=== PATIENT | female | born 1955 | race Caucasian/White ===

== ENCOUNTER 2019-05-29 13:44 | Inpatient (IN) | payer MEDICARE, SELFPAY ==
[2019-05-29] VITALS (17 sets, daily range): BP systolic 94–151; BP diastolic 59–99; PULSE 75–101; RESP 14–28; TEMP 36.9; O2SAT 87–97; BMI 37.2
--- NOTE | 2019-05-29 14:44 | ED_ITS ---
Entered by Yaneli Haas, acting as scribe for Tiffanie Duncan MD, [facility] May 29, 2019 13:44 HPI - SOB/Dyspnea General: Chief Complaint: Shortness of Breath/Dyspnea Stated Complaint: Hypoxia, SOB Time Seen by Provider: 05/29/19 14:44 Source: patient Mode of arrival: EMS Limitations: no limitations History of Present Illness: HPI Narrative: 63 yo f came to the er by ems for shortness of breath. Onset was today. Pt states that her o2 dropped down a lot and her lip started to turn blue. Pt states that she has been coughing and having a tight feeling in her chest. Pts family states that she has vascular dementia. She has a history of COPD on home oxygen at 3 L per MD elicited complaint: shortness of breath and cough Pertinent past history: COPD Timing: constant Severity: moderate Exacerbating factors: nothing Relieving factors: oxygen Known history of: COPD Associated symptoms: Deny abdominal pain, chest pain, fever(s) or polyuria Related Data: Home oxygen amount: 3 liters Review of Systems General: Reports: 10 or more systems reviewed and unremarkable except in HPI and below Const: Denies: fever Eyes: Denies: change in vision ENMT: Denies: throat pain Card: Denies: chest pain Resp: Reports: shortness of breath, productive cough and wheezing GI: Denies: abdominal pain : Denies: flank pain Musc: Denies: neck pain Skin/Breast: Denies: rash Neuro: Denies: headache Psych: Denies: anxiety Endo: Denies: excessive urination Car/Lymph: Denies: easy bruising All/Imm: Denies: hives PFSH ED PFSH: Statuses (acute, chronic, etc) shown below reflect problem list status as previously entered and may not be historically accurate Medical History (Updated 05/30/19 @ 00:43 by Tiffanie Duncan MD, [facility] [place]) Chronic anemia (Acute) Chronic diastolic CHF (congestive heart failure) (Acute) CKD (chronic kidney disease), stage II (Acute) COPD (chronic obstructive pulmonary disease) (Acute) Hypertension (Acute) Morbid obesity (Acute) Pulmonary embolism (Acute) Vascular dementia (Acute) Surgical History (Updated 05/29/19 @ 21:03 by Idania Crow MD) H/O section (Acute) X2 H/O colectomy (Acute) Secondary to severe colitis H/O: hysterectomy (Acute) History of salpingo-oophorectomy (Acute) S/P IVC filter (Acute) Secondary to PE, DVT Family History (Updated 05/29/19 @ 21:02 by Idania Crow MD) Father Lung disease Social History (Updated 05/29/19 @ 23:58 by Idania Crow MD) Smoking and tobacco status: current every day smoker cigarettes Packs smoked per day: 1 Alcohol intake: never Substance/Drug Use: never Household members: family Physical Exam Narrative: EXAM NARRATIVE: On oxygen via nasal cannula. Const: COMMON NORMALS: no apparent distress, average body habitus, oriented x3, no limitations, healthy appearing, alert and well nourished HENMT: COMMON NORMALS: normocephalic, head/scalp atraumatic, hearing grossly normal bilaterally, external ears normal, EAC's normal, TM's normal bilaterally, external nose normal, nasal mucous membranes and turbinates normal, moist oral mucous membranes, oropharynx normal, dentition normal and gingiva normal HEAD & SCALP: normocephalic and atraumatic NOSE: external nose normal and nasal mucous membranes and turbinates normal EXTERNAL EAR: Yes external ears normal EXTERNAL AUDITORY CANAL: EAC's normal TYMPANIC MEMBRANE: TM's normal bilaterally Eye: COMMON NORMALS: PERRL, EOMs intact bilaterally, conjunctivae normal, no scleral icterus and no papilledema CONJUNCTIVA: Yes conjunctivae normal PUPIL: Yes PERRL DIRECT OPHTHALMOSCOPY: Yes no papilledema Neck/C-Spine: COMMON NORMALS: full ROM, supple, no meningeal signs, no JVD and no carotid bruits Chest: COMMONS NORMALS: inspection of chest normal and palpation of chest normal Resp: COMMON NORMALS: normal respiratory effort, no retractions, no use of accessory muscles and percussion normal AUSCULTATION: wheezes throughout and diminished lung sounds PERCUSSION: percussion normal Cardio: COMMON NORMALS: no JVD, regular rhythm, S1 normal heart sound, S2 normal heart sound, no gallops, no clicks, no murmurs, no rub and peripheral pulses 2+ throughout RATE: tachycardic RHYTHM: regular rhythm HEART SOUNDS: S1 normal and S2 normal PERIPHERAL PULSES: pulses 2+ throughout GI: COMMON NORMALS: normal to inspection, nondistended, normoactive bowel sounds, soft to palpation, non-tender, no hepatosplenomegaly, no masses and no bruits PALPATION: Yes soft and Yes no hepatosplenomegaly : COMMON NORMALS: Yes no CVA tenderness BLADDER/KIDNEY EXAM: Yes no CVA tenderness Back/Pelvis: COMMON NORMALS: no CVA tenderness Extremity: COMMON NORMALS: normal to inspection, full ROM, normal capillary refill, no joint enlargement, no clubbing, cyanosis or edema, no calf tenderness and no pedal edema Neuro: COMMON NORMALS: oriented x3 SENSORIUM/ORIENTATION: Yes alert MENINGEAL SIGNS: Yes no meningeal signs Skin: COMMON NORMALS: no rashes or lesions noted, no wounds, skin turgor normal, no jaundice, no petechiae and no mottling GENERAL SKIN EXAM: no rashes or lesions noted and turgor normal Procedures Intubation Time out performed: Yes (2109) sedative: Etomidate Mg Given: 30 paralytic: Succinylcholine Mg Given: 200 Intubation Complications: none Course Consultations: Consultation #1: Dr. Crow, hospitalist. She kindly accepted the patient to her service. Vital Signs: Vital signs: Vital Signs Temperature 98.4 F 05/29/19 13:45 Pulse Rate 79 05/30/19 00:00 Respiratory Rate 16 05/30/19 00:00 Blood Pressure 165/70 05/30/19 00:00 Pulse Oximetry 97 05/30/19 00:00 MDM - SOB/Dyspnea MDM Narrative: Medical decision making narrative: 63-year-old female patient with a history of COPD who came into the emergency department with COPD exacerbation. She was in hypercapnic respiratory failure that failed to respond to BiPAP. She was eventually intubated and mechanically ventilated. She was subsequently admitted to the ICU for further management. Lab Data: Labs: Lab Results 05/29/19 05/29/19 05/29/19 Range/Units 13:28 13:28 13:38 WBC 7.3 (4.0-10.0) 10^3/ uL RBC 4.31 (4.1-5.3) 10^6/u L Hgb 11.3 L (11.5-15.3) g/dL Hct 39.3 (37.0-47.0) % MCV 91.2 (81-99) fL MCH 26.2 L (28.0-34.0) pg MCHC 28.8 L (30.0-36.0) g/dL RDW 13.3 (12.1-15.1) % Plt Count 310 (130-400) 10^3/c mm MPV 10.5 H (7.4-10.4) fL Neut % (Auto) 71.4 % Lymph % (Auto) 14.9 % [place] % (Auto) 7.3 % Eos % (Auto) 5.8 % Baso % (Auto) 0.3 % Neut # (Auto) 5.2 (1.8-7.7) 10^3/u L Lymph # (Auto) 1.1 (0.8-4.8) 10^3/u L [place] # (Auto) 0.5 (0.2-0.9) 10^3/u L Eos # (Auto) 0.4 (0.0-0.8) 10^3/u L Baso # (Auto) 0.0 (0.0-0.1) 10^3/u L Nucleated RBC % (a uto) 0 % Nucleated RBCs # 0.0 /100WBC D-Dimer 0.36 (0-0.59) ug/mIFE U Specimen Type Sample Site ABG pH (7.35-7.45) ABG pCO2 (35-45) mmHg ABG pO2 (80.0-100.0) mmH g ABG HCO3 (22-26) mmol/L ABG O2 Saturation ABG Base Excess (-2.0-2.0) mmol/ L Santiago Test A-a O2 Gradient (5-10) mmHg Hematocrit (37-47) % Hgb O2 Saturation (95-100) % Carboxyhemoglobin (0.4-20.1) %THgb Methemoglobin (0.4-1.5) % Total Hemoglobin (12-16) g/dL Ionized Calcium (1.1-1.4) mmol/L O2 Liters/Min % FiO2 % Freelance [address] Stenographer ID Sodium 133 L (136-145) mmol/L Potassium 4.6 (3.5-5.1) mmol/L Chloride 89 L (98-107) mmol/L Carbon Dioxide 37 H (22-29) mmol/L Anion Gap 11.6 (5-19) BUN 9 (8-23) mg/dL Creatinine 0.5 (0.5-0.9) mg/dL GFR Calculation 123.8 (90-130) mL/min Glucose 115 H (74-106) mg/dL Calcium 9.8 (8.8-10.2) mg/Dl Total Bilirubin 0.2 (0.15-1.2) mg/dL AST 17 (0-32) U/L ALT 9 (0-33) U/L Alkaline Phosphata se 104 (35-105) IU/L NT-Pro-B Natriuret Pep 96 (0-125) pg/mL Total Protein 7.0 (6.6-8.7) g/dL Albumin 3.7 (3.5-5.2) g/dL Globulin 3.3 (1.3-4.6) g/dL Influenza Type A A g (Negative) POC Influenza B Ag (Negative) 05/29/19 05/29/19 05/29/19 Range/Units 15:15 15:21 17:44 WBC (4.0-10.0) 10^3/ uL RBC (4.1-5.3) 10^6/u L Hgb (11.5-15.3) g/dL Hct (37.0-47.0) % MCV (81-99) fL MCH (28.0-34.0) pg MCHC (30.0-36.0) g/dL RDW (12.1-15.1) % Plt Count (130-400) 10^3/c mm MPV (7.4-10.4) fL Neut % (Auto) % Lymph % (Auto) % [place] % (Auto) % Eos % (Auto) % Baso % (Auto) % Neut # (Auto) (1.8-7.7) 10^3/u L Lymph # (Auto) (0.8-4.8) 10^3/u L Yolo # (Auto) (0.2-0.9) 10^3/u L Eos # (Auto) (0.0-0.8) 10^3/u L Baso # (Auto) (0.0-0.1) 10^3/u L Nucleated RBC % (a uto) % Nucleated RBCs # /100WBC D-Dimer (0-0.59) ug/mIFE U Specimen Type Arterial Arterial Sample Site Radial, left Radial, left ABG pH 7.35 7.24 L (7.35-7.45) ABG pCO2 74.5 H* 97.9 H* (35-45) mmHg ABG pO2 43.2 L 69.6 L (80.0-100.0) mmH g ABG HCO3 41.1 H 41.4 H (22-26) mmol/L ABG O2 Saturation 92.5 ABG Base Excess 12.7 H 10.4 H (-2.0-2.0) mmol/ L Santiago Test Pos Pos A-a O2 Gradient 98.9 H (5-10) mmHg Hematocrit 34.5 L 36.3 L (37-47) % Hgb O2 Saturation 78.1 L 90.2 L (95-100) % Carboxyhemoglobin 2.8 2.3 (0.4-20.1) %THgb Methemoglobin 0.3 L 0.2 L (0.4-1.5) % Total Hemoglobin 11.2 L 11.9 L (12-16) g/dL Ionized Calcium 1.3 (1.1-1.4) mmol/L O2 Liters/Min 3.0 % FiO2 32.0 40.0 % [address] Stenographer ID ed ed Sodium 135.0 (136-145) mmol/L Potassium 4.8 (3.5-5.1) mmol/L Chloride (98-107) mmol/L Carbon Dioxide (22-29) mmol/L Anion Gap (5-19) BUN (8-23) mg/dL Creatinine (0.5-0.9) mg/dL GFR Calculation (90-130) mL/min Glucose 145.0 H (74-106) mg/dL Calcium (8.8-10.2) mg/Dl Total Bilirubin (0.15-1.2) mg/dL AST (0-32) U/L ALT (0-33) U/L Alkaline Phosphata se (35-105) IU/L NT-Pro-B Natriuret Pep (0-125) pg/mL Total Protein (6.6-8.7) g/dL Albumin (3.5-5.2) g/dL Globulin (1.3-4.6) g/dL Influenza Type A A g Negative (Negative) POC Influenza B Ag Negative (Negative) 05/29/19 05/29/19 05/29/19 Range/Units 19:16 19:47 20:36 WBC (4.0-10.0) 10^3/ uL RBC (4.1-5.3) 10^6/u L Hgb (11.5-15.3) g/dL Hct (37.0-47.0) % MCV (81-99) fL MCH (28.0-34.0) pg MCHC (30.0-36.0) g/dL RDW (12.1-15.1) % Plt Count (130-400) 10^3/c mm MPV (7.4-10.4) fL Neut % (Auto) % Lymph % (Auto) % [place] % (Auto) % Eos % (Auto) % Baso % (Auto) % Neut # (Auto) (1.8-7.7) 10^3/u L Lymph # (Auto) (0.8-4.8) 10^3/u L [place] # (Auto) (0.2-0.9) 10^3/u L Eos # (Auto) (0.0-0.8) 10^3/u L Baso # (Auto) (0.0-0.1) 10^3/u L Nucleated RBC % (a uto) % Nucleated RBCs # /100WBC D-Dimer (0-0.59) ug/mIFE U Specimen Type Arterial Arterial Arterial Sample Site Radial, right Radial, right Radial, right ABG pH 7.25 L 7.31 L 7.27 L (7.35-7.45) ABG pCO2 93.7 H* 77.9 H* (35-45) mmHg ABG pO2 68.5 L 119.0 H 84.1 (80.0-100.0) mmH g ABG HCO3 41.1 H 39.0 H 41.2 H (22-26) mmol/L ABG O2 Saturation 92.1 96.0 ABG Base Excess 10.7 H 10.1 H 11.0 H (-2.0-2.0) mmol/ L Santiago Test Pos Pos Pos A-a O2 Gradient 104.8 H 162.8 H (5-10) mmHg Hematocrit 34.8 L 34.9 L 35.4 L (37-47) % Hgb O2 Saturation 89.7 L 94.0 L (95-100) % Carboxyhemoglobin 2.1 1.9 (0.4-20.1) %THgb Methemoglobin 0.5 0.2 L (0.4-1.5) % Total Hemoglobin 11.4 L 11.6 L (12-16) g/dL Ionized Calcium 1.2 1.2 (1.1-1.4) mmol/L O2 Liters/Min % FiO2 40.0 50.0 50.0 % [address] Stenographer ID dollynroshan albertoashtyn dollyjuan luisroshan Sodium 136.0 134.0 (136-145) mmol/L Potassium 5.0 5.7 H (3.5-5.1) mmol/L Chloride (98-107) mmol/L Carbon Dioxide (22-29) mmol/L Anion Gap (5-19) BUN (8-23) mg/dL Creatinine (0.5-0.9) mg/dL GFR Calculation (90-130) mL/min Glucose 139.0 H 145.0 H (74-106) mg/dL Calcium (8.8-10.2) mg/Dl Total Bilirubin (0.15-1.2) mg/dL AST (0-32) U/L ALT (0-33) U/L Alkaline Phosphata se (35-105) IU/L NT-Pro-B Natriuret Pep (0-125) pg/mL Total Protein (6.6-8.7) g/dL Albumin (3.5-5.2) g/dL Globulin (1.3-4.6) g/dL Influenza Type A A g (Negative) POC Influenza B Ag (Negative) Imaging Data^: CXR: Radiologist's impression: [address] [address] XRay Report Signed Patient: Roseann Durham #: [id number] : 4Acct#:[id number] Age/Sex: 63 / FADM Date: 05/29/19 Loc: ERRoom/Bed: Attending Dr: Ordering Provider/Ordering MD: Tiffanie Duncan MD, [facility] Date of Service: 05/29/19 Procedure(s): XR chest 1V portable [id number] Accession Number(s): [id number] Report Number: [id number] WS: [id number] Portable AP upright chest, 05/29/2019 Clinical Data: sob Comparison: Portable chest, 03/13/2019. Findings: No nodules, masses or effusions are seen. The heart is slightly enlarged. There is a hiatal hernia behind the heart. The aortic arch and descending aorta show tortuosity. No pneumonia or pneumothorax is present. XR/XR chest 1V portable [id number] Impression: Cardiomegaly and atherosclerosis. Dictated By:Trista Jiang MD Signed By:Trista Jiang MDSigned Date/Time:05/29/191522 DD/ 21 Discharge Plan Discharge Patient Disposition: Admitted As Inpatient Admit Provider: Idania Crow Clinical Impression: Acute on chronic respiratory failure with hypercapnia, Acute exacerbation of chronic obstructive airways disease Condition: Stable Interventions: ED Discharge Assessment Last Done: 05/29/19 22:17 Discharge Date/Time: 05/29/19 22:44 Coding Level of Care Code ED Ironing Machine Operator for Chg Fwd Exam Problem Focused The documentation recorded by the [employer] Stephanie Lyn, accurately reflects the service I personally performed and the decisions made by Dakota alfonso Adegoke I, MD, [facility] May 29, 2019 13:44
--- NOTE | 2019-05-29 14:59 | XR_ITS ---
WS: [id number] Portable AP upright chest, 05/29/2019 Clinical Data: sob Comparison: Portable chest, 03/13/2019. Findings: No nodules, masses or effusions are seen. The heart is slightly enlarged. There is a hiatal hernia behind the heart. The aortic arch and descending aorta show tortuosity. No pneumonia or pneum othorax is present. XR/XR chest 1V portable [id number] Impression: Cardiomegaly and atherosclerosis.
[2019-05-29 15:11] LABS: Basophils % 0.3 %; Eosinophils # 0.4 10^3/uL (0.0-0.8); Eosinophils % 5.8 %; Hematocrit 39.3 % (37.0-47.0); Hemoglobin 11.3 g/dL (11.5-15.3); Lymphocytes # 1.1 10^3/uL (0.8-4.8); Lymphocytes % 14.9 %; Mean Corpuscular HGB Conc 28.8 g/dL (30.0-36.0); Mean Corpuscular Hemoglobin 26.2 pg (28.0-34.0); Mean Corpuscular Volume 91.2 fL (81-99); Mean Platelet Volume 10.5 fL (7.4-10.4); Monocytes # 0.5 10^3/uL (0.2-0.9); Monocytes % 7.3 %; Neutrophils # 5.2 10^3/uL (1.8-7.7); Neutrophils % 71.4 %; Nucleated Red Blood Cells % 0 %; Platelet Count 310 10^3/cmm (130-400); Red Blood Count 4.31 10^6/uL (4.1-5.3); Red Cell Distribution Width 13.3 % (12.1-15.1); White Blood Count 7.3 10^3/uL (4.0-10.0)
[2019-05-29] MEDS: ipratropium-albuterol 3 mL Neb INHALATION (15:19)
[2019-05-29 15:31] LABS: ABG PH Result 7.35 (7.35-7.45); Arterial Blood Gas Hematocrit 34.5 % (37-47); Base Excess ABG 12.7 mmol/L (-2.0-2.0); Blood Gas Allen Test Pos; Blood Gas Sample Site Radial, left; Blood Gas Sample Type Arterial; Carboxyhemoglobin 2.8 %THgb (0.4-20.1); HCO3 ABG 41.1 mmol/L (22-26); HGB O2 Sat 78.1 % (95-100); Methemoglobin 0.3 % (0.4-1.5); PO2 ABG 43.2 mmHg (80.0-100.0); Total Hemoglobin 11.2 g/dL (12-16)
[2019-05-29 15:32] LABS: ABG PCO2 74.5 mmHg (35-45)
[2019-05-29 15:39] LABS: Alanine Aminotransferase 9 U/L (0-33); Albumin Level 3.7 g/dL (3.5-5.2); Alkaline Phosphatase 104 IU/L (35-105); Anion Gap 11.6 (5-19); Aspartate Amino Transferase 17 U/L (0-32); Blood Urea Nitrogen 9 mg/dL (8-23); Calcium 9.8 mg/Dl (8.8-10.2); Carbon Dioxide 37 mmol/L (22-29); Chloride 89 mmol/L (98-107); Globulin 3.3 g/dL (1.3-4.6); Glomerular Filtration Rate 123.8 mL/min (90-130); Glucose 115 mg/dL (74-106); NT Pro B Type Natriuretic Pept 96 pg/mL (0-125); Potassium 4.6 mmol/L (3.5-5.1); Sodium 133 mmol/L (136-145); Total Bilirubin 0.2 mg/dL (0.15-1.2)
[2019-05-29 15:57] LABS: Influenza A by IFA Negative (Negative); Influenza B by IFA Negative (Negative)
[2019-05-29] MEDS: ondansetron 2 mg/ML SDV 2 mL 4 MG IVP (16:07)
[2019-05-29] MEDS: cefTRIAXone 2,000 MG in sodium chloride 0.9% (plus) 50 ML 100 MG IV (16:43)
[2019-05-29 17:56] LABS: ABG PCO2 97.9 mmHg (35-45); ABG PH Result 7.24 (7.35-7.45); Alveolar-Arterial Oxygen Gradi 98.9 mmHg (5-10); Arterial Blood Gas Hematocrit 36.3 % (37-47); Base Excess ABG 10.4 mmol/L (-2.0-2.0); Blood Gas Allen Test Pos; Blood Gas Sample Site Radial, left; Blood Gas Sample Type Arterial; Carboxyhemoglobin 2.3 %THgb (0.4-20.1); HCO3 ABG 41.4 mmol/L (22-26); HGB O2 Sat 90.2 % (95-100); Ionized Calcium Level - ABG 1.3 mmol/L (1.1-1.4); Methemoglobin 0.2 % (0.4-1.5); Oxygen Saturation ABG 92.5; PO2 ABG 69.6 mmHg (80.0-100.0); Potassium Level - ABG 4.8 mmol/L (3.5-5.0); Total Hemoglobin 11.9 g/dL (12-16)
[2019-05-29 18:05] LABS: D Dimer 0.36 ug/mIFEU (0-0.59)
--- NOTE | 2019-05-29 19:06 | PC.NURSE ---
report received from AKHIL Elena and care transferred to AKHIL Starkey
[2019-05-29 19:17] LABS: ABG PCO2 93.7 mmHg (35-45); ABG PH Result 7.25 (7.35-7.45); Alveolar-Arterial Oxygen Gradi 104.8 mmHg (5-10); Arterial Blood Gas Hematocrit 34.8 % (37-47); Base Excess ABG 10.7 mmol/L (-2.0-2.0); Blood Gas Allen Test Pos; Blood Gas Sample Site Radial, right; Blood Gas Sample Type Arterial; Carboxyhemoglobin 2.1 %THgb (0.4-20.1); HCO3 ABG 41.1 mmol/L (22-26); HGB O2 Sat 89.7 % (95-100); Ionized Calcium Level - ABG 1.2 mmol/L (1.1-1.4); Methemoglobin 0.5 % (0.4-1.5); Oxygen Saturation ABG 92.1; PO2 ABG 68.5 mmHg (80.0-100.0); Total Hemoglobin 11.4 g/dL (12-16)
--- NOTE | 2019-05-29 19:26 | ECG_ITS ---
Measurements Intervals [place] Rate: 86 P: 71 IL: 145 QRS: 103 QRSD: 130 T: 51 QT: 360 QTc: 433 SINUS RHYTHM RIGHT AXIS DEVIATION [QRS AXIS > 100] RIGHT BUNDLE BRANCH BLOCK ST ELEVATION, CONSIDER ANTERIOR INJURY ST ELEVATION, CONSIDER INFERIOR INJURY Compared to ECG 03/13/2019 17:07:53 Right-axis deviation now present ST (T wave) deviation now present Myocardial infarct finding now present Indeterminate axis no longer present Electronically Signed On 05-30-2019 17:50:17 SENIOR FINANCIAL REPORTING ANALYST by Coral Winslow M.D. [email or web address]
[2019-05-29 19:48] LABS: ABG PH Result 7.31 (7.35-7.45); Arterial Blood Gas Hematocrit 34.9 % (37-47); Base Excess ABG 10.1 mmol/L (-2.0-2.0); Blood Gas Allen Test Pos; Blood Gas Sample Site Radial, right; Blood Gas Sample Type Arterial
[2019-05-29 19:49] LABS: ABG PCO2 77.9 mmHg (35-45)
--- NOTE | 2019-05-29 20:54 | P.HP_ITS ---
Providers/Chief Complaint Admitting Physician: Idania Crow MD Chief Complaint: Hypoxia, SOB History of Present Illness Roseann Durham is a 63 year old female with PMHx of Chronic diastolic CHF, HTN, hx of DVT/PE s/p IVC filter, Chronic smoker, COPD, s/p colectomy presents from home via EMS with c/o worsening SOB, productive cough, and was found to be in some respiratory distress necessitating placement of BiPAP on her arrival. Patient received a dose of IV steroids en route to the hospital. She is known to me from previous admission and has a history of chronic hypercapnia, baseline PCO2 appears to be in the 80s. She is quite somnolent during my assessment in the ER, currently on continuous BiPAP set on AVAPS. Initial ABG shows PCO2 of 93.7, PO2 of 68. Second ABG shows some improvement in PCO2, currently in the 70s. Patient is still quite somnolent and her volumes seem to decrease when she falls asleep. I am unable to obtain a good history from her due to her lethargy so additional information obtained from review of medical record. She will likely require ICU admission but for now will remain in the ER pending the third ABG to determine if need for intubation. Labs indicate a normal white count at 7.3, mild anemia with a hemoglobin of 11.3, mild hyponatremia with a sodium of 133, normal renal function, chest x-ray is unremarkable for infection, vital signs are stable. On follow up assessment in ED, patient has been intubated, with propofol used for sedation, IVF bolus running. Vital signs stable. at bedside, updated him accordingly. This is the second time patient has required mechanical ventilation due to acute COPD exacerbation, she continues to smoke, 1 PPD despite his efforts to discourage her to do this. Already working on process to get her moved to ICU. Will request OGT placement for med administration. Ortega catheter is already in place, minimal output so far. Review of Systems General: Reports: other (Very limited ROS due to patient's respiratory symptoms) Const: Reports: fatigue and malaise; Denies: fever or chills ENMT: Reports: dry mouth Resp: Reports: shortness of breath, productive cough and chest congestion Skin/Breast: Reports: rash Neuro: Reports: other (Lethargy) Medications/Allergies Home Medications Medication Instructions Recorded Confirmed Last Taken Type albuterol sulfate 2.5 mg INHALATION Q4H PRN 05/29/19 05/29/19 05/29/19 History albuterol sulfate [Ventolin HFA] 1 puff INHALATION DAILY PRN 05/29/19 05/29/19 Unknown History alprazolam 1 mg PO TID PRN 05/29/19 05/29/19 Unknown History apixaban [Eliquis] 5 mg PO BID 05/29/19 05/29/19 05/28/19 History aspirin 81 mg PO DAILY 05/29/19 05/29/19 05/28/19 History furosemide 20 mg PO DAILY 05/29/19 05/29/19 05/28/19 History Allergies Allergy/AdvReac Type Severity Reaction Status Date / Time No Known Allergies Allergy Verified 05/29/19 13:57 PFSH Acute PFSH: Statuses (acute, chronic, etc) shown below reflect problem list status as previously entered and may not be historically accurate Medical History (Updated 05/29/19 @ 21:16 by Idania Crow MD) Chronic anemia (Acute) Chronic diastolic CHF (congestive heart failure) (Acute) CKD (chronic kidney disease), stage II (Acute) COPD (chronic obstructive pulmonary disease) (Acute) Hypertension (Acute) Morbid obesity (Acute) Pulmonary embolism (Acute) Vascular dementia (Acute) Surgical History (Updated 05/29/19 @ 21:03 by Idania Crow MD) H/O section (Acute) X2 H/O colectomy (Acute) Secondary to severe colitis H/O: hysterectomy (Acute) History of salpingo-oophorectomy (Acute) S/P IVC filter (Acute) Secondary to PE, DVT Family History (Updated 05/29/19 @ 21:02 by Idania Crow MD) Father Lung disease Social History (Updated 05/29/19 @ 23:58 by Idania Crow MD) Smoking and tobacco status: current every day smoker cigarettes Packs smoked per day: 1 Alcohol intake: never Substance/Drug Use: never Household members: family Vitals/I&O/Wt Last Vital Signs Temp 98.4 F 05/29/19 13:45 Pulse 97 05/29/19 19:24 Resp 16 05/29/19 19:18 BP 124/82 05/29/19 19:18 Pulse Ox 96 05/29/19 19:24 Weight last 48 hrs Weight 95.254 kg Physical Exam Const: EXAM LIMITATIONS: altered mental status (Somnolent) GENERAL APPEARANCE: lethargic NUTRITIONAL APPEARANCE: obese morbidly obese ORIENTATION/CONSCIOUSNESS: Yes awake and Yes lethargic HENMT: COMMON NORMALS: normocephalic, head/scalp atraumatic and hearing grossly normal bilaterally HEAD & SCALP: normocephalic and atraumatic MOUTH: moist mucous membranes abnormal Details: parched Eye: COMMON NORMALS: PERRL, EOMs intact bilaterally and conjunctivae normal CONJUNCTIVA: Yes conjunctivae normal PUPIL: Yes PERRL Neck/C-Spine: COMMON NORMALS: full ROM GENERAL: Yes normal visual inspection and Yes trachea midline Resp: EFFORT & INSPECTION: Yes symmetric chest movement and No tachypneic AUSCULTATION: clear to auscultation bilaterally, rhonchi throughout and diminished lung sounds bilateral OTHER: Currently on BiPAP, AVAPs (VT-500/FiO2-50%); low lung volumes whenever she falls asleep Cardio: COMMON NORMALS: regular rate, regular rhythm, S1 normal heart sound, S2 normal heart sound and no murmurs RATE: regular rate RHYTHM: regular rhythm HEART SOUNDS: S1 normal and S2 normal GI: COMMON NORMALS: normal to inspection, nondistended, normoactive bowel sounds, soft to palpation and non-tender PALPATION: Yes soft OTHER: Ileostomy on the right; minimal amount of solid stool Extremity: COMMON NORMALS: normal to inspection, full ROM and no clubbing, cyanosis or edema; negative for no pedal edema Neuro: COMMON NORMALS: moves all extremities, no focal motor deficits and no sensory deficits noted SENSORIUM/ORIENTATION: Yes somnolent Skin: COMMON NORMALS: no rashes or lesions noted, no jaundice, no petechiae and no mottling GENERAL SKIN EXAM: no rashes or lesions noted Data : 05/29/19 13:28 05/29/19 13:28 A&P Assessment and plan (1) Acute on chronic respiratory failure with hypercapnia: -Presented in significant respiratory distress, noted significant hypercapnia and hypoxia on initial ABG, placed on BiPAP, currently set on AVAPS -Repeat ABG shows some improvement in hypercapnia though still significant PCO2, Paxil has resolved -Review of medical record shows that she is chronically hypercapnic with PCO2 in the 80s at baseline -Very low threshold for intubation given clinical presentation, continued somnolence -Will require ICU admission for close monitoring -chest x-ray unremarkable -No leukocytosis -Received IV steroids en route to the hospital; continue this -Empiric antibiotics with Levaquin -Neb treatments -Keep n.p.o. for now Status: Acute Code(s): J96.22 - Acute and chronic respiratory failure with hypercapnia (2) COPD (chronic obstructive pulmonary disease): -Has history of oxygen dependent COPD previous baseline oxygen was about 3 to 4 L -Management of this as noted above Status: Acute Qualifiers: COPD type: COPD with acute exacerbation Qualified Code(s): J44.1 - Chronic obstructive pulmonary disease with (acute) exacerbation Code(s): J44.9 - Chronic obstructive pulmonary disease, unspecified Additional A&P Information -Chronic diastolic CHF; no acute exacerbation -HTN -hx of PE, DVT s/p IVC filter, on AC with Eliquis -Chronic smoker -hx of severe colitis s/p colectomy and ileostomy. indicated that livan nt is interested in finding out about reversal of ileostomy. Advised him that patient will have to follow up with surgeon at [facility] who performed the initial surgery -Morbid obesity: BMI-37 kg/m2 -Vascular dementia, hx of CVA, TIA -Chronic microcytic anemia; baseline Hg is 8-11; current H/H stable -CKD stage 2; baseline Cr wnl -keep NPO for now due to respiratory symptoms and low threshold for decompensation -fall precautions, bedrest for now -place Ortega catheter for accurate Is & Os given respiratory illness -GI ppx with PPI -DVT ppx not needed as on Eliquis -Dispo: home -Code status: FULL code -admit to ICU due to vent support Attestations Medical Necessity Statement*: Roseann Durham's hospital stay will require greater than 2 midnights for management of acute on chronic hypercapnic and hypoxic respiratory failure, acute COPD exacerbation, currently on vent support, ICU admission. Time Spent in Patient Care: Greater than 35 minutes (>than 50% of time spent in counselling and/or direct pt care on unit) . Critical Care Time: The high probability of a clinically significant, sudden or life threatening deterioration of the patient's [respiratory] system(s) required my full and direct attention, intervention and personal management. The critical care time is as shown. This time is in addition to time spent performing any reported procedures but includes the following: [x] Data and vital sign review and interpretation [x] Patient assessment, examination and intervention [x] Documentation [x] Medication orders and management Critical care time: less than 30 mins Coding Level of Care Code Acute Business Control Manager for [facility] Fwd Diagnoses Acute on chronic respiratory failure with hypercapnia J96.22 COPD (chronic obstructive pulmonary disease) J44.1 COPD type: COPD with acute exacerbation
[2019-05-29] MEDS: succinylcholine 20 mg/mL SDV 10mL 200 MG IVP (21:20)
[2019-05-29] MEDS: propofol 1,000 MG/100 ML INJ 5.7 MG IV (21:21)
[2019-05-29] MEDS: vecuronium 10 mg SDV IVP (21:37)
--- NOTE | 2019-05-29 21:41 | XR_ITS ---
WS: [id number] CHEST XRAY TECHNIQUE: Portable chest. CLINICAL INFORMATION: post intubation COMPARISON: FINDINGS: Endotracheal tube with tip above the cristina. Enteric tube with tip below the diaphragm. Heart: Cardiomegaly. Lungs: Chronic emphysematous changes with interstitial thickening due to edema or pneumonitis. No foc al pneumonia. Bones: Normal visualized bony structures. XR/XR chest 1V portable [id number] IMPRESSION: 1. Endotracheal tube with tip above the cristina measuring approximately 4 cm. 2. Enteric tube with tip below the diaphragm. 3. Chronic emphysematous changes with interstitial thickening is unchanged.
[2019-05-29] MEDS: sodium chloride 0.9% 1,000 ML 999 ML IV (21:44)
--- NOTE | 2019-05-29 21:45 | PC.NURSE ---
Patient intubated by Dr. Duncan with 8.0 ET tube at approx 23 cm at lip
[2019-05-29] MEDS: levofloxacin-dextrose 5 % 750 MG/150 ML PREMIX 150 MG IV (23:30)
[2019-05-30] VITALS (27 sets, daily range): BP systolic 93–165; BP diastolic 58–88; PULSE 73–101; RESP 15–23; TEMP 36.7–37.3; O2SAT 90–98
[2019-05-30 00:38] LABS: ABG PH Result 7.27 (7.35-7.45); Alveolar-Arterial Oxygen Gradi 162.8 mmHg (5-10); Arterial Blood Gas Hematocrit 35.4 % (37-47); Blood Gas Allen Test Pos; Blood Gas Sample Site Radial, right; Blood Gas Sample Type Arterial; Carboxyhemoglobin 1.9 %THgb (0.4-20.1); HCO3 ABG 41.2 mmol/L (22-26); Ionized Calcium Level - ABG 1.2 mmol/L (1.1-1.4); Methemoglobin 0.2 % (0.4-1.5); PO2 ABG 84.1 mmHg (80.0-100.0); Potassium Level - ABG 5.7 mmol/L (3.5-5.0); Total Hemoglobin 11.6 g/dL (12-16)
[2019-05-30 00:55] LABS: ABG PCO2 90.6 mmHg (35-45)
[2019-05-30] MEDS: propofol 1,000 MG/100 ML INJ 28.6 MG IV ×3 (01:14→21:02)
[2019-05-30] MEDS: ipratropium-albuterol 3 mL Neb INHALATION ×4 (02:53→19:56)
[2019-05-30 04:22] LABS: Basophils % 0.2 %; Eosinophils % 0.1 %; Hematocrit 33.7 % (37.0-47.0); Hemoglobin 10.2 g/dL (11.5-15.3); Lymphocytes # 0.4 10^3/uL (0.8-4.8); Mean Corpuscular HGB Conc 30.3 g/dL (30.0-36.0); Mean Corpuscular Hemoglobin 26.5 pg (28.0-34.0); Mean Corpuscular Volume 87.5 fL (81-99); Monocytes # 0.4 10^3/uL (0.2-0.9); Monocytes % 5.2 %; Neutrophils # 7.3 10^3/uL (1.8-7.7); Nucleated Red Blood Cells % 0 %; Platelet Count 289 10^3/cmm (130-400); Red Blood Count 3.85 10^6/uL (4.1-5.3); Red Cell Distribution Width 13.2 % (12.1-15.1); White Blood Count 8.2 10^3/uL (4.0-10.0)
[2019-05-30 04:41] LABS: Anion Gap 11.4 (5-19); Blood Urea Nitrogen 17 mg/dL (8-23); Calcium 9.5 mg/Dl (8.8-10.2); Carbon Dioxide 36 mmol/L (22-29); Chloride 87 mmol/L (98-107); Glomerular Filtration Rate 100.3 mL/min (90-130); Glucose 106 mg/dL (74-106); Potassium 5.4 mmol/L (3.5-5.1); Sodium 129 mmol/L (136-145)
[2019-05-30 04:56] LABS: ABG PH Result 7.38 (7.35-7.45); Arterial Blood Gas Hematocrit 31.9 % (37-47); Base Excess ABG 12.7 mmol/L (-2.0-2.0); Blood Gas Allen Test Pos; Blood Gas Sample Site Radial, right; Blood Gas Sample Type Arterial; Blood Gas Tidal Volume 0.4; HCO3 ABG 40.2 mmol/L (22-26); PO2 ABG 60.8 mmHg (80.0-100.0)
[2019-05-30] MEDS: propofol 1,000 MG/100 ML INJ 17.1 MG IV (08:32)
[2019-05-30] MEDS: FUROsemide 20 mg Tablet OG-TUBE (08:33)
[2019-05-30] MEDS: apixaban 5 mg Tablet OG-TUBE ×2 (08:33→18:50)
[2019-05-30] MEDS: aspirin 81 mg Chew Tablet OG-TUBE (08:33)
[2019-05-30] MEDS: pantoprazole DR 40 mg Tablet OG-TUBE (08:33)
--- NOTE | 2019-05-30 09:05 | ECG_ITS ---
Measurements Intervals [place] Rate: 93 P: 71 [place]: 145 QRS: 70 QRSD: 129 T: 36 QT: 345 QTc: 430 SINUS RHYTHM RIGHT BUNDLE BRANCH BLOCK ST ELEVATION, CONSIDER ANTERIOR INJURY ST ELEVATION, CONSIDER INFERIOR INJURY Compared to ECG 03/13/2019 17:07:53 ST (T wave) deviation now present Myocardial infarct finding now present Indeterminate axis no longer present Electronically Signed On 05-30-2019 17:50:06 EXPRESSIVE THERAPIST by Coral Winslow M.D. [id number]
[2019-05-30 10:54] LABS: Troponin(5th) Baseline 18 ng/mL (0-10)
[2019-05-30 13:21] LABS: Troponin 5 2HR 19.55 ng/mL (0-10); Troponin 5 2HR Delta 1.55 ABS# (0-10)
[2019-05-30] MEDS: propofol 1,000 MG/100 ML INJ 22.9 MG IV (13:27)
--- NOTE | 2019-05-30 14:48 | PM.PN ---
Subjective Subjective: Interval history: She wakes up easily. Complains of pain in her throat. No pain elsewhere. Vitals/I&O/Wt Last Vital Signs Temp 99.2 F 05/30/19 08:00 Pulse 101 H 05/30/19 14:00 Resp 15 05/30/19 14:00 BP 124/74 05/30/19 14:00 Pulse Ox 93 05/30/19 14:00 05/29/19 05/30/19 05/30/19 22:59 06:59 14:59 Intake Total 1057.885 / 1057.885 342.115 / 1400.000 184.075 / 184.075 Output Total 700 / 700 Balance 1057.885 / 1057.885 342.115 / 1400.000 -515.925 / -515.925 Weight last 48 hrs Weight 95.311 kg Weight 95.254 kg Physical Exam Const: COMMON NORMALS: no apparent distress HENMT: COMMON NORMALS: oropharynx normal Neck/C-Spine: COMMON NORMALS: no JVD Resp: COMMON NORMALS: normal respiratory effort AUSCULTATION: wheezes and diminished lung sounds Cardio: COMMON NORMALS: no JVD, regular rhythm, S1 normal heart sound, S2 normal heart sound and no murmurs RHYTHM: regular rhythm HEART SOUNDS: S1 normal and S2 normal GI: COMMON NORMALS: normal to inspection, nondistended, normoactive bowel sounds, soft to palpation and non-tender PALPATION: Yes soft Extremity: COMMON NORMALS: no joint enlargement and no pedal edema Neuro: COMMON NORMALS: moves all extremities Skin: COMMON NORMALS: no rashes or lesions noted GENERAL SKIN EXAM: no rashes or lesions noted Urinary Catheter Management^: Ortega: Cath Placed During This Visit: no Data Micro: Micro: Microbiology 05/29/19 21:20 Gram Stain - Final Sputum - Endotrac heal Tube Aspirate Sputum Culture - P reliminary A&P Assessment and plan (1) Acute on chronic respiratory failure with hypercapnia: Continue ventilatoy support. 60% FiO2 this morning. Plentiful secretions. Continue IV steroid, antibiotic, breathing treatments. Pulmonary toilet. Sputum culture. Assess troponin and EKG series. STEMI reported on EKG appears to be secondary to early repolarization, with similar findings on prior EKGs. She has no chest pain. Troponin is minimally elevated. Start low rate tube feeds w water flushes. Status: Acute Code(s): J96.22 - Acute and chronic respiratory failure with hypercapnia (2) COPD (chronic obstructive pulmonary disease): Baseline oxygen was about 3 to 4 L as noted above Status: Acute Qualifiers: COPD type: COPD with acute exacerbation Qualified Code(s): J44.1 - Chronic obstructive pulmonary disease with (acute) exacerbation Code(s): J44.9 - Chronic obstructive pulmonary disease, unspecified Additional A&P Information Laryngeal pain: chloraseptic spray, morphine as needed. Monitor cuff inflation pressure. Chronic diastolic CHF; no acute exacerbation HTN hx of PE, DVT s/p IVC filter, on AC with Eliquis Chronic smoker Hx of severe colitis s/p colectomy and ileostomy. indicated that patient is interested in finding out about reversal of ileostomy. Advised him that patient will have to follow up with surgeon at [facility] who performed the initial surgery Morbid obesity: BMI-37 kg/m2 Vascular dementia, hx of CVA, TIA Chronic microcytic anemia; baseline Hg is 8-11; current H/H stable CKD stage 2; baseline Cr wnl Attestations Medical Necessity Statement*: Continue admission assessment and management of acute respiratory failure with hypoxia and hypercapnia. Critical Care Time: Assessment of respiratory status, mechanical ventilation, readiness for extubation. Critical care time: less than 30 mins Coding Level of Care Code Acute Master [employer] for [employer] Lozoya Diagnoses Acute on chronic respiratory failure with hypercapnia J96.22 COPD (chronic obstructive pulmonary disease) J44.1 COPD type: COPD with acute exacerbation
--- NOTE | 2019-05-30 15:05 | ECG_ITS ---
Measurements Intervals [place] Rate: 91 P: 69 [place]: 146 QRS: 81 QRSD: 131 T: 40 QT: 352 QTc: 433 SINUS RHYTHM RIGHT BUNDLE BRANCH BLOCK ST ELEVATION, CONSIDER ANTERIOR INJURY MARKED ST ELEVATION, CONSIDER INFERIOR INJURY Compared to ECG 03/13/2019 17:07:53 ST (T wave) deviation now present Myocardial infarct finding now present Indeterminate axis no longer present Electronically Signed On 05-30-2019 17:52:53 AGRONOMY LOCATION MANAGER by Coral Winslow M.D. [id number]
[2019-05-30] MEDS: propofol 1,000 MG/100 ML INJ 25.7 MG IV (17:27)
[2019-05-30 18:00] LABS: Troponin 5 6HR 19.84 ng/L (0-10); Troponin 5 6HR Delta 1.84 ng/L (0-12)
[2019-05-30] MEDS: levofloxacin-dextrose 5 % 750 MG/150 ML PREMIX 150 MG IV (23:00)
[2019-05-31] VITALS (48 sets, daily range): BP systolic 105–151; BP diastolic 65–110; PULSE 87–113; RESP 16–44; TEMP 36.9–37.6; O2SAT 89–98
[2019-05-31] MEDS: ipratropium-albuterol 3 mL Neb INHALATION ×5 (03:00→23:52)
[2019-05-31] MEDS: propofol 1,000 MG/100 ML INJ 28.6 MG IV ×3 (04:27→11:34)
[2019-05-31 04:30] LABS: ABG PCO2 52.3 mmHg (35-45); ABG PH Result 7.47 (7.35-7.45); Arterial Blood Gas Hematocrit 33.8 % (37-47); Base Excess ABG 12.7 mmol/L (-2.0-2.0); Blood Gas Allen Test Pos; Blood Gas Sample Site Radial, right; Blood Gas Sample Type Arterial; Blood Gas Tidal Volume 0.4; HCO3 ABG 38.1 mmol/L (22-26); PO2 ABG 61.8 mmHg (80.0-100.0)
[2019-05-31 04:50] LABS: Basophils % 0.1 %; Hematocrit 33.7 % (37.0-47.0); Hemoglobin 10.4 g/dL (11.5-15.3); Lymphocytes # 0.5 10^3/uL (0.8-4.8); Lymphocytes % 4.3 %; Mean Corpuscular HGB Conc 30.9 g/dL (30.0-36.0); Mean Corpuscular Hemoglobin 26.1 pg (28.0-34.0); Mean Corpuscular Volume 84.7 fL (81-99); Mean Platelet Volume 10.6 fL (7.4-10.4); Monocytes # 0.1 10^3/uL (0.2-0.9); Monocytes % 0.8 %; Neutrophils # 11.2 10^3/uL (1.8-7.7); Neutrophils % 94.5 %; Nucleated Red Blood Cells % 0 %; Platelet Count 324 10^3/cmm (130-400); Red Blood Count 3.98 10^6/uL (4.1-5.3); Red Cell Distribution Width 13.1 % (12.1-15.1); White Blood Count 11.8 10^3/uL (4.0-10.0)
[2019-05-31 05:11] LABS: Alanine Aminotransferase 11 U/L (0-33); Albumin Level 3.7 g/dL (3.5-5.2); Alkaline Phosphatase 108 IU/L (35-105); Anion Gap 12.8 (5-19); Aspartate Amino Transferase 19 U/L (0-32); Blood Urea Nitrogen 27 mg/dL (8-23); Calcium 9.6 mg/Dl (8.8-10.2); Carbon Dioxide 35 mmol/L (22-29); Chloride 84 mmol/L (98-107); Globulin 3.6 g/dL (1.3-4.6); Glomerular Filtration Rate 62.8 mL/min (90-130); Glucose 135 mg/dL (74-106); Potassium 4.8 mmol/L (3.5-5.1); Sodium 127 mmol/L (136-145); Total Bilirubin 0.2 mg/dL (0.15-1.2); Total Protein 7.3 g/dL (6.6-8.7)
--- NOTE | 2019-05-31 06:00 | XR_ITS ---
WS: [id number] CHEST XRAY TECHNIQUE: Portable chest. CLINICAL INFORMATION: on vent support COMPARISON: FINDINGS: Endotracheal tube with tip 3.9 cm above the cristina. Enteric tube with tip below the diaphragm. Heart: Normal cardiac silhouette. Lungs: Chronic emphysematous changes. Mild pulmonary vascular congestion with interstitial thickening improved since . Trace pleural fluid. No focal pneumonia. Bones: Normal visualized bony structures. XR/XR chest 1V portable [id number] IMPRESSION: 1. Endotracheal tube with tip 3.9 cm above the cristina. Enteric tube with tip b elow the diaphragm. 2. Mild interstitial edema improved since . Trace pleural fluid. 3. No focal pneumonia.
[2019-05-31] MEDS: apixaban 5 mg Tablet OG-TUBE (08:09)
[2019-05-31] MEDS: aspirin 81 mg Chew Tablet OG-TUBE (08:09)
[2019-05-31] MEDS: FUROsemide 20 mg Tablet OG-TUBE (08:09)
[2019-05-31] MEDS: pantoprazole DR 40 mg Tablet OG-TUBE (08:09)
--- NOTE | 2019-05-31 12:51 | USCV_ITS ---
Roseann Durham Age: 63 Gender: F : 1955 Exam Date: 05/31/2019 15:08 Ordering Phys: Isma Londono MD Technologist: Napoleon Vick [place] [facility] [place]: HYPOXIAM, PUL HTN BP: 147 / 85 HR: 111 Rhythm: Sinus Technical Quality: Technically difficult study MEASUREMENTS (Male / Female) Normal Values 2D ECHO LV Diastolic Diameter PLAX 3.5 cm 4.2 - 5.9 / 3.9 - 5.3 cm LV Systolic Diameter PLAX 2.9 cm IVS Diastolic Thickness 1.2 cm 0.6 - 1.0 / 0.6 - 0.9 cm IVS Systolic Thickness 1.1 cm LVPW Diastolic Thickness 1.4 cm 0.6 - 1.0 / 0.6 - 0.9 cm LVPW Systolic Thickness 1.5 cm LVOT Diameter 2.0 cm LV Ejection Fraction 2D Teich 40.9 % LV Ejection Fraction MOD 2C 62.7 % LV Ejection Fraction 2C AL 62.1 % LA Diameter 4.2 cm LA Width 3.5 cm LA Height 5.0 cm RA Width 3.7 cm RA Height 4.8 cm M-MODE LV Diastolic Diameter MM 5.3 cm 4.2 - 5.9 / 3.9 - 5.3 cm LV Systolic Diameter MM 2.9 cm LV Ejection Fraction MM Teich 76.0 % IVS Diastolic Thickness MM 0.9 cm 0.6 - 1.0 / 0.6 - 0.9 cm IVS Systolic Thickness MM 1.6 cm LVPW Diastolic Thickness MM 1.1 cm 0.6 - 1.0 / 0.6 - 0.9 cm LVPW Systolic Thickness MM 2.1 cm RV Diastolic Diameter MM 1.2 cm Aortic Annulus Diameter 3.0 cm LA Ao Ratio MM 1.4 MV E Point Septal Separation 0.6 cm DOPPLER AV Peak Velocity 202.0 cm/s LVOT Peak Velocity 136.0 cm/s AV Area Cont Eq vti 2.4 cm squared AV Area Cont Eq pk 2.2 cm squared MV Area PHT 5.0 cm squared Mitral E to A Ratio 0.7 MV E' Velocity 11.0 cm/s Mitral E to MV E' Ratio 10.3 Mitral E to LV E' Lateral Ratio 8.8 Mitral E to LV E' Septal Ratio 12.6 TR Peak Velocity 395.0 cm/s TR Peak Gradient 62.5 mmHg Right Atrial Pressure 7.0 mmHg Pulmonary Artery Systolic Pressu 69.4 mmHg FINDINGS Left Ventricle Technically difficult study because of the poor ultrasonic window. Normal left ventricular size and systolic function, EF 66 %. No gross wall motion normalities noted. Some features of grade 1 left ventricular diastolic dysfunction Right Ventricle Right ventricle appears to be dilated with a normal ejection fraction. Right Atrium Possibly of normal size. Could not be visualized well. Left Atrium Appears to be of normal size. Mitral Valve Mild mitral annular calcification was noted. No gross leaflet abnormalities visualized Aortic Valve Thickened aortic valve. Tricuspid Valve Moderate tricuspid valve regurgitation. Pulmonary hypertension with an estimated pulmonary artery peak systolic pressure of 70 mmHg Pulmonic Valve Pulmonic valve not well visualized. Pericardium No pericardial effusion. Aorta Normal aortic annulus size. CONCLUSIONS Normal left ventricular size and systolic function, EF 66 %. No gross wall motion normalities noted. Some features of grade 1 left ventricular diastolic dysfunction. Right ventricle appears to be dilated with a normal ejection fraction. Moderate tricuspid valve regurgitation. Pulmonary hypertension with an estimated pulmonary artery peak systolic pressure of 70 mmHg. Thickened aortic and mitral valves Technically difficult study because of the poor ultrasonic window. Comparison with the previous study is difficult because of the difference in the technical quality. Dr Alan Elena MD FACC (Electronically Signed) Final Date: 31 May 2019 20:38 S
--- NOTE | 2019-05-31 13:06 | PC.CHAP ---
Pastoral Care Encounter/Spiritual Assessment Type of Contact [] Declined chief embalmer visit [] Patient/Family/Request visit [] Outpatient visit [] Follow-up visit [] Physician referral [] Code/Alert [x] Routine visit [] Staff referral [] Actively dying x] Patient sleeping [] Family support [] [] Out of room [] Palliative care [] [] Receiving care in room [] Pre-surgical visit [] Trauma [] Long length of stay [] ICU visit [x] Other:life support Relational/Emotional Strength [] Patient feels connected with others/family/visitors/staff [] Distress [] Loneliness/isolation [] Abandonment Spirituality of Patient [] Person of Laura [] Attends Congregation of their Laura [] Believes in Prayer [] Reads Bible or Protestant materials [] There are Spiritual issues to be addressed Scrubbing Machine Operator Interventions [x] Prayer [] Active listening [] Non-anxious presence [] Spiritual/emotional support [] Crisis/trauma care [] Spiritual counseling [] Bereavement support [] Provided bereavement packet [] Provided Bible/devotional materials [] Provided toy/stuffed animal, coloring book to patient or family member [] Completed spiritual assessment [] Provided Communion [] Anointing/[place] [] Salvation [] Other: Impact on Illness or Injury [] Angry [] Fearful [] Anxious [] Often cries [] Exhaustion [] Unable to work [] Unable to attend zoroastrianism [] Unable to walk/stand [] Unable to read [] Unable to drive [] Unable to eat/drink [] Unable to sleep [] Unable to be with family [] Other: Summary The patient was on life support and was asleep. Time spent with patient 7 min.
[2019-05-31] MEDS: propofol 1,000 MG/100 ML INJ 17.2 MG IV (16:22)
--- NOTE | 2019-05-31 17:17 | P.CONIM_ITS ---
Providers/Reason For Consult Consulting Physican/Specialty*: Pulmonary and critical care Reason for Consult*: Respiratory failure requiring mechanical ventilation Attending Physician: Isma Londono History of Present Illness History of Present Illness Roseann Durham is a 63 year old female who has a very complicated past medical history. I performed a thorough review of her past medical record. It appears that the patient has a diagnosis of COPD, chronic hypercapnic and hypoxic respiratory failure requiring 3 L of oxygen for many many years. Interestingly, review of the patient's CT scan reveals a very minimal emphysema involving bilateral upper lobes. The earliest documentation I can find is from 2006. The patient at that time on a blood gas had a PCO2 of 51. I wonder whether the patient had obesity hypoventilation syndrome all along and was mistakenly given a diagnosis of COPD because of the CO2 retention. The patient does have a history of smoking however and unable to quantify the amount. I did not find any pulmonary function test. However I did find a pulmonary function test result that said mixed obstructive and restrictive defect which was severe in nature. The patient has the earliest documentation of a PE and being on anticoagulation since 2009. From my review of chart, the patient is most likely on anticoagulation since 2009. She used to be on Coumadin and is currently on apixaban. The patient have had multiple hospital admissions and was intubated several times for her acute on chronic respiratory failure. The patient had a CT scan of her chest in January 2019 that showed significant enlargement of pulmonary artery. There was again minimal emphysema in bilateral upper lobes. I could not find any V/Q scans that has ever been performed on the patient. Interestingly, the recent CT scans also showed interlobular septal thickening with centrilobular nodule especially in the upper lobes. This time the patient presented to the hospital with similar presentation with acute on chronic hypercapnic respiratory failure. She was initially tried with BiPAP however subsequently she required intubation. I was asked to evaluate the patient today. The patient is intubated and sedated however she is able to follow commands and answer simple questions by nodding her head. I have performed a bedside ultrasound which showed significantly dilated right ventricle with septal displacement towards the left ventricle. There was thickening of the right ventricular muscle including the moderator band. The tricuspid regurgitation velocity was 3.8 m/s. I have reviewed the patient's previous echocardiograms as well. The last echocardiogram was performed in 2018. In comparison to echocardiograms performed before there has been progression of the tricuspid regurgitation velocity. The patient is currently intubated and being ventilated with a controlled mode mechanical ventilation. Interestingly, the expiratory flow loop did not show any scooping. However the patient does have significant obesity and restrictive lung disease secondary to that which could be misleading. On the chart, the patient has a diagnosis of heart failure with preserved ejection fraction however I could not find any echocardiogram where there was any significant diastolic dysfunction or evidence of high filling pressures. None of the CAT scans show any evidence of pleural effusion. Review of Systems Narrative: Unable to obtain because of the clinical status. Meds/Allergies Home Medications and Allergies Home Medications Medication Instructions Recorded Confirmed Type albuterol sulfate 2.5 mg INHALATION Q4H PRN 05/29/19 05/29/19 History albuterol sulfate [Ventolin HFA] 1 puff INHALATION DAILY PRN 05/29/19 05/29/19 History alprazolam 1 mg PO TID PRN 05/29/19 05/29/19 History apixaban [Eliquis] 5 mg PO BID 05/29/19 05/29/19 History aspirin 81 mg PO DAILY 05/29/19 05/29/19 History furosemide 20 mg PO DAILY 05/29/19 05/29/19 History Allergies Allergy/AdvReac Type Severity Reaction Status Date / Time No Known Allergies Allergy Verified 05/29/19 13:57 Current Medications Current Medications Generic Name Dose Route Start Last Admin Trade Name Freq PRN Reason Stop Dose Admin Albuterol/Ipratropium 3 ml 05/29/19 22:57 05/31/19 14:16 Duoneb INHALATION 3 ml Q6H.RESPIRATORY PRN Administration SHORTNESS OF BREATH Apixaban 5 mg 05/30/19 09:00 05/31/19 08:09 Eliquis OG-TUBE 5 mg BID EB Administration Aspirin 81 mg 05/30/19 09:00 05/31/19 08:09 Aspirin Chewable OG-TUBE 81 mg DAILY EB Administration Furosemide 20 mg 05/30/19 09:00 05/31/19 08:09 Lasix OG-TUBE 20 mg DAILY EB Administration Levofloxacin/Dextrose 750 mg in 150 mls @ 150 mls/hr 05/29/19 23:00 05/31/19 00:00 Levaquin-D5w IV Infused Q24H EB Infusion Protocol Fentanyl 1,000 mcg/ Sodium 100 mls @ 0 mls/hr 05/31/19 12:45 05/31/19 15:16 Chloride IV 50 mcg/hr .Q0M EB 5 mls/hr Titration Protocol Per Protocol Propofol 1,000 mg in 100 mls @ 0 mls/hr 05/31/19 16:00 05/31/19 16:22 Diprivan IV 30 mcg/kg/min .Q0M EB 17.2 mls/hr Administration Protocol Per Protocol Pantoprazole Sodium 40 mg 05/30/19 09:00 05/31/19 08:09 Protonix OG-TUBE 40 mg DAILY EB Administration PFSH Acute PFSH: Statuses (acute, chronic, etc) shown below reflect problem list status as previously entered and may not be historically accurate Medical History Chronic anemia (Acute) Chronic diastolic CHF (congestive heart failure) (Acute) CKD (chronic kidney disease), stage II (Acute) COPD (chronic obstructive pulmonary disease) (Acute) Hypertension (Acute) Morbid obesity (Acute) Pulmonary embolism (Acute) Vascular dementia (Acute) Surgical History H/O section (Acute) X2 H/O colectomy (Acute) Secondary to severe colitis H/O: hysterectomy (Acute) History of salpingo-oophorectomy (Acute) S/P IVC filter (Acute) Secondary to PE, DVT Family History Father Lung disease Social History Smoking and tobacco status: current every day smoker cigarettes Packs smoked per day: 1 Alcohol intake: never Substance/Drug Use: never Household members: family Vitals/I&O/Wt Last Vital Signs Temp 99.6 F 05/31/19 14:00 Pulse 109 H 05/31/19 16:00 Resp 25 H 05/31/19 16:21 BP 130/110 05/31/19 16:00 Pulse Ox 90 05/31/19 16:00 05/31/19 05/31/19 05/31/19 06:59 14:59 22:59 Intake Total 250 / 1009.422 197.717 / 197.717 100.917 / 298.634 Balance 250 / -590.578 197.717 / 197.717 100.917 / 298.634 Weight last 48 hrs Weight 210 lb 2 oz Physical Exam Narrative: EXAM NARRATIVE: General: Patient is intubated and sedated, easily arousable and follows commands HEENT: Pupil bilateral symmetric, light reflex present, extraocular muscle movement intact Neck: Elevated JVP, no cervical or supraclavicular lymphadenopathy. Respiratory: Auscultation: Bilateral vesicular breath sound, occasional rhonchi, no crackles or wheezing Cardiovascular: Regular rate and rhythm, S1-S2 present, no murmur, no peripheral edema. Abdomen: Soft, distended from obesity, positive bowel sound Musculoskeletal: No obvious joint deformity Skin: No rash Neuro: The patient is able to follow commands and move her extremities. Urinary Catheter Management^: Ortega: Cath Placed During This Visit: no Data Micro: Micro: Microbiology 05/29/19 21:20 Gram Stain - Final Sputum - Endotrac heal Tube Aspirate Sputum Culture - P reliminary Other Data: Other data: I have reviewed the laboratory and microbiology data. The chest x-ray obtained today does not reveal any evidence of hyperinflation. There is hilar fullness which is consistent with pulmonary artery enlargement. Arterial blood gas is consistent with respiratory alkalosis at this point. The patient lives with a PCO2 in the high 60s to 70s. A&P Assessment and plan (1) Acute on chronic respiratory failure with hypercapnia: The patient's acute on chronic respiratory failure is possibly secondary to decompensated right heart failure. The patient most likely has obesity hypoventilation syndrome however there is no way to be certain in the absence of a complete pulmonary function test. The expiratory flow time loop on the ventilator is not consistent with severe airway obstruction. There are multiple reasons why this patient can have pulmonary hypertension. Obesity hypoventilation syndrome can cause pulmonary hypertension. COPD and significant emphysema or bronchitis can also cause pulmonary hypertension. 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 The patient also has evidence of moderate mitral regurgitation so there could be a component from the cardiac e tiology as well. However on the previous echocardiogram there had never been any evidence of elevated left-sided filling pressure. The patient also has interlobular septal thickening with centrilobular nodule on the CT scan which can be seen in the case of pulmonary venoocclusive disease as well as pulmonary capillary hemangiomatosis. The patient is currently on anticoagulation with Eliquis. I will perform a right heart catheterization tomorrow to differentiate between the pre-and post capillary pulmonary arterial hypertension. Patient with WHO group 3 pulmonary hypertension usually has a mean pulmonary arterial pressure around 35. I am going to cut down the steroid dose that the patient is receiving for a diagnosis of COPD exacerbation. I am not certain how much this is contributing to her respiratory failure. Status: Acute Code(s): J96.22 - Acute and chronic respiratory failure with hypercapnia (2) Hyponatremia: The patient most likely has hypervolemic hyponatremia. She would need diuresis. I am going to perform diuresis once I have the right heart catheter in place tomorrow. Status: Acute Code(s): E87.1 - Hypo-osmolality and hyponatremia Coding Level of Care Code Acute Senior Operations Manager for [facility] Fwd Diagnoses Acute on chronic respiratory failure with hypercapnia J96.22 Hyponatremia E87.1 Time Spent (min) 73
--- NOTE | 2019-05-31 19:44 | NUR.SHIFT ---
received report patient was moved from room [address] Lipscomb here will place lei lala in patient tomorrow am.for wedge pressures. patient is currently on vent support and is still requiring high o2.tube feeding infusing at 30ml hr and water flush 100 q 4 hour. pang intact dark straw color urine and output is poor. very cloudy. on q 2 hour turn schedule to prevent skin breakdown. 18 guage iv infusing fentanyl anad propofol for sedation and pain. patient resp are even and non labored on vent at this time. bs are positive all four quads abdomen is obese soft and non tender.
--- NOTE | 2019-05-31 20:01 | P.PN_ITS ---
Subjective Subjective: Interval history: She denies any pain today. Breathing is comfortable with ventilatory support. Vitals/I&O/Wt Last Vital Signs Temp 98.9 F 05/31/19 18:00 Pulse 98 05/31/19 18:00 Resp 18 05/31/19 18:05 BP 126/76 05/31/19 18:00 Pulse Ox 92 05/31/19 18:00 05/31/19 05/31/19 05/31/19 06:59 14:59 22:59 Intake Total 250 / 1009.422 197.717 / 197.717 760.917 / 958.634 Output Total 400 / 400 Balance 250 / -590.578 197.717 / 197.717 360.917 / 558.634 Weight last 48 hrs Weight 95.311 kg Physical Exam Const: COMMON NORMALS: no apparent distress HENMT: COMMON NORMALS: oropharynx normal Neck/C-Spine: COMMON NORMALS: no JVD Resp: COMMON NORMALS: normal respiratory effort AUSCULTATION: wheezes and d iminished lung sounds Cardio: COMMON NORMALS: no JVD, regular rhythm, S1 normal heart sound, S2 normal heart sound and no murmurs RHYTHM: regular rhythm HEART SOUNDS: S1 normal and S2 normal GI: COMMON NORMALS: normal to inspection, nondistended, normoactive bowel sounds, soft to palpation and non-tender PALPATION: Yes soft Extremity: COMMON NORMALS: no joint enlargement and no pedal edema Neuro: COMMON NORMALS: moves all extremities Skin: COMMON NORMALS: no rashes or lesions noted GENERAL SKIN EXAM: no rashes or lesions noted Urinary Catheter Management^: Ortega: Cath Placed During This Visit: no Data Micro: Micro: Microbiology 05/29/19 21:20 Gram Stain - Final Sputum - Endotrac heal Tube Aspirate Sputum Culture - P reliminary A&P Assessment and plan (1) Acute on chronic respiratory failure with hypercapnia: Persistent hypoxia. Continues to require significant FiO2. This morning he did take 60%. PEEP had to be increased yesterday to 10. Continue IV steroid, dose to be reduced per pulmonology recommendations, ant ibiotic, breathing treatments. Pulmonary toilet. Follow sputum culture. Discussed with pulmonology. Appreciate recommendations. Additional investigations planned with right heart catheterization for additional assessment of pulmonary hypertension, in the setting of mitral regurgitation. Eliquis is held. Low rate tube feeds w water flushes as tolerating. Status: Acute Code(s): J96.22 - Acute and chronic respiratory failure with hypercapnia (2) COPD (chronic obstructive pulmonary disease): Baseline oxygen was about 3 to 4 L as noted above Status: Acute Qualifiers: COPD type: COPD with acute exacerbation Qualified Code(s): J44.1 - Chronic obstructive pulmonary disease with (acute) exacerbation Code(s): J44.9 - Chronic obstructive pulmonary disease, unspecified Additional A&P Information Laryngeal pain: Resolved. Chloraseptic spray, morphine as needed. Monitor cuff inflation pressure. Hyponatremia: Concern for possible hypervolemic hyponatremia. Limit IV fluids. Reassessment for diuresis after right heart catheterization. Chronic diastolic CHF; no acute exacerbation HTN hx of PE, DVT s/p IVC filter, on AC with Eliquis Chronic smoker Hx of severe colitis s/p colectomy and ileostomy. indicated that patient is interested in finding out about reversal of ileostomy. Advised him that patient will have to follow up with surgeon at [facility] who performed the initial surgery Morbid obesity: BMI-37 kg/m2 Vascular dementia, hx of CVA, TIA Chronic microcytic anemia; baseline Hg is 8-11; current H/H stable CKD stage 2; baseline Cr wnl Attestations Medical Necessity Statement*: Continue admission for assessment management of acute on chronic respiratory failure. Coding Level of Care Code Acute Supervisor Order Takers for Denis Fwd Diagnoses Acute on chronic respiratory failure with hypercapnia J96.22 COPD (chronic obstructive pulmonary disease) J44.1 COPD type: COPD with acute exacerbation
[2019-05-31] MEDS: levofloxacin-dextrose 5 % 750 MG/150 ML PREMIX 150 MG IV (23:30)
[2019-06-01] VITALS (71 sets, daily range): BP systolic 91–138; BP diastolic 58–81; PULSE 90–108; RESP 14–28; TEMP 36.4–38.5; O2SAT 87–97
[2019-06-01] MEDS: propofol 1,000 MG/100 ML INJ 17.2 MG IV ×2 (01:33→18:06)
[2019-06-01] MEDS: ipratropium-albuterol 3 mL Neb INHALATION ×6 (03:58→23:34)
[2019-06-01 04:59] LABS: Basophils % 0.1 %; Hematocrit 31.8 % (37.0-47.0); Hemoglobin 9.9 g/dL (11.5-15.3); Lymphocytes # 0.8 10^3/uL (0.8-4.8); Lymphocytes % 5.2 %; Mean Corpuscular HGB Conc 31.1 g/dL (30.0-36.0); Mean Corpuscular Hemoglobin 25.3 pg (28.0-34.0); Mean Corpuscular Volume 81.1 fL (81-99); Mean Platelet Volume 10.2 fL (7.4-10.4); Monocytes # 1.3 10^3/uL (0.2-0.9); Monocytes % 8.4 %; Neutrophils # 13.1 10^3/uL (1.8-7.7); Neutrophils % 85.8 %; Nucleated Red Blood Cells % 0 %; Platelet Count 352 10^3/cmm (130-400); Red Blood Count 3.92 10^6/uL (4.1-5.3); Red Cell Distribution Width 13.2 % (12.1-15.1); White Blood Count 15.3 10^3/uL (4.0-10.0)
[2019-06-01 05:07] LABS: ABG PCO2 66.4 mmHg (35-45); Blood Gas Allen Test POS; HCO3 ABG 41.2 mmol/L (22-26); Oxygen Device VENT; PO2 ABG 86.1 mmHg (80.0-100.0)
[2019-06-01 05:08] LABS: Blood Gas Sample Type ARTERIAL
[2019-06-01 05:20] LABS: Alanine Aminotransferase 21 U/L (0-33); Albumin Level 3.6 g/dL (3.5-5.2); Alkaline Phosphatase 87 IU/L (35-105); Anion Gap 12.4 (5-19); Aspartate Amino Transferase 26 U/L (0-32); Blood Urea Nitrogen 33 mg/dL (8-23); Calcium 9.2 mg/Dl (8.8-10.2); Carbon Dioxide 35 mmol/L (22-29); Chloride 85 mmol/L (98-107); Globulin 3.2 g/dL (1.3-4.6); Glucose 103 mg/dL (74-106); Potassium 4.4 mmol/L (3.5-5.1); Sodium 128 mmol/L (136-145); Total Bilirubin 0.3 mg/dL (0.15-1.2); Total Protein 6.8 g/dL (6.6-8.7)
--- NOTE | 2019-06-01 09:23 | P.PN_ITS ---
Subjective Subjective: Interval history: She denies any pain. Currently breathing is okay, earlier was feeling somewhat short of breath. Vitals/I&O/Wt Last Vital Signs Temp 98.6 F 06/01/19 07:16 Pulse 100 06/01/19 08:02 Resp 19 H 06/01/19 09:12 BP 124/79 06/01/19 07:16 Pulse Ox 92 06/01/19 07:20 05/31/19 06/01/19 06/01/19 22:59 06:59 14:59 Intake Total 1020.917 / 1218.634 340 / 1558.634 84.25 / 84.25 Output Total 400 / 400 Balance 620.917 / 818.634 340 / 1158.634 84.25 / 84.25 Physical Exam Const: COMMON NORMALS: no apparent distress HENMT: COMMON NORMALS: oropharynx normal Neck/C-Spine: COMMON NORMALS: no JVD Resp: COMMON NORMALS: normal respiratory effort AUSCULTATION: wheezes and diminished lung sounds Cardio: COMMON NORMALS: no JVD, regular rhythm, S1 normal heart sound, S2 normal heart sound and no murmurs RHYTHM: regular rhythm HEART SOUNDS: S1 normal and S2 normal GI: COMMON NORMALS: normal to inspection, nondistended, normoactive bowel sounds, soft to palpation and non-tender PALPATION: Yes soft Extremity: COMMON NORMALS: no joint enlargement and no pedal edema Neuro: COMMON NORMALS: moves all extremities Skin: COMMON NORMALS: no rashes or lesions noted GENERAL SKIN EXAM: no rashes or lesions noted Urinary Catheter Management^: Ortega: Cath Placed During This Visit: no Data Micro: Micro: Microbiology 05/29/19 21:20 Gram Stain - Final Sputum - Endotrac heal Tube Aspirate Sputum Culture - F inal A&P Assessment and plan (1) Acute on chronic respiratory failure with hypercapnia: Still requiring 65% FiO2. Plan is for right heart catheterization today. Continue IV steroid, reduced per pulmonology to 30 mg daily, antibiotic, breathing treatments. Pulmonary toilet. Sputum culture with mixed aristeo. Additional investigations planned by pulmonology with right heart catheterization for additional assessment of pulmonary hypertension, in the setting of mitral regurgitation. Eliquis is held. Ordered SCDs. Tube feeds held. Status: Acute Code(s): J96.22 - Acute and chronic respiratory failure with hypercapnia (2) COPD (chronic obstructive pulmonary disease): Baseline oxygen was about 3 to 4 L as noted above Status: Acute Qualifiers: COPD type: COPD with acute exacerbation Qualified Code(s): J44.1 - Chronic obstructive pulmonary disease with (acute) exacerbation Code(s): J44.9 - Chronic obstructive pulmonary disease, unspecified Additional A&P Information Laryngeal pain: Resolved. Chloraseptic spray, morphine as needed. Monitor cuff inflation pressure. Hyponatremia: Concern for possible hypervolemic hyponatremia. Limit IV fluids. Reassessment for diuresis after right heart catheterization. Chronic diastolic CHF; no acute exacerbation HTN hx of PE, DVT s/p IVC filter, on AC with Eliquis Chronic smoker Hx of severe colitis s/p colectomy and ileostomy. indicated that patient is interested in finding out about reversal of ileostomy. Advised him that pat ient will have to follow up with surgeon at [facility] who performed the initial surgery Morbid obesity: BMI-37 kg/m2 Vascular dementia, hx of CVA, TIA Chronic microcytic anemia; baseline Hg is 8-11; current H/H stable CKD stage 2; baseline Cr wnl Attestations Medical Necessity Statement*: Continue admission for assessment of of acute on chronic respiratory failure with hypoxia and hypercapnia. Critical Care Time: In addition to noncritical issues 8 minutes critical care time spent on assessment of respiratory status, oxygenation, ventilatory support, review of therapy, antibiotic. Arrangements for right heart catheterization. Plan discussed with patient who is in agreement. Critical Care Time (min): 8 Coding Level of Care Code Acute Child Protective Services Social Worker for Denis Lozoya Diagnoses Acute on chronic respiratory failure with hypercapnia J96.22 COPD (chronic obstructive pulmonary disease) J44.1 COPD type: COPD with acute exacerbation
[2019-06-01] MEDS: pantoprazole DR 40 mg Tablet OG-TUBE (09:34)
[2019-06-01] MEDS: aspirin 81 mg Chew Tablet OG-TUBE (09:34)
[2019-06-01] MEDS: FUROsemide 20 mg Tablet OG-TUBE (09:35)
--- NOTE | 2019-06-01 09:43 | PC.SOCIAL ---
Pg 2 of IMM was explained to and signed by patient's daughter, patient was sleeping. Copy was provided and form placed in chart. She verbalized understanding and had no questions.
--- NOTE | 2019-06-01 12:02 | PC.NURSE ---
swan spike catheter insertion in progress
[2019-06-01 13:32] LABS: ABG PH Result 7.39 (7.35-7.45); Arterial Blood Gas Hematocrit 36.2 % (37-47); Base Excess ABG 10.6 mmol/L (-2.0-2.0); Carboxyhemoglobin 0.9 %THgb (0.4-20.1); HCO3 ABG 37.8 mmol/L (22-26); HGB O2 Sat 79.6 % (95-100); Ionized Calcium Level - ABG 1.1 mmol/L (1.1-1.4); Methemoglobin 0.8 % (0.4-1.5); PO2 ABG 47.5 mmHg (80.0-100.0); Potassium Level - ABG 3.4 mmol/L (3.5-5.0); Total Hemoglobin 11.8 g/dL (12-16)
[2019-06-01 13:33] LABS: ABG PH Result 7.37 (7.35-7.45); Arterial Blood Gas Hematocrit 47.8 % (37-47); Blood Gas Sample Type Not specified; Carboxyhemoglobin 0.7 %THgb (0.4-20.1); HCO3 ABG 38.6 mmol/L (22-26); Ionized Calcium Level - ABG 1.1 mmol/L (1.1-1.4); Methemoglobin 0.6 % (0.4-1.5); PO2 ABG 40.5 mmHg (80.0-100.0); Potassium Level - ABG 3.4 mmol/L (3.5-5.0); Total Hemoglobin 15.6 g/dL (12-16)
[2019-06-01] MEDS: midazolam 1 mg/mL INJ 2 mL 2 MG (13:57)
--- NOTE | 2019-06-01 14:01 | PC.NURSE ---
VENKATESHANZ Insertion by Dr Lipscomb, assisted by AKHIL Cherry. Received only 2mg Versed IV during procedure.
--- NOTE | 2019-06-01 16:14 | XR_ITS ---
WS: [id number] Portable AP upright chest, 06/01/2019 Clinical Data: post PAC placement Comparison: Portable chest, 05/31/2019 Findings: A pulmonary artery catheter has been inserted via a right internal jugular entry. The tip o f the right pulmonary catheter ends in the right pulmonary artery. The endotracheal tube and nasogast nicole tube remain the same. The pulmonary vascularity is not increased. No pneumonia or pneumothorax is seen. The heart size is nonremarkable. There is minimal left basilar atelectasis. There is metal art ifact overlying the upper chest which may represent a dressing. Monitor leads on the chest wall. XR/XR chest 1V portable [id number] Impression: 1. Insertion of pulmonary artery catheter. 2. No change from prior chest x-ray
--- NOTE | 2019-06-01 16:18 | PM.ACPR ---
Procedure/Consent Time out: Time Out Performed: Yes Consent: Consent for Procedure: Consent obtained from patient Procedure Narrative: Name of the procedure: Right internal jugular vein Cordis insertion under ultrasound guidance Indication: Access for right heart catheterization Anesthesia: The patient was sedated with fentanyl and propofol. Additional 1% lidocaine 10 mL was used locally. Description of the procedure: The right internal jugular vein was identified under ultrasound guidance from collapsibility and lack of pulsatility. The site was prepared using sterile technique. The skin and subcutaneous tissue was anesthetized with 1% lidocaine under ultrasound guidance. The introducer needle was advanced until flashback was noted under ultrasound guidance. Dark nonpulsatile blood was noted. Using Seldinger technique the Cordis was inserted. Blood return was noted from the side-port. The Cordis was sutured in place. Complication: None. Acute Procedures Epistaxis Control: Time out performed: Yes
--- NOTE | 2019-06-01 16:22 | PM.ACPR ---
Procedure/Consent Time out: Time Out Performed: Yes Consent: Consent for Procedure: Consent obtained from patient Procedure Narrative: Name of the procedure: Right heart catheterization Indication: Severe elevation of right ventricular systolic pressure on echocardiogram Anesthesia: The patient was sedated with propofol and fentanyl. Description of the procedure: The pulmonary catheter was prepared by checking the integrity of the balloon at the catheter tip. The RV and RA ports were flushed and capped. The catheter was inserted through the Cordis and advanced 15 cm. The balloon was then inflated and locked. The catheter was then inserted through the RA RV and was then advanced to diastolic stepup was noted. The position of the catheter was confirmed by the pressure waveforms. The catheter was advanced to pulmonary capillary wedge pressure was obtained. The following hemodynamic parameters were obtained: Pulmonary artery systolic pressure 40 mmHg Pulmonary artery diastolic pressure 27 mmHg Mean pulmonary artery pressure 31 mmHg Pulmonary capillary wedge pressure 12 CVP 9 mmHg Mean arterial pressure 84 mmHg Cardiac output by thermodilution 7.5 L/min Cardiac index 3.9 L/m? Pulmonary vascular resistance 2.53 Cohen unit Systemic vascular resistance 10 Cohen unit The catheter was secured and left in place at 55 cm. Acute Procedures Epistaxis Control: Time out performed: Yes
[2019-06-01] MEDS: FUROsemide 10 mg/mL SDV 4mL 40 MG IVP (16:24)
--- NOTE | 2019-06-01 16:38 | P.PN_ITS ---
Subjective Subjective: Interval history: The patient was seen and examined today. She continues to be intubated however she is easily arousable and follows Commands and tries to answer questions. The patient underwent right heart catheterization today which was consistent with moderate pulmonary hypertension consistent with WHO group 3 pulmonary hypertension. The patient however easily desaturates with reduction of FiO2 fraction on the ventilator. Medications: Reviewed: Yes Vitals/I&O/Wt Last Vital Signs Temp 98.6 F 06/01/19 07:16 Pulse 92 06/01/19 15:35 Resp 16 06/01/19 15:33 BP 103/63 06/01/19 14:30 Pulse Ox 92 06/01/19 15:35 06/01/19 06/01/19 06/01/19 06:59 14:59 22:59 Intake Total 340 / 1558.634 174.25 / 174.25 Balance 340 / 1158.634 174.25 / 174.25 Physical Exam Narrative: EXAM NARRATIVE: General: Patient is intubated and sedated, easily arousable and follows commands HEENT: Pupil bilateral symmetric, light reflex present, extraocular muscle movement intact Neck: Elevated JVP, no cervical or supraclavicular lymphadenopathy. Respiratory: Auscultation: Bilateral vesicular breath sound, occasional rhonchi, no crackles or wheezing Cardiovascular: Regular rate and rhythm, S1-S2 present, no murmur, no peripheral edema. Abdomen: Soft, distended from obesity, positive bowel sound Musculoskeletal: No obvious joint deformity Skin: No rash Neuro: The patient is able to follow commands and move her extremities. Urinary Catheter Management^: Ortega: Cath Placed During This Visit: no Data Micro: Micro: Microbiology 05/29/19 21:20 Gram Stain - Final Sputum - Endotrac heal Tube Aspirate Sputum Culture - F inal Other Data: Other data: I have reviewed the patient's laboratory data. A&P Assessment and plan (1) Acute on chronic respiratory failure with hypercapnia: The patient continues to be ventilator dependent and is requiring high FiO2. The patient is currently getting treated for an acute exacerbation of COPD. She underwent right heart catheterization today which revealed moderate pulmonary hypertension without any RV failure. There was no evidence of elevated left heart filling pressures. I am going to diurese the patient and see if that helps with titration of the FiO2 down. She has been treated with antibiotic and steroid and bronchodilator for the COPD exacerbation. I will attempt to extubate her tomorrow. Currently she is not ready. Status: Acute Code(s): J96.22 - Acute and chronic respiratory failure with hypercapnia (2) Acute exacerbation of chronic obstructive airways disease: Unfortunately, I do not have any previous pulmonary function test that shows me the objective data regarding her pulmonary function. We will continue the current therapy and reevaluate her tomorrow for possible extubation attempt. I have resumed the Eliquis. Status: Acute Code(s): J44.1 - Chronic obstructive pulmonary disease with (acute) exacerbation Attestations Medical Necessity Statement*: Will defer to the primary team Critical Care Time: Critical Care Time (min): 39 Coding Level of Care Code Acute Soap Chipper for Denis Lozoya Diagnoses Acute on chronic respiratory failure with hypercapnia J96.22 Acute exacerbation of chronic obstructive airways disease J44.1
[2019-06-01 18:32] LABS: Oxygen Device NC
[2019-06-01 18:56] LABS: ABG PCO2 62.6 mmHg (35-45); ABG PCO2 67.6 mmHg (35-45)
[2019-06-02] VITALS (117 sets, daily range): BP systolic 91–130; BP diastolic 61–84; PULSE 81–117; RESP 16–24; TEMP 37.3; O2SAT 81–95
[2019-06-02] MEDS: levofloxacin-dextrose 5 % 750 MG/150 ML PREMIX 150 MG IV (00:15)
[2019-06-02] MEDS: propofol 1,000 MG/100 ML INJ 28.6 MG IV (01:04)
[2019-06-02] MEDS: ipratropium-albuterol 3 mL Neb INHALATION ×5 (03:00→20:44)
[2019-06-02] MEDS: propofol 1,000 MG/100 ML INJ 14.4 MG IV ×4 (03:36→22:22)
[2019-06-02 05:38] LABS: ABG PH Result 7.45 (7.35-7.45); Arterial Blood Gas Hematocrit 31.8 % (37-47); Base Excess ABG 15.5 mmol/L (-2.0-2.0); Blood Gas Allen Test Pos; Blood Gas Sample Site Radial, right; Blood Gas Sample Type Arterial; Blood Gas Tidal Volume 0.45; HCO3 ABG 41.8 mmol/L (22-26)
--- NOTE | 2019-06-02 06:00 | XR_ITS ---
WS: [id number] CHEST XRAY TECHNIQUE: Portable chest. CLINICAL INFORMATION: Hypoxia COMPARISON: 06 01,020 FINDINGS: Endotracheal tube with tip above the cristina measuring 3.7 cm. Enteric tube with tip below the diaphra gm. Right IJ sheath.[place] catheter. Heart: Normal cardiac silhouette. Lungs: Chronic emphysematous changes. Small left pleural effusion. Stable mild pulmonary vascular con gestion. Bones: Normal visualized bony structures. XR/XR chest 1V portable [id number] IMPRESSION: 1. Stable small left pleural effusion. Mild pulmonary vascular congestion. 2. Endotracheal tube with tip above the cristina. Enteric tube with tip below th e diaphragm. 3. Right IJ sheath and [place] catheter. 4. No new infiltrates.
[2019-06-02 06:25] LABS: Basophils % 0.1 %; Eosinophils # 0.2 10^3/uL (0.0-0.8); Eosinophils % 1.7 %; Hematocrit 33.3 % (37.0-47.0); Hemoglobin 10.1 g/dL (11.5-15.3); Lymphocytes # 1.1 10^3/uL (0.8-4.8); Lymphocytes % 9.9 %; Mean Corpuscular HGB Conc 30.3 g/dL (30.0-36.0); Mean Corpuscular Hemoglobin 26.2 pg (28.0-34.0); Mean Corpuscular Volume 86.3 fL (81-99); Mean Platelet Volume 10.1 fL (7.4-10.4); Monocytes % 8.9 %; Neutrophils # 8.7 10^3/uL (1.8-7.7); Neutrophils % 79.1 %; Nucleated Red Blood Cells % 0 %; Platelet Count 311 10^3/cmm (130-400); Red Blood Count 3.86 10^6/uL (4.1-5.3); Red Cell Distribution Width 13.5 % (12.1-15.1)
[2019-06-02 06:42] LABS: Alanine Aminotransferase 55 U/L (0-33); Albumin Level 3.5 g/dL (3.5-5.2); Alkaline Phosphatase 88 IU/L (35-105); Anion Gap 15.5 (5-19); Aspartate Amino Transferase 62 U/L (0-32); Blood Urea Nitrogen 29 mg/dL (8-23); Carbon Dioxide 36 mmol/L (22-29); Chloride 87 mmol/L (98-107); Globulin 3.4 g/dL (1.3-4.6); Glucose 93 mg/dL (74-106); Potassium 3.5 mmol/L (3.5-5.1); Sodium 135 mmol/L (136-145); Total Bilirubin 0.3 mg/dL (0.15-1.2); Total Protein 6.9 g/dL (6.6-8.7)
[2019-06-02] MEDS: pantoprazole DR 40 mg Tablet OG-TUBE (08:26)
[2019-06-02] MEDS: aspirin 81 mg Chew Tablet OG-TUBE (08:26)
[2019-06-02] MEDS: apixaban 5 mg Tablet OG-TUBE ×2 (08:26→17:22)
[2019-06-02] MEDS: potassium chloride oral liq 20 mEq/15 mL UDC OG-TUBE (08:26)
--- NOTE | 2019-06-02 09:42 | PM.PN ---
Subjective Subjective: Interval history: Wakes up easily. She denies any pain. Reports that breathing is currently comfortable. Vitals/I&O/Wt Last Vital Signs Temp 98.6 F 06/01/19 19:00 Pulse 111 H 06/02/19 09:30 Resp 19 H 06/02/19 09:17 BP 121/64 06/02/19 09:30 Pulse Ox 92 06/02/19 09:30 06/01/19 06/02/19 06/02/19 22:59 06:59 14:59 Intake Total 259.917 / 534.250 582.453 / 1116.703 87.36 / 87.36 Output Total 2800 / 2800 400 / 3200 Balance -2540.083 / -2265.750 182.453 / -2083.297 87.36 / 87.36 Physical Exam Const: COMMON NORMALS: no apparent distress HENMT: COMMON NORMALS: oropharynx normal Neck/C-Spine: COMMON NORMALS: no JVD Resp: COMMON NORMALS: normal respiratory effort AUSCULTATION: no wheezes and diminished lung sounds Cardio: COMMON NORMALS: no JVD, regular rhythm, S1 normal heart sound, S2 normal heart sound and no murmurs RHYTHM: regular rhythm HEART SOUNDS: S1 normal and S2 normal GI: COMMON NORMALS: normal to inspection, nondistended, normoactive bowel sounds, soft to palpation and non-tender PALPATION: Yes soft Extremity: COMMON NORMALS: no joint enlargement and no pedal edema Neuro: COMMON NORMALS: moves all extremities Skin: COMMON NORMALS: no rashes or lesions noted GENERAL SKIN EXAM: no rashes or lesions noted Urinary Catheter Management^: Ortega: Cath Placed During This Visit: no Data : 06/02/19 05:00 06/02/19 05:00 Micro: Microbiology 05/29/19 21:20 Gram Stain - Final Sputum - Endotracheal Tube Aspirate Sputum Culture - Final A&P Assessment and plan (1) Acute on chronic respiratory failure with hypercapnia: Persistent hypoxia, requiring 75% FiO2, PEEP 12 Moderate pulmonary hypertension on right heart cath. Consistent with group 3. In addition to COPD exacerbation. Wedge pressure was 11 yesterday. Today 17. Continue Lasix. Continue IV 30 mg Solu-Medrol, antibiotic, breathing treatments. Pulmonary toilet. Sputum culture with mixed aristeo. Eliquis resumed. Status: Acute Code(s): J96.22 - Acute and chronic respiratory failure with hypercapnia (2) COPD (chronic obstructive pulmonary disease): Baseline oxygen was about 3 to 4 L as noted above Status: Acute Qualifiers: COPD type: COPD with acute exacerbation Qualified Code(s): J44.1 - Chronic obstructive pulmonary disease with (acute) exacerbation Code(s): J44.9 - Chronic obstructive pulmonary disease, unspecified Additional A&P Information Laryngeal pain: Resolved. Chloraseptic spray, morphine as needed. Monitor cuff inflation pressure. Hyponatremia: Concern for possible hypervolemic hyponatremia. Limit IV fluids. Lasix. Chronic diastolic CHF; no acute exacerbation HTN hx of PE, DVT s/p IVC filter, on AC with Eliquis Chronic smoker Hx of severe colitis s/p colectomy and ileostomy. indicated that patient is interested in finding out about reversal of ileostomy. Advised him that patient will have to follow up with surgeon at [facility] who performed the initial surgery Morbid obesity: BMI-37 kg/m2 Vascular dementia, hx of CVA, TIA Chronic microcytic anemia; baseline Hg is 8-11; current H/H stable CKD stage 2; baseline Cr wnl Attestations Medical Necessity Statement*: Continue admission for assessment of respiratory failure with hypoxia. Coding Level of Care Code Acute Director Of Nurses Registry for Denis Lozoya Diagnoses Acute on chronic respiratory failure with hypercapnia J96.22 COPD (chronic obstructive pulmonary disease) J44.1 COPD type: COPD with acute exacerbation
[2019-06-02 10:26] LABS: Oxygen Device VENT
--- NOTE | 2019-06-02 11:47 | PC.NURSE ---
repositioned and oral care done at this time fentynl gtt infused at this time rate was increased prior and bag infused
--- NOTE | 2019-06-02 14:33 | P.PN_ITS ---
Subjective Subjective: Interval history: The patient was seen and examined. She continues to be intubated and require high amount of oxygen. Overnight her oxygen requirement went up to 85%. After diuresis were able to bring down the FiO2 to 70%. On chest x-ray today the patient does not have any significant evidence of a consolidative process. The patient is easily arousable and follows commands. Medications: Reviewed: Yes Vitals/I&O/Wt Last Vital Signs Temp 98.6 F 06/01/19 19:00 Pulse 99 06/02/19 13:30 Resp 17 06/02/19 13:51 BP 126/73 06/02/19 13:30 Pulse Ox 91 06/02/19 13:30 06/01/19 06/02/19 06/02/19 22:59 06:59 14:59 Intake Total 259.917 / 534.250 582.453 / 1116.703 187.36 / 187.36 Output Total 2800 / 2800 400 / 3200 Balance -2540.083 / -2265.750 182.453 / -2083.297 187.36 / 187.36 Physical Exam Narrative: EXAM NARRATIVE: General: Patient is intubated and sedated, easily arousable and follows commands HEENT: Pupil bilateral symmetric Neck: No JVD, no cervical or supraclavicular lymphadenopathy. Respiratory: Auscultation: Bilateral diffuse wheezing and rhonchi, no crackles Cardiovascular: Regular rate and rhythm, S1-S2 present, no murmur, no periphe ral edema. Abdomen: Soft, distended from obesity, positive bowel sound Musculoskeletal: No obvious joint deformity Skin: No rash Neuro: The patient is able to follow commands and move her extremities. Urinary Catheter Management^: Ortega: Cath Placed During This Visit: no Data : 06/02/19 05:00 06/02/19 05:00 Micro: Microbiology 05/29/19 21:20 Gram Stain - Final Sputum - Endotracheal Tube Aspirate Sputum Culture - Final Other Xray: My impression: The chest x-ray today did not reveal any infiltrate. Other data: The right heart catheter revealed a wedge pressure of 17 this morning and the patient was diuresed with Lasix. The mean pulmonary artery pres sure was 37 with a cardiac index of 3.1/m? A&P Assessment and plan (1) Acute on chronic respiratory failure with hypercapnia: The patient still has significant FiO2 requirement to maintain adequate saturation. The patient has done well with diuresis and we were able to come down on the FiO2. We will continue to treat her with Levaquin. I have increased the dose of Solu- Medrol to 40 mg twice a day. We will continue with DuoNeb and Pulmicort nebulization. Titrate the FiO2 down slowly. The plan is to continue the diuresis and take the pulmonary artery catheter out on Wednesday. We will continue with the anticoagulation with Eliquis. As described in my previous note, the elevation of the mean pulmonary arterial pressure is secondary to her end-stage lung disease. I have discussed the care plan with the family and I will follow her next week. Status: Acute Code(s): J96.22 - Acute and chronic respiratory failure with hypercapnia (2) Acute exacerbation of chronic obstructive airways disease: Continue with the supportive therapy as stated before.. Status: Acute Code(s): J44.1 - Chronic obstructive pulmonary disease with (acute) exacerbation Attestations Medical Necessity Statement*: Will defer to the primary team Coding Level of Care Code Acute Physical Instructor for [facility] Fwd Diagnoses Acute on chronic respiratory failure with hypercapnia J96.22 Acute exacerbation of chronic obstructive airways disease J44.1 Time Spent (min) 39
[2019-06-02] MEDS: FUROsemide 10 mg/mL SDV 4mL 40 MG IVP (16:42)
[2019-06-02] MEDS: budesonide 0.5 mg/2 mL Neb INHALATION (20:43)
--- NOTE | 2019-06-02 20:46 | PC.NURSE ---
patient currently on vent support woth swan spike cath in place for acurate pa pressures. diuresing well clear yellow urine, edema is much improved from yesterday patient is waking up and writing notes . alert and oriented and can follow commands grand daughter is at bedside with patient. pang is draining clear yellow urine > 100 hr. . fio2 has been tapered down to 60 at this time. proofol and fentanyl infusing without difficulty.
[2019-06-02] MEDS: levofloxacin-dextrose 5 % 750 MG/150 ML PREMIX 100 MG IV (23:55)
[2019-06-03] VITALS (67 sets, daily range): BP systolic 100–131; BP diastolic 63–93; PULSE 71–108; RESP 15–22; TEMP 36.8–37.4; O2SAT 85–97
[2019-06-03] MEDS: ipratropium-albuterol 3 mL Neb INHALATION ×6 (00:08→20:01)
[2019-06-03] MEDS: FUROsemide 10 mg/mL SDV 4mL 40 MG IVP ×3 (00:47→20:03)
[2019-06-03] MEDS: propofol 1,000 MG/100 ML INJ 14.4 MG IV ×4 (03:17→22:37)
[2019-06-03 05:14] LABS: Basophils % 0.1 %; Eosinophils % 0.2 %; Hematocrit 32.7 % (37.0-47.0); Hemoglobin 9.9 g/dL (11.5-15.3); Lymphocytes # 0.7 10^3/uL (0.8-4.8); Lymphocytes % 5.2 %; Mean Corpuscular HGB Conc 30.3 g/dL (30.0-36.0); Mean Corpuscular Hemoglobin 26.2 pg (28.0-34.0); Mean Corpuscular Volume 86.5 fL (81-99); Mean Platelet Volume 9.7 fL (7.4-10.4); Monocytes # 0.8 10^3/uL (0.2-0.9); Monocytes % 6.2 %; Neutrophils # 11.8 10^3/uL (1.8-7.7); Neutrophils % 87.9 %; Nucleated Red Blood Cells % 0 %; Platelet Count 280 10^3/cmm (130-400); Red Blood Count 3.78 10^6/uL (4.1-5.3); Red Cell Distribution Width 13.7 % (12.1-15.1); White Blood Count 13.4 10^3/uL (4.0-10.0)
[2019-06-03 05:43] LABS: Alanine Aminotransferase 52 U/L (0-33); Albumin Level 3.5 g/dL (3.5-5.2); Alkaline Phosphatase 86 IU/L (35-105); Anion Gap 13.2 (5-19); Aspartate Amino Transferase 34 U/L (0-32); Blood Urea Nitrogen 32 mg/dL (8-23); Calcium 9.4 mg/Dl (8.8-10.2); Carbon Dioxide 38 mmol/L (22-29); Chloride 88 mmol/L (98-107); Globulin 3.4 g/dL (1.3-4.6); Glucose 116 mg/dL (74-106); Potassium 4.2 mmol/L (3.5-5.1); Sodium 135 mmol/L (136-145); Total Bilirubin 0.3 mg/dL (0.15-1.2); Total Protein 6.9 g/dL (6.6-8.7)
[2019-06-03] MEDS: budesonide 0.5 mg/2 mL Neb INHALATION ×2 (07:55→20:01)
[2019-06-03] MEDS: aspirin 81 mg Chew Tablet OG-TUBE (08:18)
[2019-06-03] MEDS: pantoprazole DR 40 mg Tablet OG-TUBE (08:18)
[2019-06-03] MEDS: apixaban 5 mg Tablet OG-TUBE ×2 (08:18→17:16)
--- NOTE | 2019-06-03 09:15 | PC.SOCIAL ---
IMM Updated Page 2 of IMM updated and placed in patient's room. Initialed, dated, and timed and placed back in chart.
--- NOTE | 2019-06-03 14:28 | PM.PN ---
Subjective Subjective: Interval history: The patient was seen and examined. She continues to be intubated and require high amount of oxygen. Overnight her oxygen requirement went up to 85%. After diuresis were able to bring down the FiO2 to 70%. On chest x-ray today the patient does not have any significant evidence of a consolidative process. The patient is easily arousable and follows commands. Medications: Reviewed: Yes Vitals/I&O/Wt Last Vital Signs Temp 98.6 F 06/01/19 19:00 Pulse 82 06/03/19 14:00 Resp 22 H 06/03/19 13:54 BP 111/72 06/03/19 14:00 Pulse Ox 97 06/03/19 13:00 06/02/19 06/03/19 06/03/19 22:59 06:59 14:59 Intake Total 439.92 / 627.28 370.8 / 998.08 157.18 / 157.18 Output Total 4100 / 4100 1500 / 5600 800 / 800 Balance -3660.08 / -3472.72 -1129.2 / -4601.92 -642.82 / -642.82 Physical Exam Const: COMMON NORMALS: no apparent distress HENMT: COMMON NORMALS: oropharynx normal Neck/C-Spine: COMMON NORMALS: no JVD Resp: COMMON NORMALS: normal respiratory effort AUSCULTATION: wheezes (Mild) and diminished lung sounds Cardio: COMMON NORMALS: no JVD, regular rhythm, S1 normal heart sound, S2 normal heart sound and no murmurs RHYTHM: regular rhythm HEART SOUNDS: S1 normal and S2 normal GI: COMMON NORMALS: normal to inspection, nondistended, normoactive bowel sounds, soft to palpation and non-tender PALPATION: Yes soft Extremity: COMMON NORMALS: no joint enlargement and no pedal edema Neuro: COMMON NORMALS: moves all extremities Skin: COMMON NORMALS: no rashes or lesions noted GENERAL SKIN EXAM: no rashes or lesions noted Urinary Catheter Management^: Ortega: Cath Placed During This Visit: no Data : 06/03/19 05:01 06/03/19 05:01 A&P Assessment and plan (1) Acute on chronic respiratory failure with hypercapnia: She has been diuresing well. IV steroid dose was increased due to wheezing. Has been able to wean down on FiO2 down to 60%. Continue diuresis at this time. Continue attempts to wean off mechanical ventilation. Discussed with her as she is awake and alert, nodding in confirmation. Moderate pulmonary hypertension on right heart cath. Consistent with group 3. In addition to COPD exacerbation. Status: Acute Code(s): J96.22 - Acute and chronic respiratory failure with hypercapnia (2) COPD (chronic obstructive pulmonary disease): Baseline oxygen was about 3 to 4 L as noted above Status: Acute Qualifiers: COPD type: COPD with acute exacerbation Qualified Code(s): J44.1 - Chronic obstructive pulmonary disease with (acute) exacerbation Code(s): J44.9 - Chronic obstructive pulmonary disease, unspecified Additional A&P Information Laryngeal pain: Resolved. Chloraseptic spray, morphine as needed. Monitor cuff inflation pressure. Hyponatremia: Concern for possible hypervolemic hyponatremia. Limit IV fluids. Lasix. Chronic diastolic CHF; no acute exacerbation HTN hx of PE, DVT s/p IVC filter, on AC with Eliquis Chronic smoker Hx of severe colitis s/p colectomy and ileostomy. indicated that patient is interested in finding out about reversal of ileostomy. Advised him that patient will have to follow up with surgeon at [facility] who performed the initial surgery Morbid obesity: BMI-37 kg/m2 Vascular dementia, hx of CVA, TIA Chronic microcytic anemia; baseline Hg is 8-11; current H/H stable CKD stage 2; baseline Cr wnl Attestations Medical Necessity Statement*: Continue admission for weaning off mechanical ventilatory support due to acute on chronic respiratory failure with hypoxia. Coding Level of Care Code Acute Bioinformatician for Denis Lozoya Diagnoses Acute on chronic respiratory failure with hypercapnia J96.22 COPD (chronic obstructive pulmonary disease) J44.1 COPD type: COPD with acute exacerbation
[2019-06-03] MEDS: levofloxacin-dextrose 5 % 750 MG/150 ML PREMIX 100 MG IV (22:37)
[2019-06-04] VITALS (62 sets, daily range): BP systolic 96–132; BP diastolic 64–83; PULSE 67–95; RESP 15–22; TEMP 36.9–37.7; O2SAT 85–98
[2019-06-04] MEDS: ipratropium-albuterol 3 mL Neb INHALATION ×7 (03:38→23:54)
[2019-06-04] MEDS: propofol 1,000 MG/100 ML INJ 14.4 MG IV ×3 (04:20→23:42)
[2019-06-04 05:05] LABS: Basophils % 0.1 %; Eosinophils % 0.1 %; Hematocrit 32.5 % (37.0-47.0); Hemoglobin 9.9 g/dL (11.5-15.3); Lymphocytes # 0.6 10^3/uL (0.8-4.8); Lymphocytes % 4.3 %; Mean Corpuscular HGB Conc 30.5 g/dL (30.0-36.0); Mean Corpuscular Hemoglobin 25.2 pg (28.0-34.0); Mean Corpuscular Volume 82.7 fL (81-99); Mean Platelet Volume 9.7 fL (7.4-10.4); Monocytes # 0.8 10^3/uL (0.2-0.9); Monocytes % 5.4 %; Neutrophils # 12.5 10^3/uL (1.8-7.7); Neutrophils % 89.7 %; Nucleated Red Blood Cells % 0 %; Platelet Count 307 10^3/cmm (130-400); Red Blood Count 3.93 10^6/uL (4.1-5.3); Red Cell Distribution Width 13.4 % (12.1-15.1); White Blood Count 13.9 10^3/uL (4.0-10.0)
[2019-06-04 05:27] LABS: Alanine Aminotransferase 39 U/L (0-33); Albumin Level 3.7 g/dL (3.5-5.2); Alkaline Phosphatase 85 IU/L (35-105); Anion Gap 13.9 (5-19); Aspartate Amino Transferase 21 U/L (0-32); Blood Urea Nitrogen 37 mg/dL (8-23); Calcium 9.5 mg/Dl (8.8-10.2); Carbon Dioxide 39 mmol/L (22-29); Chloride 86 mmol/L (98-107); Globulin 3.6 g/dL (1.3-4.6); Glucose 106 mg/dL (74-106); Potassium 3.9 mmol/L (3.5-5.1); Sodium 135 mmol/L (136-145); Total Bilirubin 0.3 mg/dL (0.15-1.2); Total Protein 7.3 g/dL (6.6-8.7)
--- NOTE | 2019-06-04 06:00 | XRR_ITS ---
PROCEDURE INFORMATION: Exam: XR Chest, 1 View Exam date and time: 06/04/2019 5:17 AM Age: 63 years old Clinical indication: Shortness of breath and other: Hypoxia; Patient HX: Short of breath TECHNIQUE: Imaging protocol: XR of the chest Views: 1 view. COMPARISON: CR XR chest 1V portable [id number] 06/02/2019 4:52 AM FINDINGS: Tip of NG tube now projects over mid esophagus, should be repositioned. Tip of right IJ Mcdaniels-Carmen catheter projects over right ventricular outflow tract, mildly more proximal when compared to prior study. Similar position of ET tube. Moderate ill-defined opacification at left lung base is most compatible with atelectasis/infiltrate with adjacent pleural effusion, again demonstrated. No focal right pulmonary consolidation is demonstrated on this single frontal image. No significant obscuration of right lateral costophrenic angle is demonstrated. Vascular congestion is again demonstrated. There is scattered pulmonary scarring bilaterally. Visualized cardiac silhouette size again appears moderately enlarged. Pericardial effusion not excluded. XR/XR chest 1V portable [id number] IMPRESSION: Tip of NG tube now projects over mid esophagus, should be repositioned. Moderate ill-defined opacification at left lung base is most compatible with atelectasis/infiltrate with adjacent pleural effusion, again demonstrated. Visualized cardiac silhouette size again appears moderately enlarged. Pericardial effusion not excluded.
--- NOTE | 2019-06-04 06:16 | PC.NURSE ---
patient has had uneventful night. patient is awake and following commands. PA pressures have receded to normal limits at this time. vs are wnl and sats have been enl. patient has been watching tv and denies any pain at this time. propofol and fentanyl are infusing . oral care done and wiped down with bath clothes.cariac index and output have been within normal range andlthough patient has had low grade temp.
[2019-06-04] MEDS: budesonide 0.5 mg/2 mL Neb INHALATION ×2 (07:50→19:38)
[2019-06-04] MEDS: pantoprazole DR 40 mg Tablet OG-TUBE (08:43)
[2019-06-04] MEDS: FUROsemide 10 mg/mL SDV 2mL 20 MG IVP ×2 (08:43→20:52)
[2019-06-04] MEDS: aspirin 81 mg Chew Tablet OG-TUBE (08:43)
[2019-06-04] MEDS: apixaban 5 mg Tablet OG-TUBE ×2 (08:43→20:44)
--- NOTE | 2019-06-04 17:13 | P.PN_ITS ---
Subjective Subjective: Interval history: She denies any pain, breathing is comfortable on the ventilator. Denies any discomfort other than wondering when she may be able to be extubated. Vitals/I&O/Wt Last Vital Signs Temp 98.6 F 06/01/19 19:00 Pulse 80 06/04/19 16:00 Resp 19 H 06/04/19 15:41 BP 128/76 06/04/19 16:00 Pulse Ox 91 06/04/19 15:41 06/04/19 06/04/19 06/04/19 06:59 14:59 22:59 Intake Total 312.32 / 1849.50 201.04 / 201.04 Output Total 400 / 4100 500 / 500 Balance -87.68 / -2250.50 -298.96 / -298.96 Physical Exam Const: COMMON NORMALS: no apparent distress HENMT: COMMON NORMALS: oropharynx normal Neck/C-Spine: COMMON NORMALS: no JVD Resp: COMMON NORMALS: normal respiratory effort AUSCULTATION: no wheezes and diminished lung sounds Cardio: COMMON NORMALS: no JVD, regular rhythm, S1 normal heart sound, S2 normal heart sound and no murmurs RHYTHM: regular rhythm HEART SOUNDS: S1 normal and S2 normal GI: COMMON NORMALS: normal to inspection, nondistended, normoactive bowel sounds, soft to palpation and non-tender PALPATION: Yes soft Extremity: COMMON NORMALS: no joint enlargement and no pedal edema Neuro: COMMON NORMALS: moves all extremities Skin: COMMON NORMALS: no rashes or lesions noted GENERAL SKIN EXAM: no rashes or lesions noted Urinary Catheter Management^: Ortega: Cath Placed During This Visit: no Data : 06/04/19 04:45 06/04/19 04:45 A&P Assessment and plan (1) Acute on chronic respiratory failure with hypercapnia: This morning she is awake, alert, not in any pain or discomfort. Respiration is comfortable on the ventilator. She has been diuresing, and negative balance, CVP is 5, PWP is 8. Blood pressure is soft, so we will cut back on her diuretics. It appears she has reached a optimal point in terms of her cardiac hemodynamics. Discussed with pulmonology, Cecil-Carmen may be removed. Even despite this, still she is requiring PEEP of 12, FiO2 of 60%. Her pul monary hypertension is secondary to lung disease per pulmonology and only effective treatment would be directed against this. It appears we may have reached the point where what could be optimized has been. Per discussion with pulmonology we may offer patient and family other than ongoing intubation possibility of tracheostomy, although she would still require ventilatory support, versus possible extubation, although with associated risk, with likely need for BiPAP or high flow cannula support afterward. Discussed with nursing staff. We will attempt to set up a family meeting. Moderate pulmonary hypertension on right heart cath. Consistent with group 3. In addition to COPD exacerbation. Status: Acute Code(s): J96.22 - Acute and chronic respiratory failure with hypercapnia (2) COPD (chronic obstructive pulmonary disease): Baseline oxygen was about 3 to 4 L as noted above Status: Acute Qualifiers: COPD type: COPD with acute exacerbation Qualified Code(s): J44.1 - Chronic obstructive pulmonary disease with (acute) exacerbation Code(s): J44.9 - Chronic obstructive pulmonary disease, unspecified Additional A&P Information Laryngeal pain: Resolved. Chloraseptic spray, morphine as needed. Monitor cuff inflation pressure. Hyponatremia: Concern for possible hypervolemic hyponatremia. Limit IV fluids. Lasix. Chronic diastolic CHF; no acute exacerbation HTN hx of PE, DVT s/p IVC filter, on AC with Eliquis Chronic smoker Hx of severe colitis s/p colectomy and ileostomy. indicated that patient is interested in finding out about reversal of ileostomy. Advised him that patient will have to follow up with surgeon at [facility] who performed the initial surgery Morbid obesity: BMI-37 kg/m2 Vascular dementia, hx of CVA, TIA Chronic microcytic anemia; baseline Hg is 8-11; current H/H stable CKD stage 2; baseline Cr wnl Attestations Medical Necessity Statement*: Continue admission for assessment management of acute on chronic respiratory failure requiring mechanical ventilatory support. Coding Level of Care Code Acute Product Managent Intern for Denis Lozoya Diagnoses Acute on chronic respiratory failure with hypercapnia J96.22 COPD (chronic obstructive pulmonary disease) J44.1 COPD type: COPD with acute exacerbation
[2019-06-05] VITALS (69 sets, daily range): BP systolic 97–168; BP diastolic 66–101; PULSE 68–98; RESP 16–21; TEMP 36.8–37.2; O2SAT 82–100
[2019-06-05] MEDS: levofloxacin-dextrose 5 % 750 MG/150 ML PREMIX 100 MG IV ×2 (02:56→23:54)
[2019-06-05] MEDS: ipratropium-albuterol 3 mL Neb INHALATION ×6 (03:08→23:56)
[2019-06-05] MEDS: propofol 1,000 MG/100 ML INJ 14.4 MG IV (04:18)
[2019-06-05 04:19] LABS: Basophils % 0.1 %; Eosinophils # 0.3 10^3/uL (0.0-0.8); Hematocrit 32.9 % (37.0-47.0); Hemoglobin 10.1 g/dL (11.5-15.3); Lymphocytes # 1.7 10^3/uL (0.8-4.8); Mean Corpuscular HGB Conc 30.7 g/dL (30.0-36.0); Mean Corpuscular Hemoglobin 25.4 pg (28.0-34.0); Mean Corpuscular Volume 82.9 fL (81-99); Mean Platelet Volume 9.8 fL (7.4-10.4); Monocytes # 1.1 10^3/uL (0.2-0.9); Monocytes % 7.6 %; Neutrophils # 11.8 10^3/uL (1.8-7.7); Neutrophils % 78.8 %; Nucleated Red Blood Cells % 0 %; Platelet Count 341 10^3/cmm (130-400); Red Blood Count 3.97 10^6/uL (4.1-5.3); Red Cell Distribution Width 13.4 % (12.1-15.1)
[2019-06-05 04:44] LABS: Alanine Aminotransferase 26 U/L (0-33); Albumin Level 3.1 g/dL (3.5-5.2); Alkaline Phosphatase 73 IU/L (35-105); Anion Gap 15.2 (5-19); Aspartate Amino Transferase 14 U/L (0-32); Blood Urea Nitrogen 36 mg/dL (8-23); Calcium 9.5 mg/Dl (8.8-10.2); Carbon Dioxide 37 mmol/L (22-29); Chloride 88 mmol/L (98-107); Globulin 3.9 g/dL (1.3-4.6); Glucose 93 mg/dL (74-106); Potassium 3.2 mmol/L (3.5-5.1); Sodium 137 mmol/L (136-145); Total Bilirubin 0.3 mg/dL (0.15-1.2)
--- NOTE | 2019-06-05 06:00 | XR_ITS ---
WS: [id number] CHEST XRAY TECHNIQUE: Portable chest. CLINICAL INFORMATION: Hypoxia COMPARISON: 06 04,020 FINDINGS: Endotracheal tube with tip above the cristina. Heart: Normal cardiac silhouette. Lungs: Chronic emphysematous changes. Small left pleural effusion with left basilar infiltrate/atelec tasis unchanged. Bones: Normal visualized bony structures. XR/XR chest 1V portable [id number] IMPRESSION: Small left pleural effusion with left basilar infiltrate/atelectasis unchanged.
[2019-06-05] MEDS: FUROsemide 10 mg/mL SDV 2mL 20 MG IVP ×2 (07:23→19:19)
[2019-06-05] MEDS: budesonide 0.5 mg/2 mL Neb INHALATION ×2 (07:52→20:19)
--- NOTE | 2019-06-05 09:23 | PC.NURSE ---
OG tube Nurse instructed patient on need to insert a new OG tube to administer medications at this time, d/t waiting on decision to extubate or not. Patient refuses at this time stating she wants to wait until she talks to her family.
[2019-06-05] MEDS: pantoprazole 40 mg SDV IVP (10:28)
--- NOTE | 2019-06-05 16:18 | PC.RESP ---
pt extubated to 12 lm high flow nasal cannula without incident bipap on standby
--- NOTE | 2019-06-05 16:30 | PM.PN ---
Subjective Subjective: Interval history: She denies any pain, breathing is comfortable on the ventilator. Denies any discomfort other than wondering when she may be able to be extubated. Medications: Reviewed: Yes Vitals/I&O/Wt Last Vital Signs Temp 98.3 F 06/05/19 09:20 Pulse 84 06/05/19 15:11 Resp 16 06/05/19 15:11 BP 110/68 06/05/19 14:00 Pulse Ox 87 L 06/05/19 15:11 06/05/19 06/05/19 06/05/19 06:59 14:59 22:59 Intake Total 367.615 / 1518.655 49 / 49 Output Total 300 / 2050 1600 / 1600 Balance 67.615 / -531.345 -1551 / -1551 Physical Exam Const: COMMON NORMALS: no apparent distress HENMT: COMMON NORMALS: oropharynx normal Neck/C-Spine: COMMON NORMALS: no JVD Resp: COMMON NORMALS: normal respiratory effort AUSCULTATION: no wheezes and diminished lung sounds Cardio: COMMON NORMALS: no JVD, regular rhythm, S1 normal heart sound, S2 normal heart sound and no murmurs RHYTHM: regular rhythm HEART SOUNDS: S1 normal and S2 normal GI: COMMON NORMALS: normal to inspection, nondistended, normoactive bowel sounds, soft to palpation and non-tender PALPATION: Yes soft Extremity: COMMON NORMALS: no joint enlargement and no pedal edema Neuro: COMMON NORMALS: moves all extremities Skin: COMMON NORMALS: no rashes or lesions noted GENERAL SKIN EXAM: no rashes or lesions noted Urinary Catheter Management^: Ortega: Cath Placed During This Visit: no Data : 06/05/19 04:00 06/05/19 04:00 A&P Assessment and plan (1) Acute on chronic respiratory failure with hypercapnia: She remains in negative balance, with improvement in blood pressure with reduction in Lasix dose to 20 mg. Today she is comfortable on the ventilator, without dyspnea, without any pain. We have met with her and the family (including granddaughter, medical power of staff attorney, as well as her , and sisters), and despite brief discussion the morning with her regarding possible options were to proceed from here, despite being alert and awake, having no trouble with nonverbal communication, or writing, did not remember options we discussed, which appears to be baseline for her according to family due to her chronic dementia. She is adamant that she would not want to go to a facility even temporarily in case a tracheostomy was done at this time, or for additional weaning trial, and subsequent tracheostomy. We have discussed this option as compared to either continuation of intubation, versus extubation trial to BiPAP or possibly high flow cannula which may be risky given she is still requiring 60% FiO2, PEEP of 12, and may require continuous use of BiPAP, possibly with shorter life expectancy compared to placement of tracheostomy, although this may be difficult to determine at this time. Family verbalized understanding. We have been over the options several times, although she still defers to the family regarding decisions for further goals of care, with the caveat that either way she wants to be liberated from the ventilator. Family understand that in case of decline after extubation in spite of BiPAP support may require reintubation, as well as stat this route overall has a high risk of mortality, and would like to proceed with this option to give her a chance to be able to extubate to BiPAP with consideration of quality of life according to her wishes versus quantity. After discussion they also prefer to change CODE STATUS to no chest compressions. Status: Acute Code(s): J96.22 - Acute and chronic respiratory failure with hypercapnia (2) COPD (chronic obstructive pulmonary disease): Baseline oxygen was about 3 to 4 L as noted above Status: Acute Qualifiers: COPD type: COPD with acute exacerbation Qualified Code(s): J44.1 - Chronic obstructive pulmonary disease with (acute) exacerbation Code(s): J44.9 - Chronic obstructive pulmonary disease, unspecified Additional A&P Information Laryngeal pain: Resolved. Chloraseptic spray, morphine as needed. Monitor cuff inflation pressure. Hyponatremia: Concern for possible hypervolemic hyponatremia. Limit IV fluids. Lasix. Chronic diastolic CHF; no acute exacerbation HTN hx of PE, DVT s/p IVC filter, on AC with Eliquis Chronic smoker Hx of severe colitis s/p colectomy and ileostomy. indicated that patient is interested in finding out about reversal of ileostomy. Advised him that patient will have to follow up with surgeon at [facility] who performed the initial surgery Morbid obesity: BMI-37 kg/m2 Vascular dementia, hx of CVA, TIA Chronic microcytic anemia; baseline Hg is 8-11; current H/H stable CKD stage 2; baseline Cr wnl Attestations Medical Necessity Statement*: Continue admission for an of acute on chronic respiratory failure with hypoxia superimposed on chronic underlying lung disease. Coding Level of Care Code Acute Rehabilitation Worker for Chg Fwd Diagnoses Acute on chronic respiratory failure with hypercapnia J96.22 COPD (chronic obstructive pulmonary disease) J44.1 COPD type: COPD with acute exacerbation
[2019-06-05] MEDS: apixaban 5 mg Tablet OG-TUBE (16:37)
[2019-06-05] MEDS: aspirin 81 mg Chew Tablet OG-TUBE (16:37)
--- NOTE | 2019-06-05 18:27 | PC.CHAP ---
Pastoral Care Encounter/Spiritual Assessment Type of Contact [x] Declined earth science faculty member visit [] Patient/Family/Request visit [] Outpatient visit [] Follow-up visit [] Physician referral [] Code/Alert [] Routine visit [] Staff referral [] Actively dying [] Patient sleeping [] Family support [] [] Out of room [] Palliative care [] [] Receiving care in room [] Pre-surgical visit [] Trauma [x] Long length of stay [x] ICU visit [] Other: Relational/Emotional Strength [] Patient feels connected with others/family/visitors/staff [] Distress [] Loneliness/isolation [] Abandonment Spirituality of Patient [] Person of Laura [] Attends Scientology of their Laura [] Believes in Prayer [] Reads Bible or Shinto materials [] There are Spiritual issues to be addressed Alligator Shear Operator Interventions [] Prayer [] Active listening [] Non-anxious presence [] Spiritual/emotional support [] Crisis/trauma care [] Spiritual counseling [] Bereavement support [] Provided bereavement packet [] Provided Bible/devotional materials [] Provided toy/stuffed animal, coloring book to patient or family member [] Completed spiritual assessment [] Provided Communion [] Anointing/[place] [] Salvation [] Other: Impact on Illness or Injury [] Angry [] Fearful [] Anxious [] Often cries [] Exhaustion [] Unable to work [] Unable to attend moravian [] Unable to walk/stand [] Unable to read [] Unable to drive [] Unable to eat/drink [] Unable to sleep [] Unable to be with family [] Other: Summary Patient expressed that she did not want a earth science faculty member visit. Visit was attempted by Alligator Shear Operator Yahir Grace Time spent with patient 3 minutes
[2019-06-05] MEDS: morphine 4 mg/mL SDV 1 mL 2 MG IVP ×2 (19:18→23:54)
[2019-06-05] MEDS: LORazepam 2 mg/mL INJ 1 mL 1 MG IVP ×2 (20:22→23:54)
--- NOTE | 2019-06-05 21:18 | PC.NURSE ---
Patient educated 5 times since 190 that she is on a clear liquid diet due to high risk of reintubation. Patient extremely verbally upset. Your just lying because you dont like me . Each time patient does not recall being told about her diet order.
[2019-06-06] VITALS (22 sets, daily range): BP systolic 93–134; BP diastolic 62–86; PULSE 62–88; RESP 10–24; TEMP 36.5–36.9; O2SAT 90–98
[2019-06-06] MEDS: ipratropium-albuterol 3 mL Neb INHALATION ×2 (04:04→07:24)
[2019-06-06 04:23] LABS: Basophils % 0.1 %; Eosinophils % 0.3 %; Hematocrit 33.3 % (37.0-47.0); Hemoglobin 10.4 g/dL (11.5-15.3); Lymphocytes # 0.6 10^3/uL (0.8-4.8); Lymphocytes % 4.2 %; Mean Corpuscular HGB Conc 31.2 g/dL (30.0-36.0); Mean Corpuscular Hemoglobin 25.4 pg (28.0-34.0); Mean Corpuscular Volume 81.2 fL (81-99); Mean Platelet Volume 9.2 fL (7.4-10.4); Monocytes # 0.8 10^3/uL (0.2-0.9); Monocytes % 5.1 %; Neutrophils % 89.4 %; Nucleated Red Blood Cells % 0 %; Platelet Count 372 10^3/cmm (130-400); Red Cell Distribution Width 13.3 % (12.1-15.1); White Blood Count 14.6 10^3/uL (4.0-10.0)
[2019-06-06 04:45] LABS: Alanine Aminotransferase 27 U/L (0-33); Albumin Level 3.5 g/dL (3.5-5.2); Alkaline Phosphatase 80 IU/L (35-105); Anion Gap 15.9 (5-19); Aspartate Amino Transferase 19 U/L (0-32); Blood Urea Nitrogen 34 mg/dL (8-23); Calcium 9.6 mg/Dl (8.8-10.2); Carbon Dioxide 34 mmol/L (22-29); Chloride 86 mmol/L (98-107); Globulin 3.8 g/dL (1.3-4.6); Glucose 139 mg/dL (74-106); Potassium 3.9 mmol/L (3.5-5.1); Sodium 132 mmol/L (136-145); Total Bilirubin 0.4 mg/dL (0.15-1.2); Total Protein 7.3 g/dL (6.6-8.7)
--- NOTE | 2019-06-06 06:00 | XR_ITS ---
WS: [id number] CHEST XRAY TECHNIQUE: Portable chest. CLINICAL INFORMATION: Hypoxia COMPARISON: FINDINGS: Heart: Normal cardiac silhouette. Lungs: Chronic emphysematous changes. Subsegmental atelectasis left lung base. No focal consolidation . Bones: Chronic left rib fractures with callus formation. XR/XR chest 1V portable [id number] IMPRESSION: 1. Chronic emphysematous changes. 2. Subsegmental atelectasis left lung base. Improved left pleural effusion. 3. No focal consolidation.
[2019-06-06] MEDS: budesonide 0.5 mg/2 mL Neb INHALATION (07:24)
[2019-06-06] MEDS: FUROsemide 10 mg/mL SDV 2mL 20 MG IVP ×2 (07:49→20:46)
[2019-06-06] MEDS: pantoprazole 40 mg SDV IVP (07:49)
[2019-06-06] MEDS: aspirin 81 mg Chew Tablet OG-TUBE (07:50)
[2019-06-06] MEDS: apixaban 5 mg Tablet OG-TUBE ×2 (07:50→18:24)
--- NOTE | 2019-06-06 08:58 | DCPLANNER ---
Late note, Pg 2 of IM updated and reviewed with pt. No questions, copy provided.
[2019-06-06] MEDS: LORazepam 2 mg/mL INJ 1 mL 1 MG IVP (09:31)
--- NOTE | 2019-06-06 12:21 | PM.PN ---
Subjective Subjective: Interval history: She is doing well. Tolerated breakfast. Was on BiPAP overnight, currently feeling comfortable on nasal cannula oxygen. Sitting up in chair. Watching TV. Vitals/I&O/Wt Last Vital Signs Temp 97.7 F 06/06/19 09:11 Pulse 79 06/06/19 08:00 Resp 12 06/06/19 08:00 BP 134/86 06/06/19 08:00 Pulse Ox 92 06/06/19 08:00 06/05/19 06/06/19 06/06/19 22:59 06:59 14:59 Intake Total 1450 / 1537.88 93.333 / 1631.213 Output Total 1200 / 2800 250 / 250 Balance 1450 / -62.12 -1106.667 / -1168.787 -250 / -250 Physical Exam Const: COMMON NORMALS: no apparent distress HENMT: COMMON NORMALS: oropharynx normal Neck/C-Spine: COMMON NORMALS: no JVD Resp: COMMON NORMALS: normal respiratory effort AUSCULTATION: no wheezes and diminished lung sounds Cardio: COMMON NORMALS: no JVD, regular rhythm, S1 normal heart sound, S2 normal heart sound and no murmurs RHYTHM: regular rhythm HEART SOUNDS: S1 normal and S2 normal GI: COMMON NORMALS: normal to inspection, nondistended, normoactive bowel sounds, soft to palpation and non-tender PALPATION: Yes soft Extremity: COMMON NORMALS: no joint enlargement and no pedal edema Neuro: COMMON NORMALS: moves all extremities Skin: COMMON NORMALS: no rashes or lesions noted GENERAL SKIN EXAM: no rashes or lesions noted Data : 06/06/19 04:12 06/06/19 04:12 A&P Assessment and plan (1) Acute on chronic respiratory failure with hypercapnia: Extubated last night. On BiPAP overnight. Today on 6 L oxygen by nasal cannula. So far she is doing well. Discussed briefly with pulmonology. We may taper down her steroids. Can discontinue antibiotics. She is transferred out of ICU. Continue to monitor on medical floor. Continue BiPAP support as needed. Nightly. If continues to do well, may be able to discharge within the next couple of days. Consideration may be given to trilogy device for home use. Status: Acute Code(s): J96.22 - Acute and chronic respiratory failure with hypercapnia (2) COPD (chronic obstructive pulmonary disease): Baseline oxygen was about 3 to 4 L as noted above Status: Acute Qualifiers: COPD type: COPD with acute exacerbation Qualified Code(s): J44.1 - Chronic obstructive pulmonary disease with (acute) exacerbation Code(s): J44.9 - Chronic obstructive pulmonary disease, unspecified Additional A&P Information Laryngeal pain: Resolved. Hyponatremia: Concern for possible hypervolemic hyponatremia. Limit IV fluids. Lasix. Chronic diastolic CHF; no acute exacerbation HTN hx of PE, DVT s/p IVC filter, on AC with Eliquis Chronic smoker Hx of severe colitis s/p colectomy and ileostomy. indicated that patient is interested in finding out about reversal of ileostomy. Was advised that patient will have to follow up with surgeon at [facility] who performed the initial surgery Morbid obesity: BMI-37 kg/m2 Vascular dementia, hx of CVA, TIA Chronic microcytic anemia; baseline Hg is 8-11; current H/H stable CKD stage 2; baseline Cr wnl Attestations Medical Necessity Statement*: Continue admission for assessment and management of respiratory failure with hypoxia, with pulmonary hypertension, COPD, chronic diastolic CHF. Coding Level of Care Code Acute Diesel Service Journeyman for Chg Fwd Exam Problem Focused Diagnoses Acute on chronic respiratory failure with hypercapnia J96.22 COPD (chronic obstructive pulmonary disease) J44.1 COPD type: COPD with acute exacerbation
--- NOTE | 2019-06-06 15:11 | PC.NURSE ---
transfer report called to [facility] Bust[facility]. Patient taken to room 272 via wheelchair. patient tolerated well.
--- NOTE | 2019-06-06 18:42 | PM.PN ---
Subjective Subjective: Interval history: The patient was seen and examined. She is doing remarkably well. Currently she is only on 5 L nasal cannula having dinner. The patient denies any resting shortness of breath or wheezing. The patient was transferred out of ICU yesterday. Medications: Reviewed: Yes Vitals/I&O/Wt Last Vital Signs Temp 98.0 F 06/06/19 15:41 Pulse 88 06/06/19 15:41 Resp 12 06/06/19 08:00 BP 104/66 06/06/19 15:41 Pulse Ox 92 06/06/19 15:41 06/06/19 06/06/19 06/06/19 06:59 14:59 22:59 Intake Total 93.333 / 1631.213 200 / 200 Output Total 1200 / 2800 250 / 250 Balance -1106.667 / -1168.787 -50 / -50 Physical Exam Narrative: EXAM NARRATIVE: General: Patient is awake alert and oriented, in no distress. Neck: No JVD, no cervical or supraclavicular lymphadenopathy. Respiratory: Auscultation: Reduced breath sound bilaterally, prolonged expiration, no crackles wheezing or rhonchi Cardiovascular: Regular rate and rhythm, S1-S2 present, no murmur, no right ventricular heave, no peripheral edema. Abdomen: Soft, nontender, distended from obesity, positive bowel sound. No palpable organomegaly. Musculoskeletal: No obvious joint deformity Skin: No rash, no evidence of erythema nodosum or multiforme. Neuro: Mental status is normal, no gross cranial nerve deficit, normal motor and coordination. Urinary Catheter Management^: Ortega: Cath Placed During This Visit: no Data : 06/06/19 04:12 06/06/19 04:12 CXR: My impression: The chest x-ray obtained this morning did not reveal any pulmonary infiltrate. A&P Assessment and plan (1) Acute on chronic respiratory failure with hypercapnia: The patient is doing remarkably well. She is currently back to baseline. Titrate the FiO2 down to maintain an oxygen saturation between 88 and 92%. I am going to discontinue the Levaquin. The patient has completed 7 days therapy. We will decrease the steroid dose to 40 mg of prednisone daily. I will titrate down the prednisone slowly till the patient comes back and sees me in the office next week. Although the patient has an elevated white count there is no indication of an infection. I believe this is secondary to the steroid therapy. Continue with DuoNeb and Pulmicort nebulization. The patient will benefit from trilogy given her chronic hypercapnic respiratory failure. This might help with recurrent admission. I am going to obtain a pulmonary function test tomorrow. Status: Acute Code(s): J96.22 - Acute and chronic respiratory failure with hypercapnia (2) Acute exacerbation of chronic obstructive airways disease: Continue the supportive therapy for the time being. I will see her as outpatient and possibly start long-term antibiotic therapy to prevent exacerbation of the COPD. Status: Acute Code(s): J44.1 - Chronic obstructive pulmonary disease with (acute) exacerbation Attestations Medical Necessity Statement*: Will defer to the primary team Coding Level of Care Code Acute [facility] Center Technician for Denis Lozoya Diagnoses Acute on chronic respiratory failure with hypercapnia J96.22 Acute exacerbation of chronic obstructive airways disease J44.1
[2019-06-06] MEDS: lanolin oint 7 gm 1 APPLIC TOPICAL (20:45)
[2019-06-06] MEDS: morphine 4 mg/mL SDV 1 mL 2 MG IVP (20:46)
[2019-06-06] MEDS: phenol oral Spray 177 mL 3 SPRAY MUCOUS MEM (23:33)
[2019-06-07] VITALS (12 sets, daily range): BP systolic 94–111; BP diastolic 65–75; PULSE 65–85; RESP 14–24; TEMP 36.6–37.1; O2SAT 88–95
[2019-06-07] MEDS: morphine 4 mg/mL SDV 1 mL 2 MG IVP ×2 (00:10→09:25)
[2019-06-07] MEDS: ondansetron 2 mg/ML SDV 2 mL 4 MG IVP (01:46)
[2019-06-07 06:36] LABS: Basophils % 0.2 %; Eosinophils # 0.4 10^3/uL (0.0-0.8); Eosinophils % 2.8 %; Hematocrit 38.4 % (37.0-47.0); Hemoglobin 11.7 g/dL (11.5-15.3); Mean Corpuscular HGB Conc 30.5 g/dL (30.0-36.0); Mean Corpuscular Volume 85.3 fL (81-99); Mean Platelet Volume 9.6 fL (7.4-10.4); Monocytes % 7.3 %; Neutrophils # 9.7 10^3/uL (1.8-7.7); Neutrophils % 73.2 %; Nucleated Red Blood Cells % 0 %; Platelet Count 387 10^3/cmm (130-400); Red Cell Distribution Width 13.4 % (12.1-15.1); White Blood Count 13.2 10^3/uL (4.0-10.0)
[2019-06-07 06:55] LABS: Anion Gap 13.3 (5-19); Blood Urea Nitrogen 31 mg/dL (8-23); Calcium 9.4 mg/Dl (8.8-10.2); Carbon Dioxide 34 mmol/L (22-29); Chloride 87 mmol/L (98-107); Glomerular Filtration Rate 100.3 mL/min (90-130); Glucose 95 mg/dL (74-106); Potassium 3.3 mmol/L (3.5-5.1); Sodium 131 mmol/L (136-145)
[2019-06-07] MEDS: pantoprazole 40 mg SDV IVP (09:15)
[2019-06-07] MEDS: apixaban 5 mg Tablet OG-TUBE ×2 (09:16→17:29)
[2019-06-07] MEDS: predniSONE 20 mg Tablet 40 MG PO (09:16)
[2019-06-07] MEDS: FUROsemide 10 mg/mL SDV 2mL 20 MG IVP ×2 (09:16→21:08)
[2019-06-07] MEDS: aspirin 81 mg Chew Tablet OG-TUBE (09:16)
--- NOTE | 2019-06-07 11:50 | PC.RESP ---
pt refusing breathing treatments
[2019-06-07] MEDS: ipratropium-albuterol 3 mL Neb INHALATION ×2 (15:11→20:54)
[2019-06-07] MEDS: acetaminophen 325 mg Tablet 650 MG PO (20:17)
[2019-06-07] MEDS: budesonide 0.5 mg/2 mL Neb INHALATION (20:54)
--- NOTE | 2019-06-07 22:00 | P.PN_ITS ---
Subjective Subjective: Interval history: no new complaints. Doing well overall. 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 So far she is doing well. Likley discharge tomorrow c/o sore throat likely related to recent intubation Status: Acute Code(s): J96.22 - Acute and chronic respiratory failure with hypercapnia (2) COPD (chronic obstructive pulmonary disease): Baseline oxygen was about 3 to 4 L as noted above Status: Acute Qualifiers: COPD type: COPD with acute exacerbation Qualified Code(s): J44.1 - Chronic obstructive pulmonary disease with (acute) exacerbation Code(s): J44.9 - Chronic obstructive pulmonary disease, unspecified Additional A&P Information Laryngeal pain: Resolved. Hyponatremia: Concern for possible hypervolemic hyponatremia. Limit IV fluids. Lasix. Chronic diastolic CHF; no acute exacerbation HTN hx of PE, DVT s/p IVC filter, on AC with Eliquis Chronic smoker Hx of severe colitis s/p colectomy and ileostomy. indicated that patient is interested in finding out about reversal of ileostomy. Was advised that patient will have to follow up with surgeon at [facility] who performed the initial surgery Morbid obesity: BMI-37 kg/m2 Vascular dementia, hx of CVA, TIA Chronic microcytic anemia; baseline Hg is 8-11; current H/H stable CKD stage 2; baseline Cr wnl Attestations Medical Necessity Statement*: improving respiratory status, likely discharge tomorrow Coding Level of Care Code Acute [employer] Mold for Chg Fwd Diagnoses Acute on chronic respiratory failure with hypercapnia J96.22 COPD (chronic obstructive pulmonary disease) J44.1 COPD type: COPD with acute exacerbation
[2019-06-07] MEDS: TRAMadol 50 mg Tablet 25 MG PO (22:30)
[2019-06-07] MEDS: LORazepam 0.5 mg Tablet PO (23:12)
--- NOTE | 2019-06-07 23:45 | PC.NURSE ---
Catheter discontinued. Patient tolerated well. 9mls taken out of balloon. 1000ml in pang bag. will monitor output
[2019-06-08] MEDS: ipratropium-albuterol 3 mL Neb INHALATION ×2 (00:43→04:42)
[2019-06-08 00:45] VITALS: PULSE 86; RESP 16; O2SAT 95
[2019-06-08] MEDS: acetaminophen 325 mg Tablet 650 MG PO (04:08)
[2019-06-08 04:43] VITALS: PULSE 87; RESP 16; O2SAT 95
[2019-06-08 05:58] VITALS: BP 98/56; PULSE 76; RESP 18; TEMP 36.6; O2SAT 96
[2019-06-08 07:07] VITALS: BP 101/73; PULSE 80; RESP 18; TEMP 36.7; O2SAT 91
[2019-06-08] MEDS: apixaban 5 mg Tablet OG-TUBE (08:22)
[2019-06-08] MEDS: FUROsemide 10 mg/mL SDV 2mL 20 MG IVP (08:22)
[2019-06-08] MEDS: predniSONE 20 mg Tablet 40 MG PO (08:22)
[2019-06-08] MEDS: aspirin 81 mg Chew Tablet OG-TUBE (08:22)
[2019-06-08] MEDS: pantoprazole DR 40 mg Tablet PO (08:22)
[2019-06-08 09:44] VITALS: BP 101/73; PULSE 80; RESP 18; TEMP 36.7; O2SAT 91
--- NOTE | 2019-06-17 00:07 | P.DS_ITS ---
Discharge Providers Date of Admission: 05/29/19 21:49 Date of Discharge: Date of Discharge: 06/08/2019 Attending Provider at Admission: Idania Crow MD Attending Provider at Discharge: Zofia Watson MD Diagnoses at Discharge Discharge Diagnosis (1) Acute on chronic respiratory failure with hypercapnia: Status: Acute (2) COPD (chronic obstructive pulmonary disease): Status: Acute Qualifiers: COPD type: COPD with acute exacerbation Qualified Code(s): J44.1 - Chronic obstructive pulmonary disease with (acute) exacerbation Reason for Visit Reason for Visit: Reason For Visit: Hypoxia, SOB Hospital Course Discharge Summary: Roseann Durham is a 63 year old female with PMHx of Chronic diastolic CHF, HTN, hx of DVT/PE s/p IVC filter, Chronic smoker, COPD, s/p colectomy presents from home via EMS with c/o worsening SOB, productive cough, and was found to be in some respiratory distress necessitating placement of BiPAP on her arrival. Initial ABG shows PCO2 of 93.7, PO2 of 68. She eventually required intubation and mechanical ventilation for respiratory support. She was seen by supervisor chlorine liquefaction Dr. Lipscomb and underwent RHC which was consistent with moderate pulmonary hypertension consistent with WHO group 3 pulmonary hypertension. She has been treated with antibiotic and steroid and bronchodilator for the COPD exacerbation. She additionally received Lasix for pulmonary HTN. Eventually extubated to Bipap on 06/05 and did well post extubation, remaining on Bipap and nasal canula. She was eventually discharged in stable condition on 06/08/19 Physical Exam Narrative: EXAM NARRATIVE: GEN: Awake, alert and oriented, no acute distress CVS: S1S2 N RS: CTA B/L except crackles over RUL Abd: Soft, nt/nd , bs+ [employer]: no focal neuro deficits Urinary Catheter Management^: Ortega: Cath Placed During This Visit: no Discharge Data Data Completed and Pending: Completed Studies During Hospitalization Category Date Time Status XR chest 1V mukesh ble [id number] Routine Exams 05/31/19 06:00 Completed XR chest 1V mukesh ble [id number] Routine Exams 06/02/19 06:00 Completed XR chest 1V mukesh ble [id number] Routine Exams 06/04/19 06:00 Completed XR chest 1V mukesh ble [id number] Routine Exams 06/05/19 06:00 Completed XR chest 1V mukesh ble [id number] Routine Exams 06/06/19 06:00 Completed XR chest 1V mukesh ble 75190 Stat Exams 05/29/19 21:41 Completed XR chest 1V mukesh ble [id number] Urgent Exams 05/29/19 14:59 Completed XR chest 1V mukesh ble [id number] Urgent Exams 06/01/19 16:14 Completed CV echo complete* [id number] Routine Ultrasound 05/31/19 12:51 Completed Vitals: Last Vital Signs Temp 98.0 F 06/08/19 09:44 Pulse 80 06/08/19 09:44 Resp 18 06/08/19 09:44 BP 101/73 06/08/19 09:44 Pulse Ox 91 06/08/19 09:44 Discharge Plan Discharge Patient Disposition: Home, Self-Care Condition: Stable Prescriptions: New acetaminophen 325 mg Tablet 650 mg PO Q6H PRN (Reason: Mild Pain) Qty: 0 RF: 0 prednisone 20 mg Tablet 40 mg PO DAILY 15 Days Qty: 15 RF: 0 pantoprazole 40 mg Tablet,Delayed Release (Dr/Ec) 40 mg PO DAILY 30 Days Qty: 30 RF: 0 budesonide 0.5 mg/2 mL Suspension For Nebulization 0.5 mg inhalation BID.RESPIRATORY Qty: 30 RF: 0 Spiriva Respimat 2.5 mcg/actuation mist 2 inh INHALATION DAILY Qty: 4 RF: 0 Continued albuterol sulfate 2.5 mg /3 mL (0.083 %) Solution For Nebulization 2.5 mg INHALATION Q4H PRN (Reason: Shortness Of Breath) RF: 0 alprazolam 1 mg Tablet 1 mg PO TID PRN (Reason: Anxiety) RF: 0 aspirin 81 mg Tablet,Chewable 81 mg PO DAILY RF: 0 furosemide 20 mg Tablet 20 mg PO DAILY RF: 0 Ventolin HFA 90 mcg/actuation Hfa Aerosol Inhaler 1 puff INHALATION DAILY PRN (Reason: Shortness Of Breath) RF: 0 Eliquis 5 mg Tablet 5 mg PO BID RF: 0 Discharge Orders: Discharge Order (Routine); Ordered 06/08/19 Ordered By: Zofia Watson Referrals: Moses Lipscomb MD [Physician] - 06/15/19 11:30 am Discharge Diet: Usual diet Discharge Activity: Resume usual activity Patient Instructions: COPD, Prednisone (By mouth), Pantoprazole (By mouth), COPD Stoplight Discharge Date/Time: 06/08/19 10:28 Discharge Attestations Time Spent in Discharge Care*: less than 30 min Quality Metrics Clinical Quality Measures During this hospital stay, did patient experience: None Coding Level of Care Code Acute [employer] Machine Feeder for Aníbalg Fwd Diagnoses Acute on chronic respiratory failure with hypercapnia J96.22 COPD (chronic obstructive pulmonary disease) J44.1 COPD type: COPD with acute exacerbation
== END 2019-06-08 10:28 | disposition home or self-care (01) | DRG 207 ==
LOC: ER 14:44 → ICU 22:10 → MEDSURG 06-06 15:10
PROVIDERS: Internal Medicine; Internal Medicine Critical Care Medicine; Admitting Provider Family Medicine; Emergency Provider Family Medicine; Family Provider Internal Medicine; Visit Provider Student in an Organized Health Care Education/Training Program
DX: J96.22 Acute and chronic respiratory failure with hypercapnia (principal); J44.1 Chronic obstructive pulmonary disease with (acute) exacerbation; J44.0 Chronic obstructive pulmonary disease with (acute) lower respiratory infection; I13.0 Hypertensive heart and chronic kidney disease with heart failure and stage 1 through stage 4 chronic kidney disease, or unspecified chronic kidney disease; E87.1 Hypo-osmolality and hyponatremia; I50.32 Chronic diastolic (congestive) heart failure; F01.50 Vascular dementia, unspecified severity, without behavioral disturbance, psychotic disturbance, mood disturbance, and anxiety; Z86.711 Personal history of pulmonary embolism; D64.9 Anemia, unspecified; N18.2 Chronic kidney disease, stage 2 (mild); E66.01 Morbid (severe) obesity due to excess calories; Z68.35 Body mass index [BMI] 35.0-35.9, adult; F17.210 Nicotine dependence, cigarettes, uncomplicated; Z95.828 Presence of other vascular implants and grafts; Z79.82 Long term (current) use of aspirin; Z79.01 Long term (current) use of anticoagulants
CPT/HCPCS: 12345; 31500; 36415; 36600; 51702; 71045; 80048; 80051; 80053; 82803; 82805; 82810; 83880; 83986; 84484; 85025; 85378; 87070; 87205; 87804; 93005; 93306; 93503; 94002; 94003; 94640; 94660; 94799; 96374; 96375; 99283; A4570; C9113; J0330; J0696; J1940; J1956; J2060; J2250; J2270; J2405; J2704; J2920; J2930; J3010; J3490; J7030; J7512; J7626

== ENCOUNTER 2019-07-21 16:03 | Inpatient (IN) | payer MEDICARE, SELFPAY ==
[2019-07-21] VITALS (56 sets, daily range): BP systolic 84–159; BP diastolic 51–95; PULSE 72–92; RESP 11–26; TEMP 36.7; O2SAT 84–100; BMI 32.9
--- NOTE | 2019-07-21 16:15 | XR_ITS ---
WS: [id number] XR chest 1V portable [id number] REASON FOR EXAM: cough FINDINGS: Chronic interstitial reticular nodular patterns are seen in both lung raygoza. The chest is rotated slightly the hilum is prominent on the right this is normal variant. There is no definite pneumonia, pleural effusion, pulmonary edema, or pleural effusion. The josh lungs are poorly seen. No osseous abnormalities. XR/XR chest 1V portable [id number] IMPRESSION: Diffuse interstitial changes no definite pneumonia.
--- NOTE | 2019-07-21 16:16 | ECG_ITS ---
Measurements Intervals [place] Rate: 91 P: 64 W[place]: 143 QRS: 118 QRSD: 137 T: 9 QT: 352 QTc: 433 SINUS RHYTHM POSSIBLE LEFT ATRIAL ENLARGEMENT [-0.1mV P WAVE IN V1/V2] RIGHT AXIS DEVIATION [QRS AXIS > 100] RIGHT BUNDLE BRANCH BLOCK Compared to ECG 05/30/2019 10:56:39 Right-axis deviation now present ST (T wave) deviation no longer present Myocardial infarct finding no longer present Electronically Signed On 07-21-2019 16:45:50 TECHNICAL OPERATIONS SPECIALIST by Coral Winslow M.D. [email or web address]
[2019-07-21] MEDS: ondansetron 2 mg/ML SDV 2 mL 4 MG IVP (16:32)
--- NOTE | 2019-07-21 16:43 | ED_ITS ---
Entered by Elisha Guzman, acting as scribe for Kelly Byrne HPI - SOB/Dyspnea General: Chief Complaint: Shortness of Breath/Dyspnea Stated Complaint: DIFFICULTY BREATHING Time Seen by Provider: 07/21/19 16:09 History of Present Illness: HPI Narrative: History is limited secondary the patient's altered mental status. Roseann is a 63-year-old female who comes in in respiratory distress. She is lethargic. She has a history of COPD and CO2 retention. Review of Systems General: Reports: ROS unobtainable due to medical condition (AMS) PFSH ED PFSH: Medical History Chronic anemia Chronic diastolic CHF (congestive heart failure) CKD (chronic kidney disease), stage II COPD (chronic obstructive pulmonary disease) Hypertension Morbid obesity Pulmonary embolism Vascular dementia Surgical History H/O section X2 H/O colectomy Secondary to severe colitis H/O: hysterectomy History of salpingo-oophorectomy S/P IVC filter Secondary to PE, DVT Family History Father Lung disease Social History Smoking and tobacco status: current every day smoker cigarettes Packs smoked per day: 1 Alcohol intake: never Household members: family Physical Exam Const: COMMON NORMALS: negative for healthy appearing and negative for well nourished EXAM LIMITATIONS: altered mental status GENERAL APPEARANCE: cooperative, well kempt and lethargic NUTRITIONAL APPEARANCE: obese ORIENTATION/CONSCIOUSNESS: Yes awake, Yes confused and Yes lethargic HENMT: COMMON NORMALS: normocephalic, head/scalp atraumatic, hearing grossly normal bilaterally, external ears normal, EAC's normal, external nose normal and moist oral mucous membranes HEAD & SCALP: normal to inspection, normocephalic and atraumatic FACE & SINUS: normal facial exam and face symmetric NOSE: external nose normal and nares normal EXTERNAL EAR: Yes external ears normal EXTERNAL AUDITORY CANAL: EAC's normal MOUTH: oral and palatal mucosa normal and tongue normal Eye: COMMON NORMALS: PERRL, EOMs intact bilaterally, conjunctivae normal and no scleral icterus GENERAL EYE: normal appearance of both eyes and normal light reflex CONJUNCTIVA: Yes conjunctivae normal SCLERA: sclerae normal CORNEA: Yes corneas normal PUPIL: Yes PERRL DIRECT OPHTHALMOSCOPY: Yes normal light reflex Neck/C-Spine: COMMON NORMALS: full ROM, no lymphadenopathy, supple and no JVD GENERAL: Yes normal visual inspection and Yes trachea midline CERVICAL SPINE: Yes cervical ROM normal Chest: COMMONS NORMALS: inspection of chest normal and palpation of chest normal Resp: COMMON NORMALS: normal respiratory effort and no retractions EFFORT & INSPECTION: Yes labored and Yes uses accessory muscles AUSCULTATION: rhonchi and wheezes Cardio: COMMON NORMALS: no JVD, regular rate, regular rhythm, S1 normal heart sound, S2 normal heart sound, no gallops, no clicks, no murmurs and no rub JUGULAR VENOUS DISTENTION: no JVD RATE: regular rate RHYTHM: regular rhythm HEART SOUNDS: S1 normal and S2 normal GI: COMMON NORMALS: soft to palpation, non-tender, no hepatosplenomegaly and no masses INSPECTION: Yes normal to inspection PALPATION: Yes soft and Yes no hepatosplenomegaly : COMMON NORMALS: Yes no CVA tenderness BLADDER/KIDNEY EXAM: Yes no CVA tenderness Back/Pelvis: COMMON NORMALS: no CVA tenderness, thoracic and lumbar spine normal to inspection, no thoracic nor lumbar tenderness and thoraco-lumbar ROM normal Extremity: COMMON NORMALS: normal to inspection, full ROM, normal capillary refill, no joint enlargement, no clubbing, cyanosis or edema and no calf tenderness Neuro: COMMON NORMALS: moves all extremities, no focal motor deficits and no sensory deficits noted SENSORIUM/ORIENTATION: Yes lethargic Psych: COMMON NORMALS: mental status grossly normal, thought process normal, cooperative, affect normal, speech normal and activity/motor behavior normal APPEARANCE: Yes well kempt SPEECH: Yes normal speech THOUGHT PROCESS: normal thought process Skin: COMMON NORMALS: no rashes or lesions noted, skin turgor normal, no jaundice, no petechiae and no mottling GENERAL SKIN EXAM: no rashes or lesions noted and turgor normal Procedures Intubation Time out performed: Yes sedative: Etomidate Mg Given: 20 paralytic: Succinylcholine Mg Given: 150 Laryngoscope: Rodolfo ET Tube Size: 8 ET Tube Uncuffed: Yes Tube Secured Location: lips Tube Placement Confirmation: visualized tube passing through cords, equal breath sounds bilaterally, no breath sounds over epigastrium and confirmation by capnometry Patient Tolerated Procedure: well Intubation Complications: none Course Vital Signs: Vital signs: Vital Signs Temperature 98.1 F 07/21/19 20:05 Pulse Rate 79 07/21/19 21:20 Respiratory Rate 13 07/21/19 21:20 Blood Pressure 104/67 07/21/19 21:20 Pulse Oximetry 94 07/21/19 21:20 MDM - SOB/Dyspnea MDM Narrative: Medical decision making narrative: Patient necessitated intubation and she failed BiPAP therapy for her respiratory distress. Her altered mental status could have been caused by this as well as hyponatremia and hyper ammonia anemia. She is stable now on the ventilator. I reviewed the case in full with Dr. Watson and she will come to admit the patient. We are correcting the patient sodium slowly as this appears to be a new problem. Lab Data: Attestation: I reviewed the patient's lab results. Labs: Lab Results 07/21/19 07/21/19 07/21/19 Range/Units 16:24 16:40 16:41 WBC 5.7 (4.0-10.0) 10^3/ uL RBC 4.62 (4.1-5.3) 10^6/u L Hgb 10.3 L (11.5-15.3) g/dL Hct 36.7 L (37.0-47.0) % MCV 79.4 L (81-99) fL MCH 22.3 L (28.0-34.0) pg MCHC 28.1 L (30.0-36.0) g/dL RDW 16.3 H (12.1-15.1) % Plt Count 428 H (130-400) 10^3/c mm MPV 9.7 (7.4-10.4) fL Neut % (Auto) 73.7 % Lymph % (Auto) 15.0 % Bartholomew % (Auto) 7.3 % Eos % (Auto) 2.4 % Baso % (Auto) 0.9 % Neut # (Auto) 4.2 (1.8-7.7) 10^3/u L Lymph # (Auto) 0.9 (0.8-4.8) 10^3/u L Bartholomew # (Auto) 0.4 (0.2-0.9) 10^3/u L Eos # (Auto) 0.1 (0.0-0.8) 10^3/u L Baso # (Auto) 0.1 (0.0-0.1) 10^3/u L Nucleated RBC % (a uto) 0 % Nucleated RBCs # 0.0 /100WBC PT (10.5-13.3) SECO NDS INR (0.8-1.2) APTT (23.9-36.7) SECO NDS Specimen Type Arterial Sample Site Radial, left ABG pH 7.22 L (7.35-7.45) ABG pCO2 112.0 H* (35-45) mmHg ABG pO2 143.0 H (80.0-100.0) mmH g ABG HCO3 45.7 H (22-26) mmol/L ABG Base Excess 14.2 H (-2.0-2.0) mmol/ L Santiago Test Pos Hematocrit 33.7 L (37-47) % O2 Delivery Device Bipap FiO2 40.0 % Bench Worker Binding ID jmn Sodium (136-145) mmol/L Potassium (3.5-5.1) mmol/L Chloride (98-107) mmol/L Carbon Dioxide (22-29) mmol/L Anion Gap (5-19) BUN (8-23) mg/dL Creatinine (0.5-0.9) mg/dL GFR Calculation (90-130) mL/min Glucose (65-115) mg/dL Lactic Acid (0.5-2.2) mmol/L Calcium (8.5-10.5) mg/dL Magnesium (1.7-2.3) mg/dL Total Bilirubin (0.15-1.2) mg/dL AST (0-32) U/L ALT (0-33) U/L Alkaline Phosphata se (35-105) IU/L Ammonia (11-51) umol/L Troponin T Baselin e (0-10) ng/mL NT-Pro-B Natriuret Pep (0-125) pg/mL Total Protein (6.6-8.7) g/dL Albumin (3.5-5.2) g/dL Globulin (1.3-4.6) g/dL Ethyl Alcohol (0-10) mg/dL Influenza Type A A g Negative (Negative) POC Influenza B Ag Negative (Negative) 07/21/19 07/21/19 07/21/19 Range/Units 16:41 16:41 16:41 WBC (4.0-10.0) 10^3/ uL RBC (4.1-5.3) 10^6/u L Hgb (11.5-15.3) g/dL Hct (37.0-47.0) % MCV (81-99) fL MCH (28.0-34.0) pg MCHC (30.0-36.0) g/dL RDW (12.1-15.1) % Plt Count (130-400) 10^3/c mm MPV (7.4-10.4) fL Neut % (Auto) % Lymph % (Auto) % Bartholomew % (Auto) % Eos % (Auto) % Baso % (Auto) % Neut # (Auto) (1.8-7.7) 10^3/u L Lymph # (Auto) (0.8-4.8) 10^3/u L Bartholomew # (Auto) (0.2-0.9) 10^3/u L Eos # (Auto) (0.0-0.8) 10^3/u L Baso # (Auto) (0.0-0.1) 10^3/u L Nucleated RBC % (a uto) % Nucleated RBCs # /100WBC PT 13.10 (10.5-13.3) SECO NDS INR 0.97 (0.8-1.2) APTT 28.9 (23.9-36.7) SECO NDS Specimen Type Sample Site ABG pH (7.35-7.45) ABG pCO2 (35-45) mmHg ABG pO2 (80.0-100.0) mmH g ABG HCO3 (22-26) mmol/L ABG Base Excess (-2.0-2.0) mmol/ L Santiago Test Hematocrit (37-47) % O2 Delivery Device FiO2 % Bench Worker Binding ID Sodium 119 L* (136-145) mmol/L Potassium 5.5 H (3.5-5.1) mmol/L Chloride 75 L (98-107) mmol/L Carbon Dioxide 40 H (22-29) mmol/L Anion Gap 9.5 (5-19) BUN 8 (8-23) mg/dL Creatinine 0.4 L (0.5-0.9) mg/dL GFR Calculation 160.2 H (90-130) mL/min Glucose 140 H (65-115) mg/dL Lactic Acid 0.7 (0.5-2.2) mmol/L Calcium 9.5 (8.5-10.5) mg/dL Magnesium 1.9 (1.7-2.3) mg/dL Total Bilirubin 0.4 (0.15-1.2) mg/dL AST 22 (0-32) U/L ALT 12 (0-33) U/L Alkaline Phosphata se 121 H (35-105) IU/L Ammonia (11-51) umol/L Troponin T Baselin e (0-10) ng/mL NT-Pro-B Natriuret Pep 439 H (0-125) pg/mL Total Protein 7.3 (6.6-8.7) g/dL Albumin 3.5 (3.5-5.2) g/dL Globulin 3.8 (1.3-4.6) g/dL Ethyl Alcohol < 10 (0-10) mg/dL Influenza Type A A g (Negative) POC Influenza B Ag (Negative) 07/21/19 07/21/19 07/21/19 Range/Units 16:41 16:41 17:40 WBC (4.0-10.0) 10^3/ uL RBC (4.1-5.3) 10^6/u L Hgb (11.5-15.3) g/dL Hct (37.0-47.0) % MCV (81-99) fL MCH (28.0-34.0) pg MCHC (30.0-36.0) g/dL RDW (12.1-15.1) % Plt Count (130-400) 10^3/c mm MPV (7.4-10.4) fL Neut % (Auto) % Lymph % (Auto) % Bartholomew % (Auto) % Eos % (Auto) % Baso % (Auto) % Neut # (Auto) (1.8-7.7) 10^3/u L Lymph # (Auto) (0.8-4.8) 10^3/u L Bartholomew # (Auto) (0.2-0.9) 10^3/u L Eos # (Auto) (0.0-0.8) 10^3/u L Baso # (Auto) (0.0-0.1) 10^3/u L Nucleated RBC % (a uto) % Nucleated RBCs # /100WBC PT (10.5-13.3) SECO NDS INR (0.8-1.2) APTT (23.9-36.7) SECO NDS Specimen Type Arterial Sample Site Radial, right ABG pH 7.17 L* (7.35-7.45) ABG pCO2 125.0 H* (35-45) mmHg ABG pO2 64.5 L (80.0-100.0) mmH g ABG HCO3 45.4 H (22-26) mmol/L ABG Base Excess 12.9 H (-2.0-2.0) mmol/ L Santiago Test Pos Hematocrit 33.4 L (37-47) % O2 Delivery Device Bipap FiO2 45.0 % Bench Worker Binding ID jmn Sodium (136-145) mmol/L Potassium (3.5-5.1) mmol/L Chloride (98-107) mmol/L Carbon Dioxide (22-29) mmol/L Anion Gap (5-19) BUN (8-23) mg/dL Creatinine (0.5-0.9) mg/dL GFR Calculation (90-130) mL/min Glucose (65-115) mg/dL Lactic Acid (0.5-2.2) mmol/L Calcium (8.5-10.5) mg/dL Magnesium (1.7-2.3) mg/dL Total Bilirubin (0.15-1.2) mg/dL AST (0-32) U/L ALT (0-33) U/L Alkaline Phosphata se (35-105) IU/L Ammonia 85 H (11-51) umol/L Troponin T Baselin e 14 H (0-10) ng/mL NT-Pro-B Natriuret Pep (0-125) pg/mL Total Protein (6.6-8.7) g/dL Albumin (3.5-5.2) g/dL Globulin (1.3-4.6) g/dL Ethyl Alcohol (0-10) mg/dL Influenza Type A A g (Negative) POC Influenza B Ag (Negative) Imaging Data^: CXR: Radiologist's impression: [address] [address] XRay Report Signed Patient: Roseann Durham #: [id number] : 4Acct#:[id number] Age/Sex: 63 / FADM Date: 07/21/19 Loc: ERRoom/Bed: Attending Dr: Ordering Provider/Ordering MD: Kelly Byrne DO Date of Service: 07/21/19 Procedure(s): XR chest 1V portable [id number] Accession Number(s): [id number] Report Number: [id number] WS: [id number] XR chest 1V portable [id number] REASON FOR EXAM: cough FINDINGS: Chronic interstitial reticular nodular patterns are seen in both lung raygoza. The chest is rotated slightly the hilum is prominent on the right this is normal variant. There is no definite pneumonia, pleural effusion, pulmonary edema, or pleural effusion. The josh lungs are poorly seen. No osseous abnormalities. XR/XR chest 1V portable [id number] IMPRESSION: Diffuse interstitial changes no definite pneumonia. Dictated By:Braeden Martell DO Signed By:Braeden Martell DOSigned Date/Time:07/21/19 1636 DD/ EKG Data^: EKG 1: Attestation: I personally reviewed and interpreted this EKG as follows: EKG Interpretation Date: 07/21/19 EKG interpretation time: 16:27 Interpretation: Normal sinus rhythm at 91 beats a minute, right bundle branch block, nonspecific ST and T wave changes. Discharge Plan Discharge Patient Disposition: Admitted As Inpatient Admit Provider: Zofia Watson Discharge Date/Time: 07/21/19 20:30 Coding Level of Care Code ED Federal Law Clerk for Chg Fwd Exam Comprehensive The documentation recorded by the Megan dockery Valerie R, accurately reflects the service I personally performed and the decisions made by Caty alfonso Eli N Jul 21, 2019 16:03
[2019-07-21 16:52] LABS: ABG PH Result 7.22 (7.35-7.45); Arterial Blood Gas Hematocrit 33.7 % (37-47); Base Excess ABG 14.2 mmol/L (-2.0-2.0); Blood Gas Allen Test Pos; Blood Gas Sample Site Radial, left; Blood Gas Sample Type Arterial; HCO3 ABG 45.7 mmol/L (22-26); Oxygen Device BIPAP
[2019-07-21 16:54] LABS: Basophils # 0.1 10^3/uL (0.0-0.1); Basophils % 0.9 %; Eosinophils # 0.1 10^3/uL (0.0-0.8); Eosinophils % 2.4 %; Hematocrit 36.7 % (37.0-47.0); Hemoglobin 10.3 g/dL (11.5-15.3); Lymphocytes # 0.9 10^3/uL (0.8-4.8); Mean Corpuscular HGB Conc 28.1 g/dL (30.0-36.0); Mean Corpuscular Hemoglobin 22.3 pg (28.0-34.0); Mean Corpuscular Volume 79.4 fL (81-99); Mean Platelet Volume 9.7 fL (7.4-10.4); Monocytes # 0.4 10^3/uL (0.2-0.9); Monocytes % 7.3 %; Neutrophils # 4.2 10^3/uL (1.8-7.7); Neutrophils % 73.7 %; Nucleated Red Blood Cells % 0 %; Platelet Count 428 10^3/cmm (130-400); Red Blood Count 4.62 10^6/uL (4.1-5.3); Red Cell Distribution Width 16.3 % (12.1-15.1); White Blood Count 5.7 10^3/uL (4.0-10.0)
[2019-07-21] MEDS: ipratropium-albuterol 3 mL Neb 9 ML INHALATION (16:56)
[2019-07-21 17:04] LABS: INR 0.97 (0.8-1.2)
[2019-07-21 17:05] LABS: Partial Thromboplastin Time 28.9 SECONDS (23.9-36.7)
[2019-07-21 17:10] LABS: Lactic Sepsis W/Reflex 0.7 mmol/L (0.5-2.2)
[2019-07-21 17:11] LABS: Ammonia 85 umol/L (11-51)
[2019-07-21 17:20] LABS: Troponin(5th) Baseline 14 ng/mL (0-10)
[2019-07-21 17:25] LABS: Alanine Aminotransferase 12 U/L (0-33); Albumin Level 3.5 g/dL (3.5-5.2); Alkaline Phosphatase 121 IU/L (35-105); Anion Gap 9.5 (5-19); Aspartate Amino Transferase 22 U/L (0-32); Blood Urea Nitrogen 8 mg/dL (8-23); Calcium 9.5 mg/dL (8.5-10.5); Carbon Dioxide 40 mmol/L (22-29); Chloride 75 mmol/L (98-107); Globulin 3.8 g/dL (1.3-4.6); Glomerular Filtration Rate 160.2 mL/min (90-130); Glucose 140 mg/dL (65-115); Magnesium 1.9 mg/dL (1.7-2.3); NT Pro B Type Natriuretic Pept 439 pg/mL (0-125); Potassium 5.5 mmol/L (3.5-5.1); Total Bilirubin 0.4 mg/dL (0.15-1.2); Total Protein 7.3 g/dL (6.6-8.7)
[2019-07-21 17:26] LABS: Alcohol Level < 10 mg/dL (0-10); Sodium 119 mmol/L (136-145)
[2019-07-21 17:36] LABS: Influenza A by IFA Negative (Negative); Influenza B by IFA Negative (Negative)
[2019-07-21] MEDS: sodium chloride 0.9% 1,000 ML 100 ML IV (17:38)
[2019-07-21] MEDS: levofloxacin-dextrose 5 % 750 MG/150 ML PREMIX 150 MG IV (17:39)
[2019-07-21 17:53] LABS: Arterial Blood Gas Hematocrit 33.4 % (37-47); Base Excess ABG 12.9 mmol/L (-2.0-2.0); Blood Gas Allen Test Pos; Blood Gas Sample Site Radial, right; Blood Gas Sample Type Arterial; HCO3 ABG 45.4 mmol/L (22-26); Oxygen Device BIPAP; PO2 ABG 64.5 mmHg (80.0-100.0)
[2019-07-21 17:54] LABS: ABG PH Result 7.17 (7.35-7.45)
--- NOTE | 2019-07-21 17:57 | XR_ITS ---
WS: [id number] XR chest 1V portable [id number] REASON FOR EXAM: cough FINDINGS: An endotracheal tube is now seen in good position. On previous exam is felt to be fullness in the right hilum secondary to rotation today's exam with slight fullness could be a lesion in the h ilum on the right. In endotracheal tube is seen. Good position A feeding tube is seen in good position There appears to be a hiatal hernia present. Reticular nodular pattern in both lung raygoza. XR/XR chest 1V portable [id number] IMPRESSION: Reticular pattern suggests interstitial disease In retrospect the hilum appears to be fall on the right a lesion in the hilum c annot be excluded. Endotracheal tube good position. A feeding tube is seen in the stomach.
[2019-07-21] MEDS: succinylcholine 20 mg/mL SDV 10mL 150 MG IVP (18:06)
--- NOTE | 2019-07-21 18:07 | PC.NURSE ---
PT ORALLY INTUBATED WITH 8.0 ETT [address] CM AT [address]IP [address] MURILLO PT DURGA WELL, PT ON MONITOR WITH OXYGEN ON AMBU BAGGED TILL INTUBATED FAMILY AT BEDSIDE EXPLAINED PROCEDURE VERBALIZED UNDERSTANDING CO2 ENDTIDAL APPLIED AFTER INTUBATED WITH PROPER COLOR CHANGE NOTED EQUAL CHEST RISE EQUAL BREATH SOUNDS NOTED NO AIR OVER ABD HEARD PT PLACED ON VENT BY RESP THERAPY. SUCTION AVAILABLE AND CODE CART DURING INTUBATION
[2019-07-21] MEDS: LORazepam 2 mg/mL INJ 1 mL IVP (18:08)
[2019-07-21] MEDS: vecuronium 10 mg SDV IVP (18:09)
--- NOTE | 2019-07-21 18:16 | ECG_ITS ---
Measurements Intervals [place] Rate: 78 P: -9 ID: [id number] QRS: 89 QRSD: 124 T: 34 QT: 371 QTc: 423 SINUS RHYTHM RIGHT BUNDLE BRANCH BLOCK [120+ ms QRS DURATION, UPRIGHT V1, 40+ ms S IN I/aVL/V4/V5/V6] Compared to ECG 07/21/2019 16:27:10 Right-axis deviation no longer present Electronically Signed On 07-22-2019 19:05:33 RESIDENT CARE TECHNICIAN by Last Fowler M.D. [email or web address]
[2019-07-21] MEDS: propofol 1,000 MG/100 ML INJ 4.9 MG IV ×2 (18:21→18:25)
--- NOTE | 2019-07-21 18:46 | P.HP_ITS ---
Providers/Chief Complaint Admitting Physician: Zofia Watson MD Chief Complaint: DIFFICULTY BREATHING History of Present Illness Roseann Durham is a 63 year old female with PMHx of Chronic diastolic CHF, HTN, hx of DVT/PE s/p IVC filter, Chronic smoker, COPD, s/p colectomy admitted here between 05/29 to 06/08 respiratory distress necessitating placement of BiPAP on her arrival. She was seen by cushion worker Dr. Lipscomb and underwent RHC which was consistent with moderate pulmonary hypertension consistent with WHO group 3 pulmonary hypertension. She was treated with antibiotic and steroid and bronchodilator for the COPD exacerbation. She additionally received Lasix for pulmonary HTN. Eventually extubated to Bipap on 06/05 and did well post extubation, remaining on Bipap and nasal canula. She was eventually discharged in stable condition on 06/08/19 She returns today with similar c/o shortness of breath worsened over past 4-5 d ays. Abd on arrival showed severe hypercapneic respiratory acidosis, failed Bipap trial and eventually needed to be intubated. Limited history is available from who states that her cough and expectoration worsened over the past 3-4 days. No h/o recent sick contacts. Was taking medications as prescribed. Had poor appetite and was mostly drinking sodas through the day. No h/o fever. Review of Systems General: Reports: ROS unobtainable due to endotracheal tube Medications/Allergies Home Medications Medication Instructions Recorded Confirmed Last Taken Type Xanax See Rx Instructions .ROUTE .COMPLEX 07/21/19 07/21/19 Unknown History Allergies Allergy/AdvReac Type Severity Reaction Status Date / Time No Known Allergies Allergy Verified 05/29/19 13:57 PFSH Acute PFSH: Medical History Chronic anemia Chronic diastolic CHF (congestive heart failure) CKD (chronic kidney disease), stage II COPD (chronic obstructive pulmonary disease) Hypertension Morbid obesity Pulmonary embolism Vascular dementia Surgical History H/O section X2 H/O colectomy Secondary to severe colitis H/O: hysterectomy History of salpingo-oophorectomy S/P IVC filter Secondary to PE, DVT Family History Father Lung disease Social History Smoking and tobacco status: current every day smoker cigarettes Packs smoked per day: 1 Alcohol intake: never Household members: family Vitals/I&O/Wt Last Vital Signs Pulse 89 07/21/19 16:57 Resp 14 07/21/19 18:27 BP 159/95 07/21/19 16:08 Pulse Ox 96 07/21/19 16:57 07/21/19 07/21/19 07/21/19 06:59 14:59 22:59 Intake Total 0.327 / 0.327 Balance 0.327 / 0.327 Weight last 48 hrs Weight 81.647 kg Physical Exam Const: NUTRITIONAL APPEARANCE: obese ORIENTATION/CONSCIOUSNESS: Yes obtunded and Yes lethargic OTHER: intubated Resp: EFFORT & INSPECTION: Yes symmetric chest movement and Yes respiratory distress AUSCULTATION: crackles and rales Cardio: RATE: regular rate RHYTHM: regular rhythm HEART SOUNDS: S1 normal and S2 normal GI: COMMON NORMALS: normal to inspection, nondistended, normoactive bowel sounds OTHER: colostomy r abdomen Neuro: OTHER: intubated, sedated Urinary Catheter Management^: Ortega: Cath Placed During This Visit: yes Urinary Catheter Date of Insertion: 07/21/19 Urinary Catheter Time of Insertion: 18:29 Data : 07/21/19 16:41 07/21/19 16:41 Micro: Microbiology 07/21/19 16:41 Blood Culture - Preliminary Blood SPECIMEN COLLECTED 07/21/19 16:36 Blood Culture - Preliminary Blood SPECIMEN COLLECTED A&P Assessment and plan (1) Hyponatremia: Status: Acute Code(s): E87.1 - Hypo-osmolality and hyponatremia (2) Acute exacerbation of chronic obstructive airways disease: Status: Acute Code(s): J44.1 - Chronic obstructive pulmonary disease with (acute) exacerbation (3) Chronic anticoagulation: Status: Acute Code(s): Z79.01 - buttermaker helper (current) use of anticoagulants (4) Acute on chronic respiratory failure with hypercapnia: Status: Acute Code(s): J96.22 - Acute and chronic respiratory failure with hypercapnia (5) CKD (chronic kidney disease), stage II: Status: Acute Code(s): N18.2 - Chronic kidney disease, stage 2 (mild) (6) Chronic diastolic CHF (congestive heart failure): Status: Acute Code(s): I50.32 - Chronic diastolic (congestive) heart failure (7) Hypertension: Status: Acute Code(s): I10 - Essential (primary) hypertension (8) Morbid obesity: Status: Acute Code(s): E66.01 - Morbid (severe) obesity due to excess calories Additional A&P Information admit to ICU Acute on chronic respiratory failure with hypercapnia: - intubated after failure of Bipap -chest x-ray without gross infiltrate -No leukocytosis -iv streoids solumedrol -Empiric antibiotics with Levaquin -duoneb and pulmocort treatments -NGT in place CHF exacerbation : Diuresis with lasix 40mg iv q12h hx of PE, DVT s/p IVC filter, on AC with Eliquis hx of severe colitis s/p colectomy and ileostomy. Morbid obesity: BMI-37 kg/m2 Vascular dementia, hx of CVA, TIA CKD stage 2; baseline Cr wnl accurate Is & O -GI ppx with PPI -DVT ppx not needed as on Eliquis Attestations Medical Necessity Statement*: anticipate > 2MN admission for acute respiratory failure Coding Level of Care Code Acute Woods Manager for [facility] Fwd Diagnoses Hyponatremia E87.1 Acute exacerbation of chronic obstructive airways disease J44.1 Chronic anticoagulation Z79.01 Acute on chronic respiratory failure with hypercapnia J96.22 CKD (chronic kidney disease), stage II N18.2 Chronic diastolic CHF (congestive heart failure) I50.32 Hypertension I10 Morbid obesity E66.01
[2019-07-21 19:14] LABS: Troponin 5 2HR 12.56 ng/mL (0-10)
[2019-07-21 19:16] LABS: Troponin 5 2HR Delta -1.44 ABS# (0-10)
--- NOTE | 2019-07-21 19:37 | XR_ITS ---
WS: [id number] XR chest 1V portable [id number] REASON FOR EXAM: cough FINDINGS: Fullness is again noted in the right hilum. An endotracheal tube is seen in good position. A feeding tube is noted in the stomach. There is mild fullness seen also on the left side with the hilar fullness sarcoidosis should be in th e differential diagnosis. XR/XR chest 1V portable [id number] IMPRESSION: Fullness in both hilum Endotracheal tube good position Feeding tube in good position.
--- NOTE | 2019-07-21 19:46 | PC.NURSE ---
respiratory at bedside-pt suctioned. Pt's oxygen saturation back up to 92%
--- NOTE | 2019-07-21 19:47 | PC.NURSE ---
pt given 50mcg bolus of diprovan with ED physician at bedside.
[2019-07-21 19:51] LABS: Sodium 119 mmol/L (136-145)
[2019-07-21 20:10] LABS: ABG PH Result 7.31 (7.35-7.45); Arterial Blood Gas Hematocrit 33.9 % (37-47); Base Excess ABG 12.6 mmol/L (-2.0-2.0); Blood Gas Allen Test Pos; Blood Gas Sample Site Radial, right; Blood Gas Sample Type Arterial; Carboxyhemoglobin 2.5 %THgb (0.4-20.1); HCO3 ABG 41.8 mmol/L (22-26); HGB O2 Sat 91.1 % (95-100); Ionized Calcium Level - ABG 1.2 mmol/L (1.1-1.4); Methemoglobin 0.4 % (0.4-1.5); Oxygen Device VENT; Oxygen Saturation ABG 93.8; PO2 ABG 64.8 mmHg (80.0-100.0); Total Hemoglobin 11.1 g/dL (12-16)
[2019-07-21 20:11] LABS: ABG PCO2 82.4 mmHg (35-45)
[2019-07-21 21:28] LABS: Add Urine Culture? No; Bacteria Urine 1+; Bilirubin Urine Neg (NEGATIVE); Blood Urine Neg (Negative); Glucose Urine UA Norm (Normal); Ketones Urine Negative (Negative); Leukocyte Esterase Urine Negative (Negative); Mucus Urine 1+; Nitrate Urine Negative (Negative); Protein Urine Neg (Negative); Urine Color Yellow (Yellow); Urobilinogen Urine Norm (Negative); WBC Urine RARE /hpf (0-5); pH Urine 6 (5-7)
--- NOTE | 2019-07-21 22:16 | ECG_ITS ---
Measurements Intervals [place] Rate: 92 P: 67 FL: 148 QRS: 102 QRSD: 138 T: 11 QT: 354 QTc: 438 SINUS RHYTHM POSSIBLE LEFT ATRIAL ENLARGEMENT [-0.1mV P WAVE IN V1/V2] INDETERMINATE AXIS RIGHT BUNDLE BRANCH BLOCK [120+ ms QRS DURATION, UPRIGHT V1, 40+ ms S IN I/aVL/V4/V5/V6] Compared to ECG 07/21/2019 16:27:10 Indeterminate axis now present Right-axis deviation no longer present Electronically Signed On 07-22-2019 8:22:59 REACTOR OPERATOR by Coral Winslow M.D. [email or web address]
[2019-07-21 22:56] LABS: Sodium 121 mmol/L (136-145)
[2019-07-21] MEDS: ipratropium-albuterol 3 mL Neb INHALATION (23:39)
[2019-07-21] MEDS: FUROsemide 10 mg/mL SDV 4mL 40 MG IVP (23:41)
[2019-07-21 23:44] LABS: Urine Random Sodium 15 mmol/L
[2019-07-22] VITALS (106 sets, daily range): BP systolic 95–162; BP diastolic 58–97; PULSE 78–114; RESP 12–27; TEMP 37.3–37.4; O2SAT 70–100
[2019-07-22] MEDS: ipratropium-albuterol 3 mL Neb INHALATION ×7 (03:05→23:22)
[2019-07-22 03:57] LABS: Hematocrit 35.2 % (37.0-47.0); Hemoglobin 10.2 g/dL (11.5-15.3); Lymphocytes # 0.3 10^3/uL (0.8-4.8); Lymphocytes % 6.7 %; Mean Corpuscular Hemoglobin 22.8 pg (28.0-34.0); Mean Corpuscular Volume 78.7 fL (81-99); Mean Platelet Volume 8.9 fL (7.4-10.4); Neutrophils # 3.6 10^3/uL (1.8-7.7); Nucleated Red Blood Cells % 0 %; Platelet Count 390 10^3/cmm (130-400); Red Blood Count 4.47 10^6/uL (4.1-5.3); Red Cell Distribution Width 16.2 % (12.1-15.1); White Blood Count 3.9 10^3/uL (4.0-10.0)
[2019-07-22 04:20] LABS: Alanine Aminotransferase 10 U/L (0-33); Albumin Level 3.1 g/dL (3.5-5.2); Alkaline Phosphatase 105 IU/L (35-105); Anion Gap 14.4 (5-19); Aspartate Amino Transferase 16 U/L (0-32); Blood Urea Nitrogen 10 mg/dL (8-23); Calcium 9.4 mg/dL (8.5-10.5); Carbon Dioxide 37 mmol/L (22-29); Chloride 76 mmol/L (98-107); Globulin 3.9 g/dL (1.3-4.6); Glomerular Filtration Rate 100.3 mL/min (90-130); Glucose 138 mg/dL (65-115); Potassium 5.4 mmol/L (3.5-5.1); Sodium 122 mmol/L (136-145); Total Bilirubin 0.5 mg/dL (0.15-1.2)
[2019-07-22 04:37] LABS: ABG PH Result 7.45 (7.35-7.45); Arterial Blood Gas Hematocrit 31.9 % (37-47); Base Excess ABG 17.4 mmol/L (-2.0-2.0); Blood Gas Sample Site Brachial, right; Blood Gas Sample Type Arterial; Blood Gas Tidal Volume 0.5; Oxygen Device VENT; PO2 ABG 55.3 mmHg (80.0-100.0)
[2019-07-22 04:38] LABS: ABG PCO2 63.3 mmHg (35-45)
[2019-07-22] MEDS: propofol 1,000 MG/100 ML INJ 7.3 MG IV ×2 (05:15→14:33)
--- NOTE | 2019-07-22 06:00 | XR_ITS ---
WS: [id number] XR chest 1V portable [id number] REASON FOR EXAM: line placement FINDINGS: Endotracheal tube seen in good position. A feeding tube is noted in the stomach positioning is satisfactory. The hilum is appear to be less prominent than previous exam. There is no active pneumonia or congestive heart failure. XR/XR chest 1V portable [id number] IMPRESSION: Endotracheal tube good position Feeding tube good position.
[2019-07-22] MEDS: budesonide 0.5 mg/2 mL Neb INHALATION ×2 (07:33→20:11)
[2019-07-22] MEDS: FUROsemide 10 mg/mL SDV 4mL 40 MG IVP ×2 (08:48→21:17)
[2019-07-22] MEDS: lactulose oral liq 20 gm/30 mL UDC PO ×2 (08:49→23:55)
[2019-07-22] MEDS: apixaban 5 mg Tablet PO ×2 (08:49→18:08)
[2019-07-22 08:59] LABS: Alanine Aminotransferase 10 U/L (0-33); Albumin Level 3.4 g/dL (3.5-5.2); Alkaline Phosphatase 110 IU/L (35-105); Anion Gap 12.3 (5-19); Aspartate Amino Transferase 17 U/L (0-32); Blood Urea Nitrogen 14 mg/dL (8-23); Calcium 9.5 mg/dL (8.5-10.5); Carbon Dioxide 38 mmol/L (22-29); Chloride 74 mmol/L (98-107); Globulin 3.4 g/dL (1.3-4.6); Glomerular Filtration Rate 100.3 mL/min (90-130); Glucose 121 mg/dL (65-115); Potassium 5.3 mmol/L (3.5-5.1); Total Bilirubin 0.5 mg/dL (0.15-1.2); Total Protein 6.8 g/dL (6.6-8.7)
[2019-07-22 09:21] LABS: Sodium 119 mmol/L (136-145)
--- NOTE | 2019-07-22 13:12 | PM.PN ---
Subjective Subjective: Interval history: Continues to be intubated and sedated. However she is able to wake up on calling name and nods head to indicate yes or no. States yes to being comfortable on the ventilator currently. This morning's ABG with 7.45/60 3.3/50 5.3/44 on 45% FiO2. However did have an episode of desaturation down to 86% on this setting which required trending of the FiO2. Medications: Reviewed: Yes Vitals/I&O/Wt Last Vital Signs Temp 99.4 F 07/22/19 08:00 Pulse 88 07/22/19 12:00 Resp 12 07/22/19 11:03 BP 128/80 07/22/19 12:00 Pulse Ox 93 07/22/19 12:00 07/21/19 07/22/19 07/22/19 22:59 06:59 14:59 Intake Total 150.327 / 150.327 53.083 / 203.410 Output Total 0 / 0 750 / 750 0 / 0 Balance 150.327 / 150.327 -696.917 / -546.590 0 / 0 Weight last 48 hrs Weight 96.116 kg Weight 81.647 kg Physical Exam Narrative: EXAM NARRATIVE: GEN: Awake on calling name, no acute distress, indicates yes or no HEENT ET tube remains in place connected to mechanical ventilator. CVS: S1S2 N RS: Bilateral wheezing present in all areas of auscultation anteriorly. Abd: Soft, nt/nd , bs+ SKEIN YARN DYER: no focal neuro deficits Const: GENERAL APPEARANCE: lethargic NUTRITIONAL APPEARANCE: obese ORIENTATION/CONSCIOUSNESS: Yes obtunded and Yes lethargic OTHER: intubated Resp: EFFORT & INSPECTION: Yes symmetric chest movement and Yes respiratory distress AUSCULTATION: crackles and rales Cardio: COMMON NORMALS: regular rate, regular rhythm, S1 normal heart sound and S2 normal heart sound RATE: regular rate RHYTHM: regular rhythm HEART SOUNDS: S1 normal and S2 normal GI: COMMON NORMALS: normal to inspection, nondistended, normoactive bowel sounds OTHER: colostomy r abdomen Neuro: SENSORIUM/ORIENTATION: Yes lethargic OTHER: intubated, sedated Urinary Catheter Management^: Ortega: Cath Placed During This Visit: yes Reason for Continuing Indwelling Catheter: Accurate Measurement of Urinary Output in Critically Ill Patients Urinary Catheter Date of Insertion: 07/21/19 Urinary Catheter Time of Insertion: 18:29 Data : 07/22/19 03:43 07/22/19 08:39 Micro: Microbiology 07/21/19 20:55 Gram Stain - Final Sputum - Endotracheal Tube Aspirate 07/21/19 16:41 Blood Culture - Preliminary Blood SPECIMEN COLLECTED 07/21/19 16:36 Blood Culture - Preliminary Blood SPECIMEN COLLECTED A&P Assessment and plan (1) Hyponatremia: Status: Acute Code(s): E87.1 - Hypo-osmolality and hyponatremia (2) Acute exacerbation of chronic obstructive airways disease: Status: Acute Code(s): J44.1 - Chronic obstructive pulmonary disease with (acute) exacerbation (3) Chronic anticoagulation: Status: Acute Code(s): Z79.01 - longterm (current) use of anticoagulants (4) Acute on chronic respiratory failure with hypercapnia: Status: Acute Code(s): J96.22 - Acute and chronic respiratory failure with hypercapnia (5) Chronic diastolic CHF (congestive heart failure): Status: Acute Code(s): I50.32 - Chronic diastolic (congestive) heart failure (6) Hypertension: Status: Acute Code(s): I10 - Essential (primary) hypertension (7) Morbid obesity: Status: Acute Code(s): E66.01 - Morbid (severe) obesity due to excess calories (8) COPD (chronic obstructive pulmonary disease): Status: Acute Qualifiers: COPD type: COPD with acute exacerbation Qualified Code(s): J44.1 - Chronic obstructive pulmonary disease with (acute) exacerbation Code(s): J44.9 - Chronic obstructive pulmonary disease, unspecified (9) CKD (chronic kidney disease), stage II: Status: Acute Code(s): N18.2 - Chronic kidney disease, stage 2 (mild) (10) Moderate to severe pulmonary hypertension: Status: Acute Code(s): I27.20 - Pulmonary hypertension, unspecified Additional A&P Information Acute on chronic respiratory failure with hypercapnia: - intubated after failure of Bipap -chest x-ray without gross infiltrate -No leukocytosis -iv streoids solumedrol 80mg iv q8h -Empiric antibiotics with Levaquin -duoneb and pulmicort treatments -NGT in place CHF exacerbation : Diuresis with lasix 40mg iv q12h Moderate pulmonary hypertension : diuresis with Lasix as above hx of PE, DVT s/p IVC filter, on AC with Eliquis hx of severe colitis s/p colectomy and ileostomy. Morbid obesity: BMI-37 kg/m2 Vascular dementia, hx of CVA, TIA CKD stage 2; baseline Cr wnl accurate Is & O -GI ppx with PPI -DVT ppx not needed as on Eliquis Attestations Medical Necessity Statement*: hypercapneic respiratory failure, awaiting optimization of resp status Coding Level of Care Code Acute Channel Cementer Outsole Machine for [facility] Fwd Diagnoses Hyponatremia E87.1 Acute exacerbation of chronic obstructive airways disease J44.1 Chronic anticoagulation Z79.01 Acute on chronic respiratory failure with hypercapnia J96.22 Chronic diastolic CHF (congestive heart failure) I50.32 Hypertension I10 Morbid obesity E66.01 COPD (chronic obstructive pulmonary disease) J44.1 COPD type: COPD with acute exacerbation CKD (chronic kidney disease), stage II N18.2 Moderate to severe pulmonary hypertension I27.20
--- NOTE | 2019-07-22 13:25 | PC.CHAP ---
Pastoral Care Encounter/Spiritual Assessment Type of Contact [] Declined certified medical asst visit [] Patient/Family/Request visit [] Outpatient visit [] Follow-up visit [] Physician referral [] Code/Alert [] Routine visit [] Staff referral [] Actively dying [X] Patient sleeping [] Family support [] [] Out of room [] Palliative care [] [] Receiving care in room [] Pre-surgical visit [] Trauma [] Long length of stay [] ICU visit [] Other: Relational/Emotional Strength [] Patient feels connected with others/family/visitors/staff [] Distress [] Loneliness/isolation [] Abandonment Spirituality of Patient [] Person of Laura [] Attends Yazidism of their Laura [] Believes in Prayer [] Reads Bible or Hoahaoism materials [] There are Spiritual issues to be addressed Staff Anesthetist Interventions [] Prayer [] Active listening [] Non-anxious presence [] Spiritual/emotional support [] Crisis/trauma care [] Spiritual counseling [] Bereavement support [] Provided bereavement packet [] Provided Bible/devotional materials [] Provided toy/stuffed animal, coloring book to patient or family member [] Provided Communion [] Anointing/Ethel [] Salvation [] Completed spiritual assessment [] Other: Impact on Illness or Injury [] Angry [] Fearful [] Anxious [] Often cries [] Exhaustion [] Unable to work [] Unable to attend holiness [] Unable to walk/stand [] Unable to read [] Unable to drive [] Unable to eat/drink [] Unable to sleep [] Unable to be with family [] Patient intubated [] Other: Summary NEED FOLLOW UP NEXT DAY Time spent with patient
[2019-07-22 14:41] LABS: Alanine Aminotransferase 10 U/L (0-33); Albumin Level 3.4 g/dL (3.5-5.2); Alkaline Phosphatase 105 IU/L (35-105); Anion Gap 11.7 (5-19); Aspartate Amino Transferase 15 U/L (0-32); Blood Urea Nitrogen 16 mg/dL (8-23); Calcium 9.5 mg/dL (8.5-10.5); Carbon Dioxide 39 mmol/L (22-29); Chloride 73 mmol/L (98-107); Globulin 3.3 g/dL (1.3-4.6); Glucose 132 mg/dL (65-115); Potassium 4.7 mmol/L (3.5-5.1); Total Bilirubin 0.5 mg/dL (0.15-1.2); Total Protein 6.7 g/dL (6.6-8.7)
[2019-07-22 15:10] LABS: Sodium 119 mmol/L (136-145)
--- NOTE | 2019-07-22 16:04 | PC.NURSE ---
pt requesting to be extubated alert and oriented at this time sedation off and here extubated at 1350 and placed on bipap at this time sats down 87 when not on bipap
--- NOTE | 2019-07-22 18:52 | PC.NURSE ---
refused to wear bipap and demanded to get out of bed even very short of breath notified
[2019-07-22 19:57] LABS: Alanine Aminotransferase 11 U/L (0-33); Albumin Level 3.5 g/dL (3.5-5.2); Alkaline Phosphatase 109 IU/L (35-105); Anion Gap 15.9 (5-19); Aspartate Amino Transferase 20 U/L (0-32); Blood Urea Nitrogen 18 mg/dL (8-23); Calcium 9.9 mg/dL (8.5-10.5); Carbon Dioxide 35 mmol/L (22-29); Chloride 73 mmol/L (98-107); Globulin 3.7 g/dL (1.3-4.6); Glucose 124 mg/dL (65-115); Potassium 4.9 mmol/L (3.5-5.1); Total Bilirubin 0.6 mg/dL (0.15-1.2); Total Protein 7.2 g/dL (6.6-8.7)
--- NOTE | 2019-07-22 19:59 | PC.NURSE ---
Pt sating 81% on nasal cannula, complaining of SOB. Pt not wanting to use the bipap, this nurse asked pt if she was willing to be re-intubated, pt said if that means me dying then yes .
[2019-07-22 20:15] LABS: Sodium 119 mmol/L (136-145)
[2019-07-23] VITALS (28 sets, daily range): BP systolic 107–127; BP diastolic 60–84; PULSE 79–120; RESP 17–28; TEMP 36.7–36.8; O2SAT 87–97
--- NOTE | 2019-07-23 01:10 | PC.NURSE ---
Pt repeatedly taking her bipap mask off and desaturating. Pt is anxious and fidgeting with all wires and tubes.
[2019-07-23 03:08] LABS: Alanine Aminotransferase 11 U/L (0-33); Albumin Level 3.5 g/dL (3.5-5.2); Alkaline Phosphatase 93 IU/L (35-105); Anion Gap 14.3 (5-19); Aspartate Amino Transferase 17 U/L (0-32); Blood Urea Nitrogen 18 mg/dL (8-23); Calcium 9.5 mg/dL (8.5-10.5); Carbon Dioxide 38 mmol/L (22-29); Chloride 73 mmol/L (98-107); Globulin 3.2 g/dL (1.3-4.6); Glucose 142 mg/dL (65-115); Potassium 4.3 mmol/L (3.5-5.1); Sodium 121 mmol/L (136-145); Total Bilirubin 0.6 mg/dL (0.15-1.2); Total Protein 6.7 g/dL (6.6-8.7)
[2019-07-23] MEDS: ipratropium-albuterol 3 mL Neb INHALATION ×6 (03:25→23:33)
[2019-07-23 05:43] LABS: Alanine Aminotransferase 9 U/L (0-33); Albumin Level 3.2 g/dL (3.5-5.2); Alkaline Phosphatase 92 IU/L (35-105); Anion Gap 14.2 (5-19); Aspartate Amino Transferase 19 U/L (0-32); Blood Urea Nitrogen 17 mg/dL (8-23); Calcium 9.1 mg/dL (8.5-10.5); Carbon Dioxide 38 mmol/L (22-29); Chloride 74 mmol/L (98-107); Globulin 3.5 g/dL (1.3-4.6); Glucose 142 mg/dL (65-115); Potassium 4.2 mmol/L (3.5-5.1); Sodium 122 mmol/L (136-145); Total Bilirubin 0.5 mg/dL (0.15-1.2); Total Protein 6.7 g/dL (6.6-8.7)
[2019-07-23] MEDS: levoFLOXacin 750 mg Tablet PO (06:02)
[2019-07-23] MEDS: FUROsemide 10 mg/mL SDV 4mL 40 MG IVP ×3 (08:07→21:41)
[2019-07-23] MEDS: apixaban 5 mg Tablet PO ×2 (08:07→17:11)
[2019-07-23] MEDS: budesonide 0.5 mg/2 mL Neb INHALATION ×2 (08:36→19:48)
--- NOTE | 2019-07-23 09:31 | PM.PN ---
Subjective Subjective: Interval history: Patient was extubated to BiPAP last evening. This morning she states her breathing is much better. She is lying comfortably in bed turned to one side saturating 92% on 6 L/min nasal cannula. There is no apparent respiratory distress. Last evening she had started to become extremely restless was awake and decision was made to do a high risk extubation. Sodium is improved from 1 1 9-1 22. Patient is alert awake and oriented this morning. There is a sitter at bedside because overnight she was trying to pull out her colostomy bag and lines, however this was in the setting of not wearing her BiPAP at the time. She is net -1.7 L. Weight is 94 kg from 96 kg upon admission. Kidney function is stable. Medications: Reviewed: Yes Vitals/I&O/Wt Last Vital Signs Temp 98.3 F 07/23/19 06:00 Pulse 120 H 07/23/19 08:41 Resp 24 H 07/23/19 08:41 BP 110/69 07/23/19 07:00 Pulse Ox 93 07/23/19 08:41 07/22/19 07/23/19 07/23/19 21:59 06:59 14:59 Intake Total 350 / 350 Output Total 300 / 300 Balance 50 / 50 Weight last 48 hrs Weight 94.483 kg Weight 96.116 kg Weight 81.647 kg Physical Exam Narrative: EXAM NARRATIVE: GEN: Awake, alert and oriented, lying in bed to one side, no acute distress HEENT wearing nasal cannula at this present time CVS: S1S2 N RS: Bilateral scattered wheezing diffusely all lung raygoza Abd: Soft, nt/nd , bs+ , colostomy bag in place with semisolid stools WEDDING CONSULTANT: no focal motor neuro deficits Const: GENERAL APPEARANCE: lethargic NUTRITIONAL APPEARANCE: obese ORIENTATION/CONSCIOUSNESS: Yes obtunded and Yes lethargic OTHER: intubated Resp: EFFORT & INSPECTION: Yes symmetric chest movement and Yes respiratory distress AUSCULTATION: crackles and rales Cardio: COMMON NORMALS: regular rate, regular rhythm, S1 normal heart sound and S2 normal heart sound RATE: regular rate RHYTHM: regular rhythm HEART SOUNDS: S1 normal and S2 normal GI: COMMON NORMALS: normal to inspection, nondistended, normoactive bowel sounds OTHER: colostomy r abdomen Neuro: SENSORIUM/ORIENTATION: Yes lethargic OTHER: intubated, sedated Urinary Catheter Management^: Ortega: Cath Placed During This Visit: yes Reason for Continuing Indwelling Catheter: Accurate Measurement of Urinary Output in Critically Ill Patients Urinary Catheter Date of Insertion: 07/21/19 Urinary Catheter Time of Insertion: 18:29 Data : 07/22/19 03:43 07/23/19 04:52 Micro: Microbiology 07/21/19 20:55 Gram Stain - Final Sputum - Endotracheal Tube Aspirate Sputum Culture - Preliminary 07/21/19 16:41 Blood Culture - Preliminary Blood NEGATIVE TO DATE 07/21/19 16:36 Blood Culture - Preliminary Blood NEGATIVE TO DATE A&P Assessment and plan (1) Moderate to severe pulmonary hypertension: Status: Acute Code(s): I27.20 - Pulmonary hypertension, unspecified (2) Hyponatremia: Status: Acute Code(s): E87.1 - Hypo-osmolality and hyponatremia (3) Acute exacerbation of chronic obstructive airways disease: Status: Acute Code(s): J44.1 - Chronic obstructive pulmonary disease with (acute) exacerbation (4) Chronic anticoagulation: Status: Acute Code(s): Z79.01 - [facility] (current) use of anticoagulants (5) Acute on chronic respiratory failure with hypercapnia: Status: Acute Code(s): J96.22 - Acute and chronic respiratory failure with hypercapnia (6) Chronic anemia: Status: Acute Code(s): D64.9 - Anemia, unspecified (7) CKD (chronic kidney disease), stage II: Status: Acute Code(s): N18.2 - Chronic kidney disease, stage 2 (mild) (8) Chronic diastolic CHF (congestive heart failure): Status: Acute Code(s): I50.32 - Chronic diastolic (congestive) heart failure (9) Hypertension: Status: Acute Code(s): I10 - Essential (primary) hypertension (10) Morbid obesity: Status: Acute Code(s): E66.01 - Morbid (severe) obesity due to excess calories (11) COPD (chronic obstructive pulmonary disease): Status: Acute Qualifiers: COPD type: COPD with acute exacerbation Qualified Code(s): J44.1 - Chronic obstructive pulmonary disease with (acute) exacerbation Code(s): J44.9 - Chronic obstructive pulmonary disease, unspecified Additional A&P Information Acute on chronic respiratory failure with hypercapnia: - intubated after failure of Bipap on day of admission, now extubated on 07/21 with the understanding that she remains at high risk of reintubation. -chest x-ray without gross infiltrate -No leukocytosis -iv steroids solumedrol 80mg iv q8h--> start tapering today to 80 mg IV every 12 hours -We will discontinue antibiotics today given no signs of pneumonia. -duoneb and pulmicort treatments to continue CHF exacerbation : Diuresis with lasix 40mg iv q12h Moderate pulmonary hypertension : diuresis with Lasix as above Hyponatremia: Patient is currently awake alert and oriented does not appear to have any neurological deficits as a result of hyponatremia. Slowly improving from 1 9-06 07 today. Clinically appears to be hypervolemic hyponatremia, as a result of CHF exacerbation. Calculated serum osmolality not reported on CMP, brought to the attention of lab. Serum osmolality sent out however remains pending at this time. Urine sodium at 15, however calculated after receiving Lasix. This number may correlate with hypovolemic hyponatremia, however clinically patient does not appear to be dry. Add salt tablets BID Check TSH hx of PE, DVT s/p IVC filter, on AC with Eliquis hx of severe colitis s/p colectomy and ileostomy. Morbid obesity: BMI-37 kg/m2 Vascular dementia, hx of CVA, TIA CKD stage 2; baseline Cr wnl accurate Is & O -GI ppx with PPI -DVT ppx not needed as on Eliquis Attestations Medical Necessity Statement*: optimization of respiratory status post extubation Coding Level of Care Code Acute Prn Occupational Therapist for [facility] Fwd Diagnoses Moderate to severe pulmonary hypertension I27.20 Hyponatremia E87.1 Acute exacerbation of chronic obstructive airways disease J44.1 Chronic anticoagulation Z79.01 Acute on chronic respiratory failure with hypercapnia J96.22 Chronic anemia D64.9 CKD (chronic kidney disease), stage II N18.2 Chronic diastolic CHF (congestive heart failure) I50.32 Hypertension I10 Morbid obesity E66.01 COPD (chronic obstructive pulmonary disease) J44.1 COPD type: COPD with acute exacerbation
[2019-07-23 09:32] LABS: Alanine Aminotransferase 10 U/L (0-33); Albumin Level 3.1 g/dL (3.5-5.2); Alkaline Phosphatase 93 IU/L (35-105); Anion Gap 14.5 (5-19); Blood Urea Nitrogen 17 mg/dL (8-23); Calcium 9.1 mg/dL (8.5-10.5); Carbon Dioxide 36 mmol/L (22-29); Chloride 76 mmol/L (98-107); Globulin 3.8 g/dL (1.3-4.6); Glucose 142 mg/dL (65-115); Potassium 4.5 mmol/L (3.5-5.1); Sodium 122 mmol/L (136-145); Total Bilirubin 0.5 mg/dL (0.15-1.2); Total Protein 6.9 g/dL (6.6-8.7)
[2019-07-23 09:52] LABS: Aspartate Amino Transferase 30 U/L (0-32)
[2019-07-23] MEDS: metoprolol tartrate 1 mg/1 mL SDV 5 mL 2.5 MG IV ×4 (10:33→21:07)
[2019-07-23 10:39] LABS: Thyroid Stimulating Hormone 0.69 uIU/mL (0.27-4.20)
[2019-07-23] MEDS: lanolin oint 7 gm 1 APPLIC TOPICAL (10:56)
--- NOTE | 2019-07-23 13:40 | PC.NURSE ---
up in room agitated at this time colostomy bag broke and linen change done and bath
[2019-07-23] MEDS: sodium chloride 1 gm Tablet PO (17:11)
[2019-07-24] VITALS (15 sets, daily range): BP systolic 100–138; BP diastolic 52–81; PULSE 82–91; RESP 16–20; TEMP 36.6–36.9; O2SAT 92–95
[2019-07-24] MEDS: metoprolol tartrate 1 mg/1 mL SDV 5 mL 2.5 MG IV ×6 (01:22→20:20)
[2019-07-24] MEDS: ipratropium-albuterol 3 mL Neb INHALATION ×5 (03:26→23:21)
[2019-07-24 06:18] LABS: Hematocrit 32.3 % (37.0-47.0); Hemoglobin 9.5 g/dL (11.5-15.3); Lymphocytes # 0.3 10^3/uL (0.8-4.8); Mean Corpuscular HGB Conc 29.4 g/dL (30.0-36.0); Mean Corpuscular Hemoglobin 23.2 pg (28.0-34.0); Mean Platelet Volume 9.5 fL (7.4-10.4); Monocytes # 0.3 10^3/uL (0.2-0.9); Monocytes % 2.7 %; Neutrophils % 93.7 %; Nucleated Red Blood Cells % 0 %; Platelet Count 384 10^3/cmm (130-400); Red Blood Count 4.09 10^6/uL (4.1-5.3); Red Cell Distribution Width 16.6 % (12.1-15.1); White Blood Count 10.7 10^3/uL (4.0-10.0)
[2019-07-24 06:40] LABS: Alanine Aminotransferase 10 U/L (0-33); Albumin Level 3.1 g/dL (3.5-5.2); Alkaline Phosphatase 80 IU/L (35-105); Anion Gap 11.3 (5-19); Aspartate Amino Transferase 18 U/L (0-32); Blood Urea Nitrogen 28 mg/dL (8-23); Calcium 8.6 mg/dL (8.5-10.5); Chloride 82 mmol/L (98-107); Globulin 3.3 g/dL (1.3-4.6); Glomerular Filtration Rate 100.3 mL/min (90-130); Glucose 146 mg/dL (65-115); Osmolality Calculated 270 mOsm/kg (285-295); Potassium 4.3 mmol/L (3.5-5.1); Sodium 130 mmol/L (136-145); Total Bilirubin 0.3 mg/dL (0.15-1.2); Total Protein 6.4 g/dL (6.6-8.7)
[2019-07-24 07:06] LABS: Carbon Dioxide 41 mmol/L (22-29)
[2019-07-24] MEDS: budesonide 0.5 mg/2 mL Neb INHALATION ×2 (08:04→19:51)
[2019-07-24] MEDS: lactulose oral liq 20 gm/30 mL UDC PO (09:34)
[2019-07-24] MEDS: apixaban 5 mg Tablet PO ×2 (09:34→17:18)
[2019-07-24] MEDS: FUROsemide 10 mg/mL SDV 4mL 40 MG IVP (09:40)
--- NOTE | 2019-07-24 10:21 | PC.SOCIAL ---
Pg 2 IMM Explained to pt Pg 2 IMM. Pt verbally understands. Provided pt a signed copy & left on pt's bedside table. No questions voiced. Signed, dated, timed, a copy of the original IMM & placed in chart.
--- NOTE | 2019-07-24 13:44 | PC.RESP ---
Patient given information on Smoking Cessation and Pulmonary Rehab.
[2019-07-24 14:14] LABS: Osmolality Serum 252 mOsm/kg (278-305)
--- NOTE | 2019-07-24 15:42 | P.PN_ITS ---
Subjective Subjective: Interval history: Patient reports feeling much better and wants to go home. She denies shortness of breath or chest pain. Reports that she continues to have occasionally productive cough which is at her baseline. She quit smoking 6 months ago. Her sodium improved after salt tablets were started. Reports that her appetite and oral intake improved. White blood cell count is trending up and likely secondary to steroids. Medications: Reviewed: Yes Vitals/I&O/Wt Last Vital Signs Temp 98.1 F 07/24/19 15:16 Pulse 87 07/24/19 15:16 Resp 16 07/24/19 15:16 BP 109/66 07/24/19 15:16 Pulse Ox 92 07/24/19 15:16 07/24/19 07/24/19 07/24/19 06:59 14:59 22:59 Intake Total 1128 / 2622 480 / 480 Output Total 1999 / 5100 Balance -872 / -2478 480 / 480 Weight last 48 hrs Weight 96.343 kg Weight 94.483 kg Physical Exam Narrative: EXAM NARRATIVE: Clinically patient appears to be dry. Const: COMMON NORMALS: no apparent distress and oriented x3 Resp: OTHER: Coarse breath sounds throughout. Cardio: COMMON NORMALS: regular rate, regular rhythm and S2 normal heart sound RATE: regular rate RHYTHM: regular rhythm HEART SOUNDS: S2 normal O THER: No lower extremity edema. GI: COMMON NORMALS: normal to inspection, nondistended, normoactive bowel sounds, soft to palpation and non-tender PALPATION: Yes soft OTHER: Ostomy. Neuro: COMMON NORMALS: oriented x3 and no focal motor deficits Urinary Catheter Management^: Ortega: Cath Placed During This Visit: yes Reason for Continuing Indwelling Catheter: Accurate Measurement of Urinary Output in Critically Ill Patients Urinary Catheter Date of Insertion: 07/21/19 Urinary Catheter Time of Insertion: 18:29 Data : 07/24/19 06:10 07/24/19 06:10 Micro: Microbiology 07/21/19 20:55 Gram Stain - Final Sputum - Endotracheal Tube Aspirate Sputum Culture - Final A&P Assessment and plan (1) Moderate to severe pulmonary hypertension: Status: Acute Code(s): I27.20 - Pulmonary hypertension, unspecified (2) Hyponatremia: Hypovolemic hyponatremia. Status: Acute Code(s): E87.1 - Hypo-osmolality and hyponatremia (3) Acute exacerbation of chronic obstructive airways disease: Continue bronchodilators and start patient on prednisone. Given patient's underlying oxygen dependent COPD I will restart antibiotic for pneumonia prevention. Status: Acute Code(s): J44.1 - Chronic obstructive pulmonary disease with (acute) exacerbation (4) Chronic anticoagulation: Status: Acute Code(s): Z79.01 - tank terminal gauger (current) use of anticoagulants (5) Acute on chronic respiratory failure with hypercapnia: Status: Acute Code(s): J96.22 - Acute and chronic respiratory failure with hypercapnia (6) Chronic anemia: Status: Acute Code(s): D64.9 - Anemia, unspecified (7) CKD (chronic kidney disease), stage II: Status: Acute Code(s): N18.2 - Chronic kidney disease, stage 2 (mild) (8) Chronic diastolic CHF (congestive heart failure): Currently compensated. Status: Acute Code(s): I50.32 - Chronic diastolic (congestive) heart failure (9) Hypertension: Status: Acute Code(s): I10 - Essential (primary) hypertension (10) Morbid obesity: Status: Acute Code(s): E66.01 - Morbid (severe) obesity due to excess calories (11) COPD (chronic obstructive pulmonary disease): Status: Acute Qualifiers: COPD type: COPD with acute exacerbation Qualified Code(s): J44.1 - Chronic obstructive pulmonary disease with (acute) exacerbation Code(s): J44.9 - Chronic obstructive pulmonary disease, unspecified Additional A&P Information Acute on chronic respiratory failure with hypercapnia: CHF exacerbation : Currently compensated. Discontinue Ortega catheter and make sure patient can urinate. Request physical therapy and if continues to improve we will likely be able to dismiss patient home tomorrow. Moderate pulmonary hypertension : Hyponatremia: Appears to be hypovolemic secondary dehydration at this point. Encouraged oral intake. hx of PE, DVT s/p IVC filter, on AC with Eliquis hx of severe colitis s/p colectomy and ileostomy. Obesity: BMI-37 kg/m2 Vascular dementia, hx of CVA, TIA CKD stage 2; baseline Cr wnl accurate Is & O -GI ppx with PPI -DVT ppx not needed as on Eliquis Attestations Medical Necessity Statement*: Patient with respiratory failure requires close inpatient monitoring and treatment will deemed safe for discharge. Coding Level of Care Code Acute Machine Deburrer for Chg Fwd Diagnoses Moderate to severe pulmonary hypertension I27.20 Hyponatremia E87.1 Acute exacerbation of chronic obstructive airways disease J44.1 Chronic anticoagulation Z79.01 Acute on chronic respiratory failure with hypercapnia J96.22 Chronic anemia D64.9 CKD (chronic kidney disease), stage II N18.2 Chronic diastolic CHF (congestive heart failure) I50.32 Hypertension I10 Morbid obesity E66.01 COPD (chronic obstructive pulmonary disease) J44.1 COPD type: COPD with acute exacerbation
[2019-07-24] MEDS: levofloxacin-dextrose 5 % 750 MG/150 ML PREMIX 150 MG IV (17:04)
[2019-07-24] MEDS: lidocaine 2% viscous 15 ML, aluminum-mag hydrox-simethicon 30 ML, sucralfate oral liq 1 GM PO (23:42)
[2019-07-25] VITALS (10 sets, daily range): BP systolic 107–119; BP diastolic 68–76; PULSE 69–92; RESP 18–24; TEMP 36.8–37.2; O2SAT 92–96; BMI 37.8
--- NOTE | 2019-07-25 03:10 | PC.NURSE ---
pt has continuously demanded to have food and drink products other than water brought to her every 10 mins or less not within diet order. she has had multiple crackers, sandwhich, puddings, jellos and 8 cans of coke during the night. i instructed her that we cannot continuously be bringing her food outside her diet order. pt still demands food and coke. i told her i am more than happy to bring her some water to drink. pt refuses. pt has been complaining of heart burn and nausea. i have educated her on her diet and treatment plan. i notified dr damico of her heart burn. orders placed for lidocaine, maalox, cocktail. pt refuses to take it.
[2019-07-25] MEDS: ipratropium-albuterol 3 mL Neb INHALATION ×2 (03:40→08:02)
[2019-07-25 06:11] LABS: Hematocrit 32.7 % (37.0-47.0); Hemoglobin 9.2 g/dL (11.5-15.3); Lymphocytes % 8.9 %; Mean Corpuscular HGB Conc 28.1 g/dL (30.0-36.0); Mean Corpuscular Hemoglobin 22.8 pg (28.0-34.0); Mean Corpuscular Volume 81.1 fL (81-99); Mean Platelet Volume 9.4 fL (7.4-10.4); Monocytes # 1.3 10^3/uL (0.2-0.9); Monocytes % 11.1 %; Neutrophils # 8.9 10^3/uL (1.8-7.7); Neutrophils % 79.4 %; Nucleated Red Blood Cells % 0 %; Platelet Count 372 10^3/cmm (130-400); Red Blood Count 4.03 10^6/uL (4.1-5.3); Red Cell Distribution Width 17.1 % (12.1-15.1); White Blood Count 11.2 10^3/uL (4.0-10.0)
[2019-07-25 06:25] LABS: Alanine Aminotransferase 10 U/L (0-33); Albumin Level 3.1 g/dL (3.5-5.2); Alkaline Phosphatase 74 IU/L (35-105); Aspartate Amino Transferase 18 U/L (0-32); Blood Urea Nitrogen 30 mg/dL (8-23); Calcium 8.8 mg/dL (8.5-10.5); Chloride 84 mmol/L (98-107); Globulin 3.3 g/dL (1.3-4.6); Glomerular Filtration Rate 123.8 mL/min (90-130); Glucose 109 mg/dL (65-115); Osmolality Calculated 268 mOsm/kg (285-295); Sodium 130 mmol/L (136-145); Total Bilirubin 0.3 mg/dL (0.15-1.2); Total Protein 6.4 g/dL (6.6-8.7)
[2019-07-25 06:34] LABS: Carbon Dioxide 41 mmol/L (22-29)
[2019-07-25] MEDS: budesonide 0.5 mg/2 mL Neb INHALATION (08:02)
[2019-07-25] MEDS: predniSONE 20 mg Tablet 40 MG PO (09:19)
[2019-07-25] MEDS: apixaban 5 mg Tablet PO (09:19)
[2019-07-25] MEDS: metoprolol tartrate 1 mg/1 mL SDV 5 mL 2.5 MG IV (09:19)
--- NOTE | 2019-07-25 11:35 | PM.DCS ---
Discharge Providers Date of Admission: 07/21/19 17:59 Date of Discharge: July 25, 2019 Attending Provider at Admission: Zofia Watson MD Attending Provider at Discharge: Elia Whitlock MD Diagnoses at Discharge Discharge Diagnosis (1) Moderate to severe pulmonary hypertension: Status: Acute (2) Hyponatremia: Status: Acute Problem details: Appears to be multifactorial with decreased oral intake and possibly SIADH playing a role. Urine osmolality was not checked prior to initiation of salt tablets. (3) Acute exacerbation of chronic obstructive airways disease: Status: Acute (4) Chronic anticoagulation: Status: Acute Problem details: On Eliquis (5) Acute on chronic respiratory failure with hypercapnia: Status: Acute (6) Chronic anemia: Status: Acute (7) CKD (chronic kidney disease), stage II: Status: Acute (8) Chronic diastolic CHF (congestive heart failure): Status: Acute (9) Hypertension: Status: Acute (10) Morbid obesity: Status: Acute (11) COPD (chronic obstructive pulmonary disease): Status: Acute Qualifiers: COPD type: COPD with acute exacerbation Qualified Code(s): J44.1 - Chronic obstructive pulmonary disease with (acute) exacerbation (12) Acute bronchitis: Status: Acute Problem details: Present on admission. Reason for Visit Reason for Visit: Reason For Visit: DIFFICULTY BREATHING Hospital Course Hospital Course: Patient with underlying COPD presents with shortness of breath. She has been having productive cough. She was found to be in acute hypercapnic respiratory failure requiring intubation as patient failed BiPAP support. She was diagnosed with acute COPD exacerbation and treated with antibiotic. She was noted to have severe hyponatremia which per notes initially felt to be hypervolemic and patient was given Lasix. She was then started on salt tablets. During my evaluation patient appeared dry but had good oral intake therefore no fluids were given. Patient has been off salt tablets and fluids and sodium today stable at 130. This morning patient reports feeling much better and adamantly wants to go home. Her lungs are surprisingly clear and patient is not in any distress. She denies any cough. She denies any chest pain or shortness of breath. She walked with physical therapy and did well and deemed safe to be dismissed home. I will continue patient on Levaquin. White blood cell count slightly increased and felt to be related to steroids given significant clinical improvement. Since patient been treated with steroids and has evidence of anemia will prescribe Protonix for GI protection. Patient uses 3-1/2 L of oxygen at home continuously and will continue with the same. She lives with her and does not need home health. I will request CBC and CMP checked next week prior to primary care physician follow-up. Physical Exam Const: COMMON NORMALS: no apparent distress and oriented x3 Resp: COMMON NORMALS: normal respiratory effort and clear to auscultation bilaterally AUSCULTATION: clear to auscultation bilaterally Cardio: COMMON NORMALS: regular rate, regular rhythm and S2 normal heart sound RATE: regular rate RHYTHM: regular rhythm HEART SOUNDS: S2 normal OTHER: No lower extremity edema GI: COMMON NORMALS: normal to inspection, nondistended, normoactive bowel sounds, soft to palpation and non-tender INSPECTION: Yes ostomy present PALPATION: Yes soft Neuro: COMMON NORMALS: oriented x3 and no focal motor deficits Urinary Catheter Management^: Ortega: Cath Placed During This Visit: yes, but has since been removed by the nurse Reason for Continuing Indwelling Catheter: Not indwelling catheter Urinary Catheter Date of Insertion: 07/21/19 Urinary Catheter Time of Insertion: 18:29 Date Urinary Catheter Removed: 07/24/19 Time Urinary Catheter Discontinued: 17:29 Discharge Data Data Completed and Pending: Completed Studies During Hospitalization Category Date Time Status XR chest 1V mukesh ble [id number] Routine Exams 07/22/19 06:00 Completed XR chest 1V mukesh ble [id number] Stat Exams 07/21/19 16:15 Completed XR chest 1V mukesh ble [id number] Stat Exams 07/21/19 17:57 Completed XR chest 1V mukesh ble [id number] Stat Exams 07/21/19 19:37 Completed Pending at discharge Category Date Time Status Blood Culture Sta t Lab 07/21/19 16:41 Results Complete Blood Co unt w/Auto AM LABS Lab 07/26/19 04:00 Ordered Labs from last 24 hours 07/25/19 07/25/19 07/22/19 05:31 05:31 13:51 WBC 11.2 H RBC 4.03 L Hgb 9.2 L Hct 32.7 L MCV 81.1 MCH 22.8 L MCHC 28.1 L RDW 17.1 H Plt Count 372 MPV 9.4 Neut % (Auto) 79.4 Lymph % (Auto) 8.9 [place] % (Auto) 11.1 Eos % (Auto) 0.0 Baso % (Auto) 0.0 Neut # (Auto) 8.9 H Lymph # (Auto) 1.0 [place] # (Auto) 1.3 H Eos # (Auto) 0.0 Baso # (Auto) 0.0 Nucleated RBC % (a uto) 0 Nucleated RBCs # 0.0 Sodium 130 L Potassium 4.0 Chloride 84 L Carbon Dioxide 41 H Anion Gap 9.0 BUN 30 H Creatinine 0.5 GFR Calculation 123.8 Glucose 109 Serum Osmolality 252 L Calculated Osmolal ity 268 L Calcium 8.8 Total Bilirubin 0.3 AST 18 ALT 10 Alkaline Phosphata se 74 Total Protein 6.4 L Albumin 3.1 L Globulin 3.3 Vitals: Patient with underlying COPD presents with shortness of breathPatient with underlying COPD presents with shortness of breathLast Vital Signs Temp 98.2 F 07/25/19 11:32 Pulse 69 07/25/19 11:32 Resp 18 07/25/19 11:32 BP 107/68 07/25/19 11:32 Pulse Ox 96 07/25/19 11:32 Discharge Plan Discharge Patient Disposition: Home, Self-Care Condition: Stable Prescriptions: New levofloxacin [Levaquin] 500 mg tablet 500 mg PO DAILY 7 Days Qty: 7 RF: 0 Protonix [address] for susp in packet 40 mg PO DAILY 28 Days Qty: 28 RF: 0 Continued albuterol sulfate 2.5 mg /3 mL (0.083 %) Solution For Nebulization 2.5 mg INHALATION Q4H PRN (Reason: Shortness Of Breath) RF: 0 alprazolam 1 mg Tablet 1 mg PO TID PRN (Reason: Anxiety) RF: 0 furosemide 20 mg Tablet 20 mg PO DAILY RF: 0 Eliquis 5 mg Tablet 5 mg PO BID RF: 0 budesonide 0.5 mg/2 mL Suspension For Nebulization 0.5 mg inhalation BID.RESPIRATORY Qty: 30 RF: 0 Spiriva Respimat 2.5 mcg/actuation mist 2 inh INHALATION DAILY Qty: 4 RF: 0 Discontinued Xanax See Rx Instructions .ROUTE .COMPLEX RF: 0 Discharge Orders: Discharge Order (Routine); Ordered 07/25/19 Ordered By: Elia Whitlock Referrals: Titus Garzon DO [Family Provider] - Discharge Diet: Usual diet Discharge Activity: Increase activity as tolerated Activity Restrictions/Additional Instructions: Please call your doctor or present to emergency department if your condition worsens or you develop diarrhea, lightheadedness, fatigue or see blood in your stool or black stool. Please discuss with your primary care physician to have further evaluation of anemia with colonoscopy, upper endoscopy and COVER MAKER examination. Discharge Attestations Time Spent in Discharge Care*: greater than 30 min Quality Metrics Clinical Quality Measures During this hospital stay, did patient experience: None Coding Level of Care Code Acute Household Appliance Installer for Aníbalg Fwd Diagnoses Moderate to severe pulmonary hypertension I27.20 Hyponatremia E87.1 Acute exacerbation of chronic obstructive airways disease J44.1 Chronic anticoagulation Z79.01 Acute on chronic respiratory failure with hypercapnia J96.22 Chronic anemia D64.9 CKD (chronic kidney disease), stage II N18.2 Chronic diastolic CHF (congestive heart failure) I50.32 Hypertension I10 Morbid obesity E66.01 COPD (chronic obstructive pulmonary disease) J44.1 COPD type: COPD with acute exacerbation Acute bronchitis J20.9
== END 2019-07-25 13:23 | disposition home or self-care (01) | DRG 208 ==
LOC: ER 18:00 → ICU 18:19 → MEDSURG 07-23 17:46
PROVIDERS: Admitting Provider Student in an Organized Health Care Education/Training Program; Emergency Provider Emergency Medicine; Family Provider Internal Medicine; Visit Provider Internal Medicine
DX: J96.02 Acute respiratory failure with hypercapnia (principal); I50.33 Acute on chronic diastolic (congestive) heart failure; I13.0 Hypertensive heart and chronic kidney disease with heart failure and stage 1 through stage 4 chronic kidney disease, or unspecified chronic kidney disease; J44.1 Chronic obstructive pulmonary disease with (acute) exacerbation; E87.2 Acidosis; E22.2 Syndrome of inappropriate secretion of antidiuretic hormone; I27.20 Pulmonary hypertension, unspecified; N18.2 Chronic kidney disease, stage 2 (mild); J44.9 Chronic obstructive pulmonary disease, unspecified; J20.9 Acute bronchitis, unspecified; E66.01 Morbid (severe) obesity due to excess calories; D63.1 Anemia in chronic kidney disease; F17.210 Nicotine dependence, cigarettes, uncomplicated; F01.50 Vascular dementia, unspecified severity, without behavioral disturbance, psychotic disturbance, mood disturbance, and anxiety; E86.0 Dehydration; Z79.51 Long term (current) use of inhaled steroids; Z79.899 Other long term (current) drug therapy; Z68.37 Body mass index [BMI] 37.0-37.9, adult; Z79.01 Long term (current) use of anticoagulants
CPT/HCPCS: 12345; 31500; 36415; 36600; 51702; 71045; 80051; 80053; 80307; 81001; 82140; 82803; 82810; 83605; 83735; 83880; 83930; 83986; 84295; 84300; 84443; 84484; 85025; 85610; 85730; 87040; 87070; 87205; 87804; 93005; 94002; 94003; 94640; 94660; 94799; 96375; 97161; 99284; J0330; J1940; J1956; J2060; J2405; J2704; J2930; J3490; J7030; J7512; J7626

== ENCOUNTER 2019-08-02 16:01 | Emergency (ER) | payer MEDICARE, SELFPAY ==
[2019-08-02 16:01] VITALS: BP 136/91; PULSE 85; RESP 22; TEMP 37; O2SAT 95; BMI 30.9
--- NOTE | 2019-08-02 16:07 | ECG_ITS ---
Measurements Intervals [place] Rate: 86 P: 55 GA: 136 QRS: 106 QRSD: 130 T: 15 QT: 359 QTc: 431 SINUS RHYTHM RIGHT BUNDLE BRANCH BLOCK [120+ ms QRS DURATION, UPRIGHT V1, 40+ ms S IN I/ I/aVL/V4/V5/V6] Compared to ECG 07/21/2019 21:20:48 Indeterminate axis now present Electronically Signed On 08-03-2019 12:41:07 CDT by Jesus Alberto Fowler [email or web address]
--- NOTE | 2019-08-02 16:07 | XR_ITS ---
WS: [id number] XR chest 1V portable [id number] REASON FOR EXAM: cough FINDINGS: A prominent hiatal hernia is noted. The heart is enlarged. The lung raygoza are well aerated. There is no pneumonia, pleural effusion, pulmonary edema, pneumotho rax, or mass effect. The hilum and apices normal. No osseous abnormalities. XR/XR chest 1V portable [id number] IMPRESSION: Cardiomegaly Hiatal hernia. The endotracheal tube has been removed. As well as the feeding tube.
[2019-08-02 16:35] VITALS: PULSE 85; RESP 20; O2SAT 94
--- NOTE | 2019-08-02 16:36 | ED_ITS ---
HPI - SOB/Dyspnea General: Chief Complaint: Shortness of Breath/Dyspnea Stated Complaint: RESP DISTRESS Time Seen by Provider: 08/02/19 16:01 Source: patient Mode of arrival: ambulatory Limitations: no limitations History of Present Illness: HPI Narrative: 64-year-old female with a long history of COPD. Patient was discharged 1 week ago from here and started having worsening shortness of breath today. Patient given multiple breathing treatments by EMS and is currently requiring 5 to 6 L oxygen to keep her above 92%. She is in moderate distress and able to speak in 3-4 word sentences. Denies any cough or fever. MD elicited complaint: shortness of breath Pertinent past history: COPD Onset (ago): hour(s) Context: recent illness Timing: constant Severity: moderate Exacerbating factors: nothing Relieving factors: nothing Associated symptoms: Deny abdominal pain, chest pain, fever(s), nausea or vomiting Review of Systems Const: Denies: fever, chills, body aches or change in appetite Eyes: Denies: blurry vision or eye discomfort ENMT: Denies: throat pain or dental pain Card: Denies: chest pain Resp: Reports: shortness of breath and wheezing GI: Denies: abdominal pain, nausea, vomiting or diarrhea : Denies: painful urination Musc: Denies: neck pain or back pain Skin/Breast: Denies: rash Neuro: Denies: headache Psych: Denies: depression Car/Lymph: Denies: easy bruising All/Imm: Denies: hives PFSH ED PFSH: Medical History Chronic anemia Chronic diastolic CHF (congestive heart failure) CKD (chronic kidney disease), stage II COPD (chronic obstructive pulmonary disease) Hypertension Morbid obesity Pulmonary embolism Vascular dementia Surgical History H/O section X2 H/O colectomy Secondary to severe colitis H/O: hysterectomy History of salpingo-oophorectomy S/P IVC filter Secondary to PE, DVT Family History Father Lung disease Social History Smoking and tobacco status: current every day smoker cigarettes Packs smoked per day: 1 Alcohol intake: never Household members: family Physical Exam Const: COMMON NORMALS: oriented x3 GENERAL APPEARANCE: ill appearing HENMT: COMMON NORMALS: normocephalic and head/scalp atraumatic HEAD & SCALP: normocephalic and atraumatic Eye: COMMON NORMALS: PERRL and EOMs intact bilaterally PUPIL: Yes PERRL Neck/C-Spine: COMMON NORMALS: full ROM and supple Chest: COMMONS NORMALS: inspection of chest normal and palpation of chest normal Resp: COMMON NORMALS: no retractions EFFORT & INSPECTION: Yes tachypneic, Yes respiratory distress, Yes uses accessory muscles and Yes audible wheezes Cardio: COMMON NORMALS: regular rate, regular rhythm and no murmurs RATE: regular rate RHYTHM: regular rhythm GI: COMMON NORMALS: normal to inspection, nondistended, normoactive bowel sounds, soft to palpation, non-tender and no masses PALPATION: Yes soft Extremity: COMMON NORMALS: normal to inspection and full ROM Neuro: COMMON NORMALS: oriented x3, moves all extremities and no focal motor deficits Psych: COMMON NORMALS: mental status grossly normal, thought process normal and cooperative THOUGHT PROCESS: normal thought process Skin: COMMON NORMALS: no rashes or lesions noted and no wounds GENERAL SKIN EXAM: no rashes or lesions noted Course Vital Signs: Vital signs: Vital Signs Temperature 98.6 F 08/02/19 16:01 Pulse Rate 100 08/02/19 19:58 Respiratory Rate 22 H 08/02/19 19:58 Blood Pressure 122/93 08/02/19 19:58 Pulse Oximetry 92 08/02/19 19:58 MDM - SOB/Dyspnea MDM Narrative: Medical decision making narrative: Patient presents here with shortness of breath along with COPD exacerbation. Patient has a long history of COPD and is on 4 L of oxygen at home. Patient is satting 94% here on 4 L and states she feels back to baseline after breathing treatments. Patient's lab work is all normal here and x-ray shows no signs of pneumonia. Patient is st able for discharge will place on 5 days of steroids. Patient is to follow-up with primary care doctor in 3 to 5 days return to ER if worsening. She understands and agrees to the plan. Lab Data: Labs: Lab Results 03/18/20 03/18/20 03/18/20 Range/Units 16:28 16:40 16:40 WBC 7.4 (4.0-10.0) 10^3/ uL RBC 4.32 (4.1-5.3) 10^6/u L Hgb 9.5 L (11.5-15.3) g/dL Hct 35.7 L (37.0-47.0) % MCV 82.6 (81-99) fL MCH 22.0 L (28.0-34.0) pg MCHC 26.6 L (30.0-36.0) g/dL RDW 18.0 H (12.1-15.1) % Plt Count 307 (130-400) 10^3/c mm MPV 9.2 (7.4-10.4) fL Neut % (Auto) 75.7 % Lymph % (Auto) 13.0 % [place] % (Auto) 7.7 % Eos % (Auto) 3.1 % Baso % (Auto) 0.1 % Neut # (Auto) 5.6 (1.8-7.7) 10^3/u L Lymph # (Auto) 1.0 (0.8-4.8) 10^3/u L [place] # (Auto) 0.6 (0.2-0.9) 10^3/u L Eos # (Auto) 0.2 (0.0-0.8) 10^3/u L Baso # (Auto) 0.0 (0.0-0.1) 10^3/u L Nucleated RBC % (a uto) 0 % Nucleated RBCs # 0.0 /100WBC Specimen Type Arterial Sample Site Brachial, left ABG pH 7.37 (7.35-7.45) ABG pCO2 69.8 H* (35-45) mmHg ABG pO2 67.3 L (80.0-100.0) mmH g ABG HCO3 40.2 H (22-26) mmol/L ABG Base Excess 12.7 H (-2.0-2.0) mmol/ L Santiago Test N/a Hematocrit 29.3 L (37-47) % Hgb O2 Saturation 91.3 L (95-100) % Carboxyhemoglobin 2.3 (0.4-20.1) %THgb Methemoglobin 0.5 (0.4-1.5) % Total Hemoglobin 9.6 L (12-16) g/dL O2 Delivery Device Nc O2 Liters/Min 5.0 % FiO2 40.0 % Home Lighting Adviser ID amh Sodium 132 L (136-145) mmol/L Potassium 4.5 (3.5-5.1) mmol/L Chloride 89 L (98-107) mmol/L Carbon Dioxide 36 H (22-29) mmol/L Anion Gap 11.5 (5-19) BUN 10 (8-23) mg/dL Creatinine 0.4 L (0.5-0.9) mg/dL GFR Calculation 159.7 H (90-130) mL/min Glucose 97 (65-115) mg/dL Calculated Osmolal ity 270 L (285-295) mOsm/k g Calcium 9.2 (8.5-10.5) mg/dL Total Bilirubin 0.4 (0.15-1.2) mg/dL AST 14 (0-32) U/L ALT 8 (0-33) U/L Alkaline Phosphata se 74 (35-105) IU/L NT-Pro-B Natriuret Pep 416 H (0-125) pg/mL Total Protein 6.6 (6.6-8.7) g/dL Albumin 3.3 L (3.5-5.2) g/dL Globulin 3.3 (1.3-4.6) g/dL Imaging Data^: CXR: Attestation: I personally reviewed and interpreted this imaging study as follows: Radiologist's impression: [address] [address] XRay Report Signed Patient: Roseann Durham Unit #: [id number] : [id number] Age/Sex: 64 / F ADM Date: 08/02/19 Loc: ER Room/Bed: Attending Dr: Ordering Provider/Ordering MD: Sunil Croft MD Date of Service: 08/02/19 Procedure(s): XR chest 1V portable [id number] Accession Number(s): [id number] Report Number: [id number] WS: [id number] XR chest 1V portable [id number] REASON FOR EXAM: cough FINDINGS: A prominent hiatal hernia is noted. The heart is enlarged. The lung raygoza are well aerated. There is no pneumonia, pleural effusion, pulmonary edema, pneumothorax, or mass effect. The hilum and apices normal. No osseous abnormalities. XR/XR chest 1V portable [id number] IMPRESSION: Cardiomegaly Hiatal hernia. The endotracheal tube has been removed. As well as the feeding tube EKG Data^: EKG 1: Attestation: I personally reviewed and interpreted this EKG as follows: EKG Interpretation Date: 08/02/19 EKG interpretation time: 16:51 Interpretation: nsr hr [address] or t wave abnormalities qrs 130 qtc 403 Discharge Plan Discharge Patient Disposition: Home, Self-Care Clinical Impression: COPD (chronic obstructive pulmonary disease) Qualifiers: COPD type: COPD with acute exacerbation Qualified Code(s): J44.1 - Chronic obstructive pulmonary disease with (acute) exacerbation Condition: Stable Prescriptions: New prednisone 50 mg tablet 50 mg PO DAILY Qty: 5 RF: 0 No Action levofloxacin 500 mg Tablet See Rx Instructions .ROUTE .COMPLEX RF: 0 ondansetron See Rx Instructions .ROUTE .COMPLEX RF: 0 albuterol sulfate 2.5 mg /3 mL (0.083 %) Solution For Nebulization 2.5 mg INHALATION Q4H PRN (Reason: Shortness Of Breath) RF: 0 alprazolam 1 mg Tablet 1 mg PO TID PRN (Reason: Anxiety) RF: 0 furosemide 20 mg Tablet 20 mg PO DAILY RF: 0 Eliquis 5 mg Tablet 5 mg PO BID RF: 0 budesonide 0.5 mg/2 mL Suspension For Nebulization 0.5 mg inhalation BID.RESPIRATORY Qty: 30 RF: 0 Spiriva Respimat 2.5 mcg/actuation mist 2 inh INHALATION DAILY Qty: 4 RF: 0 Protonix [address] for susp in packet 40 mg PO DAILY 28 Days Qty: 28 RF: 0 Discharge Orders: Discharge Order (Routine); Ordered 08/02/19 Ordered By: Sunil Croft Referrals: Titus Garzon DO [Family Provider] - Discharge Diet: Advance as tolerated Discharge Activity: Resume usual activity Patient Instructions: Chronic Obstructive Pulmonary Disease (ED) Discharge Date/Time: 08/02/19 19:59 Coding Level of Care Code ED Copier And Printer Field Technician for Chg Fwd Exam Comprehensive
[2019-08-02 16:39] LABS: ABG PH Result 7.37 (7.35-7.45); Arterial Blood Gas Hematocrit 29.3 % (37-47); Base Excess ABG 12.7 mmol/L (-2.0-2.0); Blood Gas Operator Identificat amh; Blood Gas Sample Site Brachial, left; Blood Gas Sample Type Arterial; Carboxyhemoglobin 2.3 %THgb (0.4-20.1); HCO3 ABG 40.2 mmol/L (22-26); HGB O2 Sat 91.3 % (95-100); Methemoglobin 0.5 % (0.4-1.5); Oxygen Device NC; PO2 ABG 67.3 mmHg (80.0-100.0); Total Hemoglobin 9.6 g/dL (12-16)
[2019-08-02 16:40] LABS: ABG PCO2 69.8 mmHg (35-45)
[2019-08-02 16:45] VITALS: PULSE 87; RESP 20; O2SAT 96
[2019-08-02 16:47] LABS: Basophils % 0.1 %; Eosinophils # 0.2 10^3/uL (0.0-0.8); Eosinophils % 3.1 %; Hematocrit 35.7 % (37.0-47.0); Hemoglobin 9.5 g/dL (11.5-15.3); Mean Corpuscular HGB Conc 26.6 g/dL (30.0-36.0); Mean Corpuscular Volume 82.6 fL (81-99); Mean Platelet Volume 9.2 fL (7.4-10.4); Monocytes # 0.6 10^3/uL (0.2-0.9); Monocytes % 7.7 %; Neutrophils # 5.6 10^3/uL (1.8-7.7); Neutrophils % 75.7 %; Nucleated Red Blood Cells % 0 %; Platelet Count 307 10^3/cmm (130-400); Red Blood Count 4.32 10^6/uL (4.1-5.3); White Blood Count 7.4 10^3/uL (4.0-10.0)
[2019-08-02 17:14] LABS: Alanine Aminotransferase 8 U/L (0-33); Albumin Level 3.3 g/dL (3.5-5.2); Alkaline Phosphatase 74 IU/L (35-105); Anion Gap 11.5 (5-19); Aspartate Amino Transferase 14 U/L (0-32); Blood Urea Nitrogen 10 mg/dL (8-23); Calcium 9.2 mg/dL (8.5-10.5); Carbon Dioxide 36 mmol/L (22-29); Chloride 89 mmol/L (98-107); Globulin 3.3 g/dL (1.3-4.6); Glomerular Filtration Rate 159.7 mL/min (90-130); Glucose 97 mg/dL (65-115); NT Pro B Type Natriuretic Pept 416 pg/mL (0-125); Osmolality Calculated 270 mOsm/kg (285-295); Potassium 4.5 mmol/L (3.5-5.1); Sodium 132 mmol/L (136-145); Total Bilirubin 0.4 mg/dL (0.15-1.2); Total Protein 6.6 g/dL (6.6-8.7)
[2019-08-02 18:10] VITALS: PULSE 82; RESP 24; O2SAT 94
[2019-08-02 18:15] VITALS: PULSE 88
[2019-08-02] MEDS: predniSONE 20 mg Tablet 60 MG PO (18:17)
[2019-08-02 19:58] VITALS: BP 122/93; PULSE 100; RESP 22; O2SAT 92
== END 2019-08-02 19:59 | disposition home or self-care (01) ==
PROVIDERS: Emergency Provider Emergency Medicine; Family Provider Internal Medicine
DX: J44.1 Chronic obstructive pulmonary disease with (acute) exacerbation (principal); I13.0 Hypertensive heart and chronic kidney disease with heart failure and stage 1 through stage 4 chronic kidney disease, or unspecified chronic kidney disease; N18.2 Chronic kidney disease, stage 2 (mild); I50.32 Chronic diastolic (congestive) heart failure; E66.01 Morbid (severe) obesity due to excess calories; F17.210 Nicotine dependence, cigarettes, uncomplicated; Z86.718 Personal history of other venous thrombosis and embolism; K44.9 Diaphragmatic hernia without obstruction or gangrene; I51.7 Cardiomegaly; I45.10 Unspecified right bundle-branch block; Z86.711 Personal history of pulmonary embolism; Z99.81 Dependence on supplemental oxygen
CPT/HCPCS: 12345; 36415; 36600; 71045; 80053; 82805; 83880; 85025; 93005; 93010; 94640; 99281; 99284; J7512; J7611

== ENCOUNTER 2019-08-16 19:55 | Inpatient (IN) | payer MEDICARE, SELFPAY ==
[2019-08-16] VITALS (15 sets, daily range): BP systolic 103–139; BP diastolic 70–77; PULSE 96–113; RESP 16–23; TEMP 36.7; O2SAT 92–99; BMI 34.0
--- NOTE | 2019-08-16 20:01 | PC.NURSE ---
PATIENT HAS A HISTORY OF COPD AND HAS BEEN HAVING TROUBLE BREATHING AT HOME. PATIENT HAS A COLOSTOMY BAG ON THE RIGHT UPPER QUADRANT OF THE ABDOMEN. EMS STATES THAT THE PATIENT HAS HAD 1MG OF TRIBUTALINE AND 125MG OF SOLUMEDROL. EMS STATES THAT FAMILY STATED PATIENT HAS BEEN HAVING TROUBLE BREATHING THE LAST 24 HRS AND HAS GOTTEN PROGRESSIVELY WORSE.
--- NOTE | 2019-08-16 20:02 | XR_ITS ---
WS: [id number] PORTABLE CHEST HISTORY: cough COMPARISON: 08/02/2019, chest CT 08/16/2019 Marked pulmonary hyperinflation. Mild haziness and increased interstitial markings over both lungs. F ocal area of rounded consolidation in the central RIGHT lung. CT was performed on the same day and th is abnormality is related to prominent bronchovascular structures and pulmonary hypertension. No pleu ral effusion or pneumothorax. Cardiac size: Moderately enlarged cardiac silhouette. Mediastinum/Aorta: Mild atherosclerosis aorta. No osseous abnormality seen. XR/XR chest 1V portable [id number] IMPRESSION: 1. Severe emphysema and superimposed CHF. 2. Cardiomegaly. 3. Pulmonary hypertension.
--- NOTE | 2019-08-16 20:03 | ECG_ITS ---
Measurements Intervals [place] Rate: 110 P: 56 [place]: 137 QRS: 137 QRSD: 130 T: 24 QT: 316 QTc: 428 SINUS TACHYCARDIA RIGHT AXIS DEVIATION [QRS AXIS > 100] RIGHT BUNDLE BRANCH BLOCK [120+ ms QRS DURATION, UPRIGHT V1, 40+ ms S IN I/aVL/V4/V5/V6] Compared to ECG 08/02/2019 16:51:33 Right-axis deviation now present Sinus rhythm no longer present Electronically Signed On 08-18-2019 13:42:19 CDT by Coral Winslow M.D. [email or web address]
--- NOTE | 2019-08-16 20:05 | ED_ITS ---
HPI - SOB/Dyspnea General: Chief Complaint: Shortness of Breath/Dyspnea Stated Complaint: RESP. DISTRESS Time Seen by Provider: 08/16/19 19:58 History of Present Illness: HPI Narrative: Brenda is a 64-year-old female who arrives in respiratory distress. History is very limited and is taken mostly from old charts. EMS reports the patient was found to be hypoxic and wheezing. They gave 125 of Solu-Medrol in route and place the patient on a nonrebreather. She normally wears 2 to 3 L of nasal cannula oxygen for her COPD. Patient is cooperative and opens her eyes to voice. She answers questions very quick yes no answers. Stabilization of her breathing was ensued immediately. Review of Systems General: Reports: ROS unobtainable due to medical condition (Respiratory distress) PFSH ED PFSH: Medical History Chronic anemia Chronic diastolic CHF (congestive heart failure) CKD (chronic kidney disease), stage II COPD (chronic obstructive pulmonary disease) Hypertension Morbid obesity Pulmonary embolism Vascular dementia Surgical History H/O section X2 H/O colectomy Secondary to severe colitis H/O: hysterectomy History of salpingo-oophorectomy S/P IVC filter Secondary to PE, DVT Family History Father Lung disease Social History Smoking and tobacco status: former smoker Alcohol intake: never Household members: family Physical Exam Const: COMMON NORMALS: oriented x3 GENERAL APPEARANCE: cooperative, in distress and lethargic ORIENTATION/CONSCIOUSNESS: Yes awake and Yes lethargic HENMT: COMMON NORMALS: normocephalic, head/scalp atraumatic, hearing grossly normal bilaterally, external ears normal, EAC's normal, external nose normal and moist oral mucous membranes HEAD & SCALP: normal to inspection, normocephalic and atraumatic FACE & SINUS: normal facial exam and face symmetric NOSE: external nose normal and nares normal EXTERNAL EAR: Yes external ears normal EXTERNAL AUDITORY CANAL: EAC's normal MOUTH: oral and palatal mucosa normal and tongue normal Eye: COMMON NORMALS: PERRL, EOMs intact bilaterally, conjunctivae normal and no scleral icterus GENERAL EYE: normal appearance of both eyes and normal light reflex CONJUNCTIVA: Yes conjunctivae normal SCLERA: sclerae normal CORNEA: Yes corneas normal PUPIL: Yes PERRL DIRECT OPHTHALMOSCOPY: Yes normal light reflex Neck/C-Spine: COMMON NORMALS: full ROM, no lymphadenopathy, supple, no meningeal signs and no JVD GENERAL: Yes normal visual inspection and Yes trachea midline CERVICAL SPINE: Yes cervical ROM normal Chest: COMMONS NORMALS: inspection of chest normal and palpation of chest normal Resp: EFFORT & INSPECTION: Yes respiratory distress, Yes actively coughing, Yes uses accessory muscles and Yes audible wheezes AUSCULTATION: rales, rhonchi, wheezes and diminished lung sounds Cardio: COMMON NORMALS: no JVD, regular rhythm, S1 normal heart sound, S2 normal heart sound, no gallops, no clicks, no murmurs and no rub JUGULAR VENOUS DISTENTION: no JVD RATE: tachycardic RHYTHM: regular rhythm HEART SOUNDS: S1 normal and S2 normal GI: COMMON NORMALS: soft to palpation, non-tender, no hepatosplenomegaly and no masses INSPECTION: Yes normal to inspection PALPATION: Yes soft and Yes no hepatosplenomegaly : COMMON NORMALS: Yes no CVA tenderness BLADDER/KIDNEY EXAM: Yes no CVA tenderness Back/Pelvis: COMMON NORMALS: no CVA tenderness, thoracic and lumbar spine normal to inspection, no thoracic nor lumbar tenderness and thoraco-lumbar ROM normal Extremity: COMMON NORMALS: normal to inspection, full ROM, normal capillary refill, no joint enlargement, no clubbing, cyanosis or edema and no calf tenderness Neuro: ANIL COMA SCALE: document GCS findings Anil coma scale eye opening: To sound Anil coma scale verbal response: Orientated Anil coma scale motor response: Obey commands Anil coma scale total score: 14 COMMON NORMALS: oriented x3, CN's II-XII intact bilaterally, moves all extremities, no focal motor deficits and no sensory deficits noted SENSORIUM/ORIENTATION: Yes lethargic MENINGEAL SIGNS: Yes no meningeal signs Psych: COMMON NORMALS: mental status grossly normal, thought process normal, cooperative, affect normal, speech normal and activity/motor behavior normal SPEECH: Yes normal speech THOUGHT PROCESS: normal thought process Skin: COMMON NORMALS: no rashes or lesions noted, skin turgor normal, no jaundice, no petechiae and no mottling GENERAL SKIN EXAM: no rashes or lesions noted and turgor normal Course ED course: 2029 -I reviewed the case with Dr. Vallecillo. He agrees at this time the patient has no lymphocytopenia, probable right lower lobe infiltrate and no fever. He feels this is likely a pneumonia and a COPD exacerbation. He agrees with trying BiPAP at this time. The patient is believed to be a very low risk for COVID-19 exposure. 2049 -patient's potassium is elevated at 6.1 but her EKG does not show signs of hyperkalemia. Her EKG shows a stable right bundle branch block similar to previous. Also her BUN and creatinine are normal. Labs as there was minimal hemolysis. The patient is receiving Lasix and albuterol which should treat any type of hyperkalemia but I will repeat a BMP before being more aggressive with giving the patient more of a hyperkalemic cocktail. Vital Signs: Vital signs: Vital Signs Temperature 98.1 F 08/16/19 19:58 Pulse Rate 99 08/16/19 21:44 Respiratory Rate 18 08/16/19 21:44 Blood Pressure 108/70 08/16/19 21:44 Pulse Oximetry 97 08/16/19 21:44 MDM - SOB/Dyspnea MDM Narrative: Medical decision making narrative: Admission -the patient is improved on her ABG and clinically she looks better. I have asked her and she states she feels better. She feels as though she is moving more air and is breathing easier. I reviewed the case in full with Dr. Vallecillo, he agrees to admission to the ICU for further care. COVID-19 testing will be sent per [facility] protocol but at this time our suspicion is low. Dr. Vallecillo would also like a noncontrast CT of the chest to better differentiate between congestive heart failure and pneumonia on chest x-ray. Lab Data: Attestation: I reviewed the patient's lab results. Labs: Lab Results 08/16/19 08/16/19 08/16/19 Range/Units 19:40 19:40 19:40 WBC 7.8 (4.0-10.0) 10^3/ uL RBC 4.66 (4.1-5.3) 10^6/u L Hgb 10.1 L (11.5-15.3) g/dL Hct 39.4 (37.0-47.0) % MCV 84.5 (81-99) fL MCH 21.7 L (28.0-34.0) pg MCHC 25.6 L (30.0-36.0) g/dL RDW 17.4 H (12.1-15.1) % Plt Count 386 (130-400) 10^3/c mm MPV 9.4 (7.4-10.4) fL Neut % (Auto) 79.6 % Lymph % (Auto) 10.2 % Greenlee % (Auto) 6.4 % Eos % (Auto) 2.3 % Baso % (Auto) 0.3 % Neut # (Auto) 6.2 (1.8-7.7) 10^3/u L Lymph # (Auto) 0.8 (0.8-4.8) 10^3/u L Greenlee # (Auto) 0.5 (0.2-0.9) 10^3/u L Eos # (Auto) 0.2 (0.0-0.8) 10^3/u L Baso # (Auto) 0.0 (0.0-0.1) 10^3/u L Nucleated RBC % (a uto) 0 % Nucleated RBCs # 0.0 /100WBC PT 14.00 H (10.5-13.3) SECO NDS INR 1.04 (0.8-1.2) Specimen Type Sample Site ABG pH (7.35-7.45) ABG pCO2 (35-45) mmHg ABG pO2 (80.0-100.0) mmH g ABG HCO3 (22-26) mmol/L ABG Base Excess (-2.0-2.0) mmol/ L Santiago Test Hematocrit (37-47) % O2 Delivery Device O2 Liters/Min % FiO2 % Mode BiPAP Supervisor Channel Process ID Sodium 133 L (136-145) mmol/L Potassium 6.1 H (3.5-5.1) mmol/L Chloride 87 L (98-107) mmol/L Carbon Dioxide 40 H (22-29) mmol/L Anion Gap 12.1 (5-19) BUN 14 (8-23) mg/dL Creatinine 0.7 (0.5-0.9) mg/dL GFR Calculation 83.7 L (90-130) mL/min Glucose 117 H (65-115) mg/dL Calculated Osmolal ity 273 L (285-295) mOsm/k g Lactic Acid (0.5-2.2) mmol/L Calcium 9.4 (8.5-10.5) mg/dL Total Bilirubin 0.3 (0.15-1.2) mg/dL AST 15 (0-32) U/L ALT 9 (0-33) U/L Alkaline Phosphata se 89 (35-105) IU/L Troponin T Baselin e (0-10) ng/mL NT-Pro-B Natriuret Pep 1541 H (0-125) pg/mL Total Protein 7.0 (6.6-8.7) g/dL Albumin 4.0 (3.5-5.2) g/dL Globulin 3.0 (1.3-4.6) g/dL Influenza Type A A g (Negative) Influenza Type B A g (Negative) 08/16/19 08/16/19 08/16/19 Range/Units 19:40 20:12 20:15 WBC (4.0-10.0) 10^3/ uL RBC (4.1-5.3) 10^6/u L Hgb (11.5-15.3) g/dL Hct (37.0-47.0) % MCV (81-99) fL MCH (28.0-34.0) pg MCHC (30.0-36.0) g/dL RDW (12.1-15.1) % Plt Count (130-400) 10^3/c mm MPV (7.4-10.4) fL Neut % (Auto) % Lymph % (Auto) % Greenlee % (Auto) % Eos % (Auto) % Baso % (Auto) % Neut # (Auto) (1.8-7.7) 10^3/u L Lymph # (Auto) (0.8-4.8) 10^3/u L Greenlee # (Auto) (0.2-0.9) 10^3/u L Eos # (Auto) (0.0-0.8) 10^3/u L Baso # (Auto) (0.0-0.1) 10^3/u L Nucleated RBC % (a uto) % Nucleated RBCs # /100WBC PT (10.5-13.3) SECO NDS INR (0.8-1.2) Specimen Type Arterial Sample Site Brachial, left ABG pH 7.19 L (7.35-7.45) ABG pCO2 115.0 H* (35-45) mmHg ABG pO2 72.2 L (80.0-100.0) mmH g ABG HCO3 43.8 H (22-26) mmol/L ABG Base Excess 12.2 H (-2.0-2.0) mmol/ L Santiago Test N/a Hematocrit 32.0 L (37-47) % O2 Delivery Device Nrb O2 Liters/Min 12.0 % FiO2 % Mode BiPAP Supervisor Channel Process ID [email or web address] Sodium (136-145) mmol/L Potassium (3.5-5.1) mmol/L Chloride (98-107) mmol/L Carbon Dioxide (22-29) mmol/L Anion Gap (5-19) BUN (8-23) mg/dL Creatinine (0.5-0.9) mg/dL GFR Calculation (90-130) mL/min Glucose (65-115) mg/dL Calculated Osmolal ity (285-295) mOsm/k g Lactic Acid (0.5-2.2) mmol/L Calcium (8.5-10.5) mg/dL Total Bilirubin (0.15-1.2) mg/dL AST (0-32) U/L ALT (0-33) U/L Alkaline Phosphata se (35-105) IU/L Troponin T Baselin e 28 H (0-10) ng/mL NT-Pro-B Natriuret Pep (0-125) pg/mL Total Protein (6.6-8.7) g/dL Albumin (3.5-5.2) g/dL Globulin (1.3-4.6) g/dL Influenza Type A A g Negative (Negative) Influenza Type B A g Negative (Negative) 08/16/19 08/16/19 08/16/19 Range/Units 20:27 20:58 21:26 WBC (4.0-10.0) 10^3/ uL RBC (4.1-5.3) 10^6/u L Hgb (11.5-15.3) g/dL Hct (37.0-47.0) % MCV (81-99) fL MCH (28.0-34.0) pg MCHC (30.0-36.0) g/dL RDW (12.1-15.1) % Plt Count (130-400) 10^3/c mm MPV (7.4-10.4) fL Neut % (Auto) % Lymph % (Auto) % Greenlee % (Auto) % Eos % (Auto) % Baso % (Auto) % Neut # (Auto) (1.8-7.7) 10^3/u L Lymph # (Auto) (0.8-4.8) 10^3/u L Greenlee # (Auto) (0.2-0.9) 10^3/u L Eos # (Auto) (0.0-0.8) 10^3/u L Baso # (Auto) (0.0-0.1) 10^3/u L Nucleated RBC % (a uto) % Nucleated RBCs # /100WBC PT (10.5-13.3) SECO NDS INR (0.8-1.2) Specimen Type Arterial Sample Site Brachial, right ABG pH 7.21 L (7.35-7.45) ABG pCO2 100.0 H* (35-45) mmHg ABG pO2 80.2 (80.0-100.0) mmH g ABG HCO3 40.3 H (22-26) mmol/L ABG Base Excess 9.7 H (-2.0-2.0) mmol/ L Santiago Test N/a Hematocrit 31.9 L (37-47) % O2 Delivery Device Bipap O2 Liters/Min % FiO2 45.0 % Mode BiPAP 25/15 Supervisor Channel Process ID [email or web address] Sodium 130 L (136-145) mmol/L Potassium 5.3 H (3.5-5.1) mmol/L Chloride 87 L (98-107) mmol/L Carbon Dioxide 36 H (22-29) mmol/L Anion Gap 12.3 (5-19) BUN 12 (8-23) mg/dL Creatinine 0.7 (0.5-0.9) mg/dL GFR Calculation 83.7 L (90-130) mL/min Glucose 135 H (65-115) mg/dL Calculated Osmolal ity 268 L (285-295) mOsm/k g Lactic Acid 1.0 (0.5-2.2) mmol/L Calcium 9.3 (8.5-10.5) mg/dL Total Bilirubin (0.15-1.2) mg/dL AST (0-32) U/L ALT (0-33) U/L Alkaline Phosphata se (35-105) IU/L Troponin T Baselin e (0-10) ng/mL NT-Pro-B Natriuret Pep (0-125) pg/mL Total Protein (6.6-8.7) g/dL Albumin (3.5-5.2) g/dL Globulin (1.3-4.6) g/dL Influenza Type A A g (Negative) Influenza Type B A g (Negative) Imaging Data^: CXR: My impression: Cardiomegaly with mild pulmonary vascular congestion. Patient rotated possible right lower lobe infiltrate. EKG Data^: EKG 1: Attestation: I personally reviewed and interpreted this EKG as follows: EKG Interpretation Date: 08/16/19 EKG interpretation time: 20:32 Interpretation: Normal sinus rhythm at 110 beats a minute, right bundle branch block, no other acute ST or T wave changes. Similar to previous. Discharge Plan Discharge Patient Disposition: Admitted As Inpatient Clinical Impression: Acute on chronic respiratory failure with hypercapnia, Acute exacerbation of chronic obstructive airways disease, Moderate to severe pulmonary hypertension, Pneumonia, Acute on chronic renal failure Condition: Stable Prescriptions: No Action levofloxacin 500 mg Tablet See Rx Instructions .ROUTE .COMPLEX RF: 0 ondansetron See Rx Instructions .ROUTE .COMPLEX RF: 0 prednisone 50 mg tablet 50 mg PO DAILY Qty: 5 RF: 0 albuterol sulfate 2.5 mg /3 mL (0.083 %) Solution For Nebulization 2.5 mg INHALATION Q4H PRN (Reason: Shortness Of Breath) RF: 0 alprazolam 1 mg Tablet 1 mg PO TID PRN (Reason: Anxiety) RF: 0 furosemide 20 mg Tablet 20 mg PO DAILY RF: 0 Eliquis 5 mg Tablet 5 mg PO BID RF: 0 budesonide 0.5 mg/2 mL Suspension For Nebulization 0.5 mg inhalation BID.RESPIRATORY Qty: 30 RF: 0 Spiriva Respimat 2.5 mcg/actuation mist 2 inh INHALATION DAILY Qty: 4 RF: 0 Protonix [address] for susp in packet 40 mg PO DAILY 28 Days Qty: 28 RF: 0 Referrals: Titus Garzon DO [Family Provider] - Coding Level of Care Code ED Informatics Analyst for Chg Fwd Exam Comprehensive
[2019-08-16] MEDS: ipratropium-albuterol 3 mL Neb 9 ML INHALATION (20:13)
--- NOTE | 2019-08-16 20:14 | PC.NURSE ---
RT IN ROOM WITH PATIENT
--- NOTE | 2019-08-16 20:16 | PC.NURSE ---
RADIOLOGY IN ROOM WITH PATIENT
[2019-08-16 20:17] LABS: Basophils % 0.3 %; Eosinophils # 0.2 10^3/uL (0.0-0.8); Eosinophils % 2.3 %; Hematocrit 39.4 % (37.0-47.0); Hemoglobin 10.1 g/dL (11.5-15.3); Lymphocytes # 0.8 10^3/uL (0.8-4.8); Lymphocytes % 10.2 %; Mean Corpuscular HGB Conc 25.6 g/dL (30.0-36.0); Mean Corpuscular Hemoglobin 21.7 pg (28.0-34.0); Mean Corpuscular Volume 84.5 fL (81-99); Mean Platelet Volume 9.4 fL (7.4-10.4); Monocytes # 0.5 10^3/uL (0.2-0.9); Monocytes % 6.4 %; Neutrophils # 6.2 10^3/uL (1.8-7.7); Neutrophils % 79.6 %; Nucleated Red Blood Cells % 0 %; Platelet Count 386 10^3/cmm (130-400); Red Blood Count 4.66 10^6/uL (4.1-5.3); Red Cell Distribution Width 17.4 % (12.1-15.1); White Blood Count 7.8 10^3/uL (4.0-10.0)
[2019-08-16 20:26] LABS: ABG PH Result 7.19 (7.35-7.45); Base Excess ABG 12.2 mmol/L (-2.0-2.0); Blood Gas Sample Site Brachial, left; Blood Gas Sample Type Arterial; HCO3 ABG 43.8 mmol/L (22-26); Oxygen Device NRB; PO2 ABG 72.2 mmHg (80.0-100.0)
[2019-08-16 20:29] LABS: Troponin(5th) Baseline 28 ng/mL (0-10)
[2019-08-16] MEDS: sodium chloride 0.9% 1,000 ML 100 ML IV (20:35)
[2019-08-16 20:40] LABS: Influenza A by IFA Negative (Negative); Influenza B by IFA Negative (Negative)
[2019-08-16 20:40] LABS: Alanine Aminotransferase 9 U/L (0-33); Alkaline Phosphatase 89 IU/L (35-105); Anion Gap 12.1 (5-19); Aspartate Amino Transferase 15 U/L (0-32); Blood Urea Nitrogen 14 mg/dL (8-23); Calcium 9.4 mg/dL (8.5-10.5); Carbon Dioxide 40 mmol/L (22-29); Chloride 87 mmol/L (98-107); Creatinine Clr Calc Pharmacy 69.6783; Glomerular Filtration Rate 83.7 mL/min (90-130); Glucose 117 mg/dL (65-115); NT Pro B Type Natriuretic Pept 1541 pg/mL (0-125); Osmolality Calculated 273 mOsm/kg (285-295); Potassium 6.1 mmol/L (3.5-5.1); Sodium 133 mmol/L (136-145); Total Bilirubin 0.3 mg/dL (0.15-1.2)
[2019-08-16 20:42] LABS: INR 1.04 (0.8-1.2)
[2019-08-16] MEDS: levofloxacin-dextrose 5 % 750 MG/150 ML PREMIX 150 MG IV (20:42)
[2019-08-16] MEDS: FUROsemide 10 mg/mL SDV 4mL 40 MG IVP (20:46)
[2019-08-16] MEDS: nitroglycerin 1 gm/inch oint Pkt 1 INCH TOPICAL (20:47)
[2019-08-16 21:17] LABS: Blood Urea Nitrogen 12 mg/dL (8-23); Calcium 9.3 mg/dL (8.5-10.5); Carbon Dioxide 36 mmol/L (22-29); Chloride 87 mmol/L (98-107); Creatinine Clr Calc Pharmacy 69.6783; Glomerular Filtration Rate 83.7 mL/min (90-130); Glucose 135 mg/dL (65-115); Osmolality Calculated 268 mOsm/kg (285-295); Sodium 130 mmol/L (136-145)
[2019-08-16 21:24] LABS: Anion Gap 12.3 (5-19); Potassium 5.3 mmol/L (3.5-5.1)
[2019-08-16 21:37] LABS: ABG PH Result 7.21 (7.35-7.45); Arterial Blood Gas Hematocrit 31.9 % (37-47); Base Excess ABG 9.7 mmol/L (-2.0-2.0); Blood Gas Sample Site Brachial, right; Blood Gas Sample Type Arterial; HCO3 ABG 40.3 mmol/L (22-26); Oxygen Device BIPAP; PO2 ABG 80.2 mmHg (80.0-100.0)
--- NOTE | 2019-08-16 21:42 | P.HP_ITS ---
Providers/Chief Complaint Chief Complaint: RESP. DISTRESS History of Present Illness Roseann Durham is a 64 year old female who has a past medical history of, pulmonary hypertension, diastolic congestive heart failure, recurrent intubations secondary to hypercapnic respiratory failure, sleep apnea, came in today with respiratory stress. Patient is stating that she lives with her [facility] nd at home, has quit smoking, she has chronic shortness of breath which has been getting worse for last 1 to 2 weeks, she has not noticed any fever but is endorsing productive cough, mild sputum production, has not noticed any fever, blood in her sputum, diarrhea(increased output from colostomy bag), nausea or vomiting. No one has visited her from outside [place] nor she has traveled anywhere. She has been compliant with her medications. Of note, on previous admission patient was intubated after failing BiPAP treatment for hypercapnic respiratory failure and was discharged on Levaquin. When she arrived in ER with respiratory distress, she was able to communicate with the staff and ER physician, hence decision was made to give a trial of BiPAP which seemed to improved her PCO2 to some extent, when I interviewed her she was awake, alert able to communicate and tell me little bit about her details, she was on BiPAP and was putting good tidal volume, setting 25/10 No leukocytosis, she was afebrile, chest x-ray revealed interstitial edema, she has received Levaquin, covid testing ordered by ER physician Review of Systems Const: Reports: fatigue and malaise; Denies: fever or chills Eyes: Reports: eye discomfort, eye discharge, eye redness and increased production of tears; Denies: change in vision ENMT: Denies: throat pain Card: Reports: shortness of breath on exertion and shortness of breath when lying down; Denies: chest pain, palpitations, edema or swelling of feet/ankles Resp: Reports: wheezing; Denies: coughing up blood GI: Denies: abdominal pain, nausea, vomiting or coffee grounds in vomit : Denies: flank pain, difficulty urinating, urinary frequency or urinary urgency Musc: Reports: muscle cramps and muscle weakness Skin/Breast: Denies: rash or skin pain Neuro: Denies: headache Psych: Reports: anxiety, sleeping more, loss of interest and change in appetite Endo: Denies: excessive urination Car/Lymph: Denies: easy bruising All/Imm: Denies: hives Medications/Allergies Allergies Allergy/AdvReac Type Severity Reaction Status Date / Time No Known Allergies Allergy Verified 05/29/19 13:57 PFSH Acute PFSH: Medical History (Updated 08/16/19 @ 22:07 by Last Vallecillo MD) Chronic anemia Chronic diastolic CHF (congestive heart failure) CKD (chronic kidney disease), stage II COPD (chronic obstructive pulmonary disease) Recurrent intubations in the past due to hypercapnic respiratory failure Hypertension Morbid obesity Pulmonary embolism Vascular dementia Surgical History H/O section X2 H/O colectomy Secondary to severe colitis H/O: hysterectomy History of salpingo-oophorectomy S/P IVC filter Secondary to PE, DVT Family History Father Lung disease Social History Smoking and tobacco status: former smoker Alcohol intake: never Household members: family Vitals/I&O/Wt Last Vital Signs Temp 98.1 F 08/16/19 19:58 Pulse 104 H 08/16/19 21:06 Resp 18 08/16/19 21:06 BP 103/74 08/16/19 21:06 Pulse Ox 92 08/16/19 21:06 Weight last 48 hrs Weight 84.368 kg Physical Exam Narrative: EXAM NARRATIVE: Obese female currently on BiPAP setting 10/03 able to give me details about her symptoms and medications She is able to open her eyes on command, able to comprehend my questions and follow commands, she has positive asterixis S1, S2, positive JVD with bilateral lower extremity edema trace Bilateral decreased breath sounds without wheezing with crackles diffuse Abdomen soft, nontender, colostomy bag draining feculent material Skin does not show any sign of ischemia gangrene ulcer She is a bit drowsy but able to protect her airway and follow commands at the moment Hyperemic conjunctivo-with clear watery discharge from eyes bilaterally Sinuses were not palpated because she was using BiPAP Data : 08/16/19 19:40 08/16/19 20:58 Micro: Microbiology 08/16/19 20:27 Blood Culture - Preliminary Blood SPECIMEN COLLECTED 08/16/19 20:27 Blood Culture - Preliminary Blood SPECIMEN COLLECTED A&P Assessment and plan (1) Acute on chronic respiratory failure with hypercapnia: Status: Acute (2) Chronic anemia: Status: Acute (3) CKD (chronic kidney disease), stage II: Status: Acute (4) Chronic diastolic CHF (congestive heart failure): Status: Acute (5) Morbid obesity: Status: Acute (6) Moderate to severe pulmonary hypertension: Status: Acute (7) Hyponatremia: Status: Acute Additional A&P Information Acute on chronic hypercapnic respiratory failure due to CHF exacerbation I have compared her current x-ray with the previous one, she has increased vascular prominence due to primary hypertension, increase interstitial edema, it is very hard to assess consolidation, would get CT chest , She is afebrile, no leukocytosis, she has received 1 dose of Levaquin in the ER With her sleep apnea and use of Ativan could also contribute to current hypercapnia, need of Ativan needs to be reevaluated before discharge She is high risk for intubation, admit to ICU, currently doing well on BiPAP Acute diastolic congestive heart failure exacerbation EKG does not show any sign of ischemia or infarction, troponin not significantly high, no chest pain, This seems secondary to sleep apnea and primary hypertension Would use Lasix IV every 12 hours Monitor output Chronic hypotonic hyponatremia: She is hypervolemic I believe this is due to intravascular congestion due to CHF exacerbation Would avoid rapid correction Sodium level check in 4 hours Chronic anemia: No history of black tarry stool or hemoptysis/hematemesis No recent colonoscopy Monitor H&H Hyperkalemia: Improved with diuresis no hyperkalemic changes on EKG Chronic anticoagulation due to DVT and PE: Status post IVC filter placement: Continue Eliquis Chronic hypoxic respiratory failure: Uses 4 L of oxygen at home [id number] with CPAP at night for sleep apnea DVT prophylaxis not indicated because of use of Eliquis for chronic PE Full code I will keep her n.p.o. for now because she is high risk for intubation Attestations Medical Necessity Statement*: Anticipating stay in the hospital course more than 2 midnights currently needs ICU for hypercapnic respiratory failure, high risk for intubation, Time Spent in Patient Care: 50 Coding Level of Care Code Acute Child Welfare Worker for Denis Lozoya Diagnoses Acute on chronic respiratory failure with hypercapnia J96.22 Chronic anemia D64.9 CKD (chronic kidney disease), stage II N18.2 Chronic diastolic CHF (congestive heart failure) I50.32 Morbid obesity E66.01 Moderate to severe pulmonary hypertension I27.20 Hyponatremia E87.1
--- NOTE | 2019-08-16 21:47 | CTR_ITS ---
PROCEDURE INFORMATION: Exam: CT Chest Without Contrast Exam date and time: 08/16/2019 10:37 PM Age: 64 years old Clinical indication: Condition or disease; Lung condition and disease; Copd; Complications not specified; Shortness of breath; Additional info: Abnormal cxr TECHNIQUE: Imaging protocol: Computed tomography of the chest without contrast. Total DLP: 991.11 mGy-cm Radiation optimization: All CT scans at this facility use at least one of these dose optimization techniques: automated exposure control; mA and/or kV adjustment per patient size (includes targeted exams where dose is matched to clinical indication); or iterative reconstruction. COMPARISON: [facility] Chest-[place]ulmonary [place] [id number] 08/26/2018 11:52 PM; CT chest 01/21/2019. FINDINGS: Lungs: No visible evidence of active or acute cardiopulmonary/cardiothoracic pathologic process this evaluation. Mild peripheral acinar emphysema. COPD/chronic bronchitis. Stable minimal parenchymal scar right middle lobe. Mild senile fibrosis. Pleural space: Unremarkable. No pneumothorax. No pleural effusion. Heart: Cardiomegaly. Central pulmonary hyperemia. Mediastinum: Evidence of antecedent granulomatous disease to include calcified hilar complexes and rare calcified pulmonary granuloma. Hiatal hernia. Aorta: The thoracic aorta is nonaneurysmal with mild arterial sclerotic disease. Lymph nodes: Unremarkable. No enlarged lymph nodes. Adrenals: Stable left adrenal nodule that measures approximately 17 mm in diameter since 01/21/2019, 08/26/2018, and 08/21/2017. Stability suggests benignancy. Bones/joints: Degenerative disease and degenerative disc disease of the spine with moderate spondylosis deformans. No visible acute musculoskeletal pathology. No visible osteolytic or osteoblastic destructive process. Soft tissues: Unremarkable. Other findings: Obesity. CT/CT chest wo con [id number] IMPRESSION: 1. No visible evidence of active or acute cardiopulmonary/cardiothoracic pathologic process. 2. COPD/chronic bronchitis with mild peripheral acinar emphysema. 3. Antecedent granulomatous disease. 4. Stable left adrenal nodule since studies dating back to 08/21/2017. No follow-up necessary. 5. Cardiomegaly with central pulmonary hyperemia. Radiation Dose CTDIVOL = (mGy): DLP = 991.11 (mGy-cm)
[2019-08-16 22:14] LABS: Blood Urine Neg (Negative); Glucose Urine UA Norm (Normal); Ketones Urine Negative (Negative); Nitrate Urine Negative (Negative); Protein Urine Neg (Negative); Specific Gravity, Urine 1.025 (1.005-1.030); Urine Appearance Hazy (CLEAR); Urine Color Yellow (Yellow); pH Urine 5 (5-7)
[2019-08-16 22:15] LABS: Bilirubin Urine Neg (NEGATIVE); Leukocyte Esterase Urine Negative (Negative); Urobilinogen Urine Norm (Negative)
[2019-08-16 22:16] LABS: Hyaline Casts Urine 80-100
[2019-08-16 22:17] LABS: Add Urine Culture? No; Bacteria Urine TRACE; RBC Urine 0-4 /hpf (0-2)
--- NOTE | 2019-08-16 22:25 | PC.NURSE ---
TRIED TO CALL REPORT TO ICU, WAS TOLD NURSE WAS IN ANOTHER ROOM AND WILL CALL BACK FOR REPORT
[2019-08-16 22:26] LABS: Troponin 5 2HR 24.64 ng/mL (0-10)
[2019-08-16 22:41] LABS: Troponin 5 2HR Delta -3.36 ABS# (0-10)
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
[2019-08-17] VITALS (43 sets, daily range): BP systolic 96–169; BP diastolic 62–93; PULSE 90–179; RESP 12–42; TEMP 36.7–37.1; O2SAT 79–98
[2019-08-17] MEDS: FUROsemide 10 mg/mL SDV 2mL 20 MG IVP (00:35)
[2019-08-17] MEDS: ipratropium-albuterol 3 mL Neb INHALATION ×5 (02:15→20:31)
[2019-08-17 03:21] LABS: Troponin 5 6HR 19.19 ng/mL (0-10)
[2019-08-17 03:37] LABS: Troponin 5 6HR Delta -8.81 ng/L (0-12)
[2019-08-17 05:17] LABS: Hematocrit 35.2 % (37.0-47.0); Hemoglobin 9.3 g/dL (11.5-15.3); Lymphocytes # 0.2 10^3/uL (0.8-4.8); Lymphocytes % 4.2 %; Mean Corpuscular HGB Conc 26.4 g/dL (30.0-36.0); Mean Corpuscular Hemoglobin 21.9 pg (28.0-34.0); Mean Platelet Volume 9.2 fL (7.4-10.4); Monocytes # 0.1 10^3/uL (0.2-0.9); Monocytes % 0.9 %; Neutrophils # 5.4 10^3/uL (1.8-7.7); Neutrophils % 94.4 %; Nucleated Red Blood Cells % 0 %; Platelet Count 341 10^3/cmm (130-400); Red Blood Count 4.24 10^6/uL (4.1-5.3); Red Cell Distribution Width 17.6 % (12.1-15.1); White Blood Count 5.7 10^3/uL (4.0-10.0)
[2019-08-17 05:45] LABS: Anion Gap 11.9 (5-19); Blood Urea Nitrogen 16 mg/dL (8-23); Carbon Dioxide 40 mmol/L (22-29); Chloride 87 mmol/L (98-107); Creatinine Clr Calc Pharmacy 69.6783; Glomerular Filtration Rate 83.7 mL/min (90-130); Glucose 128 mg/dL (65-115); Osmolality Calculated 276 mOsm/kg (285-295); Potassium 4.9 mmol/L (3.5-5.1); Sodium 134 mmol/L (136-145)
[2019-08-17] MEDS: apixaban 5 mg Tablet PO ×2 (09:06→18:18)
--- NOTE | 2019-08-17 15:13 | P.PN_ITS ---
Subjective Subjective: Interval history: Patient reports feeling better this morning. She was using BiPAP throughout the night. Denies any cough or chest pain. Reports compliant with her home medications but does not know what she takes medications for. Reports that her gave her all the medications she needs. She diuresed well overnight. COVID testing ordered by the ER physician as per notes. No result is available yet. Vitals/I&O/Wt Last Vital Signs Temp 98.1 F 08/17/19 14:00 Pulse 97 08/17/19 14:44 Resp 20 H 08/17/19 14:44 BP 154/93 08/17/19 14:00 Pulse Ox 95 08/17/19 14:44 08/17/19 08/17/19 08/17/19 06:59 14:59 22:59 Intake Total 560 / 560 Output Total 1425 / 1425 300 / 300 Balance -1425 / -1275 260 / 260 Weight last 48 hrs Weight 84.368 kg Physical Exam Const: COMMON NORMALS: no apparent distress and oriented x3 Resp: COMMON NORMALS: normal respiratory effort and clear to auscultation bilaterally AUSCULTATION: clear to auscultation bilaterally Cardio: COMMON NORMALS: regular rate, regular rhythm and S2 normal heart sound RATE: regular rate RHYTHM: regular rhythm HEART SOUNDS: S2 normal OTHER: No lower extremity edema. Her skin is very dry and wrinkled. GI: COMMON NORMALS: normal to inspection, nondistended, normoactive bowel sounds, soft to palpation and non-tender PALPATION: Yes soft Neuro: COMMON NORMALS: oriented x3 and no focal motor deficits Urinary Catheter Management^: Ortega: Cath Placed During This Visit: yes Reason for Continuing Indwelling Catheter: Accurate Measurement of Urinary Output in Critically Ill Patients Urinary Catheter Date of Insertion: 08/16/19 Urinary Catheter Time of Insertion: 21:44 Data : 08/17/19 04:40 08/17/19 04:40 Micro: Microbiology 08/16/19 20:27 Blood Culture - Preliminary Blood SPECIMEN COLLECTED 08/16/19 20:27 Blood Culture - Preliminary Blood SPECIMEN COLLECTED A&P Assessment and plan (1) Acute on chronic respiratory failure with hypercapnia: Status: Acute (2) Chronic anemia: Status: Acute (3) CKD (chronic kidney disease), stage II: Status: Acute (4) Chronic diastolic CHF (congestive heart failure): Status: Acute (5) Morbid obesity: Patient is obese with BMI 34. Status: Acute (6) Moderate to severe pulmonary hypertension: Status: Acute (7) Hyponatremia: Status: Acute Additional A&P Information Acute on chronic hypercapnic respiratory failure due to CHF exacerbation I have compared her current x-ray with the previous one, she has increased vascular prominence due to primary hypertension, increase interstitial edema, it is very hard to assess consolidation, would get CT chest , She is afebrile, no leukocytosis, she has received 1 dose of Levaquin in the ER With her sleep apnea and use of Ativan could also contribute to current hypercapnia, need of Ativan needs to be reevaluated before discharge She is high risk for intubation, admit to ICU, currently doing well on BiPAP Acute diastolic congestive heart failure exacerbation EKG does not show any sign of ischemia or infarction, troponin not significantly high, no chest pain, This seems secondary to sleep apnea and primary hypertension Would use Lasix IV every 12 hours Monitor output Chronic hypotonic hyponatremia: She is hypervolemic I believe this is due to intravascular congestion due to CHF exacerbation Would avoid rapid correction Sodium level check in 4 hours Chronic anemia: No history of black tarry stool or hemoptysis/hematemesis No recent colonoscopy Monitor H&H Hyperkalemia: Improved with diuresis no hyperkalemic changes on EKG Chronic anticoagulation due to DVT and PE: Status post IVC filter placement: Continue Eliquis Chronic hypoxic respiratory failure: Uses 4 L of oxygen at home [id number] with CPAP at night for sleep apnea PLAN: Continue current monitoring and treatment in ICU while we are awaiting for COVID result to be back. DVT prophylaxis not indicated because of use of Eliquis for chronic PE Full code I will keep her n.p.o. for now because she is high risk for intubation Attestations Medical Necessity Statement*: Patient with respite failure requires close ICU monitoring and treatment until COVID result is back. Coding Level of Care Code Acute Cafeteria Or Lunchroom Checker for Denis Lozoya Diagnoses Acute on chronic respiratory failure with hypercapnia J96.22 Chronic anemia D64.9 CKD (chronic kidney disease), stage II N18.2 Chronic diastolic CHF (congestive heart failure) I50.32 Morbid obesity E66.01 Moderate to severe pulmonary hypertension I27.20 Hyponatremia E87.1
[2019-08-17 15:27] LABS: Coronavirus Lab Test PTC SEE COMMENTS
[2019-08-18] VITALS (34 sets, daily range): BP systolic 100–146; BP diastolic 63–98; PULSE 74–102; RESP 17–29; TEMP 36.6–36.9; O2SAT 89–98
[2019-08-18] MEDS: ipratropium-albuterol 3 mL Neb INHALATION ×4 (04:05→20:34)
--- NOTE | 2019-08-18 06:08 | PC.NURSE ---
SHIFT SUMMARY PT HAS BEEN CONFUSED AT TIMES THROUGHOUT THE NIGHT. PT HAS HAD ADEQUATE URINE OUTPUT. PT HAS HAD NO COMPLAINTS THROUGHOUT THE NIGHT. PT REFUSED TO WEAR BIPAP THROUGHOUT THE NIGHT. PT REMAINS ON 6LNC. LUNGS REMAIN COARSE AND WHEEZES. PT HAS NOT COMPLAINED OR SHOWED ANY SIGNS OF RESPIRATORY DISTRESS.
--- NOTE | 2019-08-18 08:37 | PC.NURSE ---
Pt rounding with Dr. Dr. Whitlock at bedside. Pt is still wheezy. she reported her SOB is improved. She is still having dry cough. 6 L/min NC noted with SpO2 of 96%. Per order to titrate down her oxygen. Currently on 5 L. Will monitor.
[2019-08-18 09:14] LABS: Basophils % 0.3 %; Eosinophils # 0.2 10^3/uL (0.0-0.8); Eosinophils % 2.3 %; Hematocrit 32.5 % (37.0-47.0); Hemoglobin 8.6 g/dL (11.5-15.3); Lymphocytes # 1.4 10^3/uL (0.8-4.8); Lymphocytes % 17.7 %; Mean Corpuscular HGB Conc 26.5 g/dL (30.0-36.0); Mean Corpuscular Hemoglobin 21.7 pg (28.0-34.0); Mean Corpuscular Volume 81.9 fL (81-99); Mean Platelet Volume 9.1 fL (7.4-10.4); Monocytes # 0.7 10^3/uL (0.2-0.9); Monocytes % 9.1 %; Neutrophils # 5.5 10^3/uL (1.8-7.7); Neutrophils % 70.3 %; Nucleated Red Blood Cells % 0 %; Platelet Count 308 10^3/cmm (130-400); Red Blood Count 3.97 10^6/uL (4.1-5.3); Red Cell Distribution Width 17.6 % (12.1-15.1); White Blood Count 7.8 10^3/uL (4.0-10.0)
[2019-08-18 09:31] LABS: Alanine Aminotransferase 9 U/L (0-33); Albumin Level 3.4 g/dL (3.5-5.2); Alkaline Phosphatase 70 IU/L (35-105); Aspartate Amino Transferase 12 U/L (0-32); Blood Urea Nitrogen 16 mg/dL (8-23); Carbon Dioxide 37 mmol/L (22-29); Chloride 88 mmol/L (98-107); Creatinine Clr Calc Pharmacy 69.6783; Globulin 2.7 g/dL (1.3-4.6); Glomerular Filtration Rate 83.7 mL/min (90-130); Glucose 121 mg/dL (65-115); Osmolality Calculated 274 mOsm/kg (285-295); Sodium 133 mmol/L (136-145); Total Bilirubin 0.2 mg/dL (0.15-1.2); Total Protein 6.1 g/dL (6.6-8.7)
--- NOTE | 2019-08-18 09:38 | PM.PN ---
Subjective Subjective: Interval history: Patient reports feeling better this morning and wants to go home. She noted to have wet cough. Her hemoglobin dropped down to 8.6 this morning. Patient denies nausea. No reported melena or hematochezia. Patient was recently treated with steroids and steroid induced gastritis related upper GI bleed is considered. She had episodes of anemia with hemoglobin dropping down to 8s since May last year off-and-on. She is anticoagulated on Eliquis for previous history of DVT/PE. She has IVC filter placed previously. She reports using 3 to 3-1/2 L of oxygen at home and currently is on 5 L saturating 88 to 90%. Notes mention that she is on 4 L of oxygen 07/12. Approximately 1 year ago patient had upper endoscopy showing evidence of duodenitis. I cannot find any notes if colonoscopy was performed. Vitals/I&O/Wt Last Vital Signs Temp 97.9 F 08/18/19 08:00 Pulse 89 08/18/19 08:21 Resp 20 H 08/18/19 08:19 BP 125/86 08/18/19 08:00 Pulse Ox 92 08/18/19 08:19 08/17/19 08/18/19 08/18/19 22:59 06:59 14:59 Intake Total 340 / 900 240 / 1140 Output Total 700 / 1000 1150 / 2150 Balance -360 / -100 -910 / -1010 Weight last 48 hrs Weight 84.368 kg Physical Exam Const: COMMON NORMALS: no apparent distress and oriented x3 Resp: COMMON NORMALS: normal respiratory effort and clear to auscultation bilaterally AUSCULTATION: clear to auscultation bilaterally Cardio: COMMON NORMALS: regular rate, regular rhythm and S2 normal heart sound RATE: regular rate RHYTHM: regular rhythm HEART SOUNDS: S2 normal OTHER: No lower extremity edema. Her skin is very dry and wrinkled. GI: COMMON NORMALS: normal to inspection, nondistended, normoactive bowel sounds, soft to palpation and non-tender PALPATION: Yes soft Neuro: COMMON NORMALS: oriented x3 and no focal motor deficits Urinary Catheter Management^: Ortega: Cath Placed During This Visit: yes Reason for Continuing Indwelling Catheter: Accurate Measurement of Urinary Output in Critically Ill Patients Urinary Catheter Date of Insertion: 08/16/19 Urinary Catheter Time of Insertion: 21:44 Data : 08/18/19 09:08 08/18/19 09:08 Micro: Microbiology 08/16/19 20:27 Blood Culture - Preliminary Blood NEGATIVE TO DATE 08/16/19 20:27 Blood Culture - Preliminary Blood NEGATIVE TO DATE A&P Assessment and plan (1) Acute on chronic respiratory failure with hypercapnia: Status: Acute (2) Chronic anemia: Status: Acute (3) CKD (chronic kidney disease), stage II: Status: Acute (4) Chronic diastolic CHF (congestive heart failure): Status: Acute (5) Morbid obesity: Patient is obese with BMI 34. Status: Acute (6) Moderate to severe pulmonary hypertension: Status: Acute (7) Hyponatremia: Status: Acute Additional A&P Information Acute on chronic hypercapnic respiratory failure due to CHF exacerbation I have compared her current x-ray with the previous one, she has increased vascular prominence due to primary hypertension, increase interstitial edema, it is very hard to assess consolidation, would get CT chest , She is afebrile, no leukocytosis, she has received 1 dose of Levaquin in the ER With her sleep apnea and use of Ativan could also contribute to current hypercapnia, need of Ativan needs to be reevaluated before discharge She is high risk for intubation, admit to ICU, currently doing well on BiPAP Acute diastolic congestive heart failure exacerbation EKG does not show any sign of ischemia or infarction, troponin not significantly high, no chest pain, This seems secondary to sleep apnea and primary hypertension Would use Lasix IV every 12 hours Monitor output Acute bronchitis. Could possibly play a role in patient's increased oxygen demand. Chronic hypotonic hyponatremia: She is hypervolemic I believe this is due to intravascular congestion due to CHF exacerbation Would avoid rapid correction Sodium level check in 4 hours Chronic anemia: No history of black tarry stool or hemoptysis/hematemesis No recent colonoscopy Monitor H&H Hyperkalemia: Improved with diuresis no hyperkalemic changes on EKG Chronic anticoagulation due to DVT and PE: Status post IVC filter placement: Continue Eliquis Chronic hypoxic respiratory failure: Uses 4 L of oxygen at home [id number] with CPAP at night for sleep apnea PLAN: Continue current monitoring and treatment in ICU but discontinue Eliquis and start patient on high-dose PPI. Continue breathing treatments and add Pulmicort. Will start on ceftriaxone for treatment of acute bronchitis. Remove Ortega catheter. Restart home diuretic. Physical therapy. Patient will need to have outpatient colonoscopy and VOICE OVER ANNOUNCER examination. DVT prophylaxis not indicated because of use of Eliquis for chronic PE Full code I will keep her n.p.o. for now because she is high risk for intubation Attestations Medical Necessity Statement*: Patient with increased oxygen demand and hemoglobin drop requires close ICU monitoring and treatment Coding Level of Care Code Acute Brand Ambassador Promotional Model for g Fwd Diagnoses Acute on chronic respiratory failure with hypercapnia J96.22 Chronic anemia D64.9 CKD (chronic kidney disease), stage II N18.2 Chronic diastolic CHF (congestive heart failure) I50.32 Morbid obesity E66.01 Moderate to severe pulmonary hypertension I27.20 Hyponatremia E87.1
[2019-08-18] MEDS: FUROsemide 20 mg Tablet PO (10:15)
[2019-08-18] MEDS: cefTRIAXone 1,000 MG in sodium chloride 0.9% (plus) 50 ML 100 MG IV (10:18)
[2019-08-18] MEDS: pantoprazole 40 mg SDV IVP ×2 (10:22→21:33)
--- NOTE | 2019-08-18 11:04 | NUR.SHIFT ---
Pt reports SOB Pt looked anxious and restless. She stated, I just can't breathe. Elevated HOB. O2sat is92-93% on 5 L/min. Offered pt BIPAP which she refused. Administered PRN Xanax order. Lasix PO given. Will keep monitoring. VS WNL.
[2019-08-18] MEDS: acetaminophen 325 mg Tablet 650 MG PO (11:15)
--- NOTE | 2019-08-18 11:25 | PC.NURSE ---
BIPAP applied Discuss to pt regarding reducing work of breathing and BIPAP will help. Pt agrees. BIPAP applied. Will monitor.
--- NOTE | 2019-08-18 11:27 | PC.NURSE ---
Pt is resting comfortably after BIPAP application Pt is tolerating the BIPAP as of now.
--- NOTE | 2019-08-18 12:30 | PC.NURSE ---
BIPAP off Eating lunch. Adminiter o2 at 5 L/min.
--- NOTE | 2019-08-18 15:41 | PC.NURSE ---
Colostomy care/Colostomy bag changed Pt previous colostomy bag got loose. Skin areas around the stoma is irritated with mild rash. Pt stated it itches. Noted previous stoma hole diameter is wider. smear of old stools noted around the skin areas. No erythema. Pt does has a bulging that felt like hernia on the stoma colostomy site.
--- NOTE | 2019-08-18 17:42 | PC.NURSE ---
BIPAP on Agrees to apply BIPAP. Tolerating well.
[2019-08-18] MEDS: budesonide 0.5 mg/2 mL Neb INHALATION (20:34)
[2019-08-19] VITALS (26 sets, daily range): BP systolic 83–151; BP diastolic 50–99; PULSE 77–102; RESP 14–34; TEMP 35.9–37.1; O2SAT 87–96
[2019-08-19] MEDS: ipratropium-albuterol 3 mL Neb INHALATION ×4 (04:32→19:59)
[2019-08-19 05:22] LABS: Basophils % 0.2 %; Eosinophils # 0.3 10^3/uL (0.0-0.8); Hematocrit 34.3 % (37.0-47.0); Hemoglobin 9.1 g/dL (11.5-15.3); Lymphocytes # 0.7 10^3/uL (0.8-4.8); Lymphocytes % 8.2 %; Mean Corpuscular HGB Conc 26.5 g/dL (30.0-36.0); Mean Corpuscular Hemoglobin 22.1 pg (28.0-34.0); Mean Corpuscular Volume 83.5 fL (81-99); Mean Platelet Volume 9.2 fL (7.4-10.4); Monocytes # 0.6 10^3/uL (0.2-0.9); Neutrophils # 6.3 10^3/uL (1.8-7.7); Neutrophils % 79.1 %; Nucleated Red Blood Cells % 0 %; Platelet Count 304 10^3/cmm (130-400); Red Blood Count 4.11 10^6/uL (4.1-5.3); Red Cell Distribution Width 17.8 % (12.1-15.1)
[2019-08-19 05:44] LABS: Alanine Aminotransferase 8 U/L (0-33); Albumin Level 3.5 g/dL (3.5-5.2); Alkaline Phosphatase 78 IU/L (35-105); Anion Gap 9.9 (5-19); Aspartate Amino Transferase 11 U/L (0-32); Blood Urea Nitrogen 16 mg/dL (8-23); Calcium 9.1 mg/dL (8.5-10.5); Chloride 88 mmol/L (98-107); Creatinine Clr Calc Pharmacy 69.6783; Globulin 3.4 g/dL (1.3-4.6); Glucose 111 mg/dL (65-115); Osmolality Calculated 275 mOsm/kg (285-295); Potassium 4.9 mmol/L (3.5-5.1); Sodium 134 mmol/L (136-145); Total Bilirubin 0.2 mg/dL (0.15-1.2); Total Protein 6.9 g/dL (6.6-8.7)
[2019-08-19 05:49] LABS: Carbon Dioxide 41 mmol/L (22-29)
[2019-08-19] MEDS: acetaminophen 325 mg Tablet 650 MG PO ×3 (06:15→22:06)
--- NOTE | 2019-08-19 07:23 | PC.NURSE ---
patient denies pain at this time stating I feel all right. will continue to monitor due to what appears to be Tylenol found in med cup on bedside table charge nurse notified and pills disposed of in proper manner
[2019-08-19] MEDS: FUROsemide 20 mg Tablet PO (08:01)
[2019-08-19] MEDS: budesonide 0.5 mg/2 mL Neb INHALATION ×2 (08:01→19:53)
--- NOTE | 2019-08-19 08:41 | PC.SOCIAL ---
IMM Update Pg 2 of IMM Updated. Copy provided to patient.
--- NOTE | 2019-08-19 09:14 | P.PN_ITS ---
Subjective Subjective: Interval history: Patient reports feeling okay and wants to go home. She had episodes of dyspnea yesterday requiring BiPAP support. She has extremely poor lung reserve and frequently and easily gets out of breath. She is saturating 87% on 5 L this morning. She is tachypneic. Her hemoglobin is 9.1. She denies cough this morning. She denies shortness of breath or abd ominal pain. Her ostomy works well without any evidence of melena or hematochezia. She cannot recall any endoscopy procedures through ostomy. Ortega catheter was removed yesterday and patient is able to urinate without difficulty. Vitals/I&O/Wt Last Vital Signs Temp 98.7 F 08/19/19 08:33 Pulse 94 08/19/19 08:33 Resp 29 H 08/19/19 08:33 BP 127/89 08/19/19 08:33 Pulse Ox 87 L 08/19/19 08:33 08/18/19 08/19/19 08/19/19 22:59 06:59 14:59 Intake Total 956 / 1706 1080 / 2786 120 / 120 Output Total 750 / 1150 1500 / 2650 Balance 206 / 556 -420 / 136 120 / 120 Physical Exam Const: COMMON NORMALS: no apparent distress and oriented x3 Resp: COMMON NORMALS: normal respiratory effort OTHER: Coarse breath sounds throughout. Cardio: COMMON NORMALS: regular rate, regular rhythm and S2 normal heart sound RATE: regular rate RHYTHM: regular rhythm HEART SOUNDS: S2 normal OTHER: No lower extremity edema. GI: COMMON NORMALS: normal to inspection, nondistended, normoactive bowel sounds, soft to palpation and non-tender PALPATION: Yes soft Neuro: COMMON NORMALS: oriented x3 and no focal motor deficits Urinary Catheter Management^: Ortega: Cath Placed During This Visit: yes, but has since been removed by the nurse Reason for Continuing Indwelling Catheter: Other Urinary Catheter Date of Insertion: 08/16/19 Urinary Catheter Time of Insertion: 21:44 Date Urinary Catheter Removed: 08/18/19 Time Urinary Catheter Discontinued: 09:57 Data : 08/19/19 04:29 08/19/19 04:29 A&P Assessment and plan (1) Acute on chronic respiratory failure with hypercapnia: And hypoxia. Status: Acute (2) Chronic anemia: Status: Acute (3) CKD (chronic kidney disease), stage II: Status: Acute (4) Chronic diastolic CHF (congestive heart failure): Status: Acute (5) Morbid obesity: Patient is obese with BMI 34. Status: Acute (6) Moderate to severe pulmonary hypertension: Status: Acute (7) Hyponatremia: Status: Acute Additional A&P Information Acute on chronic hypoxic and hypercapnic respiratory failure due to CHF exacerbation I have compared her current x-ray with the previous one, she has increased vascular prominence due to primary hypertension, increase interstitial edema, it is very hard to assess consolidation, would get CT chest , She is afebrile, no leukocytosis, she has received 1 dose of Levaquin in the ER With her sleep apnea and use of Ativan could also contribute to current hypercapnia, need of Ativan needs to be reevaluated before discharge She is high risk for intubation, admit to ICU, currently doing well on BiPAP Acute diastolic congestive heart failure exacerbation EKG does not show any sign of ischemia or infarction, troponin not significantly high, no chest pain, This seems secondary to sleep apnea and primary hypertension Would use Lasix IV every 12 hours Monitor output Acute bronchitis. Could possibly play a role in patient's increased oxygen demand. Chronic hypotonic hyponatremia: She is hypervolemic I believe this is due to intravascular congestion due to CHF exacerbation Would avoid rapid correction Sodium level check in 4 hours Chronic anemia: No history of black tarry stool or hemoptysis/hematemesis No recent colonoscopy Monitor H&H Hyperkalemia: Improved with diuresis no hyperkalemic changes on EKG Chronic anticoagulation due to DVT and PE: Status post IVC filter placement: Continue Eliquis Chronic hypoxic respiratory failure: Uses 4 L of oxygen at home [id number] with CPAP at night for sleep apnea PLAN: Since hemoglobin stable and patient is hypoxic we will go ahead and restart Eliquis and continue high-dose PPI with monitoring of hemoglobin. Continue ceftriaxone. Continue Atrovent and Pulmicort and BiPAP support as needed. Avoid steroids for now. Patient does not wheeze. Continue ICU monitoring for now. CODE STATUS was discussed with patient and she wants to be a full code. Continue physical therapy. Patient will need to have outpatient appointment upon discharge with Dr. Lipscomb. Patient is a very high risk for frequent and recurrent admissions due to extremely low pulmonary reserve. DVT prophylaxis not indicated because of use of Eliquis for chronic PE Full code I will keep her n.p.o. for now because she is high risk for intubation. Attestations Medical Necessity Statement*: Patient with hypoxic respiratory failure as well as anemia requires close ICU monitoring and treatment due to high risk for deterioration and need for intubation. Coding Level of Care Code Acute Consulting Utility Forester for Chg Fwd Diagnoses Acute on chronic respiratory failure with hypercapnia J96.22 Chronic anemia D64.9 CKD (chronic kidney disease), stage II N18.2 Chronic diastolic CHF (congestive heart failure) I50.32 Morbid obesity E66.01 Moderate to severe pulmonary hypertension I27.20 Hyponatremia E87.1
[2019-08-19] MEDS: cefTRIAXone 1,000 MG in sodium chloride 0.9% (plus) 50 ML 100 MG IV (09:38)
[2019-08-19] MEDS: pantoprazole 40 mg SDV IVP ×2 (09:38→22:00)
[2019-08-19] MEDS: apixaban 5 mg Tablet PO ×2 (09:39→18:01)
[2019-08-20] VITALS (19 sets, daily range): BP systolic 113–149; BP diastolic 66–99; PULSE 81–99; RESP 18–22; TEMP 36.8–37.1; O2SAT 90–98
[2019-08-20] MEDS: ipratropium-albuterol 3 mL Neb INHALATION ×4 (02:30→20:49)
[2019-08-20 05:34] LABS: Basophils % 0.1 %; Eosinophils # 0.4 10^3/uL (0.0-0.8); Eosinophils % 6.5 %; Hematocrit 34.2 % (37.0-47.0); Hemoglobin 9.1 g/dL (11.5-15.3); Lymphocytes # 0.5 10^3/uL (0.8-4.8); Lymphocytes % 7.6 %; Mean Corpuscular HGB Conc 26.6 g/dL (30.0-36.0); Mean Corpuscular Hemoglobin 22.3 pg (28.0-34.0); Mean Corpuscular Volume 83.8 fL (81-99); Mean Platelet Volume 9.5 fL (7.4-10.4); Monocytes # 0.5 10^3/uL (0.2-0.9); Monocytes % 6.7 %; Neutrophils # 5.3 10^3/uL (1.8-7.7); Neutrophils % 78.8 %; Nucleated Red Blood Cells % 0 %; Platelet Count 273 10^3/cmm (130-400); Red Blood Count 4.08 10^6/uL (4.1-5.3); Red Cell Distribution Width 17.7 % (12.1-15.1); White Blood Count 6.7 10^3/uL (4.0-10.0)
[2019-08-20 05:59] LABS: Alanine Aminotransferase 13 U/L (0-33); Albumin Level 3.5 g/dL (3.5-5.2); Alkaline Phosphatase 80 IU/L (35-105); Anion Gap 10.5 (5-19); Aspartate Amino Transferase 18 U/L (0-32); Blood Urea Nitrogen 11 mg/dL (8-23); Carbon Dioxide 40 mmol/L (22-29); Chloride 87 mmol/L (98-107); Creatinine Clr Calc Pharmacy 69.6783; Globulin 3.3 g/dL (1.3-4.6); Glucose 125 mg/dL (65-115); Osmolality Calculated 274 mOsm/kg (285-295); Potassium 4.5 mmol/L (3.5-5.1); Sodium 133 mmol/L (136-145); Total Bilirubin 0.2 mg/dL (0.15-1.2); Total Protein 6.8 g/dL (6.6-8.7)
[2019-08-20] MEDS: budesonide 0.5 mg/2 mL Neb INHALATION ×2 (08:59→20:49)
[2019-08-20] MEDS: FUROsemide 20 mg Tablet PO (10:06)
[2019-08-20] MEDS: apixaban 5 mg Tablet PO ×2 (10:06→17:22)
[2019-08-20] MEDS: pantoprazole 40 mg SDV IVP (10:06)
[2019-08-20] MEDS: cefTRIAXone 1,000 MG in sodium chloride 0.9% (plus) 50 ML 100 MG IV (10:07)
--- NOTE | 2019-08-20 11:42 | PM.PN ---
Subjective Subjective: Interval history: Patient reports feeling better. Denies any shortness of breath or chest pain this morning. Denies abdominal pain. alf facility placement is recommended by physical therapy but the patient refuses. She also does not want home health. Medical noncompliance is highly suspected and likely is the reason for frequent readmissions. Hemoglobin is stable. Vitals/I&O/Wt Last Vital Signs Temp 98.3 F 08/20/19 06:00 Pulse 96 08/20/19 10:00 Resp 20 H 08/20/19 10:00 BP 129/87 08/20/19 10:00 Pulse Ox 90 08/20/19 10:00 08/19/19 08/20/19 08/20/19 22:59 06:59 14:59 Intake Total 700 / 1250 Output Total 1380 / 2005 1050 / 3055 Balance -1380 / -1455 -350 / -1805 Physical Exam Const: COMMON NORMALS: no apparent distress and oriented x3 Resp: COMMON NORMALS: normal respiratory effort and clear to auscultation bilaterally AUSCULTATION: clear to auscultation bilaterally Cardio: COMMON NORMALS: regular rate, regular rhythm and S2 normal heart sound RATE: regular rate RHYTHM: regular rhythm HEART SOUNDS: S2 normal OTHER: No lower extremity edema GI: COMMON NORMALS: normal to inspection, nondistended, normoactive bowel sounds, soft to palpation and non-tender PALPATION: Yes soft OTHER: Ostomy functioning well. Neuro: COMMON NORMALS: oriented x3 and no focal motor deficits Urinary Catheter Management^: Ortega: Cath Placed During This Visit: yes, but has since been removed by the nurse Reason for Continuing Indwelling Catheter: Other Urinary Catheter Date of Insertion: 08/16/19 Urinary Catheter Time of Insertion: 21:44 Date Urinary Catheter Removed: 08/18/19 Time Urinary Catheter Discontinued: 09:57 Data : 08/20/19 04:21 08/20/19 04:21 A&P Assessment and plan (1) Acute on chronic respiratory failure with hypercapnia: And hypoxia. Status: Acute (2) Chronic anemia: Status: Acute (3) CKD (chronic kidney disease), stage II: Status: Acute (4) Chronic diastolic CHF (congestive heart failure): Status: Acute (5) Morbid obesity: Patient is obese with BMI 34. Status: Acute (6) Moderate to severe pulmonary hypertension: Status: Acute (7) Hyponatremia: Status: Acute Additional A&P Information Acute on chronic hypoxic and hypercapnic respiratory failure due to CHF exacerbation I have compared her current x-ray with the previous one, she has increased vascular prominence due to primary hypertension, increase interstitial edema, it is very hard to assess consolidation, would get CT chest , She is afebrile, no leukocytosis, she has received 1 dose of Levaquin in the ER With her sleep apnea and use of Ativan could also contribute to current hypercapnia, need of Ativan needs to be reevaluated before discharge She is high risk for intubation, admit to ICU, currently doing well on BiPAP Acute diastolic congestive heart failure exacerbation EKG does not show any sign of ischemia or infarction, troponin not significantly high, no chest pain, This seems secondary to sleep apnea and primary hypertension Would use Lasix IV every 12 hours Monitor output Acute bronchitis. Could possibly play a role in patient's increased oxygen demand. Chronic hypotonic hyponatremia: She is hypervolemic I believe this is due to intravascular congestion due to CHF exacerbation Would avoid rapid correction Sodium level check in 4 hours Chronic anemia: No history of black tarry stool or hemoptysis/hematemesis No recent colonoscopy Monitor H&H Hyperkalemia: Improved with diuresis no hyperkalemic changes on EKG Chronic anticoagulation due to DVT and PE: Status post IVC filter placement: Continue Eliquis Chronic hypoxic respiratory failure: Uses 4 L of oxygen at home [id number] with CPAP at night for sleep apnea PLAN: Continue current monitoring and treatment. Transfer patient to [facility] and if continues to improve we will likely be able to dismiss patient home if she does not want senior care facility or home health. Continue with physical therapy. Patient will need to have outpatient appointment upon discharge with Dr. Lipscomb. Patient is a very high risk for frequent and recurrent admissions due to extremely low pulmonary reserve and suspected medical noncompliance. DVT prophylaxis not indicated because of use of Eliquis for chronic PE Full code I will keep her n.p.o. for now because she is high risk for intubation. Attestations Medical Necessity Statement*: Patient with respiratory failure requires close inpatient monitoring and treatment until deemed safe for discharge. Coding Level of Care Code Acute Breakdown Mill Operator for Denis Lozoya Diagnoses Acute on chronic respiratory failure with hypercapnia J96.22 Chronic anemia D64.9 CKD (chronic kidney disease), stage II N18.2 Chronic diastolic CHF (congestive heart failure) I50.32 Morbid obesity E66.01 Moderate to severe pulmonary hypertension I27.20 Hyponatremia E87.1
[2019-08-20] MEDS: pantoprazole DR 40 mg Tablet PO (22:27)
[2019-08-21] VITALS (10 sets, daily range): BP systolic 114–151; BP diastolic 76–95; PULSE 86–98; RESP 18–24; TEMP 36.5–37; O2SAT 86–97
[2019-08-21] MEDS: nicotine 21 mg Patch 1 PATCH TRANSDERMA ×2 (02:22→08:11)
[2019-08-21] MEDS: ipratropium-albuterol 3 mL Neb INHALATION (03:16)
[2019-08-21 05:12] LABS: Basophils % 0.3 %; Eosinophils # 0.6 10^3/uL (0.0-0.8); Eosinophils % 8.3 %; Hemoglobin 8.9 g/dL (11.5-15.3); Lymphocytes # 0.5 10^3/uL (0.8-4.8); Lymphocytes % 7.4 %; Mean Corpuscular HGB Conc 26.2 g/dL (30.0-36.0); Mean Corpuscular Hemoglobin 21.9 pg (28.0-34.0); Mean Corpuscular Volume 83.7 fL (81-99); Mean Platelet Volume 9.2 fL (7.4-10.4); Monocytes # 0.4 10^3/uL (0.2-0.9); Monocytes % 5.5 %; Neutrophils # 5.3 10^3/uL (1.8-7.7); Neutrophils % 78.2 %; Nucleated Red Blood Cells % 0 %; Platelet Count 255 10^3/cmm (130-400); Red Blood Count 4.06 10^6/uL (4.1-5.3); Red Cell Distribution Width 17.5 % (12.1-15.1); White Blood Count 6.8 10^3/uL (4.0-10.0)
[2019-08-21 05:21] LABS: Alanine Aminotransferase 9 U/L (0-33); Albumin Level 3.6 g/dL (3.5-5.2); Alkaline Phosphatase 80 IU/L (35-105); Anion Gap 7.5 (5-19); Aspartate Amino Transferase 12 U/L (0-32); Blood Urea Nitrogen 9 mg/dL (8-23); Calcium 8.8 mg/dL (8.5-10.5); Chloride 90 mmol/L (98-107); Creatinine Clr Calc Pharmacy 69.6783; Globulin 3.3 g/dL (1.3-4.6); Glucose 99 mg/dL (65-115); Osmolality Calculated 278 mOsm/kg (285-295); Potassium 4.5 mmol/L (3.5-5.1); Sodium 136 mmol/L (136-145); Total Bilirubin 0.2 mg/dL (0.15-1.2); Total Protein 6.9 g/dL (6.6-8.7)
[2019-08-21 05:25] LABS: Carbon Dioxide 43 mmol/L (22-29)
[2019-08-21] MEDS: acetaminophen 325 mg Tablet 650 MG PO (08:10)
[2019-08-21] MEDS: FUROsemide 20 mg Tablet PO (08:10)
[2019-08-21] MEDS: apixaban 5 mg Tablet PO (08:11)
--- NOTE | 2019-08-21 09:39 | PC.SOCIAL ---
IMM Update Pg 2 of IMM updated. Copy left at bedside.
--- NOTE | 2019-08-21 10:02 | PC.NURSE ---
Ostomy bag and wafer changed, some dried flaky skin noted with no redness to surrounding tissue. No other concerns noted.
--- NOTE | 2019-08-21 11:23 | PM.DCS ---
Discharge Providers Date of Admission: 08/16/19 21:52 Date of Discharge: August 21, 2019 Attending Provider at Admission: Last Vallecillo MD Attending Provider at Discharge: Elia Whitlock MD Diagnoses at Discharge Discharge Diagnosis (1) Acute on chronic respiratory failure with hypercapnia: Status: Acute (2) Chronic anemia: Status: Acute (3) CKD (chronic kidney disease), stage II: Status: Acute (4) Chronic diastolic CHF (congestive heart failure): Status: Acute (5) Morbid obesity: Status: Acute (6) Moderate to severe pulmonary hypertension: Status: Acute (7) Hyponatremia: Status: Acute (8) Acute bronchitis: Status: Acute Problem details: Present on admission. Reason for Visit Reason for Visit: Reason For Visit: RESP. DISTRESS Hospital Course Discharge Summary: Patient with significant underlying lung disease and frequent readmissions presents with yet another episode off acute hypoxic and hypercapnic respiratory failure secondary to acute COPD exacerbation due to acute bronchitis. Initially heart failure was also suspected and patient was diuresed. She gradually improved and this morning reports feeling much better and wants to go home. Physical therapy recommends nursing home facility placement but patient absolutely refuses and also refuses to have home health. Reports that her and daughter can take care of her at home. Medical noncompliance was also suspected. Patient noted to have hemoglobin around 8-9 which patient had off-and-on for long time. She has been treated multiple times with steroids and slow upper GI bleed was suspected therefore I will increase her Protonix to twice daily and patient will discuss with primary care physician for further anemia work-up which may include EGD/colonoscopy and [employer] [place] examination. I will continue patient on Omnicef for 5 more days and otherwise continue her home breathing treatments. Outpatient follow-up with Dr. Lipscomb will be requested. This morning patient denies any shortness of breath or chest pain. Denies melena or hematochezia. We will perform home O2 evaluation prior to discharge. She is currently saturating in the mid 90s on 5 L. Patient may develop new oxygen baseline. She will continue anticoagulation with Eliquis. Patient was told to avoid systemic steroids or NSAIDs. Physical Exam Const: COMMON NORMALS: no apparent distress and oriented x3 Resp: COMMON NORMALS: normal respiratory effort and clear to auscultation bilaterally AUSCULTATION: clear to auscultation bilaterally OTHER: Overall decreased air movement but otherwise no rales, rhonchi or wheezing. Cardio: COMMON NORMALS: regular rate, regular rhythm and S2 normal heart sound RATE: regular rate RHYTHM: regular rhythm HEART SOUNDS: S2 normal OTHER: No lower extremity edema GI: COMMON NORMALS: normal to inspection, nondistended, normoactive bowel sounds, soft to palpation and non-tender PALPATION: Yes soft Neuro: COMMON NORMALS: oriented x3 and no focal motor deficits Urinary Catheter Management^: Ortega: Cath Placed During This Visit: yes, but has since been removed by the nurse Reason for Continuing Indwelling Catheter: Other Urinary Catheter Date of Insertion: 08/16/19 Urinary Catheter Time of Insertion: 21:44 Date Urinary Catheter Removed: 08/18/19 Time Urinary Catheter Discontinued: 09:57 Discharge Data Data Completed and Pending: Completed Studies During Hospitalization Category Date Time Status CT chest wo con 7 1250 Urgent Cat Scan 08/16/19 21:47 Completed XR chest 1V mukesh ble [id number] Stat Exams 08/16/19 20:02 Completed Pending at discharge Category Date Time Status Blood Culture Sta t Lab 08/16/19 20:27 Results Labs from last 24 hours 08/21/19 08/21/19 04:18 04:18 WBC 6.8 RBC 4.06 L Hgb 8.9 L Hct 34.0 L MCV 83.7 MCH 21.9 L MCHC 26.2 L RDW 17.5 H Plt Count 255 MPV 9.2 Neut % (Auto) 78.2 Lymph % (Auto) 7.4 Rhea % (Auto) 5.5 Eos % (Auto) 8.3 Baso % (Auto) 0.3 Neut # (Auto) 5.3 Lymph # (Auto) 0.5 L Rhea # (Auto) 0.4 Eos # (Auto) 0.6 Baso # (Auto) 0.0 Nucleated RBC % (a uto) 0 Nucleated RBCs # 0.0 Sodium 136 Potassium 4.5 Chloride 90 L Carbon Dioxide 43 H* Anion Gap 7.5 BUN 9 Creatinine 0.6 GFR Calculation 100.0 Glucose 99 Calculated Osmolal ity 278 L Calcium 8.8 Total Bilirubin 0.2 AST 12 ALT 9 Alkaline Phosphata se 80 Total Protein 6.9 Albumin 3.6 Globulin 3.3 Vitals: Last Vital Signs Temp 98.6 F 08/21/19 07:13 Pulse 93 08/21/19 09:17 Resp 20 H 08/21/19 09:17 BP 151/95 08/21/19 07:13 Pulse Ox 94 08/21/19 09:17 Discharge Plan Discharge Patient Disposition: Home, Self-Care Condition: Stable Prescriptions: New pantoprazole 40 mg Tablet,Delayed Release (Dr/Ec) 40 mg PO Q12H Qty: 60 RF: 0 cefdinir 300 mg capsule 300 mg PO BID 5 Days Qty: 10 RF: 0 Continued ondansetron See Rx Instructions .ROUTE .COMPLEX RF: 0 albuterol sulfate 2.5 mg /3 mL (0.083 %) Solution For Nebulization 2.5 mg INHALATION Q4H PRN (Reason: Shortness Of Breath) RF: 0 alprazolam 1 mg Tablet 1 mg PO TID PRN (Reason: Anxiety) RF: 0 furosemide 20 mg Tablet 20 mg PO DAILY RF: 0 Eliquis 5 mg Tablet 5 mg PO BID RF: 0 budesonide 0.5 mg/2 mL Suspension For Nebulization 0.5 mg inhalation BID.RESPIRATORY Qty: 30 RF: 0 Spiriva Respimat 2.5 mcg/actuation mist 2 inh INHALATION DAILY Qty: 4 RF: 0 Discontinued levofloxacin 500 mg Tablet See Rx Instructions .ROUTE .COMPLEX RF: 0 prednisone 50 mg tablet 50 mg PO DAILY Qty: 5 RF: 0 Protonix [address] for susp in packet 40 mg PO DAILY 28 Days Qty: 28 RF: 0 Discharge Orders: Discharge Order (Routine); Ordered 08/21/19 Ordered By: Elia Whitlock Referrals: Moses Lipscomb MD [Physician] - 1 week Titus Garzon DO [Family Provider] - 4-7 days Discharge Diet: Usual diet Discharge Activity: Increase activity as tolerated Activity Restrictions/Additional Instructions: Please call your doctor or present to emergency department if your condition worsens or you develop diarrhea, lightheadedness, fatigue or see blood in your stool or black stool. Please discuss with your doctor to consider further outpatient anemia work-up which may include EGD/colonoscopy and [employer] [place] examination. Please avoid any systemic steroids or NSAIDs. Please keep blood pressure and heart rate log 3 times daily to present to primary care physician next visit for medication adjustment. Please make sure you do not restart smoking as we have discussed. Discharge Attestations Time Spent in Discharge Care*: greater than 30 min Quality Metrics Clinical Quality Measures During this hospital stay, did patient experience: None Coding Level of Care Code Acute [place] Operator for Chg Fwd Exam Detailed Diagnoses Acute on chronic respiratory failure with hypercapnia J96.22 Chronic anemia D64.9 CKD (chronic kidney disease), stage II N18.2 Chronic diastolic CHF (congestive heart failure) I50.32 Morbid obesity E66.01 Moderate to severe pulmonary hypertension I27.20 Hyponatremia E87.1 Acute bronchitis J20.9
--- NOTE | 2019-08-21 13:22 | PC.NURSE ---
Home O2 bottle has not O2 security attempting to locate family in parking lot to notify that another bottle is needed.
--- NOTE | 2019-08-21 13:40 | PC.PT ---
Therapist attempted to see patient before lunch but she had just woken up and wanted to wait until after she ate. PT checked back in at 13:11 and pt was in the process of discharging.
--- NOTE | 2019-08-23 19:36 | P.HP_ITS ---
Providers/Chief Complaint Admitting Physician: Last Vallecillo MD Chief Complaint: RESP. DISTRESS History of Present Illness Roseann Durham is a 64 year old female is a well-known patient to our service who has history of hypercapnic hypoxic respiratory failure, sleep apnea, noncompliance, diastolic congestive heart failure, pulmonary hypertension, anemia, was recently discharged from the hospital after being managed for diastolic congestive heart failure exacerbation and hypercapnic respiratory failure, she was initially diuresed with IV Lasix, her respiratory status improved with BiPAP and she was discharged on Cefdinir 5-day course. She is presenting today with respiratory distress. Patient is stating that she has been taking her medications, she is smoking 1 pack/day, she did not quit. She has not seen Dr. Lipscomb yet, she is telling me that she is using 4 L of oxygen [id number] and using breathing machine at night, she is not sure whether it is a BiPAP or CPAP. No coughing, fever, traveling or visitors at her house. Previously she was tested for covid, which was negative. Output is normal in her colostomy bag she has not noticed increased output. Diagnostics in ER revealed hypercapnic respiratory failure, she was put on BiPAP,covid ordered by the ER physician Patient is able to give me above-mentioned details, her mentation is drowsy, I would consider asking her questions 1 more time when she is more alert, she is high risk for intubation Proper PPE were used to examine her including N 95, gown, gloves Review of Systems Const: Reports: fatigue; Denies: fever, chills or body aches Eyes: Denies: change in vision ENMT: Denies: throat pain Card: Denies: chest pain, palpitations or irregular heart rhythm Resp: Reports: shortness of breath and non-productive cough GI: Denies: abdominal pain, nausea or vomiting : Denies: flank pain or difficulty urinating Musc: Denies: neck pain or back pain Skin/Breast: Denies: rash or itching Neuro: Denies: headache Psych: Reports: sleeping more; Denies: anxiety or depression Endo: Denies: excessive urination Car/Lymph: Denies: easy bruising All/Imm: Denies: hives Medications/Allergies Allergies Allergy/AdvReac Type Severity Reaction Status Date / Time No Known Allergies Allergy Verified 08/23/19 17:48 PFSH Acute PFSH: Medical History Chronic anemia Chronic diastolic CHF (congestive heart failure) CKD (chronic kidney disease), stage II COPD (chronic obstructive pulmonary disease) Recurrent intubations in the past due to hypercapnic respiratory failure Hypertension Morbid obesity Pulmonary embolism Vascular dementia Surgical History H/O section X2 H/O colectomy Secondary to severe colitis H/O: hysterectomy History of salpingo-oophorectomy S/P IVC filter Secondary to PE, DVT Family History Father Lung disease Social History Smoking and tobacco status: current every day smoker cigarettes Packs smoked per day: 1 Alcohol intake: never Household members: family Vitals/I&O/Wt Last Vital Signs Temp 97.7 F 08/21/19 11:47 Pulse 86 08/21/19 11:47 Resp 18 08/21/19 11:47 BP 133/79 08/21/19 11:47 Pulse Ox 86 L 08/21/19 13:10 Physical Exam Narrative: EXAM NARRATIVE: Obese female currently on BiPAP pulling good tidal volumes settings / No active respiratory distress, mentation is drowsy but able to provide details about her current admission S1, S2 no active signs of heart failure Bilateral lower extremity no edema ischemia or gangrene Colostomy bag is draining brown liquid feculent material Abdomen is soft nontender Assisted breath sounds however diminished Mentation is drowsy EOMI, PERRLA Urinary Catheter Management^: Ortega: Cath Placed During This Visit: yes, but has since been removed by the nurse Reason for Continuing Indwelling Catheter: Other Urinary Catheter Date of Insertion: 08/16/19 Urinary Catheter Time of Insertion: 21:44 Date Urinary Catheter Removed: 08/18/19 Time Urinary Catheter Discontinued: 09:57 Data : 08/21/19 04:18 08/21/19 04:18 A&P Assessment and plan (1) Acute exacerbation of chronic obstructive airways disease: Status: Acute (2) Acute on chronic respiratory failure with hypercapnia: Status: Acute (3) Chronic anemia: Status: Acute (4) CKD (chronic kidney disease), stage II: Status: Acute (5) Chronic diastolic CHF (congestive heart failure): Status: Acute (6) Morbid obesity: Status: Acute (7) Moderate to severe pulmonary hypertension: Status: Acute Additional A&P Information Acute on chronic hypercapnic respiratory failure with underlying pulmonary hypertension, obesity, noncompliance Chest x-ray is revealing chronic changes of vascular prominence due to pulmonary hypertension No signs of pneumonia, or sepsis High risk for intubation Currently tolerating BiPAP Another blood gas in 1 hour covid negative on previous admission another 1 ordered by ER physician at this visit Diastolic congestive heart failure without acute exacerbation I will keep her on home regimen of Lasix Chronic anticoagulation due to DVT/PE status post IVC filter placement: Continue anticoagulation with Eliquis Oxygen dependent COPD, uses 4 L of oxygen [id number] Patient is BiPAP dependent, high risk for readmissions, she is telling me she has a breathing machine at home but not able to tell me whether it is CPAP vs BiPAP Chronic iron deficiency microcytic anemia Low ferritin, low iron, I will start her on iron supplements Target hemoglobin above 8 DVT prophylaxis: She is currently on Eliquis N.p.o. at the moment Patient is saying she would like to stay DNR/DNI because of hypercapnic respiratory failure and drowsiness, I would not rely on that CODE STATUS kindly readdress in the morning, for now I will treat her as full code, I have admitted her last time and she was full code at that admission Attestations Medical Necessity Statement*: Anticipating stay in the hospital to cross more than 2 midnights recurrent hypercapnic respiratory failure high risk for intubation, Time Spent in Patient Care: 50 Coding Level of Care Code Acute Fitness Manager for g Fwd Diagnoses Acute exacerbation of chronic obstructive airways disease J44.1 Acute on chronic respiratory failure with hypercapnia J96.22 Chronic anemia D64.9 CKD (chronic kidney disease), stage II N18.2 Chronic diastolic CHF (congestive heart failure) I50.32 Morbid obesity E66.01 Moderate to severe pulmonary hypertension I27.20
== END 2019-08-21 14:22 | disposition home or self-care (01) | DRG 190 ==
LOC: ER 21:55 → ICU 22:23 → MEDSURG 08-20 13:27
PROVIDERS: Admitting Provider Internal Medicine; Emergency Provider Emergency Medicine; Family Provider Internal Medicine; Visit Provider Internal Medicine
DX: J44.1 Chronic obstructive pulmonary disease with (acute) exacerbation (principal); I50.33 Acute on chronic diastolic (congestive) heart failure; J96.22 Acute and chronic respiratory failure with hypercapnia; I13.0 Hypertensive heart and chronic kidney disease with heart failure and stage 1 through stage 4 chronic kidney disease, or unspecified chronic kidney disease; E87.1 Hypo-osmolality and hyponatremia; E66.01 Morbid (severe) obesity due to excess calories; N18.2 Chronic kidney disease, stage 2 (mild); D63.1 Anemia in chronic kidney disease; I27.20 Pulmonary hypertension, unspecified; Z68.34 Body mass index [BMI] 34.0-34.9, adult; J20.9 Acute bronchitis, unspecified; J44.0 Chronic obstructive pulmonary disease with (acute) lower respiratory infection; Z79.01 Long term (current) use of anticoagulants; Z93.3 Colostomy status; Z86.711 Personal history of pulmonary embolism; F01.50 Vascular dementia, unspecified severity, without behavioral disturbance, psychotic disturbance, mood disturbance, and anxiety; F17.210 Nicotine dependence, cigarettes, uncomplicated
CPT/HCPCS: 12345; 36415; 36600; 51702; 71045; 71250; 80048; 80053; 81001; 82803; 83605; 83880; 84484; 85025; 85610; 87040; 87635; 87804; 93005; 94640; 94660; 96375; 97110; 97116; 97161; 99284; A7003; C9113; J0696; J1940; J1956; J7030; J7626

== ENCOUNTER 2019-08-23 17:40 | Inpatient (IN) | payer MEDICARE, SELFPAY ==
[2019-08-23] VITALS (9 sets, daily range): BP systolic 110–136; BP diastolic 61–76; PULSE 82–100; RESP 20–28; TEMP 36.8; O2SAT 87–97; BMI 40.2
--- NOTE | 2019-08-23 17:57 | ECG_ITS ---
Measurements Intervals [place] Rate: 99 P: 46 RI: 143 QRS: 98 QRSD: 134 T: 8 QT: 349 QTc: 449 SINUS RHYTHM INDETERMINATE AXIS RIGHT BUNDLE BRANCH BLOCK [120+ ms QRS DURATION, UPRIGHT V1, 40+ ms S IN I/ I/aVL/V4/V5/V6] Compared to ECG 08/16/2019 20:32:12 Indeterminate axis now present Sinus tachycardia no longer present Right-axis deviation no longer present Electronically Signed On 08-24-2019 15:30:07 CDT by Jose Griffin M.D. [email or web address]
--- NOTE | 2019-08-23 17:57 | XR_ITS ---
WS: [id number] CHEST XRAY TECHNIQUE: Portable chest. CLINICAL INFORMATION: dyspnea/cough COMPARISON: August 16, 2019 FINDINGS: Heart: Cardiomegaly. Lungs: Chronic emphysematous changes. No acute pulmonary infiltrates. No focal pneumonia. Bones: Thoracic scoliosis convex right. XR/XR chest 1V portable [id number] IMPRESSION: 1. Stable cardiomegaly. 2. No acute pulmonary infiltrates. 3. Previously described CHF has improved.
--- NOTE | 2019-08-23 18:03 | W.ED.SOB ---
HPI - SOB/Dyspnea General: Chief Complaint: Shortness of Breath/Dyspnea Stated Complaint: Resp distress Time Seen by Provider: 08/23/19 17:44 History of Present Illness: HPI Narrative: 64-year-old female presents to the emergency room with a complaint of shortness of breath. She was just discharged 2 days ago is really difficult to get from her exactly when she started having trouble again. She states she did not feel well and was having trouble breathing earlier this morning and her daughter got scared and called the ambulance last year how she was doing before she went to bed last night she said she was having trouble then but not as much but really could not narrow it down any more than that. She is having increased cough she has a subjective fever. She was not having any chest or abdominal pain no dysuria urgency or frequency. MD elicited complaint: shortness of breath and cough Pertinent past history: COPD Onset (ago): day(s) Timing: constant Severity: severe Exacerbating factors: exertion and coughing Relieving factors: oxygen and rest Known history of: COPD Associated symptoms: Reports chest congestion, cough and fever(s) (Subjective); Deny abdominal pain, chest pain, dizziness, extremity pain, nausea, orthopnea, palpitations, polydipsia, polyuria, syncope or vomiting Treatment prior to arrival: oxygen and bronchodilator (Subcutaneous terbutaline) Review of Systems Const: Reports: fever (Subjective), chills, body aches and malaise; Denies: fatigue or night sweats Eyes: Denies: change in vision or blurry vision ENMT: Denies: throat pain, oral sores/lesions, dental pain, nasal discharge or nasal congestion Card: Reports: shortness of breath on exertion; Denies: chest pain, palpitations, irregular heart rhythm, edema, syncope, shortness of breath when lying down or leg pain with exertion Resp: Reports: shortness of breath, productive cough and chest congestion GI: Denies: abdominal pain, nausea, vomiting, vomiting blood, coffee grounds in vomit, difficulty swallowing, heartburn/indigestion, diarrhea, constipation, cramping, blood in stool or black tarry stool : Denies: flank pain, painful urination, urinary frequency, urinary urgency, urinary incontinence or blood in urine Musc: Denies: neck pain, back pain, extremity pain, extremity swelling, joint pain or joint swelling Skin/Breast: Denies: rash, itching or redness Neuro: Denies: headache, numbness in extremities, weakness in extremities, changes in sensation, lack of coordination, difficulty walking, frequent falls, dizziness, vertigo or confusion Psych: Denies: anxiety, depression, loss of interest, visual hallucinations, auditory hallucinations, suicidal ideation or homicidal ideation Endo: Denies: excessive urination, excessive thirst, tired all the time or cold intolerance Car/Lymph: Denies: easy bruising, easy bleeding, petechiae, enlarged lymph nodes or tender lymph nodes PFSH ED PFSH: Medical History Chronic anemia Chronic diastolic CHF (congestive heart failure) CKD (chronic kidney disease), stage II COPD (chronic obstructive pulmonary disease) Recurrent intubations in the past due to hypercapnic respiratory failure Hypertension Morbid obesity Pulmonary embolism Vascular dementia Social History Smoking and tobacco status: current every day smoker cigarettes Packs smoked per day: 1 Alcohol intake: never Household members: family Physical Exam Const: EXAM LIMITATIONS: altered mental status GENERAL APPEARANCE: cooperative, in distress (Moderate respiratory distress) and disheveled ORIENTATION/CONSCIOUSNESS: Yes awake HENMT: COMMON NORMALS: normocephalic, head/scalp atraumatic, hearing grossly normal bilaterally, external ears normal, EAC's normal, TM's normal bilaterally, nasal mucous membranes and turbinates normal, moist oral mucous membranes and oropharynx normal HEAD & SCALP: normocephalic and atraumatic NOSE: nasal mucous membranes and turbinates normal EXTERNAL EAR: Yes external ears normal EXTERNAL AUDITORY CANAL: EAC's normal TYMPANIC MEMBRANE: TM's normal bilaterally Eye: COMMON NORMALS: PERRL, EOMs intact bilaterally, conjunctivae normal and no scleral icterus CONJUNCTIVA: Yes conjunctivae normal PUPIL: Yes PERRL Neck/C-Spine: COMMON NORMALS: full ROM, no lymphadenopathy, supple and no JVD Lymph: LYMPHATIC: no lymphadenopathy noted and no lymphedema noted Resp: COMMON NORMALS: normal respiratory effort, no retractions, no use of accessory muscles and clear to auscultation bilaterally AUSCULTATION: clear to auscultation bilaterally Cardio: COMMON NORMALS: no JVD, regular rate, regular rhythm and no murmurs RATE: regular rate RHYTHM: regular rhythm GI: COMMON NORMALS: soft to palpation and no hepatosplenomegaly AUSCULTATION: Yes normoactive bowel sounds PALPATION: Yes soft, No tender, No guarding and Yes no hepatosplenomegaly Extremity: COMMON NORMALS: normal to inspection, normal capillary refill, no clubbing, cyanosis or edema, no calf tenderness and no pedal edema Skin: COMMON NORMALS: no rashes or lesions noted GENERAL SKIN EXAM: no rashes or lesions noted Course Vital Signs: Vital signs: Vital Signs Temperature 98.7 F 08/24/19 10:01 Pulse Rate 69 08/24/19 10:01 Respiratory Rate 10 L 08/24/19 10:01 Blood Pressure 132/67 08/24/19 10:01 Pulse Oximetry 96 08/24/19 10:01 MDM - SOB/Dyspnea MDM Narrative: Medical decision making narrative: Initially patient is hypercapnic but he was on a rebreather mask. I turned that down and then switch him to a nasal cannula that improved some but continued to have difficulty is concerned about the possibility of a COVID 19 infection and we went ahead and put her in isolation and swabbed her however in reviewing the chart later found that she had recently been tested just 7 days ago and was hospitalized discharged home. We will go ahead and admit her to the hospital to the ICU she has been started on BiPAP and that has improved her CO2 somewhat think she will continue to require some time but is trending better she is more awake and reactive at this point she not having a fever. At this point we will leave her in isolation until we get the COVID testing back. The BiPAP has a HEPA filter on and respiratory tells me that is rated as safe to be on for COVID. Lab Data: Labs: Lab Results 08/23/19 08/23/19 08/23/19 Range/Units 17:55 18:15 18:18 WBC 7.2 (4.0-10.0) 10^3/ uL RBC 4.25 (4.1-5.3) 10^6/u L Hgb 9.1 L (11.5-15.3) g/dL Hct 34.8 L (37.0-47.0) % MCV 81.9 (81-99) fL MCH 21.4 L (28.0-34.0) pg MCHC 26.1 L (30.0-36.0) g/dL RDW 17.4 H (12.1-15.1) % Plt Count 299 (130-400) 10^3/c mm MPV 9.0 (7.4-10.4) fL Neut % (Auto) 66.1 % Lymph % (Auto) 17.0 % [place] % (Auto) 8.4 % Eos % (Auto) 6.6 % Baso % (Auto) 0.4 % Neut # (Auto) 4.8 (1.8-7.7) 10^3/u L Lymph # (Auto) 1.2 (0.8-4.8) 10^3/u L [place] # (Auto) 0.6 (0.2-0.9) 10^3/u L Eos # (Auto) 0.5 (0.0-0.8) 10^3/u L Baso # (Auto) 0.0 (0.0-0.1) 10^3/u L Nucleated RBC % (a uto) 0.3 % Nucleated RBCs # 0.0 /100WBC D-Dimer (0-0.59) ug/mIFE U Specimen Type Arterial Sample Site Radial, left ABG pH 7.20 L (7.35-7.45) ABG pCO2 113.0 H* (35-45) mmHg ABG pO2 129.0 H (80.0-100.0) mmH g ABG HCO3 43.8 H (22-26) mmol/L ABG O2 Saturation 98.7 ABG Base Excess 12.7 H (-2.0-2.0) mmol/ L Santiago Test Pos A-a O2 Gradient (5-10) mmHg Hematocrit 29.4 L (37-47) % Hgb O2 Saturation 95.3 (95-100) % Carboxyhemoglobin 2.7 (0.4-20.1) %THgb Methemoglobin 0.8 (0.4-1.5) % Total Hemoglobin 9.6 L (12-16) g/dL Sodium 132.0 (131-143) mmol/L Potassium 4.6 (3.5-5.0) mmol/L Glucose 112.0 (70-115) mg/dL Ionized Calcium 1.2 (1.1-1.4) mmol/L O2 Delivery Device Nrb O2 Liters/Min 6.0 % FiO2 % Doctor Of Veterinary Medicine ID [email or web address] Chloride (98-107) mmol/L Carbon Dioxide (22-29) mmol/L Anion Gap (5-19) BUN (8-23) mg/dL Creatinine (0.5-0.9) mg/dL GFR Calculation (90-130) mL/min Calculated Osmolal ity (285-295) mOsm/k g Lactic Acid (0.5-2.2) mmol/L Calcium (8.5-10.5) mg/dL Ferritin (15-150) ng/mL Total Bilirubin (0.15-1.2) mg/dL AST (0-32) U/L ALT (0-33) U/L Alkaline Phosphata se (35-105) IU/L Lactate Dehydrogen ase (135-214) U/L C-Reactive Protein (0.0-4.9) mg/L Total Protein (6.6-8.7) g/dL Albumin (3.5-5.2) g/dL Globulin (1.3-4.6) g/dL Influenza Type A A g Negative (Negative) Influenza Type B A g Negative (Negative) 08/23/19 08/23/19 08/23/19 Range/Units 18:18 18:18 18:18 WBC (4.0-10.0) 10^3/ uL RBC (4.1-5.3) 10^6/u L Hgb (11.5-15.3) g/dL Hct (37.0-47.0) % MCV (81-99) fL MCH (28.0-34.0) pg MCHC (30.0-36.0) g/dL RDW (12.1-15.1) % Plt Count (130-400) 10^3/c mm MPV (7.4-10.4) fL Neut % (Auto) % Lymph % (Auto) % [place] % (Auto) % Eos % (Auto) % Baso % (Auto) % Neut # (Auto) (1.8-7.7) 10^3/u L Lymph # (Auto) (0.8-4.8) 10^3/u L [place] # (Auto) (0.2-0.9) 10^3/u L Eos # (Auto) (0.0-0.8) 10^3/u L Baso # (Auto) (0.0-0.1) 10^3/u L Nucleated RBC % (a uto) % Nucleated RBCs # /100WBC D-Dimer 0.41 (0-0.59) ug/mIFE U Specimen Type Sample Site ABG pH (7.35-7.45) ABG pCO2 (35-45) mmHg ABG pO2 (80.0-100.0) mmH g ABG HCO3 (22-26) mmol/L ABG O2 Saturation ABG Base Excess (-2.0-2.0) mmol/ L Santiago Test A-a O2 Gradient (5-10) mmHg Hematocrit (37-47) % Hgb O2 Saturation (95-100) % Carboxyhemoglobin (0.4-20.1) %THgb Methemoglobin (0.4-1.5) % Total Hemoglobin (12-16) g/dL Sodium 133 L (131-143) mmol/L Potassium 4.9 (3.5-5.0) mmol/L Glucose 132 H (70-115) mg/dL Ionized Calcium (1.1-1.4) mmol/L O2 Delivery Device O2 Liters/Min % FiO2 % Doctor Of Veterinary Medicine ID Chloride 86 L (98-107) mmol/L Carbon Dioxide 42 H* (22-29) mmol/L Anion Gap 9.9 (5-19) BUN 19 (8-23) mg/dL Creatinine 0.8 (0.5-0.9) mg/dL GFR Calculation 71.8 L (90-130) mL/min Calculated Osmolal ity 274 L (285-295) mOsm/k g Lactic Acid 1.0 (0.5-2.2) mmol/L Calcium 9.2 (8.5-10.5) mg/dL Ferritin 13 L (15-150) ng/mL Total Bilirubin 0.3 (0.15-1.2) mg/dL AST 12 (0-32) U/L ALT 11 (0-33) U/L Alkaline Phosphata se 98 (35-105) IU/L Lactate Dehydrogen ase 158 (135-214) U/L C-Reactive Protein 35.6 H (0.0-4.9) mg/L Total Protein 7.0 (6.6-8.7) g/dL Albumin 3.8 (3.5-5.2) g/dL Globulin 3.2 (1.3-4.6) g/dL Influenza Type A A g (Negative) Influenza Type B A g (Negative) 08/23/19 Range/Units 19:38 WBC (4.0-10.0) 10^3/ uL RBC (4.1-5.3) 10^6/u L Hgb (11.5-15.3) g/dL Hct (37.0-47.0) % MCV (81-99) fL MCH (28.0-34.0) pg MCHC (30.0-36.0) g/dL RDW (12.1-15.1) % Plt Count (130-400) 10^3/c mm MPV (7.4-10.4) fL Neut % (Auto) % Lymph % (Auto) % [place] % (Auto) % Eos % (Auto) % Baso % (Auto) % Neut # (Auto) (1.8-7.7) 10^3/u L Lymph # (Auto) (0.8-4.8) 10^3/u L [place] # (Auto) (0.2-0.9) 10^3/u L Eos # (Auto) (0.0-0.8) 10^3/u L Baso # (Auto) (0.0-0.1) 10^3/u L Nucleated RBC % (a uto) % Nucleated RBCs # /100WBC D-Dimer (0-0.59) ug/mIFE U Specimen Type Arterial Sample Site Radial, right ABG pH 7.24 L (7.35-7.45) ABG pCO2 101.0 H* (35-45) mmHg ABG pO2 66.3 L (80.0-100.0) mmH g ABG HCO3 43.0 H (22-26) mmol/L ABG O2 Saturation 89.9 ABG Base Excess 12.7 H (-2.0-2.0) mmol/ L [place] Test Pos A-a O2 Gradient 128.5 H (5-10) mmHg Hematocrit 29.0 L (37-47) % Hgb O2 Saturation 86.9 L (95-100) % Carboxyhemoglobin 2.6 (0.4-20.1) %THgb Methemoglobin 0.8 (0.4-1.5) % Total Hemoglobin 9.5 L (12-16) g/dL Sodium 133.0 (131-143) mmol/L Potassium 4.6 (3.5-5.0) mmol/L Glucose 112.0 (70-115) mg/dL Ionized Calcium 1.2 (1.1-1.4) mmol/L O2 Delivery Device Bipap O2 Liters/Min % FiO2 45.0 % Doctor Of Veterinary Medicine ID [email or web address] Chloride (98-107) mmol/L Carbon Dioxide (22-29) mmol/L Anion Gap (5-19) BUN (8-23) mg/dL Creatinine (0.5-0.9) mg/dL GFR Calculation (90-130) mL/min Calculated Osmolal ity (285-295) mOsm/k g Lactic Acid (0.5-2.2) mmol/L Calcium (8.5-10.5) mg/dL Ferritin (15-150) ng/mL Total Bilirubin (0.15-1.2) mg/dL AST (0-32) U/L ALT (0-33) U/L Alkaline Phosphata se (35-105) IU/L Lactate Dehydrogen ase (135-214) U/L C-Reactive Protein (0.0-4.9) mg/L Total Protein (6.6-8.7) g/dL Albumin (3.5-5.2) g/dL Globulin (1.3-4.6) g/dL Influenza Type A A g (Negative) Influenza Type B A g (Negative) Discharge Plan Discharge Patient Disposition: Admitted As Inpatient Admit Provider: Last Vallecillo Clinical Impression: Acute exacerbation of chronic obstructive airways disease Condition: Stable Referrals: Titus Garzon DO [Family Provider] - Discharge Date/Time: 08/23/19 22:24 Coding Level of Care Code ED Supervisor [employer] Track Vehicle for Chg Fwd Exam Comprehensive
[2019-08-23 18:27] LABS: Basophils % 0.4 %; Eosinophils # 0.5 10^3/uL (0.0-0.8); Eosinophils % 6.6 %; Hematocrit 34.8 % (37.0-47.0); Hemoglobin 9.1 g/dL (11.5-15.3); Lymphocytes # 1.2 10^3/uL (0.8-4.8); Mean Corpuscular HGB Conc 26.1 g/dL (30.0-36.0); Mean Corpuscular Hemoglobin 21.4 pg (28.0-34.0); Mean Corpuscular Volume 81.9 fL (81-99); Monocytes # 0.6 10^3/uL (0.2-0.9); Monocytes % 8.4 %; Neutrophils # 4.8 10^3/uL (1.8-7.7); Neutrophils % 66.1 %; Nucleated Red Blood Cells % 0.3 %; Platelet Count 299 10^3/cmm (130-400); Red Blood Count 4.25 10^6/uL (4.1-5.3); Red Cell Distribution Width 17.4 % (12.1-15.1); White Blood Count 7.2 10^3/uL (4.0-10.0)
[2019-08-23 18:36] LABS: Arterial Blood Gas Hematocrit 29.4 % (37-47); Base Excess ABG 12.7 mmol/L (-2.0-2.0); Blood Gas Allen Test Pos; Blood Gas Operator Identificat amh; Blood Gas Sample Site Radial, left; Blood Gas Sample Type Arterial; Carboxyhemoglobin 2.7 %THgb (0.4-20.1); HCO3 ABG 43.8 mmol/L (22-26); HGB O2 Sat 95.3 % (95-100); Ionized Calcium Level - ABG 1.2 mmol/L (1.1-1.4); Methemoglobin 0.8 % (0.4-1.5); Oxygen Device NRB; Oxygen Saturation ABG 98.7; Potassium Level - ABG 4.6 mmol/L (3.5-5.0); Total Hemoglobin 9.6 g/dL (12-16)
[2019-08-23 18:40] LABS: D Dimer 0.41 ug/mIFEU (0-0.59)
[2019-08-23 18:46] LABS: Alanine Aminotransferase 11 U/L (0-33); Albumin Level 3.8 g/dL (3.5-5.2); Alkaline Phosphatase 98 IU/L (35-105); Anion Gap 9.9 (5-19); Aspartate Amino Transferase 12 U/L (0-32); Blood Urea Nitrogen 19 mg/dL (8-23); C Reactive Protein 35.6 mg/L (0.0-4.9); Calcium 9.2 mg/dL (8.5-10.5); Chloride 86 mmol/L (98-107); Globulin 3.2 g/dL (1.3-4.6); Glomerular Filtration Rate 71.8 mL/min (90-130); Glucose 132 mg/dL (65-115); Lactate Dehydrogenase 158 U/L (135-214); Osmolality Calculated 274 mOsm/kg (285-295); Potassium 4.9 mmol/L (3.5-5.1); Sodium 133 mmol/L (136-145); Total Bilirubin 0.3 mg/dL (0.15-1.2)
[2019-08-23 18:50] LABS: Carbon Dioxide 42 mmol/L (22-29)
[2019-08-23 19:04] LABS: Influenza A by IFA Negative (Negative); Influenza B by IFA Negative (Negative)
[2019-08-23 19:05] LABS: Ferritin 13 ng/mL (15-150)
[2019-08-23 19:43] LABS: ABG PH Result 7.24 (7.35-7.45); Alveolar-Arterial Oxygen Gradi 128.5 mmHg (5-10); Base Excess ABG 12.7 mmol/L (-2.0-2.0); Blood Gas Allen Test Pos; Blood Gas Sample Site Radial, right; Blood Gas Sample Type Arterial; Carboxyhemoglobin 2.6 %THgb (0.4-20.1); HGB O2 Sat 86.9 % (95-100); Ionized Calcium Level - ABG 1.2 mmol/L (1.1-1.4); Methemoglobin 0.8 % (0.4-1.5); Oxygen Device BIPAP; Oxygen Saturation ABG 89.9; PO2 ABG 66.3 mmHg (80.0-100.0); Potassium Level - ABG 4.6 mmol/L (3.5-5.0); Total Hemoglobin 9.5 g/dL (12-16)
--- NOTE | 2019-08-23 21:28 | P.EN_ITS ---
Event Note Event Note: History and physical 08/23/2019 History of Present Illness Roseann Durham is a 64 year old female is a well-known patient to our service who has history of hypercapnic hypoxic respiratory failure, sleep apnea, noncompliance, diastolic congestive heart failure, pulmonary hypertension, anemia, was recently discharged from the hospital after being managed for diastolic congestive heart failure exacerbation and hypercapnic respiratory failure, she was initially diuresed with IV Lasix, her respiratory status improved with BiPAP and she was discharged on Cefdinir 5-day course. She is presenting today with respiratory distress. Patient is stating that she has been taking her medications, she is smoking 1 pack/day, she did not quit. She has not seen Dr. Lipscomb yet, she is telling me that she is using 4 L of oxygen [id number] and using breathing machine at night, she is not sure whether it is a BiPAP or CPAP. No coughing, fever, traveling or visitors at her house. Previously she was tested for covid, which was negative. Output is normal in her colostomy bag she has not noticed increased output. Diagnostics in ER revealed hypercapnic respiratory failure, she was put on BiPAP,covid ordered by the ER physician Patient is able to give me above-mentioned details, her mentation is drowsy, I would consider asking her questions 1 more time when she is more alert, she is high risk for intubation Proper PPE were used to examine her including N 95, gown, gloves Review of Systems Const: Reports: fatigue; Denies: fever, chills or body aches Eyes: Denies: change in vision ENMT: Denies: throat pain Card: Denies: chest pain, palpitations or irregular heart rhythm Resp: Reports: shortness of breath and non-productive cough GI: Denies: abdominal pain, nausea or vomiting : Denies: flank pain or difficulty urinating Musc: Denies: neck pain or back pain Skin/Breast: Denies: rash or itching Neuro: Denies: headache Psych: Reports: sleeping more; Denies: anxiety or depression Endo: Denies: excessive urination Car/Lymph: Denies: easy bruising All/Imm: Denies: hives Medications/Allergies Allergies Allergy/AdvReac Type Severity Reaction Status Date / Time No Known Allergies Allergy Verified 08/23/19 17:48 PFSH Acute PFSH: Medical History Chronic anemia Chronic diastolic CHF (congestive heart failure) CKD (chronic kidney disease), stage II COPD (chronic obstructive pulmonary disease) Recurrent intubations in the past due to hypercapnic respiratory failure Hypertension Morbid obesity Pulmonary embolism Vascular dementia Surgical History H/O section X2 H/O colectomy Secondary to severe colitis H/O: hysterectomy History of salpingo-oophorectomy S/P IVC filter Secondary to PE, DVT Family History Father Lung disease Social History Smoking and tobacco status: current every day smoker cigarettes Packs smoked pe r day: 1 Alcohol intake: never Household members: family Vitals/I&O/Wt Last Vital Signs Temp 97.7 F 08/21/19 11:47 Pulse 86 08/21/19 11:47 Resp 18 08/21/19 11:47 BP 133/79 08/21/19 11:47 Pulse Ox 86 L 08/21/19 13:10 Physical Exam Narrative: EXAM NARRATIVE: Obese female currently on BiPAP pulling good tidal volumes settings 20/10 No active respiratory distress, mentation is drowsy but able to provide details about her current admission S1, S2 no active signs of heart failure Bilateral lower extremity no edema ischemia or gangrene Colostomy bag is draining brown liquid feculent material Abdomen is soft nontender Assisted breath sounds however diminished Mentation is drowsy EOMI, PERRLA Urinary Catheter Management^: Ortega: Cath Placed During This Visit: yes, but has since been removed by the nurse Reason for Continuing Indwelling Catheter: Other Urinary Catheter Date of Insertion: 08/16/19 Urinary Catheter Time of Insertion: 21:44 Date Urinary Catheter Removed: 08/18/19 Time Urinary Catheter Discontinued: 09:57 Data : 08/21/19 04:18 document embedded image 08/21/19 04:18 document embedded image A&P Assessment and plan (1) Acute exacerbation of chronic obstructive airways disease: Status: Acute (2) Acute on chronic respiratory failure with hypercapnia: Status: Acute (3) Chronic anemia: Status: Acute (4) CKD (chronic kidney disease), stage II: Status: Acute (5) Chronic diastolic CHF (congestive heart failure): Status: Acute (6) Morbid obesity: Status: Acute (7) Moderate to severe pulmonary hypertension: Status: Acute Additional A&P Information Acute on chronic hypercapnic respiratory failure with underlying pulmonary hypertension, obesity, noncompliance Chest x-ray is revealing chronic changes of vascular prominence due to pulmonary hypertension No signs of pneumonia, or sepsis High risk for intubation Currently tolerating BiPAP Another blood gas in 1 hour covid negative on previous admission another 1 ordered by ER physician at this visit Diastolic congestive heart failure without acute exacerbation I will keep her on home regimen of Lasix Chronic anticoagulation due to DVT/PE status post IVC filter placement: Continue anticoagulation with Eliquis Oxygen dependent COPD, uses 4 L of oxygen [id number] Patient is BiPAP dependent, high risk for readmissions, she is telling me she has a breathing machine at home but not able to tell me whether it is CPAP vs BiPAP Chronic iron deficiency microcytic anemia Low ferritin, low iron, I will start her on iron supplements Target hemoglobin above 8 DVT prophylaxis: She is currently on Eliquis N.p.o. at the moment Patient is saying she would like to stay DNR/DNI because of hypercapnic respiratory failure and drowsiness, I would not rely on that CODE STATUS kindly readdress in the morning, for now I will treat her as full code, I have admitted her last time and she was full code at that admission Attestations Medical Necessity Statement*: Anticipating stay in the hospital to cross more than 2 midnights recurrent hypercapnic respiratory failure high risk for intubation, Time Spent in Patient Care: 50
[2019-08-23 23:15] LABS: ABG PH Result 7.24 (7.35-7.45); Arterial Blood Gas Hematocrit 31.4 % (37-47); Base Excess ABG 11.6 mmol/L (-2.0-2.0); Blood Gas Allen Test Pos; Blood Gas Sample Site Radial, right; Blood Gas Sample Type Arterial; Oxygen Device NC; PO2 ABG 60.1 mmHg (80.0-100.0)
[2019-08-23] MEDS: acetaminophen 325 mg Tablet 650 MG PO (23:50)
--- NOTE | 2019-08-23 23:55 | PC.NURSE ---
Dr. Vallecillo gave ok for patient to have tylenol PO with a sip of water.
[2019-08-24] VITALS (25 sets, daily range): BP systolic 112–160; BP diastolic 67–91; PULSE 69–108; RESP 10–30; TEMP 36.9–37.1; O2SAT 82–96
[2019-08-24 00:58] LABS: Add Urine Microscopic? YES; Bilirubin Urine Neg (NEGATIVE); Blood Urine 2+ (Negative); Glucose Urine UA Norm (Normal); Ketones Urine Negative (Negative); Leukocyte Esterase Urine Negative (Negative); Nitrate Urine Negative (Negative); Protein Urine Neg (Negative); Urine Appearance Hazy (CLEAR); Urine Color Yellow (Yellow); Urobilinogen Urine Norm (Negative); pH Urine 5 (5-7)
[2019-08-24 00:59] LABS: Hyaline Casts Urine 25-40; RBC Urine 0-4 /hpf (0-2)
[2019-08-24 01:00] LABS: Add Urine Culture? No; Bacteria Urine 1+; Transitional Epi Cells Urine 0-4 /hpf; WBC Urine 15-25 /hpf (0-5)
[2019-08-24] MEDS: albuterol 8 gm MDI 2 PUFF INHALATION ×6 (01:55→19:28)
[2019-08-24 04:38] LABS: Basophils % 0.3 %; Eosinophils % 0.1 %; Hematocrit 33.4 % (37.0-47.0); Hemoglobin 8.9 g/dL (11.5-15.3); Lymphocytes # 0.4 10^3/uL (0.8-4.8); Mean Corpuscular HGB Conc 26.6 g/dL (30.0-36.0); Mean Corpuscular Hemoglobin 21.2 pg (28.0-34.0); Mean Corpuscular Volume 79.5 fL (81-99); Mean Platelet Volume 9.5 fL (7.4-10.4); Monocytes # 0.1 10^3/uL (0.2-0.9); Monocytes % 0.7 %; Neutrophils # 6.2 10^3/uL (1.8-7.7); Neutrophils % 92.2 %; Nucleated Red Blood Cells % 0 %; Platelet Count 285 10^3/cmm (130-400); Red Cell Distribution Width 17.3 % (12.1-15.1); White Blood Count 6.7 10^3/uL (4.0-10.0)
[2019-08-24 04:55] LABS: Anion Gap 13.7 (5-19); Blood Urea Nitrogen 17 mg/dL (8-23); Calcium 9.3 mg/dL (8.5-10.5); Carbon Dioxide 37 mmol/L (22-29); Chloride 86 mmol/L (98-107); Glomerular Filtration Rate 83.7 mL/min (90-130); Glucose 148 mg/dL (65-115); Osmolality Calculated 271 mOsm/kg (285-295); Potassium 5.7 mmol/L (3.5-5.1); Sodium 131 mmol/L (136-145)
[2019-08-24 06:15] LABS: ABG PH Result 7.37 (7.35-7.45); Arterial Blood Gas Hematocrit 27.4 % (37-47); Base Excess ABG 13.7 mmol/L (-2.0-2.0); Blood Gas Sample Site Brachial, right; Blood Gas Sample Type Arterial; Oxygen Device BIPAP; PO2 ABG 58.7 mmHg (80.0-100.0)
[2019-08-24 06:16] LABS: ABG PCO2 70.8 mmHg (35-45)
--- NOTE | 2019-08-24 08:04 | PM.PN ---
Subjective Subjective: Interval history: Patient was just discharged 2 days ago after treatment of acute respite failure and presents back last night with dyspnea and lethargy. This morning patient reports feeling back to her normal and wants to go home. She is moving air well with very minimal faint expiratory wheezing throughout which appears to be patient's baseline as per respiratory therapist that knows patient well. It appears that patient takes Xanax which makes her lethargic and ultimately short of breath after. Patient is not sure what medication she takes and reports that her gives her medication she needs to get. This morning she reports being hungry and wants to eat. She was sitting in her bed initially and then laid down. She is not in any distress and breathing comfortably. She saturates in the low 90s on 6 L. Her chest x-ray appears stable per my interpretation. Currently awaiting official report. COVID19 test was performed again and we are waiting for result. CODE STATUS was discussed with patient and she wants to be full code. Her potassium is high at 5.7 this morning. She denies significant cough. Denies any abdominal pain or problems with bowel movement or urination. Vitals/I&O/Wt Last Vital Signs Temp 98.5 F 08/24/19 00:00 Pulse 99 08/24/19 08:02 Resp 23 H 08/24/19 08:00 BP 127/76 08/24/19 06:00 Pulse Ox 90 08/24/19 08:00 08/23/19 08/24/19 08/24/19 22:59 06:59 14:59 Output Total 875 / 875 Balance -875 / -875 Weight last 48 hrs Weight 99.79 kg Physical Exam Const: COMMON NORMALS: no apparent distress and oriented x3 Resp: COMMON NORMALS: normal respiratory effort OTHER: Very minimal faint expiratory wheezing throughout. Overall relatively good air movement Cardio: COMMON NORMALS: regular rate, regular rhythm and S2 normal heart sound RATE: regular rate RHYTHM: regular rhythm HEART SOUNDS: S2 normal OTHER: No lower extremity edema GI: COMMON NORMALS: normal to inspection, nondistended, normoactive bowel sounds, soft to palpation and non-tender PALPATION: Yes soft Neuro: COMMON NORMALS: oriented x3 and no focal motor deficits Data : 08/24/19 04:20 08/24/19 04:20 Micro: Microbiology 08/23/19 18:18 Blood Culture - Preliminary Blood SPECIMEN COLLECTED 08/23/19 18:18 Blood Culture - Preliminary Blood SPECIMEN COLLECTED A&P Assessment and plan (1) Lethargy: Status: Acute (2) Chronic diastolic CHF (congestive heart failure): Status: Acute (3) Chronic anemia: Status: Acute (4) Acute exacerbation of chronic obstructive airways disease: Status: Acute Additional A&P Information PLAN: Continue bronchodilators. I think patient gets lethargic from Xanax ultimately leading to respiratory failure. She is clinically is back to her normal and reports being hungry and denies any issues with breathing. Will change Lasix to IV and give first dose now which should take care of hyperkalemia. We will change Xanax to 0.25 mg 3 times daily as needed. Continue Omnicef and Protonix. I have suspicion that patient is not taking her Lasix at home daily to avoid frequent urinations. Will discuss with case management and at this point I think patient would benefit from senior living facility placement for close monitoring and rehabilitation. This was discussed with patient and she agreed. Attestations Medical Necessity Statement*: Patient with respite failure requires close inpatient monitoring and treatment. Once COVID19 ruled out patient can be transferred out of ICU. Coding Level of Care Code Acute Porcelain Waxer for Denis Lozoya Diagnoses Lethargy R53.83 Chronic diastolic CHF (congestive heart failure) I50.32 Chronic anemia D64.9 Acute exacerbation of chronic obstructive airways disease J44.1
[2019-08-24] MEDS: cefdinir 300 MG CAPSULE PO ×2 (08:36→17:26)
[2019-08-24] MEDS: apixaban 5 mg Tablet PO ×2 (08:36→17:26)
[2019-08-24] MEDS: pantoprazole DR 40 mg Tablet PO ×2 (08:37→19:55)
[2019-08-24] MEDS: FUROsemide 10 mg/mL SDV 4mL 40 MG IVP (08:37)
--- NOTE | 2019-08-24 15:07 | PC.RESP ---
Information to patient for Pulmonary Rehab and Smoking Cessation. Pt sent a schedule of pending classes.
--- NOTE | 2019-08-24 15:09 | PC.NURSE ---
Pt transferred to [facility] room 259-2 via , all personal belongings sent with pt. No complaints voiced at time of transfer. Report called to [facility] prior to transfer.
--- NOTE | 2019-08-24 23:32 | PC.NURSE ---
Patient refusing to wear telemetry, ok per Dr. Vallecillo to discontinue order. Order discontinued. Will continue to monitor patient.
[2019-08-25] VITALS (11 sets, daily range): BP systolic 99–144; BP diastolic 61–91; PULSE 68–91; RESP 18–22; TEMP 36.3–37; O2SAT 92–97
--- NOTE | 2019-08-25 02:12 | PC.NURSE ---
Patient has been up ambulating in room most of this shift. Respirations even and unlabored with no s/s of distress noted thus far this shift. call center nurse light frequently. If staff is unable to answer call light quickly, patient comes to door and yells at whomever is sitting at station. When this nurse answered patient's call light, patient asked this nurse to pull her up in bed. When this nurse informed her that she was as high as she could go, patient felt above her head and states, well, guess I am , and started laughing. Denies complaints at this time. Will monitor.
[2019-08-25 05:32] LABS: NT Pro B Type Natriuretic Pept 607 pg/mL (0-125)
[2019-08-25] MEDS: albuterol 8 gm MDI 2 PUFF INHALATION ×3 (07:31→20:04)
[2019-08-25] MEDS: pantoprazole DR 40 mg Tablet PO ×2 (08:49→19:59)
[2019-08-25] MEDS: FUROsemide 10 mg/mL SDV 4mL 40 MG IVP ×2 (08:49→16:00)
[2019-08-25] MEDS: apixaban 5 mg Tablet PO ×2 (09:09→17:14)
[2019-08-25] MEDS: cefdinir 300 MG CAPSULE PO ×2 (09:54→17:14)
[2019-08-25 10:13] LABS: Basophils % 0.3 %; Eosinophils # 0.2 10^3/uL (0.0-0.8); Eosinophils % 2.3 %; Hematocrit 33.1 % (37.0-47.0); Hemoglobin 8.8 g/dL (11.5-15.3); Lymphocytes # 1.5 10^3/uL (0.8-4.8); Lymphocytes % 16.7 %; Mean Corpuscular HGB Conc 26.6 g/dL (30.0-36.0); Mean Corpuscular Hemoglobin 21.6 pg (28.0-34.0); Mean Corpuscular Volume 81.3 fL (81-99); Mean Platelet Volume 10.1 fL (7.4-10.4); Monocytes # 0.8 10^3/uL (0.2-0.9); Monocytes % 8.4 %; Neutrophils # 6.4 10^3/uL (1.8-7.7); Neutrophils % 71.5 %; Nucleated Red Blood Cells % 0.2 %; Platelet Count 364 10^3/cmm (130-400); Red Blood Count 4.07 10^6/uL (4.1-5.3); Red Cell Distribution Width 17.7 % (12.1-15.1)
[2019-08-25 10:36] LABS: Alanine Aminotransferase 13 U/L (0-33); Albumin Level 3.8 g/dL (3.5-5.2); Alkaline Phosphatase 86 IU/L (35-105); Anion Gap 11.3 (5-19); Aspartate Amino Transferase 17 U/L (0-32); Blood Urea Nitrogen 17 mg/dL (8-23); Calcium 9.3 mg/dL (8.5-10.5); Carbon Dioxide 37 mmol/L (22-29); Chloride 83 mmol/L (98-107); Globulin 3.4 g/dL (1.3-4.6); Glomerular Filtration Rate 83.7 mL/min (90-130); Glucose 106 mg/dL (65-115); Osmolality Calculated 261 mOsm/kg (285-295); Potassium 4.3 mmol/L (3.5-5.1); Sodium 127 mmol/L (136-145); Total Bilirubin 0.3 mg/dL (0.15-1.2); Total Protein 7.2 g/dL (6.6-8.7)
--- NOTE | 2019-08-25 12:40 | PM.PN ---
Subjective Subjective: Interval history: Patient denies any complaints this morning including shortness of breath or chest pain. Reports breathing comfortably and denies significant cough. She used BiPAP overnight. Vitals/I&O/Wt Last Vital Signs Temp 98.1 F 08/25/19 11:08 Pulse 84 08/25/19 11:08 Resp 22 H 08/25/19 11:08 BP 117/75 08/25/19 11:08 Pulse Ox 92 08/25/19 11:08 08/24/19 08/25/19 08/25/19 22:59 06:59 14:59 Intake Total 480 / 805 240 / 1045 600 / 600 Output Total 200 / 200 Balance 280 / 605 240 / 845 600 / 600 Weight last 48 hrs Weight 99.79 kg Physical Exam Const: COMMON NORMALS: no apparent distress and oriented x3 Resp: COMMON NORMALS: normal respiratory effort OTHER: Clear with no evidence of wheezing, rales or rhonchi. Cardio: COMMON NORMALS: regular rate, regular rhythm and S2 normal heart sound RATE: regular rate RHYTHM: regular rhythm HEART SOUNDS: S2 normal OTHER: No lower extremity edema GI: COMMON NORMALS: normal to inspection, nondistended, normoactive bowel sounds, soft to palpation and non-tender PALPATION: Yes soft Neuro: COMMON NORMALS: oriented x3 and no focal motor deficits Data : 08/25/19 04:42 08/25/19 04:42 Micro: Microbiology 08/23/19 18:18 Blood Culture - Preliminary Blood NEGATIVE TO DATE 08/23/19 18:18 Blood Culture - Preliminary Blood NEGATIVE TO DATE A&P Assessment and plan (1) Lethargy: Resolved. Suspected to be due to Xanax. Status: Acute (2) Chronic diastolic CHF (congestive heart failure): Currently well compensated. Status: Acute (3) Chronic anemia: Status: Acute (4) Acute exacerbation of chronic obstructive airways disease: Improved. Xanax felt to be play a major role. Status: Acute Additional A&P Information PLAN: Continue current monitoring and treatment. Awaiting placement to nursing facility for close monitoring due to suspected medical noncompliance. Will increase Lasix to twice daily and add spironolactone. Check CBC and CMP in a.m. Discussed with patient and she does agree to be watched at nursing facility to make sure her medications are well adjusted for her and to make sure she remains asymptomatic. Attestations Medical Necessity Statement*: Patient with respiratory failure requires close inpatient monitoring and treatment until placed to nursing facility due to suspected medical noncompliance. Coding Level of Care Code Acute Chief Nuclear Medicine Technologist for Aníbalg Fwd Diagnoses Lethargy R53.83 Chronic diastolic CHF (congestive heart failure) I50.32 Chronic anemia D64.9 Acute exacerbation of chronic obstructive airways disease J44.1
[2019-08-25] MEDS: spironolactone 25 mg Tablet 12.5 MG PO (13:07)
[2019-08-25] MEDS: acetaminophen 325 mg Tablet 650 MG PO (13:15)
--- NOTE | 2019-08-25 13:15 | PC.OT ---
OT attempted at this time. Pt is lying in bed. When therapist walks in the door pt states I have a headache and declines OT at this time. Nursing providing medication. Therapist to return later if possible.
--- NOTE | 2019-08-25 16:02 | PC.OT ---
OT attempted again at this time. Pt reports she has a migraine and declines getting up at this time. Nursing reports pt has been getting up to go to bathroom but otherwise stays in bed.OT tx to be attempted again tomorrow.
[2019-08-26] VITALS (14 sets, daily range): BP systolic 101–135; BP diastolic 61–83; PULSE 75–89; RESP 16–20; TEMP 36.4–37.2; O2SAT 89–97
[2019-08-26 05:26] LABS: Basophils % 0.3 %; Eosinophils # 0.2 10^3/uL (0.0-0.8); Eosinophils % 3.6 %; Hematocrit 31.9 % (37.0-47.0); Hemoglobin 8.5 g/dL (11.5-15.3); Lymphocytes # 0.9 10^3/uL (0.8-4.8); Lymphocytes % 15.4 %; Mean Corpuscular HGB Conc 26.6 g/dL (30.0-36.0); Mean Corpuscular Hemoglobin 21.2 pg (28.0-34.0); Mean Corpuscular Volume 79.6 fL (81-99); Mean Platelet Volume 10.6 fL (7.4-10.4); Monocytes # 0.7 10^3/uL (0.2-0.9); Monocytes % 11.1 %; Neutrophils # 4.2 10^3/uL (1.8-7.7); Neutrophils % 69.1 %; Nucleated Red Blood Cells % 0 %; Red Blood Count 4.01 10^6/uL (4.1-5.3); Red Cell Distribution Width 17.8 % (12.1-15.1); White Blood Count 6.1 10^3/uL (4.0-10.0)
[2019-08-26 05:48] LABS: Alanine Aminotransferase 11 U/L (0-33); Albumin Level 3.3 g/dL (3.5-5.2); Alkaline Phosphatase 80 IU/L (35-105); Aspartate Amino Transferase 17 U/L (0-32); Blood Urea Nitrogen 16 mg/dL (8-23); Calcium 9.2 mg/dL (8.5-10.5); Chloride 82 mmol/L (98-107); Globulin 2.9 g/dL (1.3-4.6); Glucose 96 mg/dL (65-115); Osmolality Calculated 264 mOsm/kg (285-295); Sodium 129 mmol/L (136-145); Total Bilirubin 0.3 mg/dL (0.15-1.2); Total Protein 6.2 g/dL (6.6-8.7)
[2019-08-26 05:55] LABS: Carbon Dioxide 41 mmol/L (22-29)
[2019-08-26 06:39] LABS: Platelet Count 303 10^3/cmm (130-400)
[2019-08-26 06:40] LABS: Slide Review Slide Review Perform
[2019-08-26] MEDS: albuterol 8 gm MDI 2 PUFF INHALATION ×3 (07:39→16:35)
[2019-08-26] MEDS: apixaban 5 mg Tablet PO ×2 (08:16→17:51)
[2019-08-26] MEDS: spironolactone 25 mg Tablet 12.5 MG PO (08:16)
[2019-08-26] MEDS: pantoprazole DR 40 mg Tablet PO ×2 (08:16→21:44)
[2019-08-26] MEDS: FUROsemide 10 mg/mL SDV 4mL 40 MG IVP (08:18)
[2019-08-26] MEDS: cefdinir 300 MG CAPSULE PO ×2 (08:18→17:50)
--- NOTE | 2019-08-26 09:50 | PC.SOCIAL ---
IMM Update Pg 2 of IMM given and explained to patient who verbalized understanding. Copy provided to patient.
--- NOTE | 2019-08-26 11:16 | PM.PN ---
Subjective Subjective: Interval history: Patient continues to do well this morning. She denies any shortness of breath or chest pain. Denies cough. Denies abdominal pain. She remains very alert and did not request much of Xanax. She appears to require twice daily Lasix to keep her euvolemic. We have discussed extensively regarding importance of medical compliance especially with Lasix and patient voiced understanding. She denies headache this morning. She declined physical therapy yesterday. Vitals/I&O/Wt Last Vital Signs Temp 97.9 F 08/26/19 07:24 Pulse 82 08/26/19 11:15 Resp 16 08/26/19 11:15 BP 109/67 08/26/19 07:24 Pulse Ox 94 08/26/19 11:15 08/25/19 08/26/19 08/26/19 22:59 06:59 14:59 Intake Total 200 / 800 240 / 240 Output Total 250 / 250 200 / 450 Balance -50 / 550 -200 / 350 240 / 240 Physical Exam Const: COMMON NORMALS: no apparent distress and oriented x3 Resp: COMMON NORMALS: normal respiratory effort OTHER: Minimal coarse upper airway transmitted sounds. No rales or rhonchi at the bases. Cardio: COMMON NORMALS: regular rate, regular rhythm and S2 normal heart sound RATE: regular rate RHYTHM: regular rhythm HEART SOUNDS: S2 normal OTHER: No lower extremity edema GI: COMMON NORMALS: normal to inspection, nondistended, normoactive bowel sounds, soft to palpation and non-tender PALPATION: Yes soft Neuro: COMMON NORMALS: oriented x3 and no focal motor deficits Data : 08/26/19 04:39 08/26/19 04:39 A&P Assessment and plan (1) Lethargy: Resolved. Suspected to be due to Xanax. Status: Acute (2) Chronic diastolic CHF (congestive heart failure): Currently well compensated. Status: Acute (3) Chronic anemia: Status: Acute (4) Acute exacerbation of chronic obstructive airways disease: Improved. Xanax felt to be play a major role. Status: Acute Additional A&P Information PLAN: We will transition Lasix to p.o. and continue spironolactone with monitoring of electrolytes and kidney function. Monitor hemoglobin. Continue with physical therapy. Attestations Medical Necessity Statement*: Patient with acute hypercapnic respiratory failure and suspected medical noncompliance requires close inpatient monitoring and treatment until placed to nursing facility. Coding Level of Care Code Acute Elementary [employer] Principal for Chg Fwd Diagnoses Lethargy R53.83 Chronic diastolic CHF (congestive heart failure) I50.32 Chronic anemia D64.9 Acute exacerbation of chronic obstructive airways disease J44.1
[2019-08-26] MEDS: ALPRAZolam 0.25 mg Tablet PO ×2 (13:17→21:44)
[2019-08-26] MEDS: lanolin oint 7 gm 1 APPLIC TOPICAL (13:17)
--- NOTE | 2019-08-26 16:00 | PC.NURSE ---
Patient states having SOB. patient is not in any acute distress at this time, is able to complete full sentences, no changes in VS, VSS, patient is resting in bed at this time, patient has expiratory wheezes. Dr Whitlock notified and no new orders received.
[2019-08-26] MEDS: FUROsemide 40 mg Tablet PO (17:50)
[2019-08-27] VITALS (11 sets, daily range): BP systolic 109–133; BP diastolic 71–80; PULSE 75–90; RESP 16–20; TEMP 36.5–37.2; O2SAT 90–96
[2019-08-27 05:32] LABS: Basophils % 0.3 %; Eosinophils # 0.3 10^3/uL (0.0-0.8); Eosinophils % 3.4 %; Hematocrit 33.9 % (37.0-47.0); Hemoglobin 9.2 g/dL (11.5-15.3); Lymphocytes # 0.9 10^3/uL (0.8-4.8); Mean Corpuscular HGB Conc 27.1 g/dL (30.0-36.0); Mean Corpuscular Hemoglobin 21.7 pg (28.0-34.0); Mean Platelet Volume 9.3 fL (7.4-10.4); Monocytes # 0.6 10^3/uL (0.2-0.9); Neutrophils # 5.6 10^3/uL (1.8-7.7); Neutrophils % 75.8 %; Nucleated Red Blood Cells % 0 %; Platelet Count 349 10^3/cmm (130-400); Red Blood Count 4.24 10^6/uL (4.1-5.3); Red Cell Distribution Width 17.7 % (12.1-15.1); White Blood Count 7.3 10^3/uL (4.0-10.0)
[2019-08-27 05:51] LABS: Alanine Aminotransferase 11 U/L (0-33); Albumin Level 3.6 g/dL (3.5-5.2); Alkaline Phosphatase 92 IU/L (35-105); Anion Gap 9.1 (5-19); Aspartate Amino Transferase 12 U/L (0-32); Blood Urea Nitrogen 14 mg/dL (8-23); Calcium 9.1 mg/dL (8.5-10.5); Chloride 82 mmol/L (98-107); Globulin 3.3 g/dL (1.3-4.6); Glomerular Filtration Rate 83.7 mL/min (90-130); Glucose 106 mg/dL (65-115); Osmolality Calculated 267 mOsm/kg (285-295); Potassium 4.1 mmol/L (3.5-5.1); Sodium 130 mmol/L (136-145); Total Bilirubin 0.3 mg/dL (0.15-1.2); Total Protein 6.9 g/dL (6.6-8.7)
[2019-08-27 06:01] LABS: Carbon Dioxide 43 mmol/L (22-29)
[2019-08-27] MEDS: albuterol 8 gm MDI 2 PUFF INHALATION ×2 (08:38→11:18)
--- NOTE | 2019-08-27 09:02 | PM.PN ---
Subjective Subjective: Interval history: Patient denies any complaints this morning. Denies shortness of breath or chest pain this morning. She used her BiPAP without issues last night. Reports good appetite and was getting ready to eat her breakfast during my evaluation. Her lab work shows further improvement of hemoglobin. Carbon dioxide increased to 43 and likely related to diuretic. Vitals/I&O/Wt Last Vital Signs Temp 97.7 F 08/27/19 07:39 Pulse 88 08/27/19 08:41 Resp 20 H 08/27/19 08:38 BP 133/80 08/27/19 07:39 Pulse Ox 93 08/27/19 08:38 08/26/19 08/27/19 08/27/19 22:59 06:59 14:59 Intake Total 240 / 840 420 / 420 Output Total 200 / 200 400 / 600 Balance 40 / 640 -400 / 240 420 / 420 Physical Exam Const: COMMON NORMALS: no apparent distress and oriented x3 Resp: COMMON NORMALS: normal respiratory effort OTHER: Minimal coarse upper airway transmitted sounds. No rales or rhonchi at the bases. Cardio: COMMON NORMALS: regular rate, regular rhythm and S2 normal heart sound RATE: regular rate RHYTHM: regular rhythm HEART SOUNDS: S2 normal OTHER: No lower extremity edema GI: COMMON NORMALS: normal to inspection, nondistended, normoactive bowel sounds, soft to palpation and non-tender PALPATION: Yes soft Neuro: COMMON NORMALS: oriented x3 and no focal motor deficits Data : 08/27/19 05:03 08/27/19 05:03 A&P Assessment and plan (1) Lethargy: Resolved. Suspected to be due to Xanax. Status: Acute (2) Chronic diastolic CHF (congestive heart failure): Currently well compensated. Status: Acute (3) Chronic anemia: Status: Acute (4) Acute exacerbation of chronic obstructive airways disease: Improved. Xanax felt to be play a major role. Status: Acute Additional A&P Information PLAN: We will continue current monitoring and treatment and repeat lab work in a.m. Will decrease Lasix to once daily. Awaiting placement to nursing facility for further rehabilitation and for close monitoring considering suspected medical noncompliance. Discussed with case management and multiple attempts were made to contact family to discuss care but no one could be reached. Continue with physical therapy. So far it appears that the patient tolerates small dose Xanax well and we should avoid any high doses as it likely results in patient's lethargic state ultimately leading to respiratory failure. Attestations Medical Necessity Statement*: Patient with respite failure segment and medical noncompliance requires close inpatient monitoring and treatment to place to nursing facility and until medications are adjusted. Coding Level of Care Code Acute Audio/Visual Operator for Denis Lozoya Diagnoses Lethargy R53.83 Chronic diastolic CHF (congestive heart failure) I50.32 Chronic anemia D64.9 Acute exacerbation of chronic obstructive airways disease J44.1
[2019-08-27] MEDS: pantoprazole DR 40 mg Tablet PO (09:20)
[2019-08-27] MEDS: spironolactone 25 mg Tablet 12.5 MG PO (09:20)
[2019-08-27] MEDS: cefdinir 300 MG CAPSULE PO (09:24)
[2019-08-27] MEDS: apixaban 5 mg Tablet PO (09:25)
[2019-08-27] MEDS: FUROsemide 40 mg Tablet PO (09:25)
--- NOTE | 2019-08-27 10:58 | P.DS_ITS ---
Discharge Providers Date of Admission: 08/23/19 19:40 Date of Discharge: August 27, 2019 Attending Provider at Admission: Last Vallecillo MD Attending Provider at Discharge: Elia Whitlock MD Diagnoses at Discharge Discharge Diagnosis (1) Lethargy: Status: Acute (2) Chronic diastolic CHF (congestive heart failure): Status: Acute (3) Chronic anemia: Status: Acute (4) Acute exacerbation of chronic obstructive airways disease: Status: Acute (5) Medical non-compliance: Status: Acute Reason for Visit Reason for Visit: Reason For Visit: Resp distress Hospital Course Discharge Summary: Patient with recurrent readmissions readmissions for respiratory failure which is highly suspected to be secondary medical noncompliance and overuse of Xanax and under use of Lasix resulting in lethargy and respiratory failure. Patient was diuresed and treated with bronchodilators and we have decreased amount of Xanax she has been using and patient appears to be currently well compensated. This morning she denied any complaints including shortness of breath or chest pain. We have tried to contact patient's family but were unsuccessful. Patient is being dismissed to nursing facility for further rehabilitation and close monitoring on current regimen to make sure she remains well compensated. Patient's Lasix will be increased to 40 mg daily and spironolactone will be added. I will request blood work in several days prior to primary care physician follow-up. Patient is accepted to nursing facility and given overall clinical improvement we will go ahead and dismiss her. She is chronically dependent on oxygen at approximately 4 L continuously. She is using BiPAP at night and should continue. Patient is currently on high-dose PPI as she is anticoagulated with Eliquis. Patient was told to avoid steroids or NSAIDs. Physical Exam Narrative: EXAM NARRATIVE: For physical exam please see note done earlier today. Discharge Data Data Completed and Pending: Completed Studies During Hospitalization Category Date Time Status XR chest 1V mukesh ble [id number] Stat Exams 08/23/19 17:57 Completed Pending at discharge Category Date Time Status Arterial Blood Ga s W/O Coox Routine Lab 08/23/19 23:00 Results Blood Culture Sta t Lab 08/23/19 18:18 Results Complete Blood Co unt w/Auto AM LABS Lab 08/28/19 04:00 Ordered Comprehensive Met abolic Panel AM LA BS Lab 08/28/19 04:00 Ordered Labs from last 24 hours 08/27/19 08/27/19 05:03 05:03 WBC 7.3 RBC 4.24 Hgb 9.2 L Hct 33.9 L MCV 80.0 L MCH 21.7 L MCHC 27.1 L RDW 17.7 H Plt Count 349 MPV 9.3 Neut % (Auto) 75.8 Lymph % (Auto) 12.0 [place] % (Auto) 8.0 Eos % (Auto) 3.4 Baso % (Auto) 0.3 Neut # (Auto) 5.6 Lymph # (Auto) 0.9 [place] # (Auto) 0.6 Eos # (Auto) 0.3 Baso # (Auto) 0.0 Nucleated RBC % (a uto) 0 Nucleated RBCs # 0.0 Sodium 130 L Potassium 4.1 Chloride 82 L Carbon Dioxide 43 H* Anion Gap 9.1 BUN 14 Creatinine 0.7 GFR Calculation 83.7 L Glucose 106 Calculated Osmolal ity 267 L Calcium 9.1 Total Bilirubin 0.3 AST 12 ALT 11 Alkaline Phosphata se 92 Total Protein 6.9 Albumin 3.6 Globulin 3.3 Vitals: Last Vital Signs Temp 97.7 F 08/27/19 07:39 Pulse 88 08/27/19 08:41 Resp 20 H 08/27/19 08:38 BP 133/80 08/27/19 07:39 Pulse Ox 93 08/27/19 08:38 Discharge Plan Discharge Patient Disposition: Xfer SNF Condition: Stable Prescriptions: New alprazolam 0.25 mg Tablet 0.25 mg PO TID PRN (Reason: Anxiety) Qty: 10 RF: 0 acetaminophen 325 mg Tablet 650 mg PO Q6H PRN (Reason: Mild/Mod Pain Or Temp >/= 101) Qty: 30 RF: 0 spironolactone 25 mg Tablet 12.5 mg PO DAILY Qty: 30 RF: 0 furosemide 40 mg Tablet 40 mg PO DAILY Qty: 30 RF: 0 Continued ondansetron See Rx Instructions .ROUTE .COMPLEX RF: 0 pantoprazole 40 mg Tablet,Delayed Release (Dr/Ec) 40 mg PO Q12H Qty: 60 RF: 0 albuterol sulfate 2.5 mg /3 mL (0.083 %) Solution For Nebulization 2.5 mg INHALATION Q4H PRN (Reason: Shortness Of Breath) RF: 0 Eliquis 5 mg Tablet 5 mg PO BID RF: 0 budesonide 0.5 mg/2 mL Suspension For Nebulization 0.5 mg inhalation BID.RESPIRATORY Qty: 30 RF: 0 Spiriva Respimat 2.5 mcg/actuation mist 2 inh INHALATION DAILY Qty: 4 RF: 0 Discontinued cefdinir 300 mg capsule 300 mg PO BID 5 Days Qty: 10 RF: 0 alprazolam 1 mg Tablet 1 mg PO TID PRN (Reason: Anxiety) RF: 0 furosemide 20 mg Tablet 20 mg PO DAILY RF: 0 Discharge Orders: Discharge Order (Routine); Ordered 08/27/19 Ordered By: Elia Whitlock Other Ambulatory Orders: Complete Blood Count w/Auto (Routine) Timeframe: 3 Days Location: Determined by Patient Ordered By: Elia Whitlock Comprehensive Metabolic Panel (Routine) Timeframe: 3 Days Facility: [facility] - Location: Lab - Main Lab Ordered By: Elia Whitlock Referrals: Titus Garzon, [Family Provider] - Discharge Diet: Advance as tolerated Discharge Activity: Increase activity as tolerated Activity Restrictions/Additional Instructions: Please call your doctor or present to emergency department if your condition worsens or you develop diarrhea, lightheadedness, fatigue or see blood in your stool or black stool. Patient to continue with oxygen at 4 L continuously to be titrated for O2 sats above 90%. BiPAP to be continued at nighttime and with naps. Patient to continue with physical therapy. Discharge Attestations Time Spent in Discharge Care*: less than 30 min Quality Metrics Clinical Quality Measures During this hospital stay, did patient experience: None Coding Level of Care Code Acute Payroll Auditor for Denis Lozoya Diagnoses Lethargy R53.83 Chronic diastolic CHF (congestive heart failure) I50.32 Chronic anemia D64.9 Acute exacerbation of chronic obstructive airways disease J44.1 Medical non-compliance Z91.19
--- NOTE | 2019-08-27 12:22 | PC.NURSE ---
D/C NOTE Called report to AKHIL Freire at [facility]. Patient taken by wheelchair with oxygen 3.5L to ER for EMS transport. BARRY ILON
== END 2019-08-27 12:25 | disposition skilled nursing facility (03) | DRG 189 ==
LOC: ER 19:36 → ICU 20:30 → MEDSURG 08-24 15:02
PROVIDERS: Admitting Provider Internal Medicine; Emergency Provider Family Medicine; Family Provider Internal Medicine; Visit Provider Internal Medicine
DX: J96.22 Acute and chronic respiratory failure with hypercapnia (principal); I50.32 Chronic diastolic (congestive) heart failure; J44.1 Chronic obstructive pulmonary disease with (acute) exacerbation; Z68.41 Body mass index [BMI] 40.0-44.9, adult; I13.0 Hypertensive heart and chronic kidney disease with heart failure and stage 1 through stage 4 chronic kidney disease, or unspecified chronic kidney disease; Z91.19 Patient's noncompliance with other medical treatment and regimen; Z79.01 Long term (current) use of anticoagulants; G47.30 Sleep apnea, unspecified; I27.20 Pulmonary hypertension, unspecified; F17.210 Nicotine dependence, cigarettes, uncomplicated; E66.01 Morbid (severe) obesity due to excess calories; Z86.711 Personal history of pulmonary embolism; N18.2 Chronic kidney disease, stage 2 (mild); F01.50 Vascular dementia, unspecified severity, without behavioral disturbance, psychotic disturbance, mood disturbance, and anxiety; Z99.81 Dependence on supplemental oxygen; D50.9 Iron deficiency anemia, unspecified
CPT/HCPCS: 12345; 36415; 36600; 51702; 71045; 71250; 80048; 80051; 80053; 81001; 82728; 82803; 82810; 83605; 83615; 83880; 83986; 84484; 85025; 85378; 85610; 86140; 87040; 87635; 87804; 93005; 94640; 94660; 96374; 96375; 97110; 97116; 97161; 97165; 97530; 99283; 99284; A7003; C9113; J0696; J1940; J1956; J2930; J7030; J7626

== ENCOUNTER 2019-09-04 14:37 | Inpatient (IN) | payer MEDICARE, SELFPAY ==
[2019-09-04] VITALS (25 sets, daily range): BP systolic 85–156; BP diastolic 54–103; PULSE 70–119; RESP 16–22; TEMP 36.9–37.4; O2SAT 87–100; BMI 41.1
--- NOTE | 2019-09-04 14:41 | XR_ITS ---
WS: [id number] CHEST XRAY TECHNIQUE: Portable chest. CLINICAL INFORMATION: sob COMPARISON: August 23, 2019 FINDINGS: Heart: Cardiomegaly. Moderate esophageal hiatal hernia. Lungs: Chronic emphysematous changes. No acute pulmonary infiltrates. Chronic appearing interstitial thickening in both lungs with mild pulmonary vascular congestion. Bones: Mild thoracic curve. XR/XR chest 1V portable [id number] IMPRESSION: 1. Cardiomegaly with mild pulmonary vascular congestion. 2. No pleural fluid or focal pneumonia. 3. Moderate chronic emphysematous changes. 4. Esophageal hiatal hernia.
--- NOTE | 2019-09-04 14:43 | ECG_ITS ---
Measurements Intervals [place] Rate: 106 P: 51 HI: 127 QRS: 117 QRSD: 129 T: 0 QT: 320 QTc: 426 SINUS TACHYCARDIA RIGHT AXIS DEVIATION [QRS AXIS > 100] RIGHT BUNDLE BRANCH BLOCK [120+ ms QRS DURATION, UPRIGHT V1, 40+ ms S IN I/ I/aVL/V4/V5/V6] Compared to ECG 08/23/2019 18:28:22 Right-axis deviation now present Sinus rhythm no longer present Indeterminate axis no longer present Electronically Signed On 09-05-2019 18:07:00 CDT by Alan Elena M.D. [email or web address]
--- NOTE | 2019-09-04 14:50 | W.ED.SOB ---
HPI - SOB/Dyspnea General: Chief Complaint: Shortness of Breath/Dyspnea Stated Complaint: LOW O2 SATS Time Seen by Provider: 09/04/19 14:40 Source: patient and EMS Mode of arrival: EMS Limitations: altered mental status History of Present Illness: HPI Narrative: Patient is a 64-year-old female with a long history of COPD. Per EMS patient's family states that her saturation was in the 60s on her home oxygen. When EMS arrived she was satting in the 60s and was cyanotic. Patient given breathing treatment in route and does have improving oxygenation. Per EMS she was quite confused with a ride. She is now awake and answering some questions but is only able to tell me her name and is disoriented to place and time. She has had no cough or fever. MD elicited complaint: shortness of breath Pertinent past history: COPD Review of Systems General: Reports: ROS unobtainable due to mental status Resp: Reports: shortness of breath Neuro: Reports: confusion PFS ED PFSH: Social History Smoking and tobacco status: current every day smoker cigarettes Packs smoked per day: 1 Alcohol intake: never Household members: family Physical Exam Const: COMMON NORMALS: no apparent distress EXAM LIMITATIONS: altered mental status GENERAL APPEARANCE: in distress HENMT: COMMON NORMALS: normocephalic and head/scalp atraumatic HEAD & SCALP: normocephalic and atraumatic Eye: COMMON NORMALS: PERRL and EOMs intact bilaterally PUPIL: Yes PERRL Neck/C-Spine: COMMON NORMALS: full ROM and supple Chest: COMMONS NORMALS: inspection of chest normal and palpation of chest normal Resp: EFFORT & INSPECTION: Yes tachypneic, Yes respiratory distress and Yes uses accessory muscles AUSCULTATION: wheezes Cardio: COMMON NORMALS: regular rate, regular rhythm and no murmurs RATE: regular rate RHYTHM: regular rhythm GI: COMMON NORMALS: normal to inspection, nondistended, normoactive bowel sounds, soft to palpation, non-tender and no masses PALPATION: Yes soft Extremity: COMMON NORMALS: normal to inspection and full ROM Neuro: COMMON NORMALS: moves all extremities and no focal motor deficits Psych: COMMON NORMALS: mental status grossly normal, thought process normal and cooperative THOUGHT PROCESS: normal thought process Skin: COMMON NORMALS: no rashes or lesions noted and no wounds GENERAL SKIN EXAM: no rashes or lesions noted Procedures Intubation sedative: Etomidate Mg Given: 20 paralytic: Succinylcholine Mg Given: 150 Laryngoscope: Rodolfo ET Tube Size: 7.5 ET Tube Uncuffed: Yes Tube Secured Depth (cm): 26 Tube Secured Location: teeth Tube Placement Confirmation: visualized tube passing through cords, equal breath sounds bilaterally, no breath sounds over epigastrium and confirmation by capnometry Patient Tolerated Procedure: well Intubation Complications: none Course Vital Signs: Vital signs: Vital Signs Temperature 99.4 F 09/04/19 14:46 Pulse Rate 74 09/04/19 18:13 Respiratory Rate 20 H 09/04/19 18:13 Blood Pressure 156/103 09/04/19 18:13 Pulse Oximetry 100 09/04/19 18:13 MDM - SOB/Dyspnea MDM Narrative: Medical decision making narrative: Patient presents here with COPD exacerbation along with respiratory failure with hypercapnia. Patient had no improvement here on BiPAP and was subsequently and abated. Patient had mile hyperkalemia and was given succinylcholine before labs are back and treated her with insulin along with calcium. Patient EKG showed no changes of hyperkalemia. I spoke to hospitalist who is seen the patient will admit to the ICU. Lab Data: Labs: Lab Results 09/04/19 09/04/19 09/04/19 Range/Units 15:04 15:47 17:02 WBC 9.0 (4.0-10.0) 10^3/ uL RBC 4.25 (4.1-5.3) 10^6/u L Hgb 8.9 L (11.5-15.3) g/dL Hct 34.5 L (37.0-47.0) % MCV 81.2 (81-99) fL MCH 20.9 L (28.0-34.0) pg MCHC 25.8 L (30.0-36.0) g/dL RDW 17.6 H (12.1-15.1) % Plt Count 353 (130-400) 10^3/c mm MPV 9.5 (7.4-10.4) fL Neut % (Auto) 90.5 % Lymph % (Auto) 4.4 % [place] % (Auto) 2.8 % Eos % (Auto) 0.7 % Baso % (Auto) 0.3 % Neut # (Auto) 8.1 H (1.8-7.7) 10^3/u L Lymph # (Auto) 0.4 L (0.8-4.8) 10^3/u L [place] # (Auto) 0.3 (0.2-0.9) 10^3/u L Eos # (Auto) 0.1 (0.0-0.8) 10^3/u L Baso # (Auto) 0.0 (0.0-0.1) 10^3/u L Nucleated RBC % (a uto) 0.3 % Nucleated RBCs # 0.0 /100WBC Specimen Type Arterial Arterial Sample Site Radial, left Radial, left ABG pH 7.18 L* 7.20 L (7.35-7.45) ABG pCO2 95.1 H* 88.5 H* (35-45) mmHg ABG pO2 120.0 H 63.0 L (80.0-100.0) mmH g ABG HCO3 35.3 H 34.7 H (22-26) mmol/L ABG Base Excess 5.1 H 5.1 H (-2.0-2.0) mmol/ L Santiago Test Pos Pos Hematocrit 28.7 L 27.6 L (37-47) % Hgb O2 Saturation 93.6 L (95-100) % Carboxyhemoglobin 4.1 (0.4-20.1) %THgb Methemoglobin 1.0 (0.4-1.5) % Total Hemoglobin 9.4 L (12-16) g/dL Respiration Rate 12.0 16.0 % O2 Delivery Device Bipap Bipap FiO2 60.0 40.0 % Tidal Volume 0.5 0.5 CPAP 10.0 10.0 cmH20 Swimming Pool Service Technician ID ed ed Sodium (136-145) mmol/L Potassium (3.5-5.1) mmol/L Chloride (98-107) mmol/L Carbon Dioxide (22-29) mmol/L Anion Gap (5-19) BUN (8-23) mg/dL Creatinine (0.5-0.9) mg/dL GFR Calculation (90-130) mL/min Glucose (65-115) mg/dL Calculated Osmolal ity (285-295) mOsm/k g Calcium (8.5-10.5) mg/dL Total Bilirubin (0.15-1.2) mg/dL AST (0-32) U/L ALT (0-33) U/L Alkaline Phosphata se (35-105) IU/L Total Protein (6.6-8.7) g/dL Albumin (3.5-5.2) g/dL Globulin (1.3-4.6) g/dL 09/04/19 09/04/19 Range/Units 17:02 17:15 WBC (4.0-10.0) 10^3/ uL RBC (4.1-5.3) 10^6/u L Hgb (11.5-15.3) g/dL Hct (37.0-47.0) % MCV (81-99) fL MCH (28.0-34.0) pg MCHC (30.0-36.0) g/dL RDW (12.1-15.1) % Plt Count (130-400) 10^3/c mm MPV (7.4-10.4) fL Neut % (Auto) % Lymph % (Auto) % [place] % (Auto) % Eos % (Auto) % Baso % (Auto) % Neut # (Auto) (1.8-7.7) 10^3/u L Lymph # (Auto) (0.8-4.8) 10^3/u L [place] # (Auto) (0.2-0.9) 10^3/u L Eos # (Auto) (0.0-0.8) 10^3/u L Baso # (Auto) (0.0-0.1) 10^3/u L Nucleated RBC % (a uto) % Nucleated RBCs # /100WBC Specimen Type Arterial Sample Site Radial, right ABG pH 7.19 L (7.35-7.45) ABG pCO2 91.3 H* (35-45) mmHg ABG pO2 79.2 L (80.0-100.0) mmH g ABG HCO3 35.2 H (22-26) mmol/L ABG Base Excess 5.3 H (-2.0-2.0) mmol/ L Santiago Test Pos Hematocrit 28.4 L (37-47) % Hgb O2 Saturation (95-100) % Carboxyhemoglobin (0.4-20.1) %THgb Methemoglobin (0.4-1.5) % Total Hemoglobin (12-16) g/dL Respiration Rate 16.0 % O2 Delivery Device Bipap FiO2 50.0 % Tidal Volume 0.5 CPAP 10.0 cmH20 Swimming Pool Service Technician ID ed Sodium 134 L (136-145) mmol/L Potassium 5.8 H (3.5-5.1) mmol/L Chloride 93 L (98-107) mmol/L Carbon Dioxide 37 H (22-29) mmol/L Anion Gap 9.8 (5-19) BUN 15 (8-23) mg/dL Creatinine 0.8 (0.5-0.9) mg/dL GFR Calculation 71.8 L (90-130) mL/min Glucose 136 H (65-115) mg/dL Calculated Osmolal ity 276 L (285-295) mOsm/k g Calcium 9.0 (8.5-10.5) mg/dL Total Bilirubin 0.3 (0.15-1.2) mg/dL AST 16 (0-32) U/L ALT 11 (0-33) U/L Alkaline Phosphata se 89 (35-105) IU/L Total Protein 7.1 (6.6-8.7) g/dL Albumin 3.6 (3.5-5.2) g/dL Globulin 3.5 (1.3-4.6) g/dL Imaging Data^: CXR: Attestation: I personally reviewed and interpreted this imaging study as follows: My impression: no acute change from previous EKG Data^: EKG 1: Attestation: I personally reviewed and interpreted this EKG as follows: EKG Interpretation Date: 09/04/19 EKG interpretation time: 15:14 Interpretation: sinus tach hr [address] or t wave abnormalities qrs 129 qtc 382 EKG 2: Attestation: I personally reviewed and interpreted this EKG as follows: EKG Interpretation Date: 09/04/19 EKG interpretation time: 16:14 Interpretation: sinus tach hr [address] or t wave abnormalities qrs 129 qtc 382 EKG 3: EKG Interpretation Date: 09/04/19 EKG interpretation time: 17:50 Interpretation: nsr hr [address] or t wave abnormalities rbbb qrs 138 qtc 395 unchanged from previous Critical Care Time Critical Care Time: Critical Care Time: Yes Total Critical Care Time: 35 Attestation: This case had a high probability of a clinically significant, sudden, or life threatening deterioration of this patient's condition which required my full and direct attention, intervention and personal management. Discharge Plan Discharge Prescriptions: No Action ondansetron See Rx Instructions .ROUTE .COMPLEX RF: 0 pantoprazole 40 mg Tablet,Delayed Release (Dr/Ec) 40 mg PO Q12H Qty: 60 RF: 0 furosemide 40 mg Tablet 40 mg PO DAILY Qty: 30 RF: 0 acetaminophen 325 mg Tablet 650 mg PO Q6H PRN (Reason: Mild/Mod Pain Or Temp >/= 101) Qty: 30 RF: 0 spironolactone 25 mg Tablet 12.5 mg PO DAILY Qty: 30 RF: 0 alprazolam 0.25 mg Tablet 0.25 mg PO TID PRN (Reason: Anxiety) Qty: 10 RF: 0 albuterol sulfate 2.5 mg /3 mL (0.083 %) Solution For Nebulization 2.5 mg INHALATION Q4H PRN (Reason: Shortness Of Breath) RF: 0 Eliquis 5 mg Tablet 5 mg PO BID RF: 0 budesonide 0.5 mg/2 mL Suspension For Nebulization 0.5 mg inhalation BID.RESPIRATORY Qty: 30 RF: 0 Spiriva Respimat 2.5 mcg/actuation mist 2 inh INHALATION DAILY Qty: 4 RF: 0 Symbicort 160-4.5 mcg/actuation Hfa Aerosol Inhaler 2 puff INHALATION BID RF: 0 Coding Level of Care Code ED Staff Electrical Engineer for Chg Fwd Exam Comprehensive
[2019-09-04] MEDS: ipratropium-albuterol 3 mL Neb INHALATION ×2 (15:01→21:07)
[2019-09-04 15:15] LABS: ABG PCO2 95.1 mmHg (35-45); ABG PH Result 7.18 (7.35-7.45); Arterial Blood Gas Hematocrit 28.7 % (37-47); Base Excess ABG 5.1 mmol/L (-2.0-2.0); Blood Gas Allen Test Pos; Blood Gas Sample Site Radial, left; Blood Gas Sample Type Arterial; Blood Gas Tidal Volume 0.5; Carboxyhemoglobin 4.1 %THgb (0.4-20.1); HCO3 ABG 35.3 mmol/L (22-26); HGB O2 Sat 93.6 % (95-100); Oxygen Device BIPAP; Total Hemoglobin 9.4 g/dL (12-16)
[2019-09-04 15:58] LABS: Arterial Blood Gas Hematocrit 27.6 % (37-47); Base Excess ABG 5.1 mmol/L (-2.0-2.0); Blood Gas Allen Test Pos; Blood Gas Sample Site Radial, left; Blood Gas Sample Type Arterial; Blood Gas Tidal Volume 0.5; HCO3 ABG 34.7 mmol/L (22-26); Oxygen Device BIPAP
[2019-09-04 15:59] LABS: ABG PCO2 88.5 mmHg (35-45)
[2019-09-04 17:20] LABS: Basophils % 0.3 %; Eosinophils # 0.1 10^3/uL (0.0-0.8); Eosinophils % 0.7 %; Hematocrit 34.5 % (37.0-47.0); Hemoglobin 8.9 g/dL (11.5-15.3); Lymphocytes # 0.4 10^3/uL (0.8-4.8); Lymphocytes % 4.4 %; Mean Corpuscular HGB Conc 25.8 g/dL (30.0-36.0); Mean Corpuscular Hemoglobin 20.9 pg (28.0-34.0); Mean Corpuscular Volume 81.2 fL (81-99); Mean Platelet Volume 9.5 fL (7.4-10.4); Monocytes # 0.3 10^3/uL (0.2-0.9); Monocytes % 2.8 %; Neutrophils # 8.1 10^3/uL (1.8-7.7); Neutrophils % 90.5 %; Nucleated Red Blood Cells % 0.3 %; Platelet Count 353 10^3/cmm (130-400); Red Blood Count 4.25 10^6/uL (4.1-5.3); Red Cell Distribution Width 17.6 % (12.1-15.1)
[2019-09-04 17:26] LABS: ABG PCO2 91.3 mmHg (35-45); ABG PH Result 7.19 (7.35-7.45); Arterial Blood Gas Hematocrit 28.4 % (37-47); Base Excess ABG 5.3 mmol/L (-2.0-2.0); Blood Gas Allen Test Pos; Blood Gas Sample Site Radial, right; Blood Gas Sample Type Arterial; Blood Gas Tidal Volume 0.5; HCO3 ABG 35.2 mmol/L (22-26); Oxygen Device BIPAP; PO2 ABG 79.2 mmHg (80.0-100.0)
--- NOTE | 2019-09-04 17:40 | ECG_ITS ---
Measurements Intervals [place] Rate: 78 P: 72 KS: 148 QRS: 76 QRSD: 92 T: 44 QT: 372 QTc: 425 SINUS RHYTHM WARNING: DATA QUALITY MAY AFFECT INTERPRETATION Compared to ECG 08/23/2019 18:28:22 Indeterminate axis no longer present Right bundle-branch block no longer present Electronically Signed On 09-05-2019 18:08:54 CDT by Alan Elena M.D. [id number]
[2019-09-04 17:46] LABS: Alanine Aminotransferase 11 U/L (0-33); Albumin Level 3.6 g/dL (3.5-5.2); Alkaline Phosphatase 89 IU/L (35-105); Anion Gap 9.8 (5-19); Aspartate Amino Transferase 16 U/L (0-32); Blood Urea Nitrogen 15 mg/dL (8-23); Carbon Dioxide 37 mmol/L (22-29); Chloride 93 mmol/L (98-107); Creatinine Clr Calc Pharmacy 83.3914; Globulin 3.5 g/dL (1.3-4.6); Glomerular Filtration Rate 71.8 mL/min (90-130); Glucose 136 mg/dL (65-115); Osmolality Calculated 276 mOsm/kg (285-295); Potassium 5.8 mmol/L (3.5-5.1); Sodium 134 mmol/L (136-145); Total Bilirubin 0.3 mg/dL (0.15-1.2); Total Protein 7.1 g/dL (6.6-8.7)
[2019-09-04] MEDS: calcium gluconate 0.1 gm/mL 10% SDV 10mL 1 GM IVP (18:01)
[2019-09-04] MEDS: dextrose 50% syringe 50 mL IVP (18:01)
[2019-09-04] MEDS: insulin regular-human 100 units/1 mL 10 UNIT IVP (18:01)
[2019-09-04] MEDS: propofol 10 mg/mL SDV 20 mL 60 MG IVP (18:03)
[2019-09-04] MEDS: propofol 1,000 MG/100 ML INJ 6.5 MG IV ×2 (18:20→22:17)
[2019-09-04 18:23] LABS: NT Pro B Type Natriuretic Pept 1968 pg/mL (0-125)
--- NOTE | 2019-09-04 18:34 | ECG_ITS ---
Measurements Intervals [place] Rate: 73 P: -14 LA: 136 QRS: 95 QRSD: 127 T: 43 QT: 384 QTc: 425 SINUS RHYTHM RIGHT BUNDLE BRANCH BLOCK [120+ ms QRS DURATION, UPRIGHT V1, 40+ ms S IN I/aVL I/aVL/V4/V5/V6] ST ELEVATION, CONSIDER ANTERIOR INJURY [MARKED ST ELEVATION W/O NORMALLY INFL INFLECTED T WAVE IN V2-V5] ACUTE VT INTERPRETATION BASED ON A DEFAULT AGE OF 40 YEARS Compared to ECG 08/23/2019 18:28:22 ST (T wave) deviation now present Myocardial infarct finding now present Indeterminate axis no longer present Electronically Signed On 09-05-2019 18:14:56 CDT by Alan Elena M.D. [email or web address]
--- NOTE | 2019-09-04 18:44 | PM.HP ---
Providers/Chief Complaint Admitting Physician: Juanjose Barton Chief Complaint: LOW O2 SATS History of Present Illness Roseann Durham is a 64 year old female with past medical history of chronic respiratory failure, on chronic home oxygen, COPD, pulmonary arterial hypertension, remote history of PE, on Eliquis, anxiety, prior reports of noncompliance, prior reports of possible benzo overdose, prior and probably current tobacco abuse who was brought by the family to emergency room due to labored breathing and low oxygenation. The patient was found to have oxygen saturation of 60. ABGs revealed severe hypercapnic acute respiratory failure with partial compensation and respiratory acidosis. The patient initially was started on BiPAP. However it did not help to improve her shortness of breath or ABGs. Consequently the patient was intubated by ER physician. Currently she is being sedated with propofol. Mechanical ventilation is initiated. No follow-up ABGs yet. The patient has history of multiple prior admissions due to similar presentations. Review of systems unable to obtain due to sedation. Review of Systems General: Reports: 10 or more systems reviewed and unremarkable except in HPI and below Medications/Allergies Home Medications Medication Instructions Recorded Confirmed Last Taken Type budesonide-formoterol [Symbicort] 2 puff INHALATION BID 09/04/19 09/04/19 Unknown History Allergies Allergy/AdvReac Type Severity Reaction Status Date / Time No Known Allergies Allergy Verified 08/23/19 17:48 PFSH Acute PFSH: Social History Smoking and tobacco status: current every day smoker cigarettes Packs smoked per day: 1 Alcohol intake: never Household members: family Vitals/I&O/Wt Last Vital Signs Temp 99.4 F 09/04/19 14:46 Pulse 74 09/04/19 18:13 Resp 20 H 09/04/19 18:13 BP 156/103 09/04/19 18:13 Pulse Ox 100 09/04/19 18:13 Weight last 48 hrs Weight 108.862 kg Physical Exam Narrative: EXAM NARRATIVE: Patient is sedated. Currently no acute distress. Pupils are pinpoint and reactive, symmetric. No icterus. Neck is supple. No JVD Lungs coarse breath sounds bilaterally. No crackles. Heart S1, S2, regular tachycardia Abdomen is obese, soft, nontender, bowel sounds are weak. She has colostomy bag on the right. Extremities 1+ to 2+ bilateral symmetric pedal edema. Initially the patient was cyanotic currently it has resolved. Normal capillary refill. Urinary Catheter Management^: Ortega: Cath Placed During This Visit: yes Urinary Catheter Date of Insertion: 09/04/19 Urinary Catheter Time of Insertion: 18:12 Data : 09/04/19 17:02 09/04/19 17:02 Other Labs: EKG. Sinus tachycardia. Right bundle branch block, right axis deviation. No obvious acute ischemic changes. Laboratory Results WBC 9.0 10^3/uL (4.0-10.0) 09/04/19 17:02 RBC 4.25 10^6/uL (4.1-5.3) 09/04/19 17:02 Hgb 8.9 g/dL (11.5-15.3) L 09/04/19 17:02 Hct 34.5 % (37.0-47.0) L 09/04/19 17:02 MCV 81.2 fL (81-99) 09/04/19 17:02 MCH 20.9 pg (28.0-34.0) L 09/04/19 17:02 MCHC 25.8 g/dL (30.0-36.0) L 09/04/19 17:02 RDW 17.6 % (12.1-15.1) H 09/04/19 17:02 Plt Count 353 10^3/cmm (130-400) 09/04/19 17:02 MPV 9.5 fL (7.4-10.4) 09/04/19 17:02 Neut % (Auto) 90.5 % 09/04/19 17:02 Lymph % (Auto) 4.4 % 09/04/19 17:02 [place] % (Auto) 2.8 % 09/04/19 17:02 Eos % (Auto) 0.7 % 09/04/19 17:02 Baso % (Auto) 0.3 % 09/04/19 17:02 Neut # (Auto) 8.1 10^3/uL (1.8-7.7) H 09/04/19 17:02 Lymph # (Auto) 0.4 10^3/uL (0.8-4.8) L 09/04/19 17:02 [place] # (Auto) 0.3 10^3/uL (0.2-0.9) 09/04/19 17:02 Eos # (Auto) 0.1 10^3/uL (0.0-0.8) 09/04/19 17:02 Baso # (Auto) 0.0 10^3/uL (0.0-0.1) 09/04/19 17:02 Nucleated RBC % (auto) 0.3 % 09/04/19 17:02 Nucleated RBCs # 0.0 /100WBC 09/04/19 17:02 Specimen Type Arterial 09/04/19 17:15 Sample Site Radial, right 09/04/19 17:15 ABG pH 7.19 (7.35-7.45) L 09/04/19 17:15 ABG pCO2 91.3 mmHg (35-45) H* 09/04/19 17:15 ABG pO2 79.2 mmHg (80.0-100.0) L 09/04/19 17:15 ABG HCO3 35.2 mmol/L (22-26) H 09/04/19 17:15 ABG Base Excess 5.3 mmol/L (-2.0-2.0) H 09/04/19 17:15 Santiago Test Pos 09/04/19 17:15 Hematocrit 28.4 % (37-47) L 09/04/19 17:15 Hgb O2 Saturation 93.6 % (95-100) L 09/04/19 15:04 Carboxyhemoglobin 4.1 %THgb (0.4-20.1) 09/04/19 15:04 Methemoglobin 1.0 % (0.4-1.5) 09/04/19 15:04 Total Hemoglobin 9.4 g/dL (12-16) L 09/04/19 15:04 Respiration Rate 16.0 % 09/04/19 17:15 O2 Delivery Device Bipap 09/04/19 17:15 FiO2 50.0 % 09/04/19 17:15 Tidal Volume 0.5 09/04/19 17:15 CPAP 10.0 cmH20 09/04/19 17:15 Rotary Shear Operator ID ed 09/04/19 17:15 Sodium 134 mmol/L (136-145) L 09/04/19 17:02 Potassium 5.8 mmol/L (3.5-5.1) H 09/04/19 17:02 Chloride 93 mmol/L (98-107) L 09/04/19 17:02 Carbon Dioxide 37 mmol/L (22-29) H 09/04/19 17:02 Anion Gap 9.8 (5-19) 09/04/19 17:02 BUN 15 mg/dL (8-23) 09/04/19 17:02 Creatinine 0.8 mg/dL (0.5-0.9) 09/04/19 17:02 GFR Calculation 71.8 mL/min (90-130) L 09/04/19 17:02 Glucose 136 mg/dL (65-115) H 09/04/19 17:02 Calculated Osmolality 276 mOsm/kg (285-295) L 09/04/19 17:02 Calcium 9.0 mg/dL (8.5-10.5) 09/04/19 17:02 Total Bilirubin 0.3 mg/dL (0.15-1.2) 09/04/19 17:02 AST 16 U/L (0-32) 09/04/19 17:02 ALT 11 U/L (0-33) 09/04/19 17:02 Alkaline Phosphatase 89 IU/L (35-105) 09/04/19 17:02 NT-Pro-B Natriuret Pep 1968 pg/mL (0-125) H 09/04/19 17:02 Total Protein 7.1 g/dL (6.6-8.7) 09/04/19 17:02 Albumin 3.6 g/dL (3.5-5.2) 09/04/19 17:02 Globulin 3.5 g/dL (1.3-4.6) 09/04/19 17:02 Impressions Chest X-Ray 09/04/19 14:41 IMPRESSION: 1. Cardiomegaly with mild pulmonary vascular congestion. 2. No pleural fluid or focal pneumonia. 3. Moderate chronic emphysematous changes. 4. Esophageal hiatal hernia. A&P Additional A&P Information 64-year-old female with past medical history of advanced COPD, on chronic home oxygen, pulmonary arterial hypertension, diastolic congestive heart failure, remote history of PE, on Eliquis, anxiety, CKD, previously reported noncompliance, and similar admissions in the past who presented with acute respiratory failure. Acute hypercapnic respiratory failure with respiratory acidosis. The patient is intubated and started on mechanical ventilation. Currently sedated with propofol. She will go to ICU. We will repeat her chest x-ray and ABGs and adjust vent settings. We will continue sedation. I will also order morphine and lorazepam as needed. Most likely her decompensation is related to COPD acute exacerbation, possible exacerbation of her diastolic dysfunction, pulmonary arterial hypertension, noncompliance, and tobacco abuse. We will start her on Solu-Medrol, duo nebs, Levaquin, furosemide. Will consider pulmonary consultation in the morning. Hyperkalemia. This is probably secondary to Spironolactone. Shifting maneuvers are ordered in the emergency room. Follow-up K is ordered. Please follow-up on the results. She is also receiving furosemide. If there is no improvement we will consider Kayexalate as well. History of PE. The patient did not have any significant hypoxia. Additionally the patient is on Eliquis. Her presentation is consistent with other causes of respiratory failure. At this point, I think we do not need to pursue any additional testing. We will continue her home Eliquis via NG tube. Tobacco abuse. Counseling will be provided after extubation when she is stable. Critical care time spent on this encounter is 60 minutes Attestations Medical Necessity Statement*: The patient is admitted to ICU with acute respiratory failure. I expect that she will spend more than 2 midnights in the hospital. Coding Level of Care Code Acute Project Controller for Denis Lozoya
[2019-09-04 19:50] LABS: Anion Gap 14.9 (5-19); Blood Urea Nitrogen 15 mg/dL (8-23); Calcium 9.1 mg/dL (8.5-10.5); Carbon Dioxide 32 mmol/L (22-29); Chloride 92 mmol/L (98-107); Glomerular Filtration Rate 62.6 mL/min (90-130); Glucose 293 mg/dL (65-115); Osmolality Calculated 283 mOsm/kg (285-295); Potassium 5.9 mmol/L (3.5-5.1); Sodium 133 mmol/L (136-145)
[2019-09-04] MEDS: FUROsemide 10 mg/mL SDV 4mL 40 MG IVP (20:46)
[2019-09-04] MEDS: levofloxacin-dextrose 5 % 750 MG/150 ML PREMIX 100 MG IV (20:47)
[2019-09-04] MEDS: pantoprazole 40 mg SDV IVP (20:47)
--- NOTE | 2019-09-04 22:32 | ECG_ITS ---
Measurements Intervals [place] Rate: 96 P: 65 IA: 136 QRS: 109 QRSD: 138 T: 20 QT: 341 QTc: 433 SINUS RHYTHM RIGHT AXIS DEVIATION [QRS AXIS > 100] RIGHT BUNDLE BRANCH BLOCK [120+ ms QRS DURATION, UPRIGHT V1, 40+ ms S IN I/a I/aVL/V4/V5/V6] INTERPRETATION BASED ON A DEFAULT AGE OF 40 YEARS Compared to ECG 08/23/2019 18:28:22 Right-axis deviation now present Indeterminate axis no longer present Electronically Signed On 09-05-2019 18:07:49 CDT by Alan Elena M.D. [id number] finn
[2019-09-04 22:35] LABS: Anion Gap 14.5 (5-19); Blood Urea Nitrogen 17 mg/dL (8-23); Calcium 9.6 mg/dL (8.5-10.5); Carbon Dioxide 33 mmol/L (22-29); Chloride 91 mmol/L (98-107); Creatinine Clr Calc Pharmacy 83.3914; Glomerular Filtration Rate 71.8 mL/min (90-130); Glucose 164 mg/dL (65-115); Osmolality Calculated 278 mOsm/kg (285-295); Potassium 4.5 mmol/L (3.5-5.1); Sodium 134 mmol/L (136-145)
[2019-09-04 22:48] LABS: Troponin(5th) Baseline 20 ng/mL (0-10)
--- NOTE | 2019-09-04 22:54 | PM.EVENT ---
Event Note Event Note: Nursing noted ST segment changes on telemetry and got EKG. On EKG at 2109, computer interpretation of acute [facility] . ST elevation noted in V2-V4. Pt intubated and unable to answer questions. Had not had cardiac enzymes done previously. Potassium had been elevated earlier this evening. Suspician is that changes are related to electrolytes. Sent a copy to cardiology to review. They do not feel significant ST elevation present. Potassium, troponin and a repeat EKG ordered. Repeat EKG continued to show some T wave elevation but no ST segment elevation. Potassium 4.5. Trop baseline 20.
[2019-09-05] VITALS (38 sets, daily range): BP systolic 92–131; BP diastolic 52–82; PULSE 74–106; RESP 16–20; TEMP 36.8–37; O2SAT 93–100; BMI 41.1
--- NOTE | 2019-09-05 00:32 | ECG_ITS ---
Measurements Intervals [place] Rate: 77 P: -16 NC: 138 QRS: 79 QRSD: 95 T: 51 QT: 385 QTc: 437 SINUS RHYTHM WARNING: DATA QUALITY MAY AFFECT INTERPRETATION Compared to ECG 08/23/2019 18:28:22 Indeterminate axis no longer present Right bundle-branch block no longer present Electronically Signed On 09-05-2019 18:15:05 CDT by Alan Elena M.D. [id number]
[2019-09-05 00:48] LABS: Troponin 5 2HR 17.45 ng/mL (0-10)
[2019-09-05 00:52] LABS: Troponin 5 2HR Delta -2.55 ABS# (0-10)
[2019-09-05] MEDS: propofol 1,000 MG/100 ML INJ 9.8 MG IV (02:57)
[2019-09-05] MEDS: ipratropium-albuterol 3 mL Neb INHALATION ×6 (04:22→23:08)
--- NOTE | 2019-09-05 04:32 | ECG_ITS ---
Measurements Intervals [place] Rate: 79 P: -10 WI: 142 QRS: 87 QRSD: 130 T: 46 QT: 403 QTc: 462 SINUS RHYTHM RIGHT BUNDLE BRANCH BLOCK [120+ ms QRS DURATION, UPRIGHT V1, 40+ ms S IN I/aVL/V4/V5/V6] Compared to ECG 08/23/2019 18:28:22 Indeterminate axis no longer present Electronically Signed On 09-05-2019 18:15:22 CDT by Alan Elena M.D. [id number]
[2019-09-05 05:16] LABS: Basophils % 0.1 %; Eosinophils % 0.1 %; Hematocrit 31.5 % (37.0-47.0); Hemoglobin 8.5 g/dL (11.5-15.3); Lymphocytes # 0.5 10^3/uL (0.8-4.8); Lymphocytes % 5.9 %; Mean Corpuscular Hemoglobin 20.8 pg (28.0-34.0); Mean Corpuscular Volume 77.2 fL (81-99); Mean Platelet Volume 9.4 fL (7.4-10.4); Monocytes # 0.1 10^3/uL (0.2-0.9); Monocytes % 1.8 %; Neutrophils # 7.3 10^3/uL (1.8-7.7); Neutrophils % 91.6 %; Nucleated Red Blood Cells % 0.4 %; Platelet Count 347 10^3/cmm (130-400); Red Blood Count 4.08 10^6/uL (4.1-5.3); Red Cell Distribution Width 17.1 % (12.1-15.1)
[2019-09-05 05:44] LABS: Anion Gap 16.8 (5-19); Blood Urea Nitrogen 16 mg/dL (8-23); Calcium 9.4 mg/dL (8.5-10.5); Carbon Dioxide 33 mmol/L (22-29); Chloride 91 mmol/L (98-107); Creatinine Clr Calc Pharmacy 83.3914; Glomerular Filtration Rate 83.7 mL/min (90-130); Glucose 134 mg/dL (65-115); Magnesium 1.6 mg/dL (1.7-2.3); Osmolality Calculated 280 mOsm/kg (285-295); Potassium 4.8 mmol/L (3.5-5.1); Sodium 136 mmol/L (136-145); Troponin 5 6HR 16.09 ng/mL (0-10)
[2019-09-05 05:45] LABS: Troponin 5 6HR Delta -3.91 ng/L (0-12)
[2019-09-05 06:01] LABS: ABG PCO2 53.5 mmHg (35-45); ABG PH Result 7.46 (7.35-7.45); Base Excess ABG 12.5 mmol/L (-2.0-2.0); Blood Gas Sample Site Brachial, right; Blood Gas Sample Type Arterial; Blood Gas Tidal Volume 0.45; HCO3 ABG 37.9 mmol/L (22-26); Oxygen Device VENT; PO2 ABG 58.8 mmHg (80.0-100.0)
[2019-09-05] MEDS: pantoprazole 40 mg SDV IVP ×2 (07:51→19:41)
[2019-09-05] MEDS: propofol 1,000 MG/100 ML INJ 13.1 MG IV (07:52)
[2019-09-05] MEDS: aspirin 81 mg EC Tablet PO (10:20)
[2019-09-05] MEDS: apixaban 5 mg Tablet PO ×2 (10:20→17:56)
[2019-09-05] MEDS: FUROsemide 10 mg/mL SDV 4mL 40 MG IVP (10:20)
[2019-09-05] MEDS: propofol 1,000 MG/100 ML INJ 19.6 MG IV ×4 (10:59→19:44)
--- NOTE | 2019-09-05 12:17 | P.PN_ITS ---
Subjective Subjective: Interval history: Sedated and vented. Responds to commands. Opens her eyes on request. No acute distress. Overnight events are noted. EKGs are reviewed. No nausea or vomiting. No evidence of pain. Medications: Reviewed: Yes Medication Review Details: Generic Name Dose Route Start Last Admin Trade Name Homero PRN Reason Stop Dose Admin Albuterol/Ipratrop ium 3 ml 09/04/19 20:00 09/05/19 08:20 Duoneb INHALATION 3 ml Q4H.RESPIRATORY P RN Administration SHORTNESS OF MEKA TH Apixaban 5 mg 09/05/19 09:00 09/05/19 10:20 Eliquis PO 5 mg BID EB Administration Aspirin 81 mg 09/05/19 09:05 09/05/19 10:20 Aspirin Ec PO 81 mg DAILY BE Administration Furosemide 40 mg 09/04/19 19:00 09/05/19 10:20 Lasix IVP 40 mg DAILY EB Administration Propofol 1,000 mg in 100 m ls @ 0 mls/hr 09/04/19 17:45 09/05/19 10:59 Diprivan IV 30 mcg/kg/min .Q0M EB 19.6 mls/hr Administration Protocol Per Protocol Levofloxacin/Dextr ose 750 mg in 150 mls @ 100 mls/hr 09/04/19 18:30 09/04/19 22:18 Levaquin-D5w IV Infused Q24H EB Infusion Protocol Methylprednisolone Sodium Succinate 60 mg 09/04/19 23:00 09/05/19 07:52 Solu-Medrol IVP 60 mg Q8H EB Administration Pantoprazole Sodiu m 40 mg 09/04/19 18:45 09/05/19 07:51 Protonix IVP 40 mg Q12H EB Administration Vitals/I&O/Wt Last Vital Signs Temp 98.4 F 09/04/19 20:30 Pulse 79 09/05/19 12:00 Resp 16 09/05/19 12:00 BP 104/64 09/05/19 12:00 Pulse Ox 96 09/05/19 12:00 09/04/19 09/05/19 09/05/19 22:59 06:59 14:59 Intake Total 175.675 / 175.675 68.110 / 243.785 79.442 / 79.442 Output Total 1550 / 1550 Balance 175.675 / 175.675 -1481.890 / -1306.215 79.442 / 79.442 Weight last 48 hrs Weight 108.862 kg Weight 108.862 kg Physical Exam Narrative: EXAM NARRATIVE: No acute distress. Sedated. However she wakes up when gentle stimulus is applied. Follows instructions. Eyes PERRLA, extraocular muscle intact No JVD Lungs coarse breath sounds and wheezes bilaterally. No respiratory distress Heart S1, S2, regular Abdomen soft, nontender, bowel sounds are present Extremities. 1-2+ pedal edema. No cyanosis, no calf tenderness bilaterally normal capillary refill. Moves all extremities. Urinary Catheter Management^: Ortega: Cath Placed During This Visit: yes Reason for Continuing Indwelling Catheter: Accurate Measurement of Urinary Output in Critically Ill Patients Urinary Catheter Date of Insertion: 09/04/19 Urinary Catheter Time of Insertion: 18:12 Data : 09/05/19 04:40 09/05/19 04:40 Other Labs: Laboratory Results WBC 8.0 10^3/uL (4.0-10.0) 09/05/19 04:40 RBC 4.08 10^6/uL (4.1-5.3) L 09/05/19 04:40 Hgb 8.5 g/dL (11.5-15.3) L 09/05/19 04:40 Hct 31.5 % (37.0-47.0) L 09/05/19 04:40 MCV 77.2 fL (81-99) L 09/05/19 04:40 MCH 20.8 pg (28.0-34.0) L 09/05/19 04:40 MCHC 27.0 g/dL (30.0-36.0) L 09/05/19 04:40 RDW 17.1 % (12.1-15.1) H 09/05/19 04:40 Plt Count 347 10^3/cmm (130-400) 09/05/19 04:40 MPV 9.4 fL (7.4-10.4) 09/05/19 04:40 Neut % (Auto) 91.6 % 09/05/19 04:40 Lymph % (Auto) 5.9 % 09/05/19 04:40 [place] % (Auto) 1.8 % 09/05/19 04:40 Eos % (Auto) 0.1 % 09/05/19 04:40 Baso % (Auto) 0.1 % 09/05/19 04:40 Neut # (Auto) 7.3 10^3/uL (1.8-7.7) 09/05/19 04:40 Lymph # (Auto) 0.5 10^3/uL (0.8-4.8) L 09/05/19 04:40 [place] # (Auto) 0.1 10^3/uL (0.2-0.9) L 09/05/19 04:40 Eos # (Auto) 0.0 10^3/uL (0.0-0.8) 09/05/19 04:40 Baso # (Auto) 0.0 10^3/uL (0.0-0.1) 09/05/19 04:40 Nucleated RBC % (auto) 0.4 % 09/05/19 04:40 Nucleated RBCs # 0.0 /100WBC 09/05/19 04:40 Specimen Type Arterial 09/05/19 05:45 Sample Site Brachial, right 09/05/19 05:45 ABG pH 7.46 (7.35-7.45) H 09/05/19 05:45 ABG pCO2 53.5 mmHg (35-45) H 09/05/19 05:45 ABG pO2 58.8 mmHg (80.0-100.0) L 09/05/19 05:45 ABG HCO3 37.9 mmol/L (22-26) H 09/05/19 05:45 ABG Base Excess 12.5 mmol/L (-2.0-2.0) H 09/05/19 05:45 Santiago Test N/a 09/05/19 05:45 Hematocrit 27.0 % (37-47) L 09/05/19 05:45 Hgb O2 Saturation 93.6 % (95-100) L 09/04/19 15:04 Carboxyhemoglobin 4.1 %THgb (0.4-20.1) 09/04/19 15:04 Methemoglobin 1.0 % (0.4-1.5) 09/04/19 15:04 Total Hemoglobin 9.4 g/dL (12-16) L 09/04/19 15:04 Respiration Rate 16.0 % 09/05/19 05:45 O2 Delivery Device Vent 09/05/19 05:45 FiO2 50.0 % 09/05/19 05:45 Tidal Volume 0.45 09/05/19 05:45 CPAP 10.0 cmH20 09/04/19 17:15 Beverage Server ID [email or web address] 09/05/19 05:45 Sodium 136 mmol/L (136-145) 09/05/19 04:40 Potassium 4.8 mmol/L (3.5-5.1) 09/05/19 04:40 Chloride 91 mmol/L (98-107) L 09/05/19 04:40 Carbon Dioxide 33 mmol/L (22-29) H 09/05/19 04:40 Anion Gap 16.8 (5-19) 09/05/19 04:40 BUN 16 mg/dL (8-23) 09/05/19 04:40 Creatinine 0.7 mg/dL (0.5-0.9) 09/05/19 04:40 GFR Calculation 83.7 mL/min (90-130) L 09/05/19 04:40 Glucose 134 mg/dL (65-115) H 09/05/19 04:40 Calculated Osmolality 280 mOsm/kg (285-295) L 09/05/19 04:40 Calcium 9.4 mg/dL (8.5-10.5) 09/05/19 04:40 Magnesium 1.6 mg/dL (1.7-2.3) L 09/05/19 04:40 Total Bilirubin 0.3 mg/dL (0.15-1.2) 09/04/19 17:02 AST 16 U/L (0-32) 09/04/19 17:02 ALT 11 U/L (0-33) 09/04/19 17:02 Alkaline Phosphatase 89 IU/L (35-105) 09/04/19 17:02 Troponin I 6 Hour 16.09 ng/mL (0-10) H 09/05/19 04:40 Troponin I Hi Sens Del -3.91 ng/L (0-12) L 09/05/19 04:40 Troponin T Baseline 20 ng/mL (0-10) H 09/04/19 22:07 Troponin T 120 Minute 17.45 ng/mL (0-10) H 09/05/19 00:26 Delta Troponin T -2.55 ABS# (0-10) L 09/05/19 00:26 NT-Pro-B Natriuret Pep 1968 pg/mL (0-125) H 09/04/19 17:02 Total Protein 7.1 g/dL (6.6-8.7) 09/04/19 17:02 Albumin 3.6 g/dL (3.5-5.2) 09/04/19 17:02 Globulin 3.5 g/dL (1.3-4.6) 09/04/19 17:02 Impressions Chest X-Ray 09/04/19 14:41 IMPRESSION: 1. Cardiomegaly with mild pulmonary vascular congestion. 2. No pleural fluid or focal pneumonia. 3. Moderate chronic emphysematous changes. 4. Esophageal hiatal hernia. Micro: Microbiology 09/04/19 17:50 Gram Stain - Final Sputum - Endotracheal Tube Aspirate A&P Additional A&P Information 64-year-old female with past medical history of advanced COPD, on chronic home oxygen, pulmonary arterial hypertension, diastolic congestive heart failure, remote history of PE, on Eliquis, anxiety, CKD, previously reported noncompliance, and similar admissions in the past who presented with acute respiratory failure. Acute hypercapnic respiratory failure with respiratory acidosis. Most likely her decompensation is related to COPD acute exacerbation, possible exacerbation of her diastolic dysfunction, pulmonary arterial hypertension, noncompliance, and tobacco abuse. The patient is intubated and started on mechanical ventilation. Currently sedated with propofol. Stable. We will repeat her chest x-ray and ABGs in the morning and adjust vent settings today after discussion with respiratory therapy she still has hypoxia, but her hypercapnia has overcompensated compared to her baseline. Continue Solu-Medrol, duo nebs, Levaquin, furosemide. Discussed with Dr. Lipscomb. He is off today, but will see the patient tomorrow. Hyperkalemia. This is probably secondary to Spironolactone. Resolved. Continue monitoring. Hypomagnesemia. Will replace today and continue monitoring. History of PE. The patient did not have any significant hypoxia. Additionally the patient is on Eliquis. Her presentation is consistent with other causes of respiratory failure. At this point, I think we do not need to pursue any additional testing. We will continue her home Eliquis via NG tube. Abnormal EKG and mild elevated troponin. No evidence of acute ischemia. Troponin elevation could be secondary to demand ischemia due to hypoxia and acute respiratory failure yesterday. Will order aspirin via NG. Tobacco abuse. Counseling will be provided after extubation when she is stable. Critical care time spent on this encounter is 40 minutes. Attestations Medical Necessity Statement*: The plan of care requires further hospitalization in ICU settings. Coding Level of Care Code Acute Lead Massage Therapist for Denis Lozoya
[2019-09-05 14:49] LABS: ABG PCO2 52.9 mmHg (35-45); ABG PH Result 7.45 (7.35-7.45); Arterial Blood Gas Hematocrit 26.3 % (37-47); Base Excess ABG 11.5 mmol/L (-2.0-2.0); Blood Gas Allen Test Pos; Blood Gas Sample Site Radial, right; Blood Gas Sample Type Arterial; Blood Gas Tidal Volume 0.45; Carboxyhemoglobin 0.8 %THgb (0.4-20.1); HCO3 ABG 36.9 mmol/L (22-26); HGB O2 Sat 95.1 % (95-100); Ionized Calcium Level - ABG 1.1 mmol/L (1.1-1.4); Methemoglobin 0.8 % (0.4-1.5); Oxygen Device VENT; Oxygen Saturation ABG 96.7; PO2 ABG 74.9 mmHg (80.0-100.0); Potassium Level - ABG 3.9 mmol/L (3.5-5.0); Total Hemoglobin 8.6 g/dL (12-16)
--- NOTE | 2019-09-05 16:00 | XR_ITS ---
WS: [id number] CHEST XRAY TECHNIQUE: Portable chest. CLINICAL INFORMATION: Resp failure, EET positioninig COMPARISON: September 04, 2019 FINDINGS: Endotracheal tube with tip above the cristina measuring 3.1 cm above the cristina. Enteric tube with tip below the diaphragm. Heart: Cardiomegaly. Lungs: Moderate chronic emphysematous changes with chronic appearing interstitial thickening. No foca l pneumonia. Bones: Chronic left rib fractures with callus formation. XR/XR chest 1V portable [id number] IMPRESSION: 1. Endotracheal tube with tip 3.1 cm above the cristina. 2. Enteric tube with tip below the diaphragm. 3. Moderate chronic emphysematous changes with chronic appearing interstitial thickening.
[2019-09-05] MEDS: levofloxacin-dextrose 5 % 750 MG/150 ML PREMIX 100 MG IV (17:56)
[2019-09-05] MEDS: propofol 1,000 MG/100 ML INJ 32.7 MG IV (23:47)
[2019-09-06] VITALS (30 sets, daily range): BP systolic 104–137; BP diastolic 59–86; PULSE 67–99; RESP 16; TEMP 36.4–37.1; O2SAT 91–98; BMI 37.8
[2019-09-06] MEDS: propofol 1,000 MG/100 ML INJ 32.7 MG IV ×8 (02:37→23:57)
[2019-09-06] MEDS: ipratropium-albuterol 3 mL Neb INHALATION ×6 (03:57→23:28)
--- NOTE | 2019-09-06 04:00 | XR_ITS ---
WS: [id number] CHEST XRAY TECHNIQUE: Portable chest. CLINICAL INFORMATION: ETT position COMPARISON: September 05, 2019 FINDINGS: Endotracheal tube with tip 2.9 cm above the cristina. Enteric tube tip below the diaphragm. Heart: Normal cardiac silhouette. Lungs: Chronic emphysematous changes. No acute pulmonary infiltrates. Bones: Normal visualized bony structures. XR/XR chest 1V portable [id number] IMPRESSION: 1. Endotracheal tube with tip 2.9 cm above the cristina. Enteric tube with tip b elow the diaphragm. 2. Lungs are well aerated.
[2019-09-06 04:40] LABS: Basophils % 0.1 %; Hematocrit 30.1 % (37.0-47.0); Hemoglobin 8.5 g/dL (11.5-15.3); Lymphocytes # 0.6 10^3/uL (0.8-4.8); Mean Corpuscular HGB Conc 28.2 g/dL (30.0-36.0); Mean Corpuscular Volume 74.3 fL (81-99); Mean Platelet Volume 9.8 fL (7.4-10.4); Monocytes # 0.3 10^3/uL (0.2-0.9); Monocytes % 1.7 %; Neutrophils # 17.2 10^3/uL (1.8-7.7); Neutrophils % 94.7 %; Nucleated Red Blood Cells % 0 %; Platelet Count 402 10^3/cmm (130-400); Red Blood Count 4.05 10^6/uL (4.1-5.3); Red Cell Distribution Width 17.5 % (12.1-15.1); White Blood Count 18.1 10^3/uL (4.0-10.0)
[2019-09-06 05:04] LABS: Albumin Level 3.3 g/dL (3.5-5.2); Anion Gap 14.3 (5-19); Blood Urea Nitrogen 26 mg/dL (8-23); Calcium 8.9 mg/dL (8.5-10.5); Carbon Dioxide 36 mmol/L (22-29); Chloride 87 mmol/L (98-107); Glomerular Filtration Rate 62.6 mL/min (90-130); Glucose 144 mg/dL (65-115); Magnesium 1.9 mg/dL (1.7-2.3); Phosphorus 3.8 mg/dL (2.5-4.5); Potassium 4.3 mmol/L (3.5-5.1); Sodium 133 mmol/L (136-145)
[2019-09-06 05:46] LABS: ABG PCO2 52.2 mmHg (35-45); ABG PH Result 7.49 (7.35-7.45); Base Excess ABG 14.5 mmol/L (-2.0-2.0); HCO3 ABG 39.5 mmol/L (22-26); PO2 ABG 82.3 mmHg (80.0-100.0)
[2019-09-06 05:47] LABS: Blood Gas Allen Test POS; Blood Gas Drawn By BISJE; Blood Gas Operator Identificat JB; Blood Gas Vent Mode AC; Oxygen Device VENT
[2019-09-06 05:48] LABS: Arterial Blood Gas Hematocrit 26.8 % (37-47); Blood Gas Sample Site LINE; Blood Gas Sample Type ARTERIAL
[2019-09-06] MEDS: pantoprazole 40 mg SDV IVP ×2 (07:19→19:36)
[2019-09-06 07:35] LABS: ABG PH Result 7.44 (7.35-7.45); Arterial Blood Gas Hematocrit 28.5 % (37-47); Blood Gas Allen Test Pos; Blood Gas Sample Site Radial, right; Blood Gas Sample Type Arterial; Blood Gas Tidal Volume 0.45; HCO3 ABG 36.6 mmol/L (22-26); Oxygen Device VENT; PO2 ABG 70.5 mmHg (80.0-100.0)
[2019-09-06 07:36] LABS: Blood Gas CCRB Time 1145
[2019-09-06] MEDS: aspirin 81 mg EC Tablet PO (08:26)
[2019-09-06] MEDS: FUROsemide 10 mg/mL SDV 4mL 40 MG IVP (08:26)
[2019-09-06] MEDS: apixaban 5 mg Tablet PO ×2 (08:26→17:17)
[2019-09-06] MEDS: morphine 4 mg/mL SDV 1 mL 2 MG IVP (09:40)
--- NOTE | 2019-09-06 10:04 | PM.PN ---
Subjective Subjective: Interval history: No acute events overnight. Labs, vitals noted. On examination patient is sedated and vented. As per the nurse patient was following commands and was in distress because of pain so just given morphine few minutes prior to my exam. Vitals/I&O/Wt Last Vital Signs Temp 98.6 F 09/05/19 20:00 Pulse 85 09/06/19 08:02 Resp 16 09/06/19 08:22 BP 122/73 09/06/19 08:00 Pulse Ox 95 09/06/19 08:02 09/05/19 09/06/19 09/06/19 22:59 06:59 14:59 Intake Total 313.700 / 503.289 298.367 / 801.656 89.38 / 89.38 Output Total 650 / 650 Balance 313.700 / 503.289 -351.633 / 151.656 89.38 / 89.38 Weight last 48 hrs Weight 99.79 kg Weight 108.862 kg Weight 108.862 kg Physical Exam Narrative: EXAM NARRATIVE: No acute distress. Sedated, vented. Eyes PERRLA, extraocular muscle intact No JVD Lungs coarse breath sounds and wheezes bilaterally. No respiratory distress Heart S1, S2, regular, no murmur, no rub or gallop. Abdomen soft, nontender, bowel sounds are present Extremities. 1-2+ pedal edema. No cyanosis, no calf tenderness bilaterally normal capillary refill. Neuro: Sedated, vented. GCS: E1 M1 VT Urinary Catheter Management^: Ortega: Cath Placed During This Visit: yes Reason for Continuing Indwelling Catheter: Accurate Measurement of Urinary Output in Critically Ill Patients Urinary Catheter Date of Insertion: 09/04/19 Urinary Catheter Time of Insertion: 18:12 Data : 09/06/19 04:15 09/06/19 04:15 Micro: Microbiology 09/04/19 17:50 Gram Stain - Final Sputum - Endotracheal Tube Aspirate Sputum Culture - Preliminary A&P Assessment and plan (1) Acute hypercapnic respiratory failure: Status: Acute (2) COPD (chronic obstructive pulmonary disease): Status: Acute (3) Medical non-compliance: Status: Acute (4) Moderate to severe pulmonary hypertension: Status: Acute (5) Chronic anticoagulation: Status: Acute (6) Chronic anemia: Status: Acute (7) Chronic diastolic CHF (congestive heart failure): Status: Acute (8) Hypertension: Status: Acute Additional A&P Information 64-year-old female with past medical history of advanced COPD, on chronic home oxygen, pulmonary arterial hypertension, diastolic congestive heart failure, remote history of PE, on Eliquis, anxiety, CKD, previously reported noncompliance, and similar admissions in the past who presented with acute respiratory failure. Acute hypercapnic respiratory failure with respiratory acidosis: Most likely her decompensation is related to COPD acute exacerbation, pulmonary arterial hypertension, noncompliance, and tobacco abuse. Continue mechanical ventilation. Continue current settings. ABG results appreciated. Continue sedation with propofol. Will add fentanyl for analgesia. Decrease Solu-Medrol to 60 mg IV every 12 hourly today. DuoNebs every 6 hourly, add budesonide twice daily. Dr. Lipsocmb consulted. We will discuss with patient's POA who is her granddaughter Ms. Brown on [phone] regarding her further goals of care. If patient continues to do well can plan to extubate her tomorrow. Chronic diastolic heart failure: Most recent echocardiogram from May 2019 shows an EF of 66% with grade 1 diastolic dysfunction with pulmonary arterial peak pressure of 70 mmHg. Patient is overall 2 L negative. Continue IV Lasix 40 mg daily for now. History of PE. The patient did not have any significant hypoxia. Additionally the patient is on Eliquis. Her presentation is consistent with other causes of respiratory failure. Continue with Eliquis 5 mg twice daily through NG tube. Anemia: We will check iron panel. Hemoglobin stable at 8.5. Tobacco abuse. Counseling will be provided after extubation when she is stable. Protonix twice daily for GI prophylaxis. Full code. Eliquis will work as DVT prophylaxis as well Attestations Medical Necessity Statement*: Acute hypercapnic respiratory failure on ventilator Critical Care Time: Mechanical ventilator. Critical Care Time (min): 70 Coding Level of Care Code Acute [place] Administrator for g Fwd Diagnoses Acute hypercapnic respiratory failure J96.02 COPD (chronic obstructive pulmonary disease) J44.9 Medical non-compliance Z91.19 Moderate to severe pulmonary hypertension I27.20 Chronic anticoagulation Z79.01 Chronic anemia D64.9 Chronic diastolic CHF (congestive heart failure) I50.32 Hypertension I10
--- NOTE | 2019-09-06 10:34 | PC.RESP ---
Smoking Cessation and Pulmonary Rehab information sent to patient along with outpatient schedule of classes.
[2019-09-06] MEDS: levofloxacin-dextrose 5 % 750 MG/150 ML PREMIX 100 MG IV (18:10)
[2019-09-06] MEDS: budesonide 0.5 mg/2 mL Neb INHALATION (19:30)
[2019-09-07] VITALS (28 sets, daily range): BP systolic 98–148; BP diastolic 59–91; PULSE 63–103; RESP 16–37; TEMP 36.8–37.1; O2SAT 90–100
[2019-09-07] MEDS: propofol 1,000 MG/100 ML INJ 32.7 MG IV ×2 (02:40→09:14)
[2019-09-07] MEDS: ipratropium-albuterol 3 mL Neb INHALATION ×5 (04:21→21:34)
[2019-09-07 04:53] LABS: Basophils % 0.1 %; Hematocrit 31.9 % (37.0-47.0); Hemoglobin 8.9 g/dL (11.5-15.3); Lymphocytes # 0.5 10^3/uL (0.8-4.8); Lymphocytes % 3.5 %; Mean Corpuscular HGB Conc 27.9 g/dL (30.0-36.0); Mean Corpuscular Hemoglobin 20.6 pg (28.0-34.0); Mean Corpuscular Volume 73.8 fL (81-99); Mean Platelet Volume 9.6 fL (7.4-10.4); Monocytes # 0.4 10^3/uL (0.2-0.9); Monocytes % 3.1 %; Neutrophils # 12.3 10^3/uL (1.8-7.7); Neutrophils % 92.9 %; Nucleated Red Blood Cells % 0 %; Platelet Count 386 10^3/cmm (130-400); Red Blood Count 4.32 10^6/uL (4.1-5.3); Red Cell Distribution Width 17.6 % (12.1-15.1); White Blood Count 13.2 10^3/uL (4.0-10.0)
[2019-09-07 05:03] LABS: ABG PCO2 50.4 mmHg (35-45); ABG PH Result 7.49 (7.35-7.45); Alveolar-Arterial Oxygen Gradi 181.5 mmHg (5-10); Arterial Blood Gas Hematocrit 28.2 % (37-47); Base Excess ABG 13.7 mmol/L (-2.0-2.0); Blood Gas Sample Site Brachial, right; Blood Gas Sample Type Arterial; Blood Gas Tidal Volume 0.45; Carboxyhemoglobin 0.9 %THgb (0.4-20.1); HCO3 ABG 38.6 mmol/L (22-26); HGB O2 Sat 91.9 % (95-100); Ionized Calcium Level - ABG 1.1 mmol/L (1.1-1.4); Oxygen Device VENT; Oxygen Saturation ABG 93.7; PO2 ABG 67.8 mmHg (80.0-100.0); Potassium Level - ABG 3.5 mmol/L (3.5-5.0); Total Hemoglobin 9.2 g/dL (12-16)
[2019-09-07 05:12] LABS: Alanine Aminotransferase 10 U/L (0-33); Albumin Level 3.2 g/dL (3.5-5.2); Alkaline Phosphatase 67 IU/L (35-105); Anion Gap 17.9 (5-19); Aspartate Amino Transferase 19 U/L (0-32); Blood Urea Nitrogen 23 mg/dL (8-23); Calcium 8.7 mg/dL (8.5-10.5); Carbon Dioxide 31 mmol/L (22-29); Chloride 87 mmol/L (98-107); Globulin 3.5 g/dL (1.3-4.6); Glomerular Filtration Rate 83.7 mL/min (90-130); Glucose 131 mg/dL (65-115); Osmolality Calculated 273 mOsm/kg (285-295); Potassium 3.9 mmol/L (3.5-5.1); Sodium 132 mmol/L (136-145); Total Bilirubin 0.4 mg/dL (0.15-1.2); Total Protein 6.7 g/dL (6.6-8.7)
[2019-09-07] MEDS: budesonide 0.5 mg/2 mL Neb INHALATION ×2 (07:28→21:34)
[2019-09-07] MEDS: pantoprazole 40 mg SDV IVP ×2 (07:33→19:58)
--- NOTE | 2019-09-07 08:00 | XR_ITS ---
WS: [id number] CHEST XRAY TECHNIQUE: Portable chest. CLINICAL INFORMATION: post intubation COMPARISON: Comparison September 06, 2019 FINDINGS: Endotracheal tube with tip above the cristina measuring 2.5 CM. Enteric tube tip below diaphr agm. Cardiomegaly. Mild pulmonary vascular congestion. No significant pleural fluid. XR/XR chest 1V portable [id number] IMPRESSION: 1. Endotracheal tube with tip 2.5 cm above the cristina. Enteric tube with tip i n the stomach. 2. Cardiomegaly. Mild pulmonary vascular congestion. No focal pneumonia.
[2019-09-07] MEDS: FUROsemide 10 mg/mL SDV 4mL 40 MG IVP (09:09)
[2019-09-07] MEDS: aspirin 81 mg EC Tablet PO (09:13)
[2019-09-07] MEDS: apixaban 5 mg Tablet PO ×2 (09:13→17:06)
--- NOTE | 2019-09-07 09:30 | PC.SOCIAL ---
Pg 2 IMM Explained to pt's family Pg 2 IMM, via phone. They verbally understand. No questions voiced. Provided a copy to pt & left on pt's bedside table. Signed, dated, & timed a copy then placed in pt's chart
--- NOTE | 2019-09-07 09:58 | P.PN_ITS ---
Subjective Subjective: Interval history: No acute events overnight. Labs and vitals noted. This morning on examination patient is lying comfortably in bed on ventilator, propofol and fentanyl, awake alert oriented and following all commands. She denies of any dizziness, nausea, vomiting. During evaluation have turned off the propofol and fentanyl we will try to extubate today. Had a discussion about goals of care with her POA who is her granddaughter yesterday evening. Granddaughter stated she needs some more time and to talk to her family members regarding future intubation. For now she would want her to be intubated if needed but does not want any chest compressions under any circu mstances. CODE STATUS has been changed to limited resuscitation to only mechanical ventilation. Medications: Medication Review Details: Generic Name Dose Route Start Last Admin Trade Name Freq PRN Reason Stop Dose Admin Albuterol/Ipratrop ium 3 ml 09/04/19 20:00 09/05/19 08:20 Duoneb INHALATION 3 ml Q4H.RESPIRATORY P RN Administration SHORTNESS OF MEKA TH Apixaban 5 mg 09/05/19 09:00 09/05/19 10:20 Eliquis PO 5 mg BID EB Administration Aspirin 81 mg 09/05/19 09:05 09/05/19 10:20 Aspirin Ec PO 81 mg DAILY EB Administration Furosemide 40 mg 09/04/19 19:00 09/05/19 10:20 Lasix IVP 40 mg DAILY EB Administration Propofol 1,000 mg in 100 m ls @ 0 mls/hr 09/04/19 17:45 09/05/19 10:59 Diprivan IV 30 mcg/kg/min .Q0M EB 19.6 mls/hr Administration Protocol Per Protocol Levofloxacin/Dextr ose 750 mg in 150 mls @ 100 mls/hr 09/04/19 18:30 09/04/19 22:18 Levaquin-D5w IV Infused Q24H EB Infusion Protocol Methylprednisolone Sodium Succinate 60 mg 09/04/19 23:00 09/05/19 07:52 Solu-Medrol IVP 60 mg Q8H EB Administration Pantoprazole Sodiu m 40 mg 09/04/19 18:45 09/05/19 07:51 Protonix IVP 40 mg Q12H EB Administration Vitals/I&O/Wt Last Vital Signs Temp 98.2 F 09/07/19 08:00 Pulse 88 09/07/19 08:00 Resp 22 H 09/07/19 09:32 BP 126/74 09/07/19 08:00 Pulse Ox 95 09/07/19 08:00 09/06/19 09/07/19 09/07/19 22:59 06:59 14:59 Intake Total 187.745 / 470.865 321.835 / 792.700 206.682 / 206.682 Output Total 450 / 2450 650 / 3100 225 / 225 Balance -262.255 / -1979.135 -328.165 / -2307.300 -18.318 / -18.318 Weight last 48 hrs Weight 104.525 kg Weight 99.79 kg Physical Exam Narrative: EXAM NARRATIVE: No acute distress. Sedated, vented. Eyes PERRLA, extraocular muscle intact No JVD Lungs coarse breath sounds and wheezes bilaterally. No respiratory distress Heart S1, S2, regular, no murmur, no rub or gallop. Abdomen soft, nontender, bowel sounds are present Extremities. 1-2+ pedal edema. No cyanosis, no calf tenderness bilaterally normal capillary refill. Neuro: Sedated, vented. GCS: E1 M1 VT Urinary Catheter Management^: Ortega: Cath Placed During This Visit: yes Reason for Continuing Indwelling Catheter: Accurate Measurement of Urinary Output in Critically Ill Patients Urinary Catheter Date of Insertion: 09/04/19 Urinary Catheter Time of Insertion: 18:12 Data : 09/07/19 04:29 09/07/19 04:29 Micro: Microbiology 09/04/19 17:50 Gram Stain - Final Sputum - Endotracheal Tube Aspirate Sputum Culture - Final A&P Assessment and plan (1) Acute hypercapnic respiratory failure: Status: Acute (2) COPD (chronic obstructive pulmonary disease): Status: Acute (3) Medical non-compliance: Status: Acute (4) Moderate to severe pulmonary hypertension: Status: Acute (5) Chronic anticoagulation: Status: Acute (6) Chronic anemia: Status: Acute (7) Chronic diastolic CHF (congestive heart failure): Status: Acute (8) Hypertension: Status: Acute Additional A&P Information 64-year-old female with past medical history of advanced COPD, on chronic home oxygen, pulmonary arterial hypertension, diastolic congestive heart failure, remote history of PE, on Eliquis, anxiety, CKD, previously reported noncompliance, and similar admissions in the past who presented with acute respiratory failure. Acute hypercapnic respiratory failure with respiratory acidosis: Most likely her decompensation is related to COPD acute exacerbation, pulmonary arterial hypertension, noncompliance, and tobacco abuse. ABG results appreciated. We will try to extubate patient today. Fentanyl and propofol switched off right now. Weaning protocol started and patient has been changed to pressure support of 14 right now. Most likely patient would need extubation to high flow in view of severe pulmonary hypertension. We will keep Solu-Medrol at 60 mg IV every 12 hourly for now trying to extubate her today. If patient is extubated today will start further de-escalation from tomorrow morning. DuoNebs every 6 hourly, add budesonide twice daily. Dr. Lipscomb consulted. We will discuss with patient's POA who is her granddaughter Ms. Brown on [phone] regarding her further goals of care. If patient continues to do well can plan to extubate her tomorrow. Chronic diastolic heart failure: Most recent echocardiogram from May 2019 shows an EF of 66% with grade 1 diastolic dysfunction with pulmonary arterial peak pressure of 70 mmHg. Patient is overall 5.7 L negative. Continue IV Lasix 40 mg daily for now. History of PE. The patient did not have any significant hypoxia. Additionally the patient is on Eliquis. Her presentation is consistent with other causes of respiratory failure. Continue with Eliquis 5 mg twice daily through NG tube. Anemia: We will check iron panel. Hemoglobin stable at 8.5. Tobacco abuse. Counseling will be provided after extubation when she is stable. Protonix twice daily for GI prophylaxis. After discussion with POA yesterday, CODE STATUS has been changed to limited resuscitation to only mechanical ventilation. Eliquis will work as DVT prophylaxis as well Attestations Medical Necessity Statement*: Acute hypercapnic respiratory failure, mechanical ventilation Critical Care Time: Critical Care Time (min): 70 Coding Level of Care Code Acute Senior Data Warehouse Developer for Chg Fwd Diagnoses Acute hypercapnic respiratory failure J96.02 COPD (chronic obstructive pulmonary disease) J44.9 Medical non-compliance Z91.19 Moderate to severe pulmonary hypertension I27.20 Chronic anticoagulation Z79.01 Chronic anemia D64.9 Chronic diastolic CHF (congestive heart failure) I50.32 Hypertension I10
--- NOTE | 2019-09-07 12:50 | PC.NURSE ---
Wasted 90mls of fentanyl gtt, witnessed by Rowan Quezada RN.
[2019-09-07] MEDS: ALPRAZolam 0.25 mg Tablet PO ×2 (14:03→21:49)
[2019-09-07] MEDS: levofloxacin-dextrose 5 % 750 MG/150 ML PREMIX 100 MG IV (17:30)
--- NOTE | 2019-09-07 18:38 | PC.NURSE ---
7a-7p summary: Pt is alert, oriented to place and situation. Pt has noted short term memory loss. Pt is hateful and rude to the staff, demanding at times. Pt is resting in bed watching TV at this time. Precidex gtt infusing at 0.7mcg/kg/hr with NS @ 5mls/hr. Pt has sit up on the side of the bed after speech was here to eat. Ortega patent and draining to bedside. Pt is on heated high flow at 20L and 45% FIO2. Will give report to oncoming nurse at shift change.
[2019-09-07] MEDS: LORazepam 2 mg/mL INJ 1 mL 1 MG IVP (19:21)
--- NOTE | 2019-09-07 19:40 | PC.NURSE ---
Patient very anxious and complaining of shaking. Vitals stable. Called Dr. Ritchie and received order for one time dose of Ativan 1 mg IVP. Ativan given at 192. Patient resting now. Will continue to monitor.
[2019-09-08] VITALS (24 sets, daily range): BP systolic 106–147; BP diastolic 71–95; PULSE 72–98; RESP 16–24; TEMP 25.7–37.1; O2SAT 89–97
[2019-09-08] MEDS: ipratropium-albuterol 3 mL Neb INHALATION ×5 (00:32→19:41)
[2019-09-08] MEDS: ALPRAZolam 0.25 mg Tablet PO ×3 (06:07→17:36)
[2019-09-08] MEDS: pantoprazole 40 mg SDV IVP (07:34)
[2019-09-08] MEDS: budesonide 0.5 mg/2 mL Neb INHALATION ×2 (08:33→19:41)
[2019-09-08 08:59] LABS: Basophils % 0.1 %; Hematocrit 34.4 % (37.0-47.0); Hemoglobin 9.2 g/dL (11.5-15.3); Lymphocytes # 0.6 10^3/uL (0.8-4.8); Mean Corpuscular HGB Conc 26.7 g/dL (30.0-36.0); Mean Corpuscular Hemoglobin 21.1 pg (28.0-34.0); Mean Corpuscular Volume 78.9 fL (81-99); Mean Platelet Volume 9.6 fL (7.4-10.4); Monocytes # 0.5 10^3/uL (0.2-0.9); Monocytes % 5.1 %; Neutrophils # 9.2 10^3/uL (1.8-7.7); Neutrophils % 88.2 %; Nucleated Red Blood Cells % 0.2 %; Platelet Count 400 10^3/cmm (130-400); Red Blood Count 4.36 10^6/uL (4.1-5.3); Red Cell Distribution Width 18.1 % (12.1-15.1); White Blood Count 10.5 10^3/uL (4.0-10.0)
[2019-09-08] MEDS: FUROsemide 10 mg/mL SDV 4mL 40 MG IVP (09:16)
[2019-09-08] MEDS: apixaban 5 mg Tablet PO ×2 (09:17→17:36)
[2019-09-08] MEDS: aspirin 81 mg EC Tablet PO (09:17)
[2019-09-08 09:18] LABS: Alanine Aminotransferase 22 U/L (0-33); Albumin Level 3.4 g/dL (3.5-5.2); Alkaline Phosphatase 67 IU/L (35-105); Anion Gap 15.9 (5-19); Aspartate Amino Transferase 26 U/L (0-32); Blood Urea Nitrogen 20 mg/dL (8-23); Carbon Dioxide 31 mmol/L (22-29); Chloride 91 mmol/L (98-107); Globulin 3.5 g/dL (1.3-4.6); Glomerular Filtration Rate 83.7 mL/min (90-130); Glucose 177 mg/dL (65-115); Osmolality Calculated 279 mOsm/kg (285-295); Potassium 3.9 mmol/L (3.5-5.1); Sodium 134 mmol/L (136-145); Total Bilirubin 0.5 mg/dL (0.15-1.2); Total Protein 6.9 g/dL (6.6-8.7)
--- NOTE | 2019-09-08 10:27 | P.PN_ITS ---
Subjective Subjective: Interval history: In last 24 hours patient has been extubated. Patient has done well post extubation but has been on high flow and is maintaining her saturation. Due to anxiety patient was started on Precedex drip yesterday afternoon. She denies of having any nausea, vomiting, headache, palpitations, confusion at present. Vitals/I&O/Wt Last Vital Signs Temp 98.8 F 09/08/19 10:00 Pulse 79 09/08/19 10:00 Resp 18 09/08/19 10:00 BP 121/83 09/08/19 10:00 Pulse Ox 95 09/08/19 08:39 09/07/19 09/08/19 09/08/19 22:59 06:59 14:59 Intake Total 974.00 / 1180.682 754 / 1934.682 300 / 300 Output Total 500 / 2975 1950 / 4925 Balance 474.00 / -1794.318 -1196 / -2990.318 300 / 300 Weight last 48 hrs Weight 104.468 kg Weight 104.525 kg Physical Exam Narrative: EXAM NARRATIVE: No acute distress. On high flow 20 L 45% saturating 94% Eyes PERRLA, extraocular muscle intact No JVD Lungs coarse breath sounds and wheezes bilaterally, bronchial breath sounds. No respiratory distress Heart S1, S2, regular, no murmur, no rub or gallop. Abdomen soft, nontender, bowel sounds are present Extremities. 1-2+ pedal edema. No cyanosis, no calf tenderness bilaterally normal capillary refill. Neuro: AO x3, moving all limbs, no focal deficit Urinary Catheter Management^: Ortega: Cath Placed During This Visit: yes Reason for Continuing Indwelling Catheter: Accurate Measurement of Urinary Output in Critically Ill Patients Urinary Catheter Date of Insertion: 09/04/19 Urinary Catheter Time of Insertion: 18:12 Data : 09/08/19 08:41 09/08/19 08:41 Micro: Microbiology 09/04/19 17:50 Gram Stain - Final Sputum - Endotracheal Tube Aspirate Sputum Culture - Final A&P Assessment and plan (1) Acute hypercapnic respiratory failure: Status: Acute (2) COPD (chronic obstructive pulmonary disease): Status: Acute (3) Medical non-compliance: Status: Acute (4) Moderate to severe pulmonary hypertension: Status: Acute (5) Chronic anticoagulation: Status: Acute (6) Chronic anemia: Status: Acute (7) Chronic diastolic CHF (congestive heart failure): Status: Acute (8) Hypertension: Status: Acute Additional A&P Information 64-year-old female with past medical history of advanced COPD, on chronic home oxygen, pulmonary arterial hypertension, diastolic congestive heart failure, remote history of PE, on Eliquis, anxiety, CKD, previously reported noncompliance, and similar admissions in the past who presented with acute respiratory failure. Acute hypercapnic respiratory failure with respiratory acidosis: Most likely her decompensation is related to COPD acute exacerbation, pulmonary arterial hypertension, noncompliance, and tobacco abuse. Extubated yesterday to high flow. We will try to wean off high flow to nasal cannula keeping saturation around 86 to 88%. I believe patient lives at that saturation. De-escalate Solu-Medrol to 60 mg IV daily for now. We will try to acid changer to oral from tomorrow. DuoNebs every 6 hourly, add budesonide twice daily. Dr. Lipscomb consulted. Swallow evaluation was done and patient was deemed to be fine to have regular diet. Chronic diastolic heart failure: Most recent echocardiogram from May 2019 shows an EF of 66% with grade 1 diastolic dysfunction with pulmonary arterial peak pressure of 70 mmHg. Patient is overall 5.7 L negative. Change Lasix to oral at 60 mg daily. History of PE.: Continue with Eliquis 5 mg p.o. twice daily. Anemia: Suggestive of iron deficiency anemia. Start her on oral iron supplementation. Hemoglobin stable at 8.5. Tobacco abuse. Counseling will be provided after extubation when she is stable. Protonix twice daily for GI prophylaxis. After discussion with POA yesterday, CODE STATUS has been changed to limited resuscitation to only mechanical ventilation. Eliquis will work as DVT prophylaxis as well Regular diet. Transfer to floors. Had extensive discussion regarding goals of care with patient's daughter Ms. Villarreal and granddaughter who is also the POA Ms. Dunne. Both state that they understand the medical condition of Ms. Roseann Akins and would make further decisions after speaking with her. For now patient would remain limited resuscitation only to mechanical ventilation. Attestations 2 Medical Necessity Statement*: Acute hypercapnic respiratory failure because of COPD exacerbation. Time Spent in Patient Care: Greater than 35 minutes (>than 50% of time spent in counselling and/or direct pt care on unit) . Coding Level of Care Code Acute Clip Bolter And Wrapper for Chg Fwd Diagnoses Acute hypercapnic respiratory failure J96.02 COPD (chronic obstructive pulmonary disease) J44.9 Medical non-compliance Z91.19 Moderate to severe pulmonary hypertension I27.20 Chronic anticoagulation Z79.01 Chronic anemia D64.9 Chronic diastolic CHF (congestive heart failure) I50.32 Hypertension I10
--- NOTE | 2019-09-08 12:14 | PC.NURSE ---
report call to 2nd floor and transfered at this time
[2019-09-08] MEDS: pantoprazole DR 40 mg Tablet PO (17:36)
[2019-09-08] MEDS: levofloxacin-dextrose 5 % 750 MG/150 ML PREMIX 100 MG IV (17:37)
[2019-09-09] VITALS (13 sets, daily range): BP systolic 117–135; BP diastolic 64–82; PULSE 89–94; RESP 17–20; TEMP 36.6–37; O2SAT 86–95
[2019-09-09] MEDS: ALPRAZolam 0.25 mg Tablet PO ×2 (00:46→10:12)
[2019-09-09 05:50] LABS: Basophils % 0.1 %; Eosinophils # 0.1 10^3/uL (0.0-0.8); Eosinophils % 0.6 %; Hematocrit 35.7 % (37.0-47.0); Hemoglobin 9.5 g/dL (11.5-15.3); Lymphocytes # 1.7 10^3/uL (0.8-4.8); Lymphocytes % 13.8 %; Mean Corpuscular HGB Conc 26.6 g/dL (30.0-36.0); Mean Corpuscular Hemoglobin 20.7 pg (28.0-34.0); Mean Corpuscular Volume 77.8 fL (81-99); Monocytes # 0.8 10^3/uL (0.2-0.9); Monocytes % 6.9 %; Neutrophils # 9.4 10^3/uL (1.8-7.7); Neutrophils % 77.9 %; Nucleated Red Blood Cells % 0 %; Platelet Count 422 10^3/cmm (130-400); Red Blood Count 4.59 10^6/uL (4.1-5.3); Red Cell Distribution Width 18.2 % (12.1-15.1); White Blood Count 12.1 10^3/uL (4.0-10.0)
[2019-09-09 06:06] LABS: Alanine Aminotransferase 23 U/L (0-33); Albumin Level 3.7 g/dL (3.5-5.2); Alkaline Phosphatase 76 IU/L (35-105); Anion Gap 10.5 (5-19); Aspartate Amino Transferase 23 U/L (0-32); Blood Urea Nitrogen 32 mg/dL (8-23); Calcium 8.7 mg/dL (8.5-10.5); Carbon Dioxide 38 mmol/L (22-29); Chloride 96 mmol/L (98-107); Globulin 3.2 g/dL (1.3-4.6); Glomerular Filtration Rate 71.8 mL/min (90-130); Glucose 89 mg/dL (65-115); Osmolality Calculated 289 mOsm/kg (285-295); Potassium 3.5 mmol/L (3.5-5.1); Sodium 141 mmol/L (136-145); Total Bilirubin 0.4 mg/dL (0.15-1.2); Total Protein 6.9 g/dL (6.6-8.7)
[2019-09-09] MEDS: budesonide 0.5 mg/2 mL Neb INHALATION (07:21)
[2019-09-09] MEDS: ipratropium-albuterol 3 mL Neb INHALATION (07:21)
[2019-09-09] MEDS: FUROsemide 40 mg Tablet 60 MG PO (07:43)
[2019-09-09] MEDS: pantoprazole DR 40 mg Tablet PO (08:27)
[2019-09-09] MEDS: apixaban 5 mg Tablet PO (08:27)
--- NOTE | 2019-09-09 08:47 | PC.SOCIAL ---
Follow up IM explained initialed with copy provided. NO questions voiced and patient indicates she will be ready when time to go.
--- NOTE | 2019-09-09 11:08 | P.DS_ITS ---
Discharge Providers Date of Admission: 09/04/19 17:51 Date of Discharge: September 09, 2019 Attending Provider at Admission: Juanjose Barton Attending Provider at Discharge: Saleem Rodas MD Diagnoses at Discharge Discharge Diagnosis (1) Acute hypercapnic respiratory failure: Status: Acute (2) COPD (chronic obstructive pulmonary disease): Status: Acute Problem details: Recurrent intubations in the past due to hypercapnic respiratory failure (3) Medical non-compliance: Status: Acute (4) Moderate to severe pulmonary hypertension: Status: Acute (5) Chronic anticoagulation: Status: Acute Problem details: On Eliquis (6) Chronic anemia: Status: Acute (7) Chronic diastolic CHF (congestive heart failure): Status: Acute (8) Hypertension: Status: Acute Reason for Visit Reason for Visit: Reason For Visit: LOW O2 SATS Hospital Course Discharge Summary: 64-year-old female with past medical history of advanced COPD, on chronic home oxygen, pulmonary arterial hypertension, diastolic congestive heart failure, remote history of PE, on Eliquis, anxiety, CKD, previously reported noncompliance, and similar admissions in the past who presented with acute respiratory failure Patient was intubated for acute hypercarbic respiratory failure with respiratory acidosis, secondary to COPD exacerbation, pulmonary hypertension, noncompliance, tobacco abuse. Patient was admitted to intensive care unit, placed on mechanical ventilation, sedation, patient clinically did well, she was extubated to high flow, then transition to nasal cannula, her steroids were de-escalated, nebulizer treatments were de-escalated. On discharge patient was discharged on a steroid taper, nebulizer treatments, with close follow-up with her primary care provider as outpatient. Patient was discharged on 4 L oxygen, she uses 3.5 L at home. Also on discharge patient is to speak to her primary care provider about doing sleep study to evaluate for sleep apnea and/or obesity hypoventilation syndrome. Patient was advised to quit smoking, advised of compliance on discharge, and her high risk of reintubation in the near future, patient voiced understanding, all questions answered. For her chronic diastolic heart failure, she was diuresed during her hospitalization, clinically did well, discharged on Lasix 40 mg once daily. Blood work during her admission showed iron deficiency anemia, she was discharged on iron replacement therapy, Protonix 40 twice daily, a close monitoring of her hemoglobin as outpatient, with a referral to general surgery for an EGD in the near future as she is on Eliquis for atrial fibrillation. Patient was advised that if she will have bloody or black stools or to feel lightheaded or dizzy to come back to emergency room. Physical Exam Const: COMMON NORMALS: no apparent distress and oriented x3 HENMT: COMMON NORMALS: normocephalic HEAD & SCALP: normocephalic Eye: GENERAL EYE: normal appearance of both eyes Neck/C-Spine: COMMON NORMALS: full ROM, no lymphadenopathy and no JVD Lymph: LYMPHATIC: no lymphadenopathy noted Resp: COMMON NORMALS: normal respiratory effort, no retractions, no use of accessory muscles and clear to auscultation bilaterally AUSCULTATION: clear to auscultation bilaterally Cardio: COMMON NORMALS: no JVD, regular rate, regular rhythm, S1 normal heart sound, S2 normal heart sound, no gallops, no clicks and no murmurs RATE: regular rate RHYTHM: regular rhythm HEART SOUNDS: S1 normal and S2 normal GI: COMMON NORMALS: normal to inspection, nondistended, normoactive bowel sounds, soft to palpation, non-tender and no hepatosplenomegaly PALPATION: Yes soft and Yes no hepatosplenomegaly Extremity: COMMON NORMALS: normal to inspection, full ROM and no pedal edema Neuro: COMMON NORMALS: oriented x3 and moves all extremities Psych: COMMON NORMALS: mental status grossly normal, thought process normal and cooperative THOUGHT PROCESS: normal thought process Urinary Catheter Management^: Ortega: Cath Placed During This Visit: yes, but has since been removed by the nurse Reason for Continuing Indwelling Catheter: Other Urinary Catheter Date of Insertion: 09/04/19 Urinary Catheter Time of Insertion: 18:12 Date Urinary Catheter Removed: 09/08/19 Time Urinary Catheter Discontinued: 18:00 Discharge Data Data Completed and Pending: Completed Studies During Hospitalization Category Date Time Status XR chest 1V mukesh ble [id number] Routine Exams 09/05/19 16:00 Completed XR chest 1V mukesh ble [id number] Routine Exams 09/06/19 04:00 Completed XR chest 1V mukesh ble [id number] Routine Exams 09/07/19 08:00 Completed XR chest 1V mukesh ble [id number] Urgent Exams 09/04/19 14:41 Completed Pending at discharge Category Date Time Status Complete Blood Co unt w/Auto AM LABS Lab 09/10/19 04:00 Ordered Complete Blood Co unt w/Auto AM LABS Lab 09/11/19 04:00 Ordered Comprehensive Met abolic Panel AM LA BS Lab 09/10/19 04:00 Ordered Labs from last 24 hours 09/09/19 09/09/19 05:22 05:22 WBC 12.1 H RBC 4.59 Hgb 9.5 L Hct 35.7 L MCV 77.8 L MCH 20.7 L MCHC 26.6 L RDW 18.2 H Plt Count 422 H MPV 9.0 Neut % (Auto) 77.9 Lymph % (Auto) 13.8 Antelope % (Auto) 6.9 Eos % (Auto) 0.6 Baso % (Auto) 0.1 Neut # (Auto) 9.4 H Lymph # (Auto) 1.7 Antelope # (Auto) 0.8 Eos # (Auto) 0.1 Baso # (Auto) 0.0 Nucleated RBC % (a uto) 0 Nucleated RBCs # 0.0 Sodium 141 Potassium 3.5 Chloride 96 L Carbon Dioxide 38 H Anion Gap 10.5 BUN 32 H Creatinine 0.8 GFR Calculation 71.8 L Glucose 89 Calculated Osmolal ity 289 Calcium 8.7 Total Bilirubin 0.4 AST 23 ALT 23 Alkaline Phosphata se 76 Total Protein 6.9 Albumin 3.7 Globulin 3.2 Vitals: Last Vital Signs Temp 97.8 F 09/09/19 08:00 Pulse 94 09/09/19 08:00 Resp 18 09/09/19 08:00 BP 135/82 09/09/19 08:00 Pulse Ox 94 09/09/19 08:00 Discharge Plan Discharge Patient Disposition: Home, Self-Care Condition: Stable Prescriptions: New levofloxacin [Levaquin] 750 mg tablet 750 mg PO DAILY 2 Days Qty: 2 RF: 0 prednisone 10 mg tablet 10 mg PO DAILY 25 Days Qty: 53 RF: 0 Continued ondansetron See Rx Instructions .ROUTE .COMPLEX RF: 0 pantoprazole 40 mg Tablet,Delayed Release (Dr/Ec) 40 mg PO Q12H Qty: 60 RF: 0 furosemide 40 mg Tablet 40 mg PO DAILY Qty: 30 RF: 0 acetaminophen 325 mg Tablet 650 mg PO Q6H PRN (Reason: Mild/Mod Pain Or Temp >/= 101) Qty: 30 RF: 0 spironolactone 25 mg Tablet 12.5 mg PO DAILY Qty: 30 RF: 0 alprazolam 0.25 mg Tablet 0.25 mg PO TID PRN (Reason: Anxiety) Qty: 10 RF: 0 albuterol sulfate 2.5 mg /3 mL (0.083 %) Solution For Nebulization 2.5 mg INHALATION Q4H PRN (Reason: Shortness Of Breath) RF: 0 Eliquis 5 mg Tablet 5 mg PO BID RF: 0 budesonide 0.5 mg/2 mL Suspension For Nebulization 0.5 mg inhalation BID.RESPIRATORY Qty: 30 RF: 0 Spiriva Respimat 2.5 mcg/actuation mist 2 inh INHALATION DAILY Qty: 4 RF: 0 Symbicort 160-4.5 mcg/actuation Hfa Aerosol Inhaler 2 puff INHALATION BID RF: 0 Referrals: Titus Garzon DO [Family Provider] - 1 week Discharge Diet: Regular Discharge Activity: Resume usual activity Patient Instructions: Chronic Obstructive Pulmonary Disease (DC) Activity Restrictions/Additional Instructions: -Please use oxygen as prescribed -Please use steroid taper as prescribed -Please use Levaquin as prescribed -Please follow with primary care provider for consideration for sleep study -Please follow-up with primary care in 1 week Discharge Attestations Time Spent in Discharge Care*: less than 30 min Quality Metrics Clinical Quality Measures During this hospital stay, did patient experience: None Coding Level of Care Code Acute Art Display Maker for Denis Fwd Diagnoses Acute hypercapnic respiratory failure J96.02 COPD (chronic obstructive pulmonary disease) J44.9 Medical non-compliance Z91.19 Moderate to severe pulmonary hypertension I27.20 Chronic anticoagulation Z79.01 Chronic anemia D64.9 Chronic diastolic CHF (congestive heart failure) I50.32 Hypertension I10
== END 2019-09-09 12:00 | disposition home or self-care (01) | DRG 208 ==
LOC: ER 14:40 → ICU 18:35 → MEDSURG 09-08 12:20
PROVIDERS: Hospitalist; Student in an Organized Health Care Education/Training Program; Admitting Provider Internal Medicine; Emergency Provider Emergency Medicine; Family Provider Internal Medicine; Visit Provider Family Medicine
DX: J96.02 Acute respiratory failure with hypercapnia (principal); E87.2 Acidosis; I13.0 Hypertensive heart and chronic kidney disease with heart failure and stage 1 through stage 4 chronic kidney disease, or unspecified chronic kidney disease; I50.32 Chronic diastolic (congestive) heart failure; Z99.81 Dependence on supplemental oxygen; I27.20 Pulmonary hypertension, unspecified; Z86.711 Personal history of pulmonary embolism; Z79.01 Long term (current) use of anticoagulants; F41.9 Anxiety disorder, unspecified; F17.210 Nicotine dependence, cigarettes, uncomplicated; J43.9 Emphysema, unspecified; K44.9 Diaphragmatic hernia without obstruction or gangrene; N18.9 Chronic kidney disease, unspecified; E87.5 Hyperkalemia; E83.42 Hypomagnesemia; Z79.51 Long term (current) use of inhaled steroids; D50.9 Iron deficiency anemia, unspecified; Z91.19 Patient's noncompliance with other medical treatment and regimen
CPT/HCPCS: 12345; 36415; 36600; 51702; 71045; 80048; 80051; 80053; 80069; 82803; 82805; 82810; 83735; 83880; 83986; 84484; 85025; 87070; 87205; 92523; 92610; 93005; 94002; 94003; 94640; 94660; 94664; 94799; 96374; 96375; 99283; A4570; C9113; J0330; J0610; J1815; J1940; J1956; J2060; J2270; J2704; J2930; J3010; J3475; J3490; J7611; J7626

== ENCOUNTER 2019-09-28 12:03 | Emergency (ER) | payer MEDICARE, SELFPAY ==
[2019-09-28 12:04] VITALS: BP 125/81; PULSE 102; RESP 30; TEMP 37.1; O2SAT 96; BMI 31.1
--- NOTE | 2019-09-28 12:13 | ECG_ITS ---
Measurements Intervals Gray Rate: 84 P: 58 MT: 127 QRS: 113 QRSD: 126 T: 35 QT: 352 QTc: 418 SINUS RHYTHM RIGHT AXIS DEVIATION [QRS AXIS > 100] RIGHT BUNDLE BRANCH BLOCK [120+ ms QRS DURATION, UPRIGHT V1, 40+ ms S IN I/ I/aVL/V4/V5/V6] Compared to ECG 09/05/2019 04:28:37 Right-axis deviation now present Electronically Signed On 09-29-2019 13:00:07 CDT by Jose Griffin M.D. [email or web address]
--- NOTE | 2019-09-28 12:13 | XR_ITS ---
WS: [id number] PORTABLE CHEST HISTORY: soa COMPARISON: 09/07/2019 Hyperinflated lungs with emphysema. No consolidation or pneumonia. Very mild pulmonary venous congest ion is present. No pneumonia. No pleural effusion or pneumothorax. Cardiac size: Mildly enlarged cardiac silhouette. Mediastinum/Aorta: Normal mediastinum. No osseous abnormality seen. XR/XR chest 1V portable [id number] IMPRESSION: Chronic emphysema with mild pulmonary congestion.
--- NOTE | 2019-09-28 12:13 | W.ED.SOB ---
HPI - SOB/Dyspnea General: Chief Complaint: Shortness of Breath/Dyspnea Stated Complaint: resp distress Time Seen by Provider: 09/28/19 12:13 Source: patient History of Present Illness: HPI Narrative: 64-year-old female with history of COPD on 3-1/2 to 4 L of supplemental oxygen at all times at home presents with increased shortness of breath since late last night. She received several nebulizer treatments in route from EMS and feels better upon arrival. Denies any change in her cough she does smoke. Denies any fever or chills. Denies any belly pain vomiting or diarrhea. States that her COPD does get worse when it is humid and wet outside. Denies any nasal stuffiness. She is on a steroid taper currently towards the end of it. Not on any antibiotics currently. No chest pain. Associated symptoms: Deny abdominal pain, chest pain, fever(s), nausea, polyuria or vomiting Review of Systems General: Reports: 10 or more systems reviewed and unremarkable except in HPI and below Const: Denies: fever(s) or chills Eyes: Denies: change in vision ENMT: Denies: throat pain Card: Denies: chest pain Resp: Reports: dyspnea and non-productive cough GI: Denies: abdominal pain, nausea, vomiting or change in bowel habits : Denies: difficulty voiding Musc: Denies: muscle weakness Skin/Breast: Denies: rash Neuro: Denies: headache(s) Psych: Denies: hopelessness or suicidal ideation Endo: Denies: polyuria Car/Lymph: Denies: easy bruising or easy bleeding All/Imm: Denies: urticaria PFSH ED PFSH: Medical History (Updated 09/28/19 @ 13:43 by Serena Olsen MD) Chronic anemia Chronic diastolic CHF (congestive heart failure) CKD (chronic kidney disease), stage II COPD (chronic obstructive pulmonary disease) Recurrent intubations in the past due to hypercapnic respiratory failure Hypertension Morbid obesity Pulmonary embolism Vascular dementia Surgical History H/O section X2 H/O colectomy Secondary to severe colitis H/O: hysterectomy History of salpingo-oophorectomy S/P IVC filter Secondary to PE, DVT Family History Father Lung disease Social History Smoking and tobacco status: current every day smoker cigarettes Packs smoked per day: 1 Years cigarettes smoked: 40 Alcohol intake: never Lives independently: Yes Household members: family Current occupational status: disabled History of recent travel: No Current gender identity: Female Physical Exam Const: COMMON NORMALS: no acute distress, patient oriented x3, alert and well nourished HENMT: COMMON NORMALS: normocephalic and Normal external nose present HEAD & SCALP: normocephalic NOSE: Normal external nose present MOUTH: no trismus Eye: COMMON NORMALS: EOMs intact bilaterally and conjunctivae normal CONJUNCTIVA: Yes conjunctivae normal Neck/C-Spine: COMMON NORMALS: full ROM, no lymphadenopathy and supple CERVICAL SPINE: Yes cervical ROM normal Lymph: LYMPHATIC: no lymphadenopathy noted Resp: COMMON NORMALS: normal respiratory effort, No retractions and No use of accessory muscles EFFORT & INSPECTION: Yes able to speak in complete sentences AUSCULTATION: wheezes OTHER: Few wheezes on exam but good air movement no respiratory distress Cardio: COMMON NORMALS: regular rate and regular rhythm RATE: regular rate RHYTHM: regular rhythm GI: COMMON NORMALS: Normal to inspection, nondistended, normoactive bowel sounds present, Soft to palpation, non-tender and no masses INSPECTION: Yes normal to inspection AUSCULTATION: Yes normoactive bowel sounds PALPATION: Yes Soft to palpation, No Guarding due to palpation present (GI) and No Rigid due to palpation Back/Pelvis: OTHER: Normal range of motion Extremity: GENERAL: Yes normal exam except as noted Neuro: COMMON NORMALS: patient oriented x3 and CN's II-XII intact bilaterally SENSORIUM/ORIENTATION: Yes alert SPEECH: speech normal Psych: COMMON NORMALS: mental status grossly normal Skin: COMMON NORMALS: no rashes or lesions noted GENERAL SKIN EXAM: no rashes or lesions noted Course Vital Signs: Vital signs: Vital Signs Temperature 98.7 F 09/28/19 12:04 Pulse Rate 92 09/28/19 14:21 Respiratory Rate 14 09/28/19 14:21 Blood Pressure 124/74 09/28/19 14:21 Pulse Oximetry 95 09/28/19 14:21 MDM - SOB/Dyspnea MDM Narrative: Medical decision making narrative: Patient had several neb treatments in route by EMS none given here but terbutaline subcu ordered. Also dosed her with Solu-Medrol IV she was finishing a prednisone taper. She is unsure of what caused this exacerbation but feels back to her baseline and is on 4 L O2 which she tells me she is usually on 3-1/2-4 at home and currently has an O2 sat of 93%. Will give prescription for new prednisone taper and precautions to return if worse. She is alert and oriented x3 and is currently not having any respiratory distress and says she has no other needs at this time. Lab Data: Labs: Lab Results 09/28/19 09/28/19 09/28/19 Range/Units 12:18 12:20 12:20 WBC 7.7 (4.0-10.0) 10^3/ uL RBC 4.93 (4.1-5.3) 10^6/u L Hgb 10.4 L (11.5-15.3) g/dL Hct 40.6 (37.0-47.0) % MCV 82.4 (81-99) fL MCH 21.1 L (28.0-34.0) pg MCHC 25.6 L (30.0-36.0) g/dL RDW 22.3 H (12.1-15.1) % Plt Count 284 (130-400) 10^3/c mm MPV 9.7 (7.4-10.4) fL Neut % (Auto) 80.0 % Lymph % (Auto) 9.0 % Gosper % (Auto) 6.3 % Eos % (Auto) 4.0 % Baso % (Auto) 0.3 % Neut # (Auto) 6.1 (1.8-7.7) 10^3/u L Lymph # (Auto) 0.7 L (0.8-4.8) 10^3/u L Gosper # (Auto) 0.5 (0.2-0.9) 10^3/u L Eos # (Auto) 0.3 (0.0-0.8) 10^3/u L Baso # (Auto) 0.0 (0.0-0.1) 10^3/u L Nucleated RBC % (a uto) 0 % Nucleated RBCs # 0.0 /100WBC Specimen Type Arterial Sample Site Radial, left ABG pH 7.42 (7.35-7.45) ABG pCO2 67.6 H* (35-45) mmHg ABG pO2 60.8 L (80.0-100.0) mmH g ABG HCO3 44.2 H (22-26) mmol/L ABG Base Excess 17.0 H (-2.0-2.0) mmol/ L Santiago Test Pos Hematocrit 32.5 L (37-47) % Hgb O2 Saturation 87.5 L (95-100) % Carboxyhemoglobin 5.4 (0.4-20.1) %THgb Methemoglobin 0.7 (0.4-1.5) % Total Hemoglobin 10.6 L (12-16) g/dL O2 Delivery Device Nc O2 Liters/Min 4.0 % FiO2 36.0 % Washer Repairman ID ed Sodium 136 (136-145) mmol/L Potassium 4.8 (3.5-5.1) mmol/L Chloride 87 L (98-107) mmol/L Carbon Dioxide 40 H (22-29) mmol/L Anion Gap 13.8 (5-19) BUN 8 (8-23) mg/dL Creatinine 0.5 (0.5-0.9) mg/dL GFR Calculation 123.4 (90-130) mL/min Glucose 90 (65-115) mg/dL Calculated Osmolal ity 277 L (285-295) mOsm/k g Calcium 9.9 (8.5-10.5) mg/dL Magnesium 1.9 (1.7-2.3) mg/dL Total Bilirubin 0.6 (0.15-1.2) mg/dL AST 13 (0-32) U/L ALT 11 (0-33) U/L Alkaline Phosphata se 77 (35-105) IU/L Total Protein 6.2 L (6.6-8.7) g/dL Albumin 3.5 (3.5-5.2) g/dL Globulin 2.7 (1.3-4.6) g/dL Imaging Data^: CXR: Radiologist's impression: [address] [place] [address] XRay Report Signed Patient: Roseann Durham Prince #: [id number] : 4Acct#:[id number] Age/Sex: 64 / FADM Date: 09/28/19 Loc: ERRoom/Bed: Attending Dr: Ordering Provider/Ordering MD: Serena Olsen MD Date of Service: 09/28/19 Procedure(s): XR chest 1V portable [id number] Accession Number(s): [id number] Report Number: [id number] WS: [id number] PORTABLE CHEST HISTORY: soa COMPARISON: 09/07/2019 Hyperinflated lungs with emphysema. No consolidation or pneumonia. Very mild pulmonary venous congestion is present. No pneumonia. No pleural effusion or pneumothorax. Cardiac size: Mildly enlarged cardiac silhouette. Mediastinum/Aorta: Normal mediastinum. No osseous abnormality seen. XR/XR chest 1V portable [id number] IMPRESSION: Chronic emphysema with mild pulmonary congestion. Dictated By:Cindi Tejada DO Signed By:Cindi Tejada DOSigned Date/Time:09/28/19 1237 DD/ 1235 EKG Data^: EKG 1: Attestation: I personally reviewed and interpreted this EKG as follows: EKG Interpretation Date: 09/28/19 EKG interpretation time: 12:18 Interpretation: Sinus rhythm rate 84 right axis deviation and right bundle branch block Discharge Plan Discharge Patient Disposition: Home, Self-Care Clinical Impression: COPD (chronic obstructive pulmonary disease) Qualifiers: COPD type: COPD with acute exacerbation Qualified Code(s): J44.1 - Chronic obstructive pulmonary disease with (acute) exacerbation Condition: Stable Prescriptions: New prednisone 10 mg tablet See Rx Instructions .ROUTE .COMPLEX Qty: 53 RF: 0 No Action albuterol sulfate [Ventolin HFA] 90 mcg/actuation HFA aerosol inhaler 2 puff INHALATION Q6H PRNRF: 0 Combivent Respimat 20-100 mcg/actuation mist 1 puff INHALATION Q6H PRNRF: 0 revefenacin 175 mcg/3 mL solution for nebulization 175 mcg INHALATION DAILY 90 Days Qty: 90 RF: 3 Perforomist 20 mcg/2 mL solution for nebulization 2 ml INHALATION Q12H 90 Days Qty: 120 RF: 3 budesonide [Pulmicort] 0.5 mg/2 mL suspension for nebulization 0.5 mg INHALATION BID 90 Days Qty: 120 RF: 3 ondansetron See Rx Instructions .ROUTE .COMPLEX RF: 0 furosemide 40 mg Tablet 40 mg PO DAILY Qty: 30 RF: 0 acetaminophen 325 mg Tablet 650 mg PO Q6H PRN (Reason: Mild/Mod Pain Or Temp >/= 101) Qty: 30 RF: 0 spironolactone 25 mg Tablet 12.5 mg PO DAILY Qty: 30 RF: 0 alprazolam 0.25 mg Tablet 0.25 mg PO TID PRN (Reason: Anxiety) Qty: 10 RF: 0 albuterol sulfate 2.5 mg /3 mL (0.083 %) Solution For Nebulization 2.5 mg INHALATION Q4H PRN (Reason: Shortness Of Breath) RF: 0 Eliquis 5 mg Tablet 5 mg PO BID RF: 0 budesonide 0.5 mg/2 mL Suspension For Nebulization 0.5 mg inhalation BID.RESPIRATORY Qty: 30 RF: 0 Spiriva Respimat 2.5 mcg/actuation mist 2 inh INHALATION DAILY Qty: 4 RF: 0 Symbicort 160-4.5 mcg/actuation Hfa Aerosol Inhaler 2 puff INHALATION BID RF: 0 prednisone 10 mg tablet 10 mg PO DAILY 25 Days Qty: 53 RF: 0 ferrous sulfate 325 mg (65 mg iron) tablet 325 mg PO DAILY 30 Days Qty: 30 RF: 0 pantoprazole 40 mg Tablet,Delayed Release (Dr/Ec) 40 mg PO Q12H 30 Days Qty: 60 RF: 0 Referrals: Titus Garzon DO [Primary Care Provider] - Discharge Date/Time: 09/28/19 14:21 Coding Level of Care Code ED Vender for Denis Lozoya
[2019-09-28 12:27] LABS: Basophils % 0.3 %; Eosinophils # 0.3 10^3/uL (0.0-0.8); Hematocrit 40.6 % (37.0-47.0); Hemoglobin 10.4 g/dL (11.5-15.3); Lymphocytes # 0.7 10^3/uL (0.8-4.8); Mean Corpuscular HGB Conc 25.6 g/dL (30.0-36.0); Mean Corpuscular Hemoglobin 21.1 pg (28.0-34.0); Mean Corpuscular Volume 82.4 fL (81-99); Mean Platelet Volume 9.7 fL (7.4-10.4); Monocytes # 0.5 10^3/uL (0.2-0.9); Monocytes % 6.3 %; Neutrophils # 6.1 10^3/uL (1.8-7.7); Nucleated Red Blood Cells % 0 %; Platelet Count 284 10^3/cmm (130-400); Red Blood Count 4.93 10^6/uL (4.1-5.3); Red Cell Distribution Width 22.3 % (12.1-15.1); White Blood Count 7.7 10^3/uL (4.0-10.0)
[2019-09-28 12:33] LABS: ABG PH Result 7.42 (7.35-7.45); Arterial Blood Gas Hematocrit 32.5 % (37-47); Blood Gas Allen Test Pos; Blood Gas Sample Site Radial, left; Blood Gas Sample Type Arterial; Carboxyhemoglobin 5.4 %THgb (0.4-20.1); HCO3 ABG 44.2 mmol/L (22-26); HGB O2 Sat 87.5 % (95-100); Methemoglobin 0.7 % (0.4-1.5); Oxygen Device NC; PO2 ABG 60.8 mmHg (80.0-100.0); Total Hemoglobin 10.6 g/dL (12-16)
[2019-09-28 12:34] LABS: ABG PCO2 67.6 mmHg (35-45)
[2019-09-28 12:58] LABS: Alanine Aminotransferase 11 U/L (0-33); Albumin Level 3.5 g/dL (3.5-5.2); Alkaline Phosphatase 77 IU/L (35-105); Anion Gap 13.8 (5-19); Aspartate Amino Transferase 13 U/L (0-32); Blood Urea Nitrogen 8 mg/dL (8-23); Calcium 9.9 mg/dL (8.5-10.5); Carbon Dioxide 40 mmol/L (22-29); Chloride 87 mmol/L (98-107); Globulin 2.7 g/dL (1.3-4.6); Glomerular Filtration Rate 123.4 mL/min (90-130); Glucose 90 mg/dL (65-115); Magnesium 1.9 mg/dL (1.7-2.3); Osmolality Calculated 277 mOsm/kg (285-295); Potassium 4.8 mmol/L (3.5-5.1); Sodium 136 mmol/L (136-145); Total Bilirubin 0.6 mg/dL (0.15-1.2); Total Protein 6.2 g/dL (6.6-8.7)
[2019-09-28 13:32] VITALS: BP 117/66; PULSE 86; RESP 18; O2SAT 93
[2019-09-28] MEDS: terbutaline 1 mg/mL INJ 0.25 MG SUBCUT (14:09)
[2019-09-28 14:21] VITALS: BP 124/74; PULSE 92; RESP 14; O2SAT 95
== END 2019-09-28 14:21 | disposition home or self-care (01) ==
PROVIDERS: Emergency Provider Emergency Medicine; PCP Internal Medicine
DX: J44.1 Chronic obstructive pulmonary disease with (acute) exacerbation (principal); Z79.01 Long term (current) use of anticoagulants; I13.0 Hypertensive heart and chronic kidney disease with heart failure and stage 1 through stage 4 chronic kidney disease, or unspecified chronic kidney disease; N18.2 Chronic kidney disease, stage 2 (mild); I50.32 Chronic diastolic (congestive) heart failure; F01.50 Vascular dementia, unspecified severity, without behavioral disturbance, psychotic disturbance, mood disturbance, and anxiety; F17.210 Nicotine dependence, cigarettes, uncomplicated
CPT/HCPCS: 12345; 36600; 71045; 80053; 82805; 83735; 85025; 93005; 96372; 96374; 99282; 99284; J2930; J3105

== ENCOUNTER 2019-10-04 11:36 | Inpatient (IN) | payer MEDICARE, SELFPAY ==
[2019-10-04] VITALS (17 sets, daily range): BP systolic 107–156; BP diastolic 70–96; PULSE 70–96; RESP 10–34; TEMP 36.7–37.2; O2SAT 86–99; BMI 33.6
--- NOTE | 2019-10-04 12:11 | XRR_ITS ---
PROCEDURE INFORMATION: Exam: XR Chest, 1 View Exam date and time: 10/04/2019 12:30 PM Age: 64 years old Clinical indication: Cough and dyspnea; Additional info: Dyspnea/cough TECHNIQUE: Imaging protocol: XR of the chest Views: 1 view. COMPARISON: CR XR chest 1V portable [id number] 09/28/2019 12:36 PM FINDINGS: Lungs: Hyperinflation. No consolidation. Pleural space: Unremarkable. No pleural effusion. No pneumothorax. Heart/Mediastinum: Hiatal hernia. No cardiomegaly. Bones/joints: No acute findings. XR/XR chest 1V portable [id number] IMPRESSION: No acute findings.
[2019-10-04] MEDS: ipratropium-albuterol 3 mL Neb INHALATION ×3 (12:30→23:21)
--- NOTE | 2019-10-04 12:30 | W.ED.SOB ---
HPI - SOB/Dyspnea General: Chief Complaint: Shortness of Breath/Dyspnea Stated Complaint: short of breath Time Seen by Provider: 10/04/19 12:11 History of Present Illness: HPI Narrative: 64-year-old female comes in respiratory distress. She was using a CPAP at home EMS when they found her did not think it was applied appropriately and her sats were in the 70s. They gave her nebulizer and Solu-Medrol applied their CPAP got her sats into the upper 80s when she arrived here her sats are in the low 90s she is awake alert tolerating it well she was taken off of the EMS CPAP placed on the hospital CPAP she maintain her sats for a little while at 90 to 92% and then began to decrease desatted although it is 70% before the transition was completed. She does states she has had her usual cough with no increase or change in production of sputum. She denies any chest pain denies being diabetic or having any history of heart disease. MD elicited complaint: shortness of breath Pertinent past history: COPD Onset (ago): day(s) Timing: constant Severity: severe Exacerbating factors: exertion Relieving factors: oxygen, rest and other (CPAP) Known history of: COPD Associated symptoms: Deny abdominal pain, chest pain, fever(s), nausea, orthopnea or vomiting Review of Systems Const: Denies: fever(s), chills, body aches, change in appetite, fatigue or malaise ENMT: Denies: throat pain, ear or mastoid pain, nasal discharge or nasal congestion Card: Denies: chest pain, edema, dyspnea on exertion or orthopnea Resp: Reports: dyspnea and non-productive cough; Denies: productive cough GI: Denies: abdominal pain, nausea, vomiting, hematemesis, coffee ground emesis, diarrhea, constipation, bloating, hematochezia or melena : Denies: flank pain, difficulty voiding, dysuria, urinary frequency or urinary urgency Skin/Breast: Denies: rash or pruritus PFSH ED PFSH: Medical History Chronic anemia Chronic diastolic CHF (congestive heart failure) CKD (chronic kidney disease), stage II COPD (chronic obstructive pulmonary disease) Recurrent intubations in the past due to hypercapnic respiratory failure Hypertension Morbid obesity Pulmonary embolism Smoking addiction Vascular dementia Surgical History H/O section X2 H/O colectomy Secondary to severe colitis H/O: hysterectomy History of salpingo-oophorectomy S/P IVC filter Secondary to PE, DVT Family History Father Lung disease Social History Smoking and tobacco status: current every day smoker cigarettes Packs smoked per day: 1 Years cigarettes smoked: 40 [ Other cigarette details: Says has been reducing. Daughter has been trying to encourage cessation. ] Alcohol intake: never Lives independently: No (, daughter) Household members: family Marital status: Current occupational status: disabled History of recent travel: No Current gender identity: Female Physical Exam Const: COMMON NORMALS: no acute distress GENERAL APPEARANCE: cooperative and comfortable ORIENTATION/CONSCIOUSNESS: Yes awake, Yes oriented to person, Yes oriented to place and Yes oriented to time HENMT: COMMON NORMALS: normocephalic, atraumatic, hearing grossly normal bilaterally, external ears normal, EAC's normal, TM's normal bilaterally, Normal nasal mucous membranes and turbinates present, moist oral mucous membranes and oropharynx normal HEAD & SCALP: normocephalic and atraumatic NOSE: Normal nasal mucous membranes and turbinates present EXTERNAL EAR: Yes external ears normal EXTERNAL AUDITORY CANAL: EAC's normal TYMPANIC MEMBRANE: TM's normal bilaterally Eye: COMMON NORMALS: Equal, round and reactive pupils present, EOMs intact bilaterally, conjunctivae normal and no scleral icterus CONJUNCTIVA: Yes conjunctivae normal PUPIL: Yes Equal, round and reactive pupils present Neck/C-Spine: COMMON NORMALS: full ROM, no lymphadenopathy, supple and no JVD Lymph: LYMPHATIC: no lymphadenopathy noted and no lymphedema noted Resp: EFFORT & INSPECTION: Yes tachypneic, Yes respiratory distress, Yes labored and Yes audible wheezes AUSCULTATION: rales and rhonchi Cardio: COMMON NORMALS: no JVD, regular rate, regular rhythm and No murmurs present (Cardio) RATE: regular rate RHYTHM: regular rhythm GI: COMMON NORMALS: Soft to palpation and No hepatosplenomegaly present AUSCULTATION: Yes normoactive bowel sounds PALPATION: Yes Soft to palpation, No Tenderness to palpation present (GI), No Guarding due to palpation present (GI) and Yes No hepatosplenomegaly present Extremity: COMMON NORMALS: normal to inspection, capillary refill normal, no clubbing, cyanosis or edema, no calf tenderness and no pedal edema Neuro: SENSORIUM/ORIENTATION: Yes oriented to person, Yes oriented to place and Yes oriented to time Skin: COMMON NORMALS: no rashes or lesions noted GENERAL SKIN EXAM: no rashes or lesions noted Course Vital Signs: Vital signs: Vital Signs Temperature 98.0 F 10/05/19 04:00 Pulse Rate 79 10/05/19 04:23 Respiratory Rate 17 10/05/19 04:10 Blood Pressure 106/58 10/05/19 04:00 Pulse Oximetry 94 10/05/19 04:23 MDM - SOB/Dyspnea MDM Narrative: Medical decision making narrative: Patient awake and alert while she is on the CPAP earlier she was having CO2 narcosis. She is definitely benefiting from CPAP but will continue to require it as well as aggressive pulmonary toilet discussed Dr. Londono will admit. She has been tested twice and has remained essentially quarantined I do not think repeating testing for COVID-19 is any benefit at this point think this is simply an exacerbation of her chronic COPD complicated by her other multiple comorbidities. Lab Data: Labs: Lab Results 10/04/19 10/04/19 10/04/19 Range/Units 12:15 12:15 12:15 WBC 7.5 (4.0-10.0) 10^3/ uL RBC 5.32 H (4.1-5.3) 10^6/u L Hgb 11.4 L (11.5-15.3) g/dL Hct 45.2 (37.0-47.0) % MCV 85.0 (81-99) fL MCH 21.4 L (28.0-34.0) pg MCHC 25.2 L (30.0-36.0) g/dL RDW 21.6 H (12.1-15.1) % Plt Count 287 (130-400) 10^3/c mm MPV 9.3 (7.4-10.4) fL Neut % (Auto) 79.8 % Lymph % (Auto) 8.5 % Atlantic % (Auto) 6.0 % Eos % (Auto) 4.8 % Baso % (Auto) 0.4 % Neut # (Auto) 5.9 (1.8-7.7) 10^3/u L Lymph # (Auto) 0.6 L (0.8-4.8) 10^3/u L Atlantic # (Auto) 0.5 (0.2-0.9) 10^3/u L Eos # (Auto) 0.4 (0.0-0.8) 10^3/u L Baso # (Auto) 0.0 (0.0-0.1) 10^3/u L Nucleated RBC % (a uto) 0 % Nucleated RBCs # 0.0 /100WBC Specimen Type Sample Site ABG pH (7.35-7.45) ABG pCO2 (35-45) mmHg ABG pO2 (80.0-100.0) mmH g ABG HCO3 (22-26) mmol/L ABG O2 Saturation ABG Base Excess (-2.0-2.0) mmol/ L Santiago Test A-a O2 Gradient (5-10) mmHg Hematocrit (37-47) % Hgb O2 Saturation (95-100) % Carboxyhemoglobin (0.4-20.1) %THgb Methemoglobin (0.4-1.5) % Total Hemoglobin (12-16) g/dL Ionized Calcium (1.1-1.4) mmol/L O2 Delivery Device FiO2 % Wastewater Project Manager ID Sodium 138 (136-145) mmol/L Potassium 4.5 (3.5-5.1) mmol/L Chloride 86 L (98-107) mmol/L Carbon Dioxide 44 H* (22-29) mmol/L Anion Gap 12.5 (5-19) BUN 14 (8-23) mg/dL Creatinine 0.6 (0.5-0.9) mg/dL GFR Calculation 100.0 (90-130) mL/min Glucose 103 (65-115) mg/dL Calculated Osmolal ity 282 L (285-295) mOsm/k g Lactate (0.5-2.2) mmol/L Calcium 9.9 (8.5-10.5) mg/dL Total Bilirubin 0.4 (0.15-1.2) mg/dL AST 11 (0-32) U/L ALT 12 (0-33) U/L Alkaline Phosphata se 90 (35-105) IU/L Total Protein 7.6 (6.6-8.7) g/dL Albumin 4.1 (3.5-5.2) g/dL Globulin 3.5 (1.3-4.6) g/dL TSH 1.76 (0.27-4.20) uIU/ mL 10/04/19 10/04/19 Range/Units 12:25 12:55 WBC (4.0-10.0) 10^3/ uL RBC (4.1-5.3) 10^6/u L Hgb (11.5-15.3) g/dL Hct (37.0-47.0) % MCV (81-99) fL MCH (28.0-34.0) pg MCHC (30.0-36.0) g/dL RDW (12.1-15.1) % Plt Count (130-400) 10^3/c mm MPV (7.4-10.4) fL Neut % (Auto) % Lymph % (Auto) % Atlantic % (Auto) % Eos % (Auto) % Baso % (Auto) % Neut # (Auto) (1.8-7.7) 10^3/u L Lymph # (Auto) (0.8-4.8) 10^3/u L Atlantic # (Auto) (0.2-0.9) 10^3/u L Eos # (Auto) (0.0-0.8) 10^3/u L Baso # (Auto) (0.0-0.1) 10^3/u L Nucleated RBC % (a uto) % Nucleated RBCs # /100WBC Specimen Type Arterial Sample Site Radial, left ABG pH 7.32 L (7.35-7.45) ABG pCO2 93.2 H* (35-45) mmHg ABG pO2 63.3 L (80.0-100.0) mmH g ABG HCO3 48.1 H (22-26) mmol/L ABG O2 Saturation 92.5 ABG Base Excess 18.1 H (-2.0-2.0) mmol/ L Santiago Test Pos A-a O2 Gradient 67.0 H (5-10) mmHg Hematocrit 33.9 L (37-47) % Hgb O2 Saturation 87.7 L (95-100) % Carboxyhemoglobin 4.4 (0.4-20.1) %THgb Methemoglobin 0.9 (0.4-1.5) % Total Hemoglobin 11.1 L (12-16) g/dL Ionized Calcium 1.2 (1.1-1.4) mmol/L O2 Delivery Device Bipap FiO2 34.0 % Wastewater Project Manager ID broma Sodium 136.0 (136-145) mmol/L Potassium 4.7 (3.5-5.1) mmol/L Chloride (98-107) mmol/L Carbon Dioxide (22-29) mmol/L Anion Gap (5-19) BUN (8-23) mg/dL Creatinine (0.5-0.9) mg/dL GFR Calculation (90-130) mL/min Glucose 110.0 (65-115) mg/dL Calculated Osmolal ity (285-295) mOsm/k g Lactate 1.2 (0.5-2.2) mmol/L Calcium (8.5-10.5) mg/dL Total Bilirubin (0.15-1.2) mg/dL AST (0-32) U/L ALT (0-33) U/L Alkaline Phosphata se (35-105) IU/L Total Protein (6.6-8.7) g/dL Albumin (3.5-5.2) g/dL Globulin (1.3-4.6) g/dL TSH (0.27-4.20) uIU/ mL Discharge Plan Discharge Patient Disposition: Admitted As Inpatient Admit Provider: Isma Londono Clinical Impression: Acute on chronic respiratory failure with hypoxia and hypercapnia, COPD (chronic obstructive pulmonary disease), Chronic diastolic CHF (congestive heart failure), CKD (chronic kidney disease), stage II, Moderate to severe pulmonary hypertension Condition: Stable Interventions: ED Discharge Assessment Last Done: 10/04/19 15:07 ED Charges Last Done: 10/04/19 15:09 Discharge Date/Time: 10/04/19 15:32 Coding Level of Care Code ED Pharmacist for [facility] Fwd Exam Comprehensive
[2019-10-04 12:37] LABS: Basophils % 0.4 %; Eosinophils # 0.4 10^3/uL (0.0-0.8); Eosinophils % 4.8 %; Hematocrit 45.2 % (37.0-47.0); Hemoglobin 11.4 g/dL (11.5-15.3); Lymphocytes # 0.6 10^3/uL (0.8-4.8); Lymphocytes % 8.5 %; Mean Corpuscular HGB Conc 25.2 g/dL (30.0-36.0); Mean Corpuscular Hemoglobin 21.4 pg (28.0-34.0); Mean Platelet Volume 9.3 fL (7.4-10.4); Monocytes # 0.5 10^3/uL (0.2-0.9); Neutrophils # 5.9 10^3/uL (1.8-7.7); Neutrophils % 79.8 %; Nucleated Red Blood Cells % 0 %; Platelet Count 287 10^3/cmm (130-400); Red Blood Count 5.32 10^6/uL (4.1-5.3); Red Cell Distribution Width 21.6 % (12.1-15.1); White Blood Count 7.5 10^3/uL (4.0-10.0)
[2019-10-04 12:53] LABS: Alanine Aminotransferase 12 U/L (0-33); Albumin Level 4.1 g/dL (3.5-5.2); Alkaline Phosphatase 90 IU/L (35-105); Anion Gap 12.5 (5-19); Aspartate Amino Transferase 11 U/L (0-32); Blood Urea Nitrogen 14 mg/dL (8-23); Calcium 9.9 mg/dL (8.5-10.5); Chloride 86 mmol/L (98-107); Globulin 3.5 g/dL (1.3-4.6); Glucose 103 mg/dL (65-115); Osmolality Calculated 282 mOsm/kg (285-295); Potassium 4.5 mmol/L (3.5-5.1); Sodium 138 mmol/L (136-145); Total Bilirubin 0.4 mg/dL (0.15-1.2); Total Protein 7.6 g/dL (6.6-8.7)
[2019-10-04 12:56] LABS: Carbon Dioxide 44 mmol/L (22-29)
[2019-10-04 12:56] LABS: Lactate (Lactic Acid level) 1.2 mmol/L (0.5-2.2)
[2019-10-04 13:10] LABS: ABG PH Result 7.32 (7.35-7.45); Arterial Blood Gas Hematocrit 33.9 % (37-47); Base Excess ABG 18.1 mmol/L (-2.0-2.0); Blood Gas Allen Test Pos; Blood Gas Sample Site Radial, left; Blood Gas Sample Type Arterial; Carboxyhemoglobin 4.4 %THgb (0.4-20.1); HCO3 ABG 48.1 mmol/L (22-26); HGB O2 Sat 87.7 % (95-100); Ionized Calcium Level - ABG 1.2 mmol/L (1.1-1.4); Methemoglobin 0.9 % (0.4-1.5); Oxygen Device BIPAP; Oxygen Saturation ABG 92.5; PO2 ABG 63.3 mmHg (80.0-100.0); Potassium Level - ABG 4.7 mmol/L (3.5-5.0); Total Hemoglobin 11.1 g/dL (12-16)
[2019-10-04 13:12] LABS: ABG PCO2 93.2 mmHg (35-45)
--- NOTE | 2019-10-04 14:07 | ECG_ITS ---
Measurements Intervals [place] Rate: 88 P: 62 OH: 124 QRS: 169 QRSD: 125 T: 18 QT: 335 QTc: 405 SINUS RHYTHM RIGHT AXIS DEVIATION [QRS AXIS > 100] RIGHT BUNDLE BRANCH BLOCK [120+ ms QRS DURATION, UPRIGHT V1, 40+ ms S IN I/aVL/V4/V5/V6] Compared to ECG 09/28/2019 12:18:18 No significant changes Electronically Signed On 10-04-2019 15:44:02 CDT by Jose Griffin M.D. [email or web address]
--- NOTE | 2019-10-04 14:40 | PC.NURSE ---
EKG done at 1430 and shown to ER doctor
[2019-10-04] MEDS: sodium chloride 0.9% 1,000 ML 100 ML IV (16:11)
--- NOTE | 2019-10-04 16:32 | P.HP_ITS ---
Providers/Chief Complaint Admitting Physician: Isma Londono Primary Care Provider: Titus Garzon DO Chief Complaint: HYPERCAPNIC RESP FAILURE History of Present Illness Roseann Durham is a 64 year old lady with chronic respiratory failure, dependent on trilogy while sleeping, and otherwise on 3.5-4 L of oxygen by nasal cannula, advanced COPD, current smoker, although says has been reducing how much she smokes, pulmonary hypertension, as well as possible obesity hypoventilation syndrome, although not formally diagnosed, has been recently assessed by pulmonology in office, started on revefenacin, formoterol, budesonide in addition to albuterol nebulization, as well as has been undergoing 25-day steroid taper, and per family still appears to be on it. She also has history of chronic diastolic congestive heart failure, chronic kidney disease, history of PE status post IVC, on chronic anticoagulation, HTN, as well as dementia. She was brought in from home where she lives with her and daughter after her this morning asked to call for an ambulance. Last night she had to receive a few nebulization treatments due to some progression of shortness of breath, and this morning this had worsened, and also with noted lethargy. In ER she was placed on BiPAP. It appears that she does have trilogy at home, and uses it, however appears this is inconsistent, and per daughter it seems due to dementia she sometimes forgets the purpose of the mask and takes it off, as well as sometimes asks will using this make me become dependent on the machine ? In ER she is noted in hypercapnic and hypoxic respiratory failure, with respiratory acidosis, CO2 93.2, pH 7.32, PO2 63.3. Her mental status appears to have improved somewhat on BiPAP during my visit she wakes up easily, answers review of systems questions, although is not able to give details of how she ended up in the hospital stating call my daughter . She denies any pain, she does report she has been having some cough productive of clear sputum. She does also on review of systems note having some progression of lower extremity edema, although does not know about weight gain. She does states she has been having to sleep in a more upright position. She denies any chest pain. She has had no fever. No sick contacts at home. And no travel. Review of Systems Const: Denies: fever(s), chills, body aches or malaise Eyes: Denies: change in vision or eye redness ENMT: Denies: throat pain, oral sores or ear or mastoid pain Card: Reports: edema and orthopnea; Denies: chest pain, pre-syncope or dyspnea on exertion Resp: Reports: dyspnea and productive cough; Denies: change in phlegm color or hemoptysis GI: Denies: abdominal pain, nausea, vomiting, diarrhea, constipation, hematochezia or melena : Denies: flank pain, urinary frequency or hematuria Musc: Denies: back pain, joint swelling or joint redness Skin/Breast: Denies: rash, sores or new lesions Neuro: Denies: headache(s), numbness in extremities, weakness in extremities, dizziness, confusion or seizure-like activity Endo: Denies: polyuria or polydipsia Car/Lymph: Denies: easy bleeding or purpura All/Imm: Denies: urticaria, throat swelling or tongue swelling Medications/Allergies Home Medications Medication Instructions Recorded Confirmed Last Taken Type Eliquis 5 mg PO BID 05/29/19 10/04/19 10/03/19 History albuterol sulfate 2.5 mg INHALATION Q4H PRN 05/29/19 10/04/19 07/21/19 History Spiriva Respimat 2 inh INHALATION DAILY #4 gm 06/08/19 10/04/19 10/03/19 Rx ondansetron 8 mg PO PRN 08/02/19 10/04/19 Unknown History spironolactone 12.5 mg PO DAILY #30 tab 08/27/19 10/04/19 10/03/19 Rx budesonide-formoterol [Symbicort] 1 puff INHALATION BID 09/04/19 10/04/19 10/03/19 History ferrous sulfate 325 mg PO DAILY 30 Days #30 tab 09/09/19 10/04/19 10/03/19 Rx pantoprazole 40 mg PO Q12H 30 Days #60 tab 09/09/19 10/04/19 10/03/19 Rx albuterol sulfate 90 mcg/actuation 2 puff INHALATION Q6H PRN 09/20/19 10/04/19 Unknown History aerosol inhaler formoterol fumarate 20 mcg/2 mL 2 ml INHALATION Q12H 90 Days #120 0506/20 05/20/20 Unknown Rx solution for nebulization ml ipratropium 20 mcg-albuterol 100 2 puff INHALATION QID PRN 09/20/19 10/04/19 Unknown History mcg/actuation mist for inhalation revefenacin 175 mcg/3 mL solution 175 mcg INHALATION DAILY 90 Days 09/20/19 10/04/19 Unknown Rx for nebulization #90 ml budesonide 0.5 mg/2 mL suspension 0.5 mg INHALATION BID 90 Days #120 09/22/19 10/04/19 Unknown Rx for nebulization ml prednisone See Rx Instructions .ROUTE 09/28/19 10/04/19 10/03/19 Rx .COMPLEX #53 tab 1 tab per alprazolam 1 mg PO TID PRN 10/04/19 10/04/19 10/03/19 History aspirin [Aspir-81] 81 mg PO DAILY 10/04/19 10/04/19 Unknown History diphenhydramine-acetaminophen 1 - 2 tab PO PRN 10/04/19 10/04/19 Unknown History [Tylenol PM Extra Strength] furosemide 20 mg PO DAILY 10/04/19 10/04/19 10/03/19 History melatonin 10 mg PO BEDTIME PRN 10/04/19 10/04/19 Unknown History Allergies Allergy/AdvReac Type Severity Reaction Status Date / Time No Known Allergies Allergy Verified 10/04/19 11:48 PFSH Acute PFSH: Medical History Chronic anemia Chronic diastolic CHF (congestive heart failure) CKD (chronic kidney disease), stage II COPD (chronic obstructive pulmonary disease) Recurrent intubations in the past due to hypercapnic respiratory failure Hypertension Morbid obesity Pulmonary embolism Smoking addiction Vascular dementia Surgical History H/O section X2 H/O colectomy Secondary to severe colitis H/O: hysterectomy History of salpingo-oophorectomy S/P IVC filter Secondary to PE, DVT Family History Father Lung disease Social History Smoking and tobacco status: current every day smoker cigarettes Packs smoked per day: 1 Years cigarettes smoked: 40 [ Other cigarette details: Says has been reducing. Daughter has been trying to encourage cessation. ] Alcohol intake: never Lives independently: No (, daughter) Household members: family Marital status: Current occupational status: disabled History of recent travel: No Current gender identity: Female Vitals/I&O/Wt Last Vital Signs Temp 99.0 F 10/04/19 15:30 Pulse 96 10/04/19 15:30 Resp 32 H 10/04/19 15:30 BP 152/96 10/04/19 15:30 Pulse Ox 93 10/04/19 15:30 Weight last 48 hrs Weight 86.183 kg Physical Exam Const: COMMON NORMALS: no acute distress NUTRITIONAL APPEARANCE: obese ORIENTATION/CONSCIOUSNESS: Yes awake and Yes Other orientation findings (Does not know the events preceding hospitalization, although does know she has been coughing and more short of breath.) HENMT: COMMON NORMALS: oropharynx normal Neck/C-Spine: GENERAL: Yes other (Cannot assess for JVD due to very thick neck) Resp: AUSCULTATION: wheezes and diminished lung sounds Cardio: COMMON NORMALS: no JVD, regular rhythm, S1 normal heart sound present, S2 normal heart sound present and No murmurs present (Cardio) RHYTHM: regular rhythm HEART SOUNDS: S1 normal heart sound present and S2 normal heart sound present GI: COMMON NORMALS: Normal to inspection, nondistended, normoactive bowel sounds present, Soft to palpation and non-tender PALPATION: Yes Soft to palpation Extremity: COMMON NORMALS: no joint enlargement GENERAL: Yes edema (2+ bilateral LE) Neuro: COMMON NORMALS: moves all extremities Skin: COMMON NORMALS: no rashes or lesions noted GENERAL SKIN EXAM: no rashes or lesions noted Data : 10/04/19 12:15 10/04/19 12:15 Micro: Microbiology 10/04/19 12:25 Blood Culture - Preliminary Blood SPECIMEN COLLECTED 10/04/19 12:15 Blood Culture - Preliminary Blood SPECIMEN COLLECTED A&P Assessment and plan (1) Acute on chronic respiratory failure with hypoxia and hypercapnia: Acute hypercapnic and hypoxic respiratory failure, with respiratory acidosis, CO2 narcosis, with lethargy this morning, yesterday and morning more short of breath. Multifactorial, with COPD exacerbation with cough, productive of clear sputum, wheezing, tightness on chest exam, also with edema, reported orthopnea, with acute on chronic diastolic congestive heart failure exacerbation. There appears to also be a large component of nonadherence with wearing her trilogy at home. It appears per discussion with her daughter that patient inadvertently due to her dementia and forgets the purpose of the mass, as well a s sometimes has here that wearing it will make her dependent intolerant, without rate lysing the severity of her present condition. In addition to everything there is also underlying pulmonary hypertension, and also possibility of obesity hypoventilation syndrome. In addition she is also still a current smoker. She is improved somewhat with BiPAP in ER. Received a breathing treatment. She is currently more awake, and symptomatically says she is feeling better. Still with poor air entry and exam, wheezing. At this time discussed with her and her daughter will treat with IV steroid. She has not come. Her oral prednisone taper at home home. There is no purulence to her sputum, so for now will avoid antibiotic. Chest x-ray is without any signs of pneumonia and she has been afebrile. She was tested for COVID-19 twice in August, as well tested by rapid influenza test and both times both negative. She is not exposed to any other ill persons, or had any travel, and so with time suspicion that this particular episode is related to COVID-19 or influenza he is very low. Continue also nebulization treatments. Inhaled steroid. We will check TSH in case contributing to her mental status changes. Urinalysis reportedly was ordered, but not yet collected. I do think that her acute encephalopathy is secondary to CO2 narcosis with her acute respiratory acidosis. For CHF exacerbation she started on 40 IV Lasix twice a day. Monitor I&O, renal function volume status. She denies any chest pain. EKG is with RBBB, without sign of is anemia. The issue of her lack of consistent adherence with trilogy is unfortunately more problematic. Discussed with her daughter to continue supervision and encouragement, although given her dementia unfortunately this may get worse with time. She does require the ventilator support to prevent dose of hypercapnia, and so should maintain it unless this becomes inconsistent with her overall goals of care at which point position to comfort care may be reasonable. The patient herself denies any prior thoughts on course of action in case of card iopulmonary arrest, does appear to understand the hypothetical situation, and does state would want resuscitation to be tried. Continue to encourage smoking cessation. Status: Acute (2) COPD (chronic obstructive pulmonary disease): With exacerbation, as above. Chronically on oxygen 3.5-4 L by nasal cannula. Needs trilogy anytime she is asleep. Status: Acute Qualifiers: COPD type: COPD with acute exacerbation Qualified Code(s): J44.1 - Chronic obstructive pulmonary disease with (acute) exacerbation (3) Chronic diastolic CHF (congestive heart failure): With acute exacerbation. Management as above. Status: Acute (4) Moderate to severe pulmonary hypertension: Status: Acute (5) Morbid obesity: Continue outpatient follow-up. May benefit from weight loss options. Status: Acute (6) Medical non-compliance: As above. Unfortunately this appears to be inadvertent secondary to her dementia, forgetting the purpose of her trilogy, also possibly stemming from some recurrent concern that she may become dependent . Continue to encourage compliance as long as this is consistent with her overall goals of care. Status: Acute (7) CKD (chronic kidney disease), stage II: Status: Acute (8) Hypertension: Status: Acute (9) Smoking addiction: Discuss smoking cessation for 4 minutes with her and her daughter. She states it has been very difficult for her to quit, but she has been cutting down. Appears cigarettes have been coming from her . Daughter states has been trying to encourage cessation, sometimes using her dementia to the advantage, and says that sometimes tilts her the patient had quit smoking years ago. Daughter says that sometimes this actually works, although other times patient still lights up a cigarette. Encouraged cessation. Discussed with patient, and she understands the need to quit and is able to actually verbalize this, although I do not see that she is particular motivated. We will continue to encourage cessation, provide nicotine replacement for cravings. Status: Acute Additional A&P Information History of PE: Status post IVC filter, on chronic anticoagulation. Other chronic conditions. Attestations Medical Necessity Statement*: Admission of over 2 midnights is going to needed for assessment management of acute on chronic respiratory failure with hypoxia and hypercapnia due to multifactorial etiology as outlined above. Coding Level of Care Code Acute [employer] for Denis Lozoya Diagnoses Acute on chronic respiratory failure with hypoxia and hypercapnia J96.21; J96.22 COPD (chronic obstructive pulmonary disease) J44.1 COPD type: COPD with acute exacerbation Chronic diastolic CHF (congestive heart failure) I50.32 Moderate to severe pulmonary hypertension I27.20 Morbid obesity E66.01 Medical non-compliance Z91.19 CKD (chronic kidney disease), stage II N18.2 Hypertension I10 Smoking addiction F17.200
[2019-10-04] MEDS: FUROsemide 10 mg/mL SDV 4mL 40 MG IVP (17:35)
[2019-10-04] MEDS: apixaban 5 mg Tablet PO (17:36)
[2019-10-04] MEDS: ALPRAZolam 0.25 mg Tablet 1 MG PO (17:36)
[2019-10-04] MEDS: pantoprazole DR 40 mg Tablet PO (17:36)
[2019-10-04 18:22] LABS: Urine Color Yellow (Yellow)
[2019-10-04 18:23] LABS: Add Urine Microscopic? YES; Bilirubin Urine Neg (NEGATIVE); Blood Urine Neg (Negative); Glucose Urine UA Norm (Normal); Ketones Urine Negative (Negative); Leukocyte Esterase Urine 2+ (Negative); Nitrate Urine Negative (Negative); Protein Urine Neg (Negative); RBC Urine 0-4 /hpf (0-2); Specific Gravity, Urine 1.015 (1.005-1.030); Urine Appearance Hazy (CLEAR); Urobilinogen Urine Norm (Negative); pH Urine 7 (5-7)
[2019-10-04 18:24] LABS: WBC Urine 15-25 /hpf (0-5)
[2019-10-04 18:25] LABS: Add Urine Culture? Yes; Bacteria Urine 2+
[2019-10-04 18:26] LABS: Thyroid Stimulating Hormone 1.76 uIU/mL (0.27-4.20)
[2019-10-04] MEDS: budesonide 0.5 mg/2 mL Neb INHALATION (19:47)
[2019-10-05] VITALS (20 sets, daily range): BP systolic 106–138; BP diastolic 58–84; PULSE 64–107; RESP 14–23; TEMP 36.7–36.9; O2SAT 89–98
[2019-10-05] MEDS: ipratropium-albuterol 3 mL Neb INHALATION ×6 (04:10→23:11)
[2019-10-05] MEDS: FUROsemide 10 mg/mL SDV 4mL 40 MG IVP ×2 (04:22→17:02)
[2019-10-05] MEDS: pantoprazole DR 40 mg Tablet PO ×2 (04:26→17:02)
[2019-10-05 05:32] LABS: Hematocrit 39.5 % (37.0-47.0); Hemoglobin 10.3 g/dL (11.5-15.3); Lymphocytes # 0.3 10^3/uL (0.8-4.8); Lymphocytes % 4.4 %; Mean Corpuscular HGB Conc 26.1 g/dL (30.0-36.0); Mean Corpuscular Hemoglobin 21.7 pg (28.0-34.0); Mean Corpuscular Volume 83.3 fL (81-99); Mean Platelet Volume 9.9 fL (7.4-10.4); Monocytes # 0.1 10^3/uL (0.2-0.9); Monocytes % 0.8 %; Neutrophils # 5.8 10^3/uL (1.8-7.7); Neutrophils % 94.3 %; Nucleated Red Blood Cells % 0 %; Platelet Count 275 10^3/cmm (130-400); Red Blood Count 4.74 10^6/uL (4.1-5.3); White Blood Count 6.1 10^3/uL (4.0-10.0)
[2019-10-05 06:40] LABS: Anion Gap 15.9 (5-19); Blood Urea Nitrogen 15 mg/dL (8-23); Calcium 9.5 mg/dL (8.5-10.5); Chloride 81 mmol/L (98-107); Glomerular Filtration Rate 123.4 mL/min (90-130); Glucose 136 mg/dL (65-115); Osmolality Calculated 274 mOsm/kg (285-295); Potassium 4.9 mmol/L (3.5-5.1); Sodium 133 mmol/L (136-145)
[2019-10-05 07:00] LABS: Carbon Dioxide 40 mmol/L (22-29)
[2019-10-05] MEDS: budesonide 0.5 mg/2 mL Neb INHALATION ×2 (08:51→19:27)
[2019-10-05] MEDS: cefTRIAXone 1,000 MG in sodium chloride 0.9% (plus) 50 ML 100 MG IV (09:19)
[2019-10-05] MEDS: aspirin 81 mg EC Tablet PO (09:20)
[2019-10-05] MEDS: ferrous sulfate EC 325 mg Tablet PO (09:20)
[2019-10-05] MEDS: spironolactone 25 mg Tablet 12.5 MG PO (09:20)
[2019-10-05] MEDS: nicotine 14 mg Patch 1 PATCH TRANSDERMA (09:20)
[2019-10-05] MEDS: apixaban 5 mg Tablet PO ×2 (09:20→17:02)
--- NOTE | 2019-10-05 19:43 | P.PN_ITS ---
Subjective Subjective: Interval history: She has been persistently requiring BiPAP support, however, today appears to be more stable, doing somewhat better. Weaned down to nasal cannula, and on my assessment reports she is feeling well. Reports she is hungry, wanting to advance to more solid food. Denies any pain. Vitals/I&O/Wt Last Vital Signs Temp 98.2 F 10/05/19 19:37 Pulse 98 10/05/19 19:37 Resp 19 H 10/05/19 19:37 BP 126/77 10/05/19 19:37 Pulse Ox 90 10/05/19 19:37 10/05/19 10/05/19 10/05/19 06:59 14:59 22:59 Intake Total 770 / 770 924 / 1694 Output Total 1050 / 1970 550 / 550 1100 / 1650 Balance -1050 / -1798.333 220 / 220 -176 / 44 Weight last 48 hrs Weight 100.698 kg Weight 86.183 kg Physical Exam Const: COMMON NORMALS: no acute distress GENERAL APPEARANCE: cooperative NUTRITIONAL APPEARANCE: obese ORIENTATION/CONSCIOUSNESS: Yes awake HENMT: COMMON NORMALS: oropharynx normal Neck/C-Spine: COMMON NORMALS: no JVD GENERAL: Yes other (Cannot assess for JVD due to very thick neck) Resp: AUSCULTATION: wheezes (Better today) and diminished lung sounds (With improvement today as I can actually hear some air movement) Cardio: COMMON NORMALS: no JVD, regular rhythm, S1 normal heart sound present, S2 normal heart sound present and No murmurs present (Cardio) RHYTHM: regular rhythm HEART SOUNDS: S1 normal heart sound present and S2 normal heart sound present GI: COMMON NORMALS: Normal to inspection, nondistended, normoactive bowel sounds present, Soft to palpation and non-tender PALPATION: Yes Soft to palpation Extremity: COMMON NORMALS: no joint enlargement GENERAL: Yes edema (2+ bilateral LE) Neuro: COMMON NORMALS: moves all extremities Skin: COMMON NORMALS: no rashes or lesions noted GENERAL SKIN EXAM: no rashes or lesions noted Data : 10/05/19 04:40 10/05/19 04:40 Micro: Microbiology 10/04/19 12:25 Blood Culture - Preliminary Blood NEGATIVE TO DATE 10/04/19 12:15 Blood Culture - Preliminary Blood NEGATIVE TO DATE A&P Assessment and plan (1) Acute on chronic respiratory failure with hypoxia and hypercapnia: Very slow improvement, although this is not surprising with her severe and multiple underlying illness. Required BiPAP up until this morning, but is able to transition to a cannula. Advance her diet. She is better today. Still some wheezing, but with improved. Will transition over to oral steroid. Again discussed and encouraged adherence with ventilator at home. Again reinforced importance of smoking cessation. She reports she normal GERD smokes . Multifactorial acute on chronic respiratory failure with hypoxia and h ypercapnia, with COPD exacerbation, acute on chronic diastolic congestive heart failure exacerbation. Continue Lasix. Nonadherence with wearing her trilogy at home. It appears per discussion with her daughter that patient inadvertently due to her dementia and forgets the purpose of the mass, as well as sometimes has here that wearing it will make her dependent intolerant, without rate lysing the severity of her present condition. Underlying pulmonary hypertension, and also possibility of obesity hypoventilation syndrome. She is also still a current smoker. She was tested for COVID-19 twice in August, as well tested by rapid influenza test and both times both negative. She is not exposed to any other ill persons, or had any travel, and so with time suspicion that this particular episode is related to COVID-19 or influenza he is very low. Appears to have possible UTI. The issue of her lack of consistent adherence with trilogy is unfortunately more problematic. Discussed with her daughter to continue supervision and encouragement, although given her dementia unfortunately this may get worse with time. She does require the ventilator support to prevent dose of hypercapnia, a nd so should maintain it unless this becomes inconsistent with her overall goals of care at which point position to comfort care may be reasonable. The patient herself denies any prior thoughts on course of action in case of cardiopulmonary arrest, does appear to understand the hypothetical situation, and does state would want resuscitation to be tried. Continue to encourage smoking cessation. Status: Acute (2) COPD (chronic obstructive pulmonary disease): With exacerbation, as above. Chronically on oxygen 3.5-4 L by nasal cannula. Needs trilogy anytime she is asleep. Status: Acute (3) Chronic diastolic CHF (congestive heart failure): With acute exacerbation. Management as above. Status: Acute (4) Moderate to severe pulmonary hypertension: Status: Acute (5) Morbid obesity: Continue outpatient follow-up. May benefit from weight loss options. Status: Acute (6) Medical non-compliance: As above. Unfortunately this appears to be inadvertent secondary to her dementia, forgetting the purpose of her trilogy, also possibly stemming from some recurrent concern that she may become dependent . Continue to encourage compliance as long as this is consistent with her overall goals of care. Status: Acute (7) CKD (chronic kidney disease), stage II: Status: Acute (8) Hypertension: Status: Acute (9) Smoking addiction: We will continue to encourage cessation, provide nicotine replacement for cravings. Status: Acute (10) UTI (urinary tract infection): Started on Rocephin for possible urinary tract infection. Follow-up urine culture. Status: Acute Additional A&P Information History of PE: Status post IVC filter, on chronic anticoagulation. Other chronic conditions. Attestations Medical Necessity Statement*: Continue admission for assessment management of acute on chronic respiratory failure with hypoxia and hypercapnia with COPD exacerbation, CHF exacerbation, smoking disorder, REX, nonadherence with noninvasive ventilation, underlying pulmonary hypertension, and possibly OHS. Coding Level of Care Code Acute [employer] Hammerer for g Fwd Diagnoses Acute on chronic respiratory failure with hypoxia and hypercapnia J96.21; J96.22 COPD (chronic obstructive pulmonary disease) J44.9 Chronic diastolic CHF (congestive heart failure) I50.32 Moderate to severe pulmonary hypertension I27.20 Morbid obesity E66.01 Medical non-compliance Z91.19 CKD (chronic kidney disease), stage II N18.2 Hypertension I10 Smoking addiction F17.200 UTI (urinary tract infection) N39.0
--- NOTE | 2019-10-05 21:22 | PC.NURSE ---
Patient said it wasn't time to empty out her colostomy bag, even though it was half full. Offered to empty it again and still refused.
[2019-10-06] VITALS (13 sets, daily range): BP systolic 110–130; BP diastolic 60–78; PULSE 83–98; RESP 18–20; TEMP 36.6–36.8; O2SAT 89–94
[2019-10-06] MEDS: predniSONE 20 mg Tablet 40 MG PO ×2 (01:46→08:42)
[2019-10-06] MEDS: ALPRAZolam 0.25 mg Tablet 1 MG PO (01:47)
[2019-10-06] MEDS: ipratropium-albuterol 3 mL Neb INHALATION ×3 (03:39→14:01)
[2019-10-06] MEDS: pantoprazole DR 40 mg Tablet PO (05:32)
[2019-10-06] MEDS: FUROsemide 10 mg/mL SDV 4mL 40 MG IVP (05:32)
[2019-10-06 05:54] LABS: Basophils % 0.1 %; Hematocrit 35.9 % (37.0-47.0); Hemoglobin 9.6 g/dL (11.5-15.3); Lymphocytes # 0.3 10^3/uL (0.8-4.8); Lymphocytes % 2.6 %; Mean Corpuscular HGB Conc 26.7 g/dL (30.0-36.0); Mean Corpuscular Hemoglobin 21.7 pg (28.0-34.0); Mean Corpuscular Volume 81.2 fL (81-99); Mean Platelet Volume 9.6 fL (7.4-10.4); Monocytes # 0.4 10^3/uL (0.2-0.9); Neutrophils # 12.3 10^3/uL (1.8-7.7); Neutrophils % 93.8 %; Nucleated Red Blood Cells % 0 %; Platelet Count 300 10^3/cmm (130-400); Red Blood Count 4.42 10^6/uL (4.1-5.3); Red Cell Distribution Width 20.6 % (12.1-15.1); White Blood Count 13.1 10^3/uL (4.0-10.0)
[2019-10-06 06:21] LABS: Anion Gap 11.2 (5-19); Blood Urea Nitrogen 29 mg/dL (8-23); Calcium 9.2 mg/dL (8.5-10.5); Chloride 81 mmol/L (98-107); Glomerular Filtration Rate 123.4 mL/min (90-130); Glucose 141 mg/dL (65-115); Osmolality Calculated 275 mOsm/kg (285-295); Potassium 4.2 mmol/L (3.5-5.1); Sodium 133 mmol/L (136-145)
[2019-10-06 06:30] LABS: Carbon Dioxide 45 mmol/L (22-29)
[2019-10-06] MEDS: budesonide 0.5 mg/2 mL Neb INHALATION (07:56)
[2019-10-06] MEDS: apixaban 5 mg Tablet PO (08:42)
[2019-10-06] MEDS: aspirin 81 mg EC Tablet PO (08:42)
[2019-10-06] MEDS: ferrous sulfate EC 325 mg Tablet PO (08:42)
[2019-10-06] MEDS: spironolactone 25 mg Tablet 12.5 MG PO (08:42)
[2019-10-06] MEDS: nicotine 14 mg Patch 1 PATCH TRANSDERMA (08:43)
[2019-10-06] MEDS: cefTRIAXone 1,000 MG in sodium chloride 0.9% (plus) 50 ML 100 MG IV (08:44)
--- NOTE | 2019-10-06 16:17 | P.DS_ITS ---
Discharge Providers Date of Admission: 10/04/19 14:13 Date of Discharge: October 06, 2019 Attending Provider at Admission: Isma Londono Attending Provider at Discharge: Isma Londono Primary Care Provider: Titus Garzon DO Diagnoses at Discharge Discharge Diagnosis (1) Acute on chronic respiratory failure with hypoxia and hypercapnia: Status: Acute (2) COPD (chronic obstructive pulmonary disease): Status: Acute Problem details: Recurrent intubations in the past due to hypercapnic respiratory failure (3) Chronic diastolic CHF (congestive heart failure): Status: Acute (4) Moderate to severe pulmonary hypertension: Status: Acute (5) Morbid obesity: Status: Acute (6) Medical non-compliance: Status: Acute (7) CKD (chronic kidney disease), stage II: Status: Acute (8) Hypertension: Status: Acute (9) Smoking addiction: Status: Acute (10) UTI (urinary tract infection): Status: Acute Reason for Visit Reason for Visit: Reason For Visit: HYPERCAPNIC RESP FAILURE Hospital Course Hospital Course: Pleasant 64-year-old lady with chronic respiratory failure, with multiple pulmonary conditions including COPD, dependent on trilogy with sleep, chronic oxygen by nasal cannula otherwise 3.5-4 L, REX, pulmonary hypertension, possible OHS, as well as chronic diastolic congestive heart failure, still current intermittent smoker, per discussion with her daughter due to dementia occasionally forgetting the purpose of the trilogy mask, sometimes removing it, sometimes stating concerned that she may become dependent on it, was admitted for assessment management due to acute on chronic respiratory with hypoxia and hypercapnia, on presentation with acute encephalopathy, unresponsiveness at home, with noted respiratory cytosis, CO2 narcosis on presentation, which improved after placed on BiPAP and ER, noted in COPD exacerbation, diastolic acute on chronic CHF exacerbation, on top of chronic pulmonary hypertension, REX, and possibly OHS. She was recently tapering down on oral steroids at home. She was seen by pulmonology with initiation of revefenacin, formoterol at home and attempt to wean down off prednisone. She has not yet received those medications which are supposed to arrive by mail. She does have a nebulizer at home and albuterol. She was treated with IV steroids here, antibiotic was added initially due to concern for possible UTI, although this appears most likely contamination. She will complete 5 more days with Levaquin. Her prednisone taper is restarted with a new refill. Her daughter believes she also has run out of budesonide, so prescription is given for that. She will continue on Lasix at home, with instructions to double the dose for several days and contact PCP office in case of worsening edema, weight gain or orthopnea. She was counseled extensively regarding maintaining trilogy anytime she is asleep at night or during a nap. She verbalized understanding and intent that she will not hear with ventilator therapy. She also verbalized that she will stop smoking. Here she has gradually improved with treatment, was able to wean down off BiPAP yesterday, tolerating nasal cannula while she is awake, and BiPAP at night. She remains awake, alert, with good mental status. Air entry is improving on auscultation. She herself reports she is feeling much better, and is eager to be discharged. She will be returning home to the care of her and daughter, and to follow-up with pulmonology and PCP. Physical Exam Const: COMMON NORMALS: no acute distress GENERAL APPEARANCE: cooperative NUTRITIONAL APPEARANCE: obese ORIENTATION/CONSCIOUSNESS: Yes awake OTHER: Pleasant, conversant. Comfortable with nasal cannula on. HENMT: COMMON NORMALS: oropharynx normal Neck/C-Spine: COMMON NORMALS: no JVD GENERAL: Yes other (Cannot assess for JVD due to very thick neck) Resp: AUSCULTATION: wheezes (Mild wheeze) and diminished lung sounds (Continue to improve) Cardio: COMMON NORMALS: no JVD, regular rhythm, S1 normal heart sound present, S2 normal heart sound present and No murmurs present (Cardio) RHYTHM: regular rhythm HEART SOUNDS: S1 normal heart sound present and S2 normal heart sound present GI: COMMON NORMALS: Normal to inspection, nondistended, normoactive bowel sounds present, Soft to palpation and non-tender PALPATION: Yes Soft to palpation Extremity: COMMON NORMALS: no joint enlargement GENERAL: Yes edema (1+ bilateral LE) Neuro: COMMON NORMALS: moves all extremities Skin: COMMON NORMALS: no rashes or lesions noted GENERAL SKIN EXAM: no rashes or lesions noted Discharge Data Data Completed and Pending: Completed Studies During Hospitalization Category Date Time Status XR chest 1V mukesh ble [id number] Stat Exams 10/04/19 12:11 Completed Pending at discharge Category Date Time Status Basic Metabolic P jessie AM LABS Lab 10/07/19 04:00 Ordered Basic Metabolic P jessie AM LABS Lab 10/08/19 04:00 Ordered Blood Culture Sta t Lab 10/04/19 12:25 Results Complete Blood Co unt w/Auto AM LABS Lab 10/07/19 04:00 Ordered Complete Blood Co unt w/Auto AM LABS Lab 10/08/19 04:00 Ordered Sputum Culture an d Gram Stain Stat Lab 10/04/19 12:11 Uncollected Labs from last 24 hours 10/06/19 10/06/19 04:38 04:38 WBC 13.1 H RBC 4.42 Hgb 9.6 L Hct 35.9 L MCV 81.2 MCH 21.7 L MCHC 26.7 L RDW 20.6 H Plt Count 300 MPV 9.6 Neut % (Auto) 93.8 Lymph % (Auto) 2.6 Waller % (Auto) 3.0 Eos % (Auto) 0.0 Baso % (Auto) 0.1 Neut # (Auto) 12.3 H Lymph # (Auto) 0.3 L Waller # (Auto) 0.4 Eos # (Auto) 0.0 Baso # (Auto) 0.0 Nucleated RBC % (a uto) 0 Nucleated RBCs # 0.0 Sodium 133 L Potassium 4.2 Chloride 81 L Carbon Dioxide 45 H* Anion Gap 11.2 BUN 29 H Creatinine 0.5 GFR Calculation 123.4 Glucose 141 H Calculated Osmolal ity 275 L Calcium 9.2 Vitals: Last Vital Signs Temp 98.3 F 10/06/19 15:34 Pulse 98 10/06/19 15:34 Resp 19 H 10/06/19 15:34 BP 111/69 10/06/19 15:34 Pulse Ox 90 10/06/19 15:34 Discharge Plan Discharge Patient Disposition: Home, Self-Care Condition: Stable Prescriptions: New nicotine 14 mg/24 hr Patch 24 Hour 1 patch transdermal DAILY Qty: 30 RF: 0 nicotine (polacrilex) 2 mg lozenge 2 mg BUCCAL Q1H PRN (Reason: nicotine cravings) Qty: 72 RF: 2 Levaquin 750 mg tablet 750 mg PO DAILY 5 Days Qty: 5 RF: 0 Continued albuterol sulfate [Ventolin HFA] 90 mcg/actuation HFA aerosol inhaler 2 puff INHALATION Q6H PRN (Reason: unknown) RF: 0 Combivent Respimat 20-100 mcg/actuation mist 2 puff INHALATION QID PRN (Reason: unknown) RF: 0 revefenacin 175 mcg/3 mL solution for nebulization 175 mcg INHALATION DAILY 90 Days Qty: 90 RF: 3 Perforomist 20 mcg/2 mL solution for nebulization 2 ml INHALATION Q12H 90 Days Qty: 120 RF: 3 ondansetron 8 mg PO PRN RF: 0 spironolactone 25 mg Tablet 12.5 mg PO DAILY Qty: 30 RF: 0 Aspir-81 81 mg Tablet,Delayed Release (Dr/Ec) 81 mg PO DAILY RF: 0 Tylenol PM Extra Strength 25-500 mg Tablet 1 - 2 tab PO PRN RF: 0 melatonin 10 mg Tablet 10 mg PO BEDTIME PRN (Reason: Sleep) RF: 0 furosemide 40 mg tablet 20 mg PO DAILY RF: 0 alprazolam 0.25 mg tablet 1 mg PO TID PRN (Reason: Anxiety) RF: 0 prednisone 10 mg tablet See Rx Instructions .ROUTE .COMPLEX Qty: 53 RF: 0 Pulmicort 0.5 mg/2 mL suspension for nebulization 0.5 mg INHALATION BID 90 Days Qty: 120 RF: 3 albuterol sulfate 2.5 mg /3 mL (0.083 %) Solution For Nebulization 2.5 mg INHALATION Q4H PRN (Reason: Shortness Of Breath) RF: 0 Eliquis 5 mg Tablet 5 mg PO BID RF: 0 Spiriva Respimat 2.5 mcg/actuation mist 2 inh INHALATION DAILY Qty: 4 RF: 0 budesonide-formoterol [Symbicort] 160-4.5 mcg/actuation Hfa Aerosol Inhaler 1 puff INHALATION BID RF: 0 ferrous sulfate 325 mg (65 mg iron) tablet 325 mg PO DAILY 30 Days Qty: 30 RF: 0 pantoprazole 40 mg Tablet,Delayed Release (Dr/Ec) 40 mg PO Q12H 30 Days Qty: 60 RF: 0 Discharge Orders: Discharge Order (Routine); Ordered 10/06/19 Ordered By: Isma Londono Referrals: Moses Lipscomb MD [Physician] - 2 weeks (Please call Wednesday to set up a follow up appoinment. Multifactorial respiratory failure, with pulm HTN. OHS?) Titus Garzon DO [Primary Care Provider] - 10/11/19 1:30 pm (COPD on trilogy w sleep, CHF, pulm HTN, REX, smoking, weight loss options) Discharge Diet: Cardiac Discharge Activity: Oxygen as instructed and Cpap/Bipap as instructed Patient Instructions: Nicotine (Into the mouth), Nicotine (Absorbed through the skin), Hypertension, Urinary Tract Infection in Women (GEN) Activity Restrictions/Additional Instructions: Please avoid any further smoking as it is absolutely detrimental to your breathing. Never smoke anywhere near oxygen due to severe fire hazard and risk of wolfe. Please maintain trilogy in place every night, and anytime you are about to take a nap. If you gain more than 3 pounds in 2 days, or noticed worsening lower extremity swelling, or worsening shortness of breath with lying down flat, please take double dose of Lasix for several days and call your primary care doctor's office. Weight loss may help you with breathing easier. Please discuss what options to help you with this may be available with your primary care doctor. 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
== END 2019-10-06 17:20 | disposition home or self-care (01) | DRG 189 ==
LOC: ER 15:07 → MEDSURG 15:08
PROVIDERS: Family Medicine; Admitting Provider Internal Medicine; PCP Internal Medicine; Visit Provider Internal Medicine
DX: J96.21 Acute and chronic respiratory failure with hypoxia (principal); I50.33 Acute on chronic diastolic (congestive) heart failure; J44.1 Chronic obstructive pulmonary disease with (acute) exacerbation; N39.0 Urinary tract infection, site not specified; I13.0 Hypertensive heart and chronic kidney disease with heart failure and stage 1 through stage 4 chronic kidney disease, or unspecified chronic kidney disease; E66.2 Morbid (severe) obesity with alveolar hypoventilation; E87.2 Acidosis; J96.22 Acute and chronic respiratory failure with hypercapnia; Z68.39 Body mass index [BMI] 39.0-39.9, adult; N18.2 Chronic kidney disease, stage 2 (mild); F17.210 Nicotine dependence, cigarettes, uncomplicated; I27.20 Pulmonary hypertension, unspecified; Z99.81 Dependence on supplemental oxygen; Z91.14 Patient's other noncompliance with medication regimen; Z79.82 Long term (current) use of aspirin; Z79.01 Long term (current) use of anticoagulants; D63.1 Anemia in chronic kidney disease; F01.50 Vascular dementia, unspecified severity, without behavioral disturbance, psychotic disturbance, mood disturbance, and anxiety; Z86.711 Personal history of pulmonary embolism; Z95.828 Presence of other vascular implants and grafts
CPT/HCPCS: 12345; 36415; 36600; 71045; 80048; 80051; 80053; 81001; 82810; 83605; 83986; 84443; 85025; 87040; 87086; 93005; 94640; 94660; 94762; 96375; 99283; J0696; J1940; J2930; J7030; J7512; J7626

== ENCOUNTER 2019-10-12 21:30 | Inpatient (IN) | payer MEDICARE, SELFPAY ==
[2019-10-12 21:31] VITALS: BP 119/76; PULSE 102; RESP 30; TEMP 36.8; O2SAT 90; BMI 38.7
--- NOTE | 2019-10-12 21:43 | PC.NURSE ---
EKG done at 2109 and shown to ER doctor
--- NOTE | 2019-10-12 21:46 | XRR_ITS ---
PROCEDURE INFORMATION: Exam: XR Chest, 1 View Exam date and time: 10/12/2019 10:10 PM Age: 64 years old Clinical indication: Shortness of breath; Additional info: Dyspnea TECHNIQUE: Imaging protocol: XR of the chest Views: 1 view. COMPARISON: CR XR chest 1V portable [id number] 10/04/2019 12:38 PM FINDINGS: Lungs: Hyperinflation of the lungs and flattening of the hemidiaphragms are compatible with COPD. There is diffuse prominence of the interstitial markings, potentially chronic lung changes. Superimposed interstitial edema is difficult to exclude. Pleural space: Unremarkable. No pleural effusion. No pneumothorax. Heart/Mediastinum: Unremarkable. No cardiomegaly. Bones/joints: Unremarkable. XR/XR chest 1V portable [id number] IMPRESSION: Stable chronic lung changes. Superimposed interstitial edema is difficult to exclude.
--- NOTE | 2019-10-12 21:47 | ECG_ITS ---
Measurements Intervals [place] Rate: 88 P: 59 ND: 136 QRS: 120 QRSD: 125 T: 27 QT: 345 QTc: 419 SINUS RHYTHM RIGHT AXIS DEVIATION [QRS AXIS > 100] RIGHT BUNDLE BRANCH BLOCK [120+ ms QRS DURATION, UPRIGHT V1, 40+ ms S IN I/aVL/V4/V5/V6] Compared to ECG 10/04/2019 14:33:08 No significant changes Electronically Signed On 10-13-2019 18:53:09 CDT by Last Fowler M.D. [email or web address]
[2019-10-12 22:04] LABS: Basophils % 0.3 %; Eosinophils # 0.1 10^3/uL (0.0-0.8); Eosinophils % 0.8 %; Hematocrit 42.2 % (37.0-47.0); Hemoglobin 10.4 g/dL (11.5-15.3); Lymphocytes # 0.5 10^3/uL (0.8-4.8); Mean Corpuscular HGB Conc 24.6 g/dL (30.0-36.0); Mean Corpuscular Hemoglobin 21.8 pg (28.0-34.0); Mean Corpuscular Volume 88.3 fL (81-99); Mean Platelet Volume 8.7 fL (7.4-10.4); Monocytes # 0.3 10^3/uL (0.2-0.9); Monocytes % 2.2 %; Neutrophils # 10.6 10^3/uL (1.8-7.7); Neutrophils % 89.8 %; Nucleated Red Blood Cells % 0 %; Platelet Count 270 10^3/cmm (130-400); Red Blood Count 4.78 10^6/uL (4.1-5.3); Red Cell Distribution Width 20.2 % (12.1-15.1); White Blood Count 11.8 10^3/uL (4.0-10.0)
--- NOTE | 2019-10-12 22:12 | ED_ITS ---
HPI - SOB/Dyspnea General: Chief Complaint: Shortness of Breath/Dyspnea Stated Complaint: SOB, CP Time Seen by Provider: 10/12/19 21:37 History of Present Illness: HPI Narrative: Patient is a 64-year-old female presenting with shortness of breath. She apparently has some dementia according to her daughter. She tells me she has been short of breath like this since a few hours ago. She tried her usual nebulizer at home and it did not help. By report her pulse ox was in the 70s on her usual home oxygen. EMS tells me that her CO2 was between 60 and 80 on their end-tidal monitor. She has a history of respiratory failure with hypercapnia. She also has had some swelling in her legs for several days. She has had a cough. She denies a fever or chest pain. She did complain of chest pain to the EMS crew. She reports that she was in the ER a few days ago. On review of records she was admitted to the hospital and discharged on the . MD elicited complaint: shortness of breath and cough Pertinent past history: COPD and congestive heart failure Review of Systems General: Reports: ROS unobtainable due to medical condition [facility] ED PFSH: Medical History Chronic anemia Chronic diastolic CHF (congestive heart failure) CKD (chronic kidney disease), stage II COPD (chronic obstructive pulmonary disease) Recurrent intubations in the past due to hypercapnic respiratory failure Hypertension Morbid obesity Pulmonary embolism Smoking addiction Vascular dementia Surgical History H/O section X2 H/O colectomy Secondary to severe colitis H/O: hysterectomy History of salpingo-oophorectomy S/P IVC filter Secondary to PE, DVT Family History Father Lung disease Social History Smoking and tobacco status: current every day smoker cigarettes Packs smoked per day: 1 Years cigarettes smoked: 40 [ Other cigarette details: Says has been reducing. Daughter has been trying to encourage cessation. ] Alcohol intake: never Lives independently: No (, daughter) Household members: family Marital status: Current occupational status: disabled History of recent travel: No Current gender identity: Female Physical Exam Const: COMMON NORMALS: no acute distress, patient oriented x3, no limitations and alert GENERAL APPEARANCE: cooperative and comfortable HENMT: HEAD & SCALP: normal to inspection FACE & SINUS: normal facial exam Eye: GENERAL EYE: appearance normal, both eyes and all related structures Neck/C-Spine: COMMON NORMALS: supple, no meningeal signs and no JVD Chest: COMMONS NORMALS: normal inspection of the chest Resp: EFFORT & INSPECTION: Yes labored (Mildly labored) and Yes audible wheezes AUSCULTATION: wheezes Cardio: COMMON NORMALS: no JVD, regular rate, regular rhythm and No murmurs present (Cardio) RATE: regular rate RHYTHM: regular rhythm GI: COMMON NORMALS: Normal to inspection, nondistended, normoactive bowel sounds present, Soft to palpation and non-tender INSPECTION: Yes normal to inspection AUSCULTATION: Yes normoactive bowel sounds PALPATION: Yes Soft to palpation Back/Pelvis: COMMON NORMALS: thoracic and lumbar spine normal to inspection Extremity: COMMON NORMALS: normal to inspection Neuro: COMMON NORMALS: patient oriented x3, moves all extremities, no focal motor deficits and no sensory deficits noted SENSORIUM/ORIENTATION: Yes alert MENINGEAL SIGNS: Yes no meningeal signs Psych: COMMON NORMALS: mental status grossly normal and normal affect Skin: COMMON NORMALS: no rashes or lesions noted and turgor normal GENERAL SKIN EXAM: no rashes or lesions noted and turgor normal Course ED course: ABG shows a pH of 7.29 and a CO2 of 113. Other labs are fairly unremarkable though the chemistry is still pending. She will be admitted to the ICU on BiPAP. Review of prior records shows this is a fairly typical admission for her. Vital Signs: Vital signs: Vital Signs Temperature 98.3 F 10/12/19 21:31 Pulse Rate 94 10/12/19 22:30 Respiratory Rate 30 H 10/12/19 21:31 Blood Pressure 119/76 10/12/19 21:31 Pulse Oximetry 94 10/12/19 22:30 MDM - SOB/Dyspnea Lab Data: Labs: Lab Results 10/12/19 10/12/19 10/12/19 Range/Units 21:56 21:56 21:56 WBC 11.8 H (4.0-10.0) 10^3/ uL RBC 4.78 (4.1-5.3) 10^6/u L Hgb 10.4 L (11.5-15.3) g/dL Hct 42.2 (37.0-47.0) % MCV 88.3 (81-99) fL MCH 21.8 L (28.0-34.0) pg MCHC 24.6 L (30.0-36.0) g/dL RDW 20.2 H (12.1-15.1) % Plt Count 270 (130-400) 10^3/c mm MPV 8.7 (7.4-10.4) fL Neut % (Auto) 89.8 % Lymph % (Auto) 4.0 % Sanders % (Auto) 2.2 % Eos % (Auto) 0.8 % Baso % (Auto) 0.3 % Neut # (Auto) 10.6 H (1.8-7.7) 10^3/u L Lymph # (Auto) 0.5 L (0.8-4.8) 10^3/u L Sanders # (Auto) 0.3 (0.2-0.9) 10^3/u L Eos # (Auto) 0.1 (0.0-0.8) 10^3/u L Baso # (Auto) 0.0 (0.0-0.1) 10^3/u L Nucleated RBC % (a uto) 0 % Nucleated RBCs # 0.0 /100WBC Specimen Type Sample Site ABG pH (7.35-7.45) ABG pCO2 (35-45) mmHg ABG pO2 (80.0-100.0) mmH g ABG HCO3 (22-26) mmol/L ABG Base Excess (-2.0-2.0) mmol/ L Santiago Test Hematocrit (37-47) % Hgb O2 Saturation (95-100) % Carboxyhemoglobin (0.4-20.1) %THgb Total Hemoglobin (12-16) g/dL O2 Delivery Device O2 Liters/Min % Financial Accounting Analyst ID Sodium 138 (136-145) mmol/L Potassium 4.7 (3.5-5.1) mmol/L Chloride 86 L (98-107) mmol/L Anion Gap 15.7 (5-19) BUN 17 (8-23) mg/dL Creatinine 0.6 (0.5-0.9) mg/dL GFR Calculation 100.0 (90-130) mL/min Glucose 153 H (65-115) mg/dL Calculated Osmolal ity 285 (285-295) mOsm/k g Lactic Acid 1.1 (0.5-2.2) mmol/L Calcium 9.2 (8.5-10.5) mg/dL Magnesium 1.6 L (1.7-2.3) mg/dL Total Bilirubin 0.2 (0.15-1.2) mg/dL AST 11 (0-32) U/L ALT 11 (0-33) U/L Alkaline Phosphata se 80 (35-105) IU/L Troponin T Baselin e (0-10) ng/mL NT-Pro-B Natriuret Pep 820 H (0-125) pg/mL Total Protein 6.7 (6.6-8.7) g/dL Albumin 3.4 L (3.5-5.2) g/dL Globulin 3.3 (1.3-4.6) g/dL 10/12/19 10/12/19 Range/Units 21:56 22:11 WBC (4.0-10.0) 10^3/ uL RBC (4.1-5.3) 10^6/u L Hgb (11.5-15.3) g/dL Hct (37.0-47.0) % MCV (81-99) fL MCH (28.0-34.0) pg MCHC (30.0-36.0) g/dL RDW (12.1-15.1) % Plt Count (130-400) 10^3/c mm MPV (7.4-10.4) fL Neut % (Auto) % Lymph % (Auto) % Sanders % (Auto) % Eos % (Auto) % Baso % (Auto) % Neut # (Auto) (1.8-7.7) 10^3/u L Lymph # (Auto) (0.8-4.8) 10^3/u L Sanders # (Auto) (0.2-0.9) 10^3/u L Eos # (Auto) (0.0-0.8) 10^3/u L Baso # (Auto) (0.0-0.1) 10^3/u L Nucleated RBC % (a uto) % Nucleated RBCs # /100WBC Specimen Type Arterial Sample Site Brachial, left ABG pH 7.29 L (7.35-7.45) ABG pCO2 113.0 H* (35-45) mmHg ABG pO2 58.4 L (80.0-100.0) mmH g ABG HCO3 54.0 H (22-26) mmol/L ABG Base Excess 22.4 H (-2.0-2.0) mmol/ L Santiago Test N/a Hematocrit 34.0 L (37-47) % Hgb O2 Saturation 87.9 L (95-100) % Carboxyhemoglobin 3.1 (0.4-20.1) %THgb Total Hemoglobin 11.1 L (12-16) g/dL O2 Delivery Device Nc O2 Liters/Min 6.0 % Financial Accounting Analyst ID [id number] Sodium (136-145) mmol/L Potassium (3.5-5.1) mmol/L Chloride (98-107) mmol/L Anion Gap (5-19) BUN (8-23) mg/dL Creatinine (0.5-0.9) mg/dL GFR Calculation (90-130) mL/min Glucose (65-115) mg/dL Calculated Osmolal ity (285-295) mOsm/k g Lactic Acid (0.5-2.2) mmol/L Calcium (8.5-10.5) mg/dL Magnesium (1.7-2.3) mg/dL Total Bilirubin (0.15-1.2) mg/dL AST (0-32) U/L ALT (0-33) U/L Alkaline Phosphata se (35-105) IU/L Troponin T Baselin e 27 H (0-10) ng/mL NT-Pro-B Natriuret Pep (0-125) pg/mL Total Protein (6.6-8.7) g/dL Albumin (3.5-5.2) g/dL Globulin (1.3-4.6) g/dL Discharge Plan Discharge Prescriptions: No Action albuterol sulfate [Ventolin HFA] 90 mcg/actuation HFA aerosol inhaler 2 puff INHALATION Q6H PRN (Reason: unknown) RF: 0 Combivent Respimat 20-100 mcg/actuation mist 2 puff INHALATION QID PRN (Reason: unknown) RF: 0 revefenacin 175 mcg/3 mL solution for nebulization 175 mcg INHALATION DAILY 90 Days Qty: 90 RF: 3 Perforomist 20 mcg/2 mL solution for nebulization 2 ml INHALATION Q12H 90 Days Qty: 120 RF: 3 ondansetron 8 mg PO PRN RF: 0 spironolactone 25 mg Tablet 12.5 mg PO DAILY Qty: 30 RF: 0 Aspir-81 81 mg Tablet,Delayed Release (Dr/Ec) 81 mg PO DAILY RF: 0 Tylenol PM Extra Strength 25-500 mg Tablet 1 - 2 tab PO PRN RF: 0 melatonin 10 mg Tablet 10 mg PO BEDTIME PRN (Reason: Sleep) RF: 0 furosemide 40 mg tablet 20 mg PO DAILY RF: 0 alprazolam 0.25 mg tablet 1 mg PO TID PRN (Reason: Anxiety) RF: 0 nicotine 14 mg/24 hr Patch 24 Hour 1 patch transdermal DAILY Qty: 30 RF: 0 nicotine (polacrilex) 2 mg lozenge 2 mg BUCCAL Q1H PRN (Reason: nicotine cravings) Qty: 72 RF: 2 prednisone 10 mg tablet See Rx Instructions .ROUTE .COMPLEX Qty: 53 RF: 0 Pulmicort 0.5 mg/2 mL suspension for nebulization 0.5 mg INHALATION BID 90 Days Qty: 120 RF: 3 albuterol sulfate 2.5 mg /3 mL (0.083 %) Solution For Nebulization 2.5 mg INHALATION Q4H PRN (Reason: Shortness Of Breath) RF: 0 Eliquis 5 mg Tablet 5 mg PO BID RF: 0 Spiriva Respimat 2.5 mcg/actuation mist 2 inh INHALATION DAILY Qty: 4 RF: 0 budesonide-formoterol [Symbicort] 160-4.5 mcg/actuation Hfa Aerosol Inhaler 1 puff INHALATION BID RF: 0 pantoprazole 40 mg Tablet,Delayed Release (Dr/Ec) 40 mg PO Q12H 30 Days Qty: 60 RF: 0 Coding Level of Care Code ED Nutrition Services Assistant for Chg Fwd Exam Comprehensive
[2019-10-12 22:21] LABS: ABG PH Result 7.29 (7.35-7.45); Base Excess ABG 22.4 mmol/L (-2.0-2.0); Blood Gas Sample Site Brachial, left; Blood Gas Sample Type Arterial; Carboxyhemoglobin 3.1 %THgb (0.4-20.1); HGB O2 Sat 87.9 % (95-100); Oxygen Device NC; PO2 ABG 58.4 mmHg (80.0-100.0); Total Hemoglobin 11.1 g/dL (12-16)
[2019-10-12 22:26] LABS: Lactic Sepsis W/Reflex 1.1 mmol/L (0.5-2.2)
[2019-10-12 22:28] LABS: Troponin(5th) Baseline 27 ng/mL (0-10)
[2019-10-12 22:30] VITALS: PULSE 94; RESP 20; O2SAT 94
--- NOTE | 2019-10-12 22:53 | PM.HP ---
Providers/Chief Complaint Primary Care Provider: Titus Garzon DO Chief Complaint: SOB, CP History of Present Illness Roseann Durham is a 64 year old female who has a complex past medical history, pulmonary bleeding status post IVC filter placement, chronic anticoagulation, chronic hypoxic hypercarbic respiratory failure dependent on trilogy, noncompliant, active smoker, primary hypertension, sleep apnea, diastolic congestive heart failure coming in with chief complaint of shortness of breath. Patient was recently discharge from the hospital a week ago for hypercapnic respiratory failure management. Patient has started using yupleri at home, she is stating that she smokes couple of cigarettes a day, she tries to stay compliant with her trilogy uses at night, she is denying any fever, productive cough, chest pain. She has had multiple intubations in the past due to hypercapnic respiratory failure. Diagnostics in the ER revealed respiratory acidosis with hypercapnic respiratory failure, doing well on BiPAP, no altered mental status. Chest x-ray showing chronic changes. Leukocytosis has improved from previous admission And I evaluated her she was on BiPAP 07/05, no active restaurant distress however positive wheezing on lung auscultation Review of Systems Const: Reports: body aches and fatigue; Denies: fever(s) or chills Eyes: Denies: change in vision ENMT: Denies: throat pain Card: Reports: swelling of feet/ankles, lightheadedness, dyspnea on exertion and orthopnea; Denies: chest pain or syncope Resp: Reports: dyspnea; Denies: productive cough or non-productive cough GI: Denies: abdominal pain, nausea or vomiting : Denies: flank pain Musc: Denies: neck pain Skin/Breast: Denies: rash Neuro: Denies: headache(s), dizziness or Slurred speech present Psych: Reports: anxiety Endo: Denies: polyuria Car/Lymph: Denies: easy bruising All/Imm: Denies: urticaria Medications/Allergies Home Medications Medication Instructions Recorded Confirmed Last Taken Type Eliquis 5 mg PO BID 05/29/19 10/04/19 10/03/19 History albuterol sulfate 2.5 mg INHALATION Q4H PRN 05/29/19 10/04/19 07/21/19 History Spiriva Respimat 2 inh INHALATION DAILY #4 gm 06/08/19 10/04/19 10/03/19 Rx ondansetron 8 mg PO PRN 08/02/19 10/04/19 Unknown History spironolactone 12.5 mg PO DAILY #30 tab 08/27/19 10/04/19 10/03/19 Rx budesonide-formoterol [Symbicort] 1 puff INHALATION BID 09/04/19 10/04/19 10/03/19 History pantoprazole 40 mg PO Q12H 30 Days #60 tab 09/09/19 10/04/19 10/03/19 Rx albuterol sulfate 90 mcg/actuation 2 puff INHALATION Q6H PRN 09/20/19 10/04/19 Unknown History aerosol inhaler formoterol fumarate 20 mcg/2 mL 2 ml INHALATION Q12H 90 Days #120 09/20/19 10/04/19 Unknown Rx solution for nebulization ml ipratropium 20 mcg-albuterol 100 2 puff INHALATION QID PRN 09/20/19 10/04/19 Unknown History mcg/actuation mist for inhalation revefenacin 175 mcg/3 mL solution 175 mcg INHALATION DAILY 90 Days 09/20/19 10/04/19 Unknown Rx for nebulization #90 ml Aspir-81 81 mg PO DAILY 10/04/19 10/04/19 Unknown History Tylenol PM Extra Strength 1 - 2 tab PO PRN 10/04/19 10/04/19 Unknown History alprazolam 1 mg PO TID PRN 10/04/19 10/04/19 10/03/19 History furosemide 20 mg PO DAILY 10/04/19 10/04/19 10/03/19 History melatonin 10 mg PO BEDTIME PRN 10/04/19 10/04/19 Unknown History budesonide [Pulmicort] 0.5 mg INHALATION BID 90 Days #120 10/06/19 Unknown Rx ml nicotine 1 patch TRANSDERMAL DAILY #30 ea 10/06/19 Unknown Rx nicotine (polacrilex) 2 mg BUCCAL Q1H PRN #72 each 10/06/19 Unknown Rx prednisone See Rx Instructions .ROUTE 10/06/19 Unknown Rx .COMPLEX #53 tab Allergies Allergy/AdvReac Type Severity Reaction Status Date / Time No Known Allergies Allergy Verified 10/04/19 11:48 PFSH Acute PFSH: Medical History Chronic anemia Chronic diastolic CHF (congestive heart failure) CKD (chronic kidney disease), stage II COPD (chronic obstructive pulmonary disease) Recurrent intubations in the past due to hypercapnic respiratory failure Hypertension Morbid obesity Pulmonary embolism Smoking addiction Vascular dementia Surgical History H/O section X2 H/O colectomy Secondary to severe colitis H/O: hysterectomy History of salpingo-oophorectomy S/P IVC filter Secondary to PE, DVT Family History Father Lung disease Social History Smoking and tobacco status: current every day smoker cigarettes Packs smoked per day: 1 Years cigarettes smoked: 40 [ Other cigarette details: Says has been reducing. Daughter has been trying to encourage cessation. ] Alcohol intake: never Lives independently: No (, daughter) Household members: family Marital status: Current occupational status: disabled History of recent travel: No Current gender identity: Female Vitals/I&O/Wt Last Vital Signs Temp 98.3 F 10/12/19 21:31 Pulse 94 10/12/19 22:30 Resp 30 H 10/12/19 21:31 BP 119/76 10/12/19 21:31 Pulse Ox 94 10/12/19 22:30 Weight last 48 hrs Weight 99.337 kg Physical Exam Narrative: EXAM NARRATIVE: Head to toe examination Currently on BiPAP 07/05 with good tidal volume No obtundation or altered mental status Able to comprehend my questions and answer appropriately No active respiratory distress Diffuse wheezing on lung auscultation S1, S2, active heart failure Bilateral lower extremity edema 1+ Abdomen soft, distended, obese obesity Skin does not show any skin ischemia gangrene ulcer Appropriate mood and affect Neurologically nonfocal exam Pertinent negatives: No active respiratory distress or altered mental status Data : 10/12/19 21:56 10/12/19 21:56 A&P Assessment and plan (1) Acute hypercapnic respiratory failure: Status: Acute (2) Smoking addiction: Status: Acute (3) Chronic respiratory failure with hypoxia and hypercapnia: Status: Acute (4) Moderate to severe pulmonary hypertension: Status: Acute (5) Chronic anticoagulation: Status: Acute (6) Chronic diastolic CHF (congestive heart failure): Status: Acute (7) Morbid obesity: Status: Acute Additional A&P Information Acute on chronic hypercarbic respiratory failure due to active smoking/noncompliance Multifactorial etiology for her respiratory decompensation as mentioned in my HPI Currently doing well on BiPAP ABG shows respiratory acidosis Awake alert oriented x3 GCS 15 High risk for intubation, will admit to ICU No signs of sepsis, her x-ray shows enlarged right heart border consistent with primary hypertension I highly doubt her compliance with her trilogy I would use prednisone 40 mg for diffuse wheezing and DuoNeb every 4 as needed She still endorses to smoking couple of cigarettes a day, not willing to try nicotine replacement therapy at this point, she has had multiple counseling sessions in the past as well Obstructive sleep apnea/pulmonary hypertension He is following up with digital marketing officer Dr. Lipscomb who has recommended yupleri Chronic diastolic congestive heart failure exacerbation due to primary hypertension and REX I would continue her home dose of Lasix This seems to be her baseline Chronic PE with chronic anticoagulation status post IVC filter placement Continue Eliquis Noncompliance She has had multiple admissions, multiple counseling sessions, she is trilogy dependent at home, I do think she has good insight to her medical problems, she is high risk for intubation Consider psych evaluation for her capacity Full code DVT prophylaxis not needed because of Eliquis use Start diet in the morning Attestations Medical Necessity Statement*: High risk for intubation currently needs ICU because of BiPAP dependency, she has respiratory acidosis, anticipating her stay in the hospital cross more than 2 midnights Time Spent in Patient Care: 50 Coding Level of Care Code Acute Intern Product Marketing Manager for g Fwd Diagnoses Acute hypercapnic respiratory failure J96.02 Smoking addiction F17.200 Chronic respiratory failure with hypoxia and hypercapnia J96.11; J96.12 Moderate to severe pulmonary hypertension I27.20 Chronic anticoagulation Z79.01 Chronic diastolic CHF (congestive heart failure) I50.32 Morbid obesity E66.01
[2019-10-12 22:58] LABS: Alanine Aminotransferase 11 U/L (0-33); Albumin Level 3.4 g/dL (3.5-5.2); Alkaline Phosphatase 80 IU/L (35-105); Anion Gap 15.7 (5-19); Aspartate Amino Transferase 11 U/L (0-32); Blood Urea Nitrogen 17 mg/dL (8-23); Calcium 9.2 mg/dL (8.5-10.5); Chloride 86 mmol/L (98-107); Globulin 3.3 g/dL (1.3-4.6); Glucose 153 mg/dL (65-115); Magnesium 1.6 mg/dL (1.7-2.3); NT Pro B Type Natriuretic Pept 820 pg/mL (0-125); Osmolality Calculated 285 mOsm/kg (285-295); Potassium 4.7 mmol/L (3.5-5.1); Sodium 138 mmol/L (136-145); Total Bilirubin 0.2 mg/dL (0.15-1.2); Total Protein 6.7 g/dL (6.6-8.7)
[2019-10-12 23:12] LABS: Carbon Dioxide 41 mmol/L (22-29)
--- NOTE | 2019-10-12 23:47 | ECG_ITS ---
Measurements Intervals [place] Rate: 102 P: 66 HI: 136 QRS: 122 QRSD: 127 T: 24 QT: 340 QTc: 444 SINUS TACHYCARDIA POSSIBLE LEFT ATRIAL ENLARGEMENT [-0.1mV P WAVE IN V1/V2] RIGHT AXIS DEVIATION [QRS AXIS > 100] RIGHT BUNDLE BRANCH BLOCK [120+ ms QRS DURATION, UPRIGHT V1, 40+ ms S IN I/ I/aVL/V4/V5/V6] Compared to ECG 10/04/2019 14:33:08 Sinus rhythm no longer present Electronically Signed On 10-13-2019 19:01:10 CDT by Last Fowler M.D. [email or web address]
[2019-10-13] VITALS (41 sets, daily range): BP systolic 108–149; BP diastolic 71–101; PULSE 76–112; RESP 12–29; TEMP 35.9–36.9; O2SAT 76–99
[2019-10-13 00:22] LABS: Troponin 5 2HR 25.07 ng/mL (0-10); Troponin 5 2HR Delta -1.93 ABS# (0-10)
--- NOTE | 2019-10-13 00:59 | PC.NURSE ---
I agree with this assessment of this patient
--- NOTE | 2019-10-13 03:47 | ECG_ITS ---
Measurements Intervals [place] Rate: 86 P: 63 DC: 136 QRS: 102 QRSD: 129 T: 35 QT: 356 QTc: 427 SINUS RHYTHM MARKED RIGHT AXIS DEVIATION [QRS AXIS > 100] RIGHT BUNDLE BRANCH BLOCK [120+ ms QRS DURATION, UPRIGHT V1, 40+ ms S IN I/aVL/V4/V5/V6] Compared to ECG 10/04/2019 14:33:08 No significant changes Electronically Signed On 10-13-2019 19:01:20 CDT by Last Fowler M.D. [email or web address]
[2019-10-13] MEDS: ipratropium-albuterol 3 mL Neb INHALATION ×5 (03:53→20:53)
[2019-10-13 04:07] LABS: Basophils % 0.1 %; Eosinophils % 0.2 %; Hemoglobin 10.3 g/dL (11.5-15.3); Lymphocytes # 0.4 10^3/uL (0.8-4.8); Mean Corpuscular HGB Conc 25.8 g/dL (30.0-36.0); Mean Corpuscular Hemoglobin 22.5 pg (28.0-34.0); Mean Corpuscular Volume 87.5 fL (81-99); Mean Platelet Volume 10.1 fL (7.4-10.4); Monocytes # 0.1 10^3/uL (0.2-0.9); Monocytes % 1.1 %; Neutrophils % 93.1 %; Nucleated Red Blood Cells % 0 %; Platelet Count 263 10^3/cmm (130-400); Red Blood Count 4.57 10^6/uL (4.1-5.3); Red Cell Distribution Width 20.2 % (12.1-15.1); White Blood Count 9.7 10^3/uL (4.0-10.0)
[2019-10-13 04:21] LABS: Anion Gap 10.3 (5-19); Blood Urea Nitrogen 20 mg/dL (8-23); Calcium 8.8 mg/dL (8.5-10.5); Chloride 85 mmol/L (98-107); Glomerular Filtration Rate 123.4 mL/min (90-130); Glucose 133 mg/dL (65-115); Osmolality Calculated 278 mOsm/kg (285-295); Potassium 5.3 mmol/L (3.5-5.1); Sodium 135 mmol/L (136-145)
[2019-10-13 04:29] LABS: ABG PH Result 7.35 (7.35-7.45); Arterial Blood Gas Hematocrit 32.2 % (37-47); Base Excess ABG 22.5 mmol/L (-2.0-2.0); Blood Gas Allen Test Pos; Blood Gas Sample Site Radial, right; Blood Gas Sample Type Arterial; HCO3 ABG 52.3 mmol/L (22-26); Oxygen Device BIPAP; PO2 ABG 58.7 mmHg (80.0-100.0)
[2019-10-13 04:30] LABS: ABG PCO2 94.6 mmHg (35-45)
[2019-10-13 04:30] LABS: Carbon Dioxide 45 mmol/L (22-29); Troponin 5 6HR 17.3 ng/mL (0-10); Troponin 5 6HR Delta -9.7 ng/L (0-12)
--- NOTE | 2019-10-13 04:40 | PC.NURSE ---
Lab called critical value for CO2 of 45. Notified Dr. Vallecillo. No orders at this time. Will continue to monitor.
--- NOTE | 2019-10-13 08:15 | PC.NURSE ---
off bipap for breakfast. to 4l n.c.
--- NOTE | 2019-10-13 08:32 | PC.NURSE ---
back to bipap. r.t. in.
[2019-10-13] MEDS: apixaban 5 mg Tablet PO ×2 (09:45→17:58)
[2019-10-13] MEDS: predniSONE 20 mg Tablet 40 MG PO (09:45)
[2019-10-13] MEDS: FUROsemide 40 mg Tablet PO (09:46)
[2019-10-13] MEDS: azithromycin 250 mg Tablet 500 MG PO (09:46)
[2019-10-13 10:21] LABS: Alveolar-Arterial Oxygen Gradi 104.7 mmHg (5-10); Arterial Blood Gas Hematocrit 30.1 % (37-47); Blood Gas Allen Test Pos; Blood Gas Sample Site Radial, left; Blood Gas Sample Type Arterial; HGB O2 Sat 94.8 % (95-100); Methemoglobin 0.3 % (0.4-1.5); Oxygen Device BIPAP; Total Hemoglobin 9.8 g/dL (12-16)
[2019-10-13 10:29] LABS: ABG PCO2 85.5 mmHg (35-45); ABG PH Result 7.39 (7.35-7.45)
[2019-10-13 10:30] LABS: Base Excess ABG 23.5 mmol/L (-2.0-2.0); Blood Gas Allen Test POS; Blood Gas Operator Identificat CAK; HCO3 ABG 52.2 mmol/L (22-26); Potassium Level - ABG 4.5 mmol/L (3.5-5.0)
[2019-10-13 10:31] LABS: Blood Gas CCRB By CAK; Blood Gas Drawn By CAK; Blood Gas Sample Site LR; Blood Gas Sample Type ARTERIAL; Oxygen Device BIPAP
[2019-10-13 10:32] LABS: Alveolar-Arterial Oxygen Gradi 104.7 mmHg (5-10); Arterial Blood Gas Hematocrit 30.1 % (37-47); Blood Gas CCRB Time 1020; HGB O2 Sat 94.8 % (95-100); Ionized Calcium Level - ABG 1.2 mmol/L (1.1-1.4); Total Hemoglobin 9.8 g/dL (12-16)
[2019-10-13 10:33] LABS: Methemoglobin 0.3 % (0.4-1.5)
--- NOTE | 2019-10-13 11:13 | PM.PN ---
Subjective Subjective: Interval history: This morning patient was examined, she was taken off BiPAP, having breakfast, she is alert to person, place, not to time, still is forgetful such as does not remember her daughter's names, does know her granddaughters name, answering other questions appropriately, she is not sure why she is here in the hospital, she is not sure about her trilogy compliance, denies shortness of breath, has no nasal flaring, no intercostal retractions, no belly breathing, no signs of respiratory failure, a bit tachypneic, has been tolerating the BiPAP well overnight at least, Vitals/I&O/Wt Last Vital Signs Temp 97.8 F 10/13/19 09:00 Pulse 86 10/13/19 10:00 Resp 18 10/13/19 10:00 BP 133/83 10/13/19 10:00 Pulse Ox 95 10/13/19 10:00 10/12/19 10/13/19 10/13/19 22:59 06:59 14:59 Intake Total 300 / 300 360 / 360 Output Total 450 / 450 Balance 300 / 300 -90 / -90 Weight last 48 hrs Weight 99.337 kg Physical Exam Const: COMMON NORMALS: no acute distress and alert EXAM LIMITATIONS: altered mental status GENERAL APPEARANCE: cooperative; not lethargic NUTRITIONAL APPEARANCE: obese ORIENTATION/CONSCIOUSNESS: Yes oriented to person; not oriented to place, not oriented to time and not lethargic HENMT: COMMON NORMALS: normocephalic HEAD & SCALP: normocephalic Neck/C-Spine: COMMON NORMALS: no JVD Chest: COMMONS NORMALS: normal inspection of the chest Resp: COMMON NORMALS: normal respiratory effort, No retractions and No use of accessory muscles AUSCULTATION: wheezes Cardio: COMMON NORMALS: no JVD, regular rate, regular rhythm, S1 normal heart sound present and S2 normal heart sound present RATE: regular rate RHYTHM: regular rhythm HEART SOUNDS: S1 normal heart sound present and S2 normal heart sound present GI: COMMON NORMALS: Normal to inspection, nondistended, normoactive bowel sounds present, Soft to palpation, non-tender, No hepatosplenomegaly present, no masses and no bruits PALPATION: Yes Soft to palpation and Yes No hepatosplenomegaly present Extremity: COMMON NORMALS: capillary refill normal, no clubbing, cyanosis or edema, no calf tenderness and no pedal edema Neuro: SENSORIUM/ORIENTATION: Yes alert, Yes oriented to person, No oriented to place, No oriented to time, No lethargic, No somnolent, No obtunded and No stuporous Data : 10/13/19 03:15 10/13/19 03:15 A&P Assessment and plan (1) Acute hypercapnic respiratory failure: Status: Acute (2) Smoking addiction: Status: Acute (3) Chronic respiratory failure with hypoxia and hypercapnia: Status: Acute (4) Moderate to severe pulmonary hypertension: Status: Acute (5) Chronic anticoagulation: Status: Acute (6) Chronic diastolic CHF (congestive heart failure): Status: Acute (7) Morbid obesity: Status: Acute Additional A&P Information Acute on chronic hypercarbic respiratory failure due to active smoking/noncompliance Multifactorial etiology for her respiratory decompensation, secondary to COPD, noncompliance with trilogy machine, COPD Currently doing well on BiPAP ABG improving, pH 7.39, PCO2 85.5, PO2 77, bicarb 52.2 Awake alert oriented x2, does have mild confusion High risk for intubation, will admit to ICU No signs of sepsis, her x-ray shows enlarged right heart border consistent with primary hypertension I highly doubt her compliance with her trilogy I would use prednisone 40 mg for diffuse wheezing, add doxycycline for anti-inflammatory effect and DuoNeb every 4 as needed She still endorses to smoking couple of cigarettes a day, not willing to try nicotine replacement therapy at this point, she has had multiple counseling sessions in the past as well Ask family members to bring in trilogy machine Obstructive sleep apnea/pulmonary hypertension He is following up with fuel island attendant Dr. Lipscomb who has recommended petersoni, not sure if she is pick this medication up Chronic diastolic congestive heart failure exacerbation due to primary hypertension and REX I would continue her home dose of Lasix This seems to be her baseline Chronic PE with chronic anticoagulation status post IVC filter placement Continue Eliquis Noncompliance She has had multiple admissions, multiple counseling sessions, she is trilogy dependent at home, I do think she has good insight to her medical problems, she is high risk for intubation Full code DVT prophylaxis not needed because of Eliquis use Attestations Medical Necessity Statement*: Patient requires continued hospitalization for acute hypercapnic respiratory failure Coding Level of Care Code Acute Systems Integration Manager for Ch[employer]it[employer] Diagnoses Acute hypercapnic respiratory failure J96.02 Smoking addiction F17.200 Chronic respiratory failure with hypoxia and hypercapnia J96.11; J96.12 Moderate to severe pulmonary hypertension I27.20 Chronic anticoagulation Z79.01 Chronic diastolic CHF (congestive heart failure) I50.32 Morbid obesity E66.01
--- NOTE | 2019-10-13 11:23 | PC.NURSE ---
Addendum entered by Juanita Lawrence RN 10/13/19 11:27: wrong pt. Original Note: more alert. squeezes my hand. tryingto pull tube. propofol is off for about 20min. now on p.s.
[2019-10-13 12:06] LABS: Estmated Average Glucose 100; Hemoglobin A1C 5.1 % (4.0-6.0)
--- NOTE | 2019-10-13 12:36 | PC.NURSE ---
remains up in chair. back to bipap. sat down to low 80s
--- NOTE | 2019-10-13 14:41 | PC.NURSE ---
resting quietly now. has been wanting staff to call daughter to come get her and take her home. explained that family is to bring her trilogy machine in to be examined
--- NOTE | 2019-10-13 15:07 | PC.NURSE ---
inAshli explained to pt. that she needed to wear mask.
--- NOTE | 2019-10-13 18:07 | PC.NURSE ---
up at bs. req. to walk. states my legs are going to get weak. ambulated on o2 to door, very dyspneic, doll color. back to chair and to bipap. did good wt. bearing
--- NOTE | 2019-10-13 18:27 | PC.NURSE ---
remains up in chair.
[2019-10-13] MEDS: budesonide 0.5 mg/2 mL Neb INHALATION (20:53)
[2019-10-14] VITALS (17 sets, daily range): BP systolic 143–167; BP diastolic 84–92; PULSE 78–91; RESP 17–25; O2SAT 91–98
[2019-10-14] MEDS: ipratropium-albuterol 3 mL Neb INHALATION ×3 (01:32→13:22)
[2019-10-14 05:22] LABS: Basophils % 0.2 %; Eosinophils # 0.1 10^3/uL (0.0-0.8); Eosinophils % 0.8 %; Hemoglobin 10.2 g/dL (11.5-15.3); Lymphocytes # 1.2 10^3/uL (0.8-4.8); Lymphocytes % 11.8 %; Mean Corpuscular HGB Conc 26.8 g/dL (30.0-36.0); Mean Corpuscular Hemoglobin 21.7 pg (28.0-34.0); Mean Corpuscular Volume 80.9 fL (81-99); Mean Platelet Volume 9.9 fL (7.4-10.4); Monocytes # 0.9 10^3/uL (0.2-0.9); Monocytes % 8.3 %; Neutrophils # 8.1 10^3/uL (1.8-7.7); Neutrophils % 77.2 %; Nucleated Red Blood Cells % 0 %; Platelet Count 248 10^3/cmm (130-400); Red Cell Distribution Width 20.3 % (12.1-15.1); White Blood Count 10.5 10^3/uL (4.0-10.0)
[2019-10-14 06:56] LABS: Alanine Aminotransferase 9 U/L (0-33); Albumin Level 3.7 g/dL (3.5-5.2); Alkaline Phosphatase 72 IU/L (35-105); Anion Gap 11.3 (5-19); Aspartate Amino Transferase 11 U/L (0-32); Blood Urea Nitrogen 18 mg/dL (8-23); Calcium 9.7 mg/dL (8.5-10.5); Chloride 83 mmol/L (98-107); Chol HDL Ratio 2.53 mg/dL (0.0-4.40); Cholesterol 177 mg/dL (0-200); Glomerular Filtration Rate 123.4 mL/min (90-130); Glucose 90 mg/dL (65-115); HDL Cholesterol 70 mg/dL (60-100); LDL Cholesterol Calculated 89 mg/dL (50-129); LDL HDL Ratio 1.27 RATIO (0.00-3.22); Magnesium 1.7 mg/dL (1.7-2.3); Osmolality Calculated 272 mOsm/kg (285-295); Phosphorus 2.5 mg/dL (2.5-4.5); Potassium 4.3 mmol/L (3.5-5.1); Sodium 133 mmol/L (136-145); Total Bilirubin 0.3 mg/dL (0.15-1.2); Total Protein 6.7 g/dL (6.6-8.7); Triglycerides 90 mg/dL (0-150)
[2019-10-14 07:00] LABS: Carbon Dioxide 43 mmol/L (22-29)
[2019-10-14] MEDS: spironolactone 25 mg Tablet 12.5 MG PO (08:52)
[2019-10-14] MEDS: azithromycin 250 mg Tablet 500 MG PO (08:53)
[2019-10-14] MEDS: aspirin 81 mg EC Tablet PO (08:53)
[2019-10-14] MEDS: predniSONE 20 mg Tablet 40 MG PO (08:54)
[2019-10-14] MEDS: FUROsemide 40 mg Tablet PO (08:54)
[2019-10-14] MEDS: apixaban 5 mg Tablet PO (08:54)
[2019-10-14] MEDS: budesonide 0.5 mg/2 mL Neb INHALATION (09:27)
[2019-10-14] MEDS: LORazepam 2 mg/mL INJ 1 mL 1 MG IVP (09:41)
[2019-10-14 10:02] LABS: ABG PH Result 7.41 (7.35-7.45); Arterial Blood Gas Hematocrit 32.7 % (37-47); Base Excess ABG 19.8 mmol/L (-2.0-2.0); Blood Gas Allen Test Pos; Blood Gas Sample Site Brachial, left; Blood Gas Sample Type Arterial; HCO3 ABG 47.9 mmol/L (22-26); Oxygen Device BIPAP; PO2 ABG 85.6 mmHg (80.0-100.0)
[2019-10-14 10:04] LABS: ABG PCO2 75.6 mmHg (35-45)
--- NOTE | 2019-10-14 12:17 | PM.DCS ---
Discharge Providers Date of Admission: 10/12/19 23:35 Date of Discharge: October 14, 2019 Attending Provider at Admission: Last Vallecillo MD Attending Provider at Discharge: Saleem Rodas MD Primary Care Provider: Titus Garzon DO Diagnoses at Discharge Discharge Diagnosis (1) Acute hypercapnic respiratory failure: Status: Acute (2) Smoking addiction: Status: Acute (3) Chronic respiratory failure with hypoxia and hypercapnia: Status: Acute (4) Moderate to severe pulmonary hypertension: Status: Acute (5) Chronic anticoagulation: Status: Acute Problem details: On Eliquis (6) Chronic diastolic CHF (congestive heart failure): Status: Acute (7) Morbid obesity: Status: Acute Reason for Visit Reason for Visit: Reason For Visit: SOB, CP Hospital Course Discharge Summary: This is a 64-year-old female with history of chronic respiratory failure, dependent on trilogy machine while sleeping, 3-4 oxygen dependent, advanced COPD, current smoker, pulmonary hypertension, obesity hypoventilation syndrome, diastolic heart failure, CKD, history of PE status post IVC filter placement, chronic anticoagulation, hypertension who presents [facility] due to complaints of shortness of breath and confusion Patient is managed by pulmonary as outpatient, is on revefenacin, formoterol, budesonide, and trilogy machine, has had multiple hospital admissions since May, has been on what seems like chronic steroids due to her multiple admissions Patient presents to [facility] due to shortness of breath and confusion secondary to hypercapnic respiratory failure secondary to trilogy noncompliance, which is a recurrent issue with patient, patient was admitted to ICU, placed on BiPAP machine, patient shortness of breath, confusion significantly improved, patient CO2 improved from 113-75.6 on discharge, patient's mentation improved back to baseline, shortness of breath is significant better, was ambulating without significant symptomatology. Patient was discharged on again compliance with her trilogy machine, I also posed options such as reminders for her to remember to use a trilogy machine as she says that she is forgetful at times which might be secondary to CO2 narcosis to some degree, such as writing in a notebook, calendar, setting phone reminders, or family members that remind her to use her trilogy machine daily. I also went over discharge instructions with patient's granddaughter, who will relay the message to her mother and grandfather. Patient is to follow with Dr. Lipscomb as scheduled, follow-up with Dr. Garzon in 1 week. Physical Exam Const: COMMON NORMALS: no acute distress and patient oriented x3 HENMT: COMMON NORMALS: normocephalic HEAD & SCALP: normocephalic Neck/C-Spine: COMMON NORMALS: no JVD Resp: COMMON NORMALS: normal respiratory effort, No retractions, No use of accessory muscles and clear to auscultation bilaterally AUSCULTATION: clear to auscultation bilaterally Cardio: COMMON NORMALS: no JVD, regular rate, regular rhythm, S1 normal heart sound present and S2 normal heart sound present RATE: regular rate RHYTHM: regular rhythm HEART SOUNDS: S1 normal heart sound present and S2 normal heart sound present GI: COMMON NORMALS: Normal to inspection, nondistended, normoactive bowel sounds present, Soft to palpation, non-tender, No hepatosplenomegaly present, no masses and no bruits PALPATION: Yes Soft to palpation and Yes No hepatosplenomegaly present Extremity: COMMON NORMALS: capillary refill normal, no clubbing, cyanosis or edema, no calf tenderness and no pedal edema Neuro: COMMON NORMALS: patient oriented x3 Psych: COMMON NORMALS: mental status grossly normal Discharge Data Data Completed and Pending: Completed Studies During Hospitalization Category Date Time Status XR chest 1V [place]ukesh ble [id number] Urgent Exams 10/12/19 21:46 Completed Pending at discharge Category Date Time Status Complete Blood Co unt w/Auto AM LABS Lab 10/15/19 04:00 Ordered Complete Blood Co unt w/Auto AM LABS Lab 10/16/19 04:00 Ordered Comprehensive Met abolic Panel AM LA BS Lab 10/15/19 04:00 Ordered Comprehensive Met abolic Panel AM LA BS Lab 10/16/19 04:00 Ordered Magnesium AM LABS Lab 10/15/19 04:00 Ordered Magnesium AM LABS Lab 10/16/19 04:00 Ordered Phosphorus AM LAB S Lab 10/15/19 04:00 Ordered Phosphorus AM LAB S Lab 10/16/19 04:00 Ordered Labs from last 24 hours 10/14/19 10/14/19 10/14/19 09:51 06:18 06:18 WBC 10.5 H RBC 4.70 Hgb 10.2 L Hct 38.0 MCV 80.9 L MCH 21.7 L MCHC 26.8 L RDW 20.3 H Plt Count 248 MPV 9.9 Neut % (Auto) 77.2 Lymph % (Auto) 11.8 [place] % (Auto) 8.3 Eos % (Auto) 0.8 Baso % (Auto) 0.2 Neut # (Auto) 8.1 H Lymph # (Auto) 1.2 [place] # (Auto) 0.9 Eos # (Auto) 0.1 Baso # (Auto) 0.0 Nucleated RBC % (a uto) 0 Nucleated RBCs # 0.0 Specimen Type Arterial Sample Site Brachial, left ABG pH 7.41 ABG pCO2 75.6 H* ABG pO2 85.6 ABG HCO3 47.9 H ABG Base Excess 19.8 H Santiago Test Pos Hematocrit 32.7 L Methemoglobin O2 Delivery Device Bipap FiO2 40.0 Government Professor ID cak Sodium 133 L Potassium 4.3 Chloride 83 L Carbon Dioxide 43 H* Anion Gap 11.3 BUN 18 Creatinine 0.5 GFR Calculation 123.4 Glucose 90 Calculated Osmolal ity 272 L Calcium 9.7 Phosphorus 2.5 Magnesium 1.7 Total Bilirubin 0.3 AST 11 ALT 9 Alkaline Phosphata se 72 Total Protein 6.7 Albumin 3.7 Globulin 3.0 Triglycerides 90 Cholesterol 177 LDL Cholesterol, C alc 89 HDL Cholesterol 70 LDL/HDL Ratio 1.27 Cholesterol/HDL Ra candace 2.53 10/12/19 22:11 WBC RBC Hgb Hct MCV MCH MCHC RDW Plt Count MPV Neut % (Auto) Lymph % (Auto) [place] % (Auto) Eos % (Auto) Baso % (Auto) Neut # (Auto) Lymph # (Auto) [place] # (Auto) Eos # (Auto) Baso # (Auto) Nucleated RBC % (a uto) Nucleated RBCs # Specimen Type Sample Site ABG pH ABG pCO2 ABG pO2 ABG HCO3 ABG Base Excess [place] Test Hematocrit Methemoglobin Not Reportable O2 Delivery Device FiO2 Government Professor ID Sodium Potassium Chloride Carbon Dioxide Anion Gap BUN Creatinine GFR Calculation Glucose Calculated Osmolal ity Calcium Phosphorus Magnesium Total Bilirubin AST ALT Alkaline Phosphata se Total Protein Albumin Globulin Triglycerides Cholesterol LDL Cholesterol, C alc HDL Cholesterol LDL/HDL Ratio Cholesterol/HDL Ra candace Vitals: Last Vital Signs Temp 98.4 F 10/13/19 19:00 Pulse 78 10/14/19 09:52 Resp 21 H 10/14/19 09:52 BP 148/88 10/14/19 09:52 Pulse Ox 98 10/14/19 09:52 Discharge Plan Discharge Patient Disposition: Home, Self-Care Condition: Stable Prescriptions: New azithromycin 250 mg tablet 250 mg PO DAILY 3 Days Qty: 3 RF: 0 prednisone 10 mg tablet See Rx Instructions .ROUTE .COMPLEX Qty: 53 RF: 0 Continued albuterol sulfate [Ventolin HFA] 90 mcg/actuation HFA aerosol inhaler 2 puff INHALATION Q6H PRN (Reason: unknown) RF: 0 Combivent Respimat 20-100 mcg/actuation mist 2 puff INHALATION QID PRN (Reason: unknown) RF: 0 revefenacin 175 mcg/3 mL solution for nebulization 175 mcg INHALATION DAILY 90 Days Qty: 90 RF: 3 Perforomist 20 mcg/2 mL solution for nebulization 2 ml INHALATION Q12H 90 Days Qty: 120 RF: 3 ondansetron 8 mg PO PRN RF: 0 spironolactone 25 mg Tablet 12.5 mg PO DAILY Qty: 30 RF: 0 Aspir-81 81 mg Tablet,Delayed Release (Dr/Ec) 81 mg PO DAILY RF: 0 Tylenol PM Extra Strength 25-500 mg Tablet 1 - 2 tab PO PRN RF: 0 melatonin 10 mg Tablet 10 mg PO BEDTIME PRN (Reason: Sleep) RF: 0 furosemide 40 mg tablet 20 mg PO DAILY RF: 0 alprazolam 0.25 mg tablet 1 mg PO TID PRN (Reason: Anxiety) RF: 0 nicotine 14 mg/24 hr Patch 24 Hour 1 patch transdermal DAILY Qty: 30 RF: 0 nicotine (polacrilex) 2 mg lozenge 2 mg BUCCAL Q1H PRN (Reason: nicotine cravings) Qty: 72 RF: 2 Pulmicort 0.5 mg/2 mL suspension for nebulization 0.5 mg INHALATION BID 90 Days Qty: 120 RF: 3 albuterol sulfate 2.5 mg /3 mL (0.083 %) Solution For Nebulization 2.5 mg INHALATION Q4H PRN (Reason: Shortness Of Breath) RF: 0 Eliquis 5 mg Tablet 5 mg PO BID RF: 0 Spiriva Respimat 2.5 mcg/actuation mist 2 inh INHALATION DAILY Qty: 4 RF: 0 budesonide-formoterol [Symbicort] 160-4.5 mcg/actuation Hfa Aerosol Inhaler 1 puff INHALATION BID RF: 0 pantoprazole 40 mg Tablet,Delayed Release (Dr/Ec) 40 mg PO Q12H 30 Days Qty: 60 RF: 0 Discontinued prednisone 10 mg tablet See Rx Instructions .ROUTE .COMPLEX Qty: 53 RF: 0 Discharge Orders: Discharge Order (Routine); Ordered 10/14/19 Ordered By: Saleem Rodas Referrals: Titus Garzon DO [Primary Care Provider] - 1 month Discharge Diet: Cardiac Discharge Activity: Resume usual activity Patient Instructions: COPD Activity Restrictions/Additional Instructions: -Please use trilogy machine daily as prescribed -Please use prednisone and antibiotic as prescribed -Please follow-up with primary care provider in 1 week Discharge Attestations Time Spent in Discharge Care*: less than 30 min Quality Metrics Clinical Quality Measures During this hospital stay, did patient experience: None Coding Level of Care Code Acute Inspector Water Pollution Control for Denis Fwd Diagnoses Acute hypercapnic respiratory failure J96.02 Smoking addiction F17.200 Chronic respiratory failure with hypoxia and hypercapnia J96.11; J96.12 Moderate to severe pulmonary hypertension I27.20 Chronic anticoagulation Z79.01 Chronic diastolic CHF (congestive heart failure) I50.32 Morbid obesity E66.01
--- NOTE | 2019-10-14 13:49 | PC.NURSE ---
PT DAUGHTER SERA CALLED BACK & SPOKE WITH MYSELF REGARDING DISCHARGE NEEDS. SERA STATES THAT SHE WOULD LIKE TO HAVE HOME HEALTH. SHE STATED THAT SHE WOULD LIKE [facility]. BROADCAST MAINTENANCE ENGINEER NOTIFIED. PT RESTING QUIETLY IN BED WITH BIPAP ON AT PRESENT
--- NOTE | 2019-10-14 14:53 | PC.NURSE ---
DISCHARGED HOME WITH DAUGHTER SERA. REVIEWED MEDICATION CHANGES. DAUGHTER VERBALIZED UNDERSTANDING. WISHED WELL.
== END 2019-10-14 14:50 | disposition home or self-care (01) | DRG 189 ==
LOC: ER 22:12 → ICU 23:36
PROVIDERS: Emergency Medicine; Admitting Provider Internal Medicine; PCP Internal Medicine; Visit Provider Family Medicine
DX: J96.22 Acute and chronic respiratory failure with hypercapnia (principal); I50.33 Acute on chronic diastolic (congestive) heart failure; I13.0 Hypertensive heart and chronic kidney disease with heart failure and stage 1 through stage 4 chronic kidney disease, or unspecified chronic kidney disease; E87.2 Acidosis; Z95.9 Presence of cardiac and vascular implant and graft, unspecified; Z79.01 Long term (current) use of anticoagulants; J96.21 Acute and chronic respiratory failure with hypoxia; Z91.19 Patient's noncompliance with other medical treatment and regimen; F17.210 Nicotine dependence, cigarettes, uncomplicated; N18.2 Chronic kidney disease, stage 2 (mild); G47.33 Obstructive sleep apnea (adult) (pediatric); D63.1 Anemia in chronic kidney disease; J44.9 Chronic obstructive pulmonary disease, unspecified; E66.01 Morbid (severe) obesity due to excess calories; Z68.38 Body mass index [BMI] 38.0-38.9, adult; Z86.711 Personal history of pulmonary embolism; Z86.718 Personal history of other venous thrombosis and embolism; F01.50 Vascular dementia, unspecified severity, without behavioral disturbance, psychotic disturbance, mood disturbance, and anxiety; I27.20 Pulmonary hypertension, unspecified
CPT/HCPCS: 12345; 36415; 36600; 71045; 80048; 80051; 80053; 80061; 82803; 82805; 82810; 83036; 83605; 83735; 83880; 83986; 84100; 84484; 85025; 93005; 94640; 94660; 96375; 97162; 99282; J2060; J7512; J7626; Q0144

== ENCOUNTER 2019-10-29 14:56 | Inpatient (IN) | payer MEDICARE, SELFPAY ==
[2019-10-29] VITALS (82 sets, daily range): BP systolic 80–138; BP diastolic 52–98; PULSE 86–110; RESP 16–26; TEMP 36.6–37.1; O2SAT 86–103; BMI 33.6; BMI 37.8
--- NOTE | 2019-10-29 15:04 | XRR_ITS ---
PROCEDURE INFORMATION: Exam: XR Chest, 1 View Exam date and time: 10/29/2019 3:07 PM Age: 64 years old Clinical indication: Device placement; Ett placement (vent status); Patient HX: Et and ng placement; Additional info: Resp failure TECHNIQUE: Imaging protocol: XR of the chest Views: Frontal portable semiupright view of the chest. COMPARISON: CR XR chest 1V portable [id number] 10/12/2019 9:59 PM FINDINGS: Tubes, catheters and devices: The feeding tube enters the stomach with the tip off the limits of the image. The endotracheal tube tip is approximately 3 cm above the cristina. Lungs: The pulmonary vasculature is less congested and better defined. Increased right basilar pulmonary subsegmental atelectasis. Pleural space: No pleural effusion. No pneumothorax. Heart/Mediastinum: Stable borderline cardiomegaly. Mediastinum: Stable. Diaphragm: The right hemidiaphragm is moderately elevated. Bones/joints: Stable. XR/XR chest 1V portable [id number] IMPRESSION: 1. Endotracheal tube placement as above. 2. Improved pulmonary vascular congestion. 3. Increased right basilar pulmonary subsegmental atelectasis.
--- NOTE | 2019-10-29 15:06 | ECG_ITS ---
Measurements Intervals [place] Rate: 98 P: 69 SD: 134 QRS: 112 QRSD: 130 T: 25 QT: 335 QTc: 428 SINUS RHYTHM POSSIBLE LEFT ATRIAL ENLARGEMENT [-0.1mV P WAVE IN V1/V2] MARKED RIGHT AXIS DEVIATION [QRS AXIS > 100] RIGHT BUNDLE BRANCH BLOCK [120+ ms QRS DURATION, UPRIGHT V1, 40+ ms S IN I/ I/aVL/V4/V5/V6] Compared to ECG 10/13/2019 04:12:58 No significant changes Electronically Signed On 10-29-2019 21:02:52 CDT by Alan Elena M.D. [email or web address]
[2019-10-29] MEDS: succinylcholine 20 mg/mL SDV 10mL 200 MG IVP (15:10)
--- NOTE | 2019-10-29 15:21 | ED_ITS ---
HPI - Altered Mental Status General: Chief Complaint: Altered Mental Status Stated Complaint: ALTERED MENTAL STATUS Time Seen by Provider: 10/29/19 15:04 History of Present Illness: HPI narrative: Patient was apparently found on the floor at home by her family. EMS was summoned and noted the patient's O2 saturations to be in the 50s. Has a long history of severe COPD. She is oxygen dependent at home. Upon arrival to the emergency room if condition is improved slightly however she still responds only to painful stimuli. MD complaint: decreased responsiveness Onset (ago): unknown Severity: severe Context: history of similar presentation and COPD Treatments prior to arrival: IV fluid and oxygen Review of Systems General: Reports: ROS unobtainable due to medical condition and ROS unobtainable due to mental status PFS ED PFSH: Medical History Chronic anemia Chronic diastolic CHF (congestive heart failure) CKD (chronic kidney disease), stage II COPD (chronic obstructive pulmonary disease) Recurrent intubations in the past due to hypercapnic respiratory failure Hypertension Morbid obesity Pulmonary embolism Smoking addiction Vascular dementia Surgical History H/O section X2 H/O colectomy Secondary to severe colitis H/O: hysterectomy History of salpingo-oophorectomy S/P IVC filter Secondary to PE, DVT Family History Father Lung disease Social History Smoking and tobacco status: current every day smoker cigarettes Packs smoked per day: 1 Years cigarettes smoked: 40 [ Other cigarette details: Says has been reducing. Daughter has been trying to encourage cessation. ] Alcohol intake: never Lives independently: No (, daughter) Household members: family Marital status: Current occupational status: disabled History of recent travel: No Current gender identity: Female Physical Exam Const: COMMON NORMALS: no acute distress, healthy appearing and well nourished GENERAL APPEARANCE: cooperative and well developed HENMT: COMMON NORMALS: normocephalic and atraumatic HEAD & SCALP: normal to inspection, normocephalic and atraumatic Eye: GENERAL EYE: appearance normal, both eyes and all related structures Neck/C-Spine: COMMON NORMALS: full ROM, no lymphadenopathy and no meningeal signs GENERAL: Yes normal visual inspection CERVICAL SPINE: Yes cervical ROM normal and Yes normal cervical lordosis Chest: COMMONS NORMALS: normal inspection of the chest and normal palpation of entire chest wall Resp: COMMON NORMALS: normal respiratory effort, clear to auscultation bilaterally and percussion normal AUSCULTATION: clear to auscultation bilaterally PERCUSSION: percussion normal Cardio: COMMON NORMALS: regular rate, regular rhythm, S1 normal heart sound present and S2 normal heart sound present JUGULAR VENOUS DISTENTION: no JVD PALPATION: normal PMI RATE: regular rate RHYTHM: regular rhythm HEART SOUNDS: S1 normal heart sound present and S2 normal heart sound present GI: COMMON NORMALS: Soft to palpation and No hepatosplenomegaly present INSPECTION: Yes normal to inspection PALPATION: Yes Soft to palpation and Yes No hepatosplenomegaly present PERCUSSION: normal to percussion : COMMON NORMALS: Yes no CVA tenderness BLADDER/KIDNEY EXAM: Yes no CVA tenderness Back/Pelvis: COMMON NORMALS: no CVA tenderness, thoracic and lumbar spine normal to inspection and thoraco-lumbar ROM normal Extremity: COMMON NORMALS: normal to inspection, full ROM and capillary refill normal Neuro: MENINGEAL SIGNS: Yes no meningeal signs Skin: COMMON NORMALS: no rashes or lesions noted, no wounds and turgor normal GENERAL SKIN EXAM: no rashes or lesions noted, elasticity normal and turgor normal LESIONS: no lesions RASHES: no rashes TRAUMA: no lacerations or abrasions HAIR: normal NAILS: normal Course Vital Signs: Vital signs: Vital Signs Temperature 98.3 F 10/29/19 15:03 Pulse Rate 86 10/29/19 16:28 Respiratory Rate 16 10/29/19 16:29 Blood Pressure 128/81 10/29/19 15:03 Pulse Oximetry 100 10/29/19 16:26 MDM - Altered Mental Status Lab Data: Labs: Lab Results 10/29/19 10/29/19 10/29/19 Range/Units 15:18 15:30 15:30 WBC (4.0-10.0) 10^3/ uL RBC (4.1-5.3) 10^6/u L Hgb (11.5-15.3) g/dL Hct (37.0-47.0) % MCV (81-99) fL MCH (28.0-34.0) pg MCHC (30.0-36.0) g/dL RDW (12.1-15.1) % Plt Count (130-400) 10^3/c mm MPV (7.4-10.4) fL Neut % (Auto) % Lymph % (Auto) % [place] % (Auto) % Eos % (Auto) % Baso % (Auto) % Neut # (Auto) (1.8-7.7) 10^3/u L Lymph # (Auto) (0.8-4.8) 10^3/u L [place] # (Auto) (0.2-0.9) 10^3/u L Eos # (Auto) (0.0-0.8) 10^3/u L Baso # (Auto) (0.0-0.1) 10^3/u L Nucleated RBC % (a uto) % Nucleated RBCs # /100WBC Specimen Type Sample Site ABG pH (7.35-7.45) ABG pCO2 (35-45) mmHg ABG pO2 (80.0-100.0) mmH g ABG HCO3 (22-26) mmol/L ABG Base Excess (-2.0-2.0) mmol/ L Santiago Test Hematocrit (37-47) % Respiration Rate % O2 Delivery Device Mechanical Rate FiO2 % PEEP cmH20 Community Reinvestment Act Officer ID Sodium 136 (136-145) mmol/L Potassium 6.3 H (3.5-5.1) mmol/L Chloride 88 L (98-107) mmol/L Carbon Dioxide 28 (22-29) mmol/L Anion Gap 25.3 H (5-19) BUN 28 H (8-23) mg/dL Creatinine 1.8 H (0.5-0.9) mg/dL GFR Calculation 28.2 L (90-130) mL/min Glucose 126 H (65-115) mg/dL Calculated Osmolal ity 275 L (285-295) mOsm/k g Lactate 2.6 H (0.5-2.2) mmol/L Calcium 9.0 (8.5-10.5) mg/dL Total Bilirubin 0.6 (0.15-1.2) mg/dL AST 176 H (0-32) U/L ALT 211 H (0-33) U/L Alkaline Phosphata se 80 (35-105) IU/L Troponin T Baselin e (0-10) ng/L NT-Pro-B Natriuret Pep 3353 H (0-125) pg/mL Total Protein 6.5 L (6.6-8.7) g/dL Albumin 4.1 (3.5-5.2) g/dL Globulin 2.4 (1.3-4.6) g/dL Urine Color Yellow (Yellow) Urine Appearance Clear (CLEAR) Urine pH 5 (5-7) Ur Specific Gravit y 1.020 (1.005-1.030) Urine Protein 1+ H (Negative) Urine Glucose (UA) Norm (Normal) Urine Ketones Negative (Negative) Urine Blood Neg (Negative) Urine Nitrate Negative (Negative) Urine Bilirubin 1+ H (NEGATIVE) Urine Urobilinogen 1 H (Negative) mg/dL Ur Leukocyte Catrina ase Negative (Negative) Urine RBC None (0-2) /hpf Urine WBC 15-25 H (0-5) /hpf Ur Squamous Epith Cells None (0-5) Urine Bacteria 1+ H (NONE) Coarse Granular Ca sts 0-4 H /lpf Urine Mucus 3+ 10/29/19 10/29/19 10/29/19 Range/Units 15:30 15:41 15:55 WBC 11.4 H (4.0-10.0) 10^3/ uL RBC 5.43 H (4.1-5.3) 10^6/u L Hgb 12.3 (11.5-15.3) g/dL Hct 48.3 H (37.0-47.0) % MCV 89.0 (81-99) fL MCH 22.7 L (28.0-34.0) pg MCHC 25.5 L (30.0-36.0) g/dL RDW 19.5 H (12.1-15.1) % Plt Count 321 (130-400) 10^3/c mm MPV 9.7 (7.4-10.4) fL Neut % (Auto) 88.1 % Lymph % (Auto) 4.3 % [place] % (Auto) 6.3 % Eos % (Auto) 0.1 % Baso % (Auto) 0.2 % Neut # (Auto) 10.0 H (1.8-7.7) 10^3/u L Lymph # (Auto) 0.5 L (0.8-4.8) 10^3/u L [place] # (Auto) 0.7 (0.2-0.9) 10^3/u L Eos # (Auto) 0.0 (0.0-0.8) 10^3/u L Baso # (Auto) 0.0 (0.0-0.1) 10^3/u L Nucleated RBC % (a uto) 0 % Nucleated RBCs # 0.0 /100WBC Specimen Type Arterial Sample Site Radial, left ABG pH 7.26 L (7.35-7.45) ABG pCO2 88.0 H* (35-45) mmHg ABG pO2 128.0 H (80.0-100.0) mmH g ABG HCO3 39.7 H (22-26) mmol/L ABG Base Excess 9.4 H (-2.0-2.0) mmol/ L Santiago Test Pos Hematocrit 38.3 (37-47) % Respiration Rate 14.0 % O2 Delivery Device Vent Mechanical Rate 14.0 FiO2 100.0 % PEEP 8.0 cmH20 Community Reinvestment Act Officer ID gd Sodium (136-145) mmol/L Potassium (3.5-5.1) mmol/L Chloride (98-107) mmol/L Carbon Dioxide (22-29) mmol/L Anion Gap (5-19) BUN (8-23) mg/dL Creatinine (0.5-0.9) mg/dL GFR Calculation (90-130) mL/min Glucose (65-115) mg/dL Calculated Osmolal ity (285-295) mOsm/k g Lactate (0.5-2.2) mmol/L Calcium (8.5-10.5) mg/dL Total Bilirubin (0.15-1.2) mg/dL AST (0-32) U/L ALT (0-33) U/L Alkaline Phosphata se (35-105) IU/L Troponin T Baselin e 71 H (0-10) ng/L NT-Pro-B Natriuret Pep (0-125) pg/mL Total Protein (6.6-8.7) g/dL Albumin (3.5-5.2) g/dL Globulin (1.3-4.6) g/dL Urine Color (Yellow) Urine Appearance (CLEAR) Urine pH (5-7) Ur Specific Gravit y (1.005-1.030) Urine Protein (Negative) Urine Glucose (UA) (Normal) Urine Ketones (Negative) Urine Blood (Negative) Urine Nitrate (Negative) Urine Bilirubin (NEGATIVE) Urine Urobilinogen (Negative) mg/dL Ur Leukocyte Catrina ase (Negative) Urine RBC (0-2) /hpf Urine WBC (0-5) /hpf Ur Squamous Epith Cells (0-5) Urine Bacteria (NONE) Coarse Granular Ca sts /lpf Urine Mucus Discharge Plan Discharge Patient Disposition: Admitted As Inpatient Clinical Impression: Acute hypercapnic respiratory failure, Chronic respiratory failure with hypoxia and hypercapnia, Acute hyperkalemia, Acute on chronic renal insufficiency, Hepatitis, Acute UTI COPD (chronic obstructive pulmonary disease) Qualifiers: COPD type: COPD with acute exacerbation Qualified Code(s): J44.1 - Chronic obstructive pulmonary disease with (acute) exacerbation CHF (congestive heart failure) Qualifiers: Heart failure type: unspecified Heart failure chronicity: acute on chronic Qualified Code(s): I50.9 - Heart failure, unspecified Condition: Serious Referrals: Titus Garzon DO [Primary Care Provider] - Coding Level of Care Code ED Marketing Information Manager for g Fwd Exam Comprehensive
[2019-10-29 15:59] LABS: ABG PH Result 7.26 (7.35-7.45); Arterial Blood Gas Hematocrit 38.3 % (37-47); Base Excess ABG 9.4 mmol/L (-2.0-2.0); Blood Gas Allen Test Pos; Blood Gas Sample Site Radial, left; Blood Gas Sample Type Arterial; HCO3 ABG 39.7 mmol/L (22-26); Oxygen Device VENT
[2019-10-29 15:59] LABS: Alanine Aminotransferase 211 U/L (0-33); Albumin Level 4.1 g/dL (3.5-5.2); Alkaline Phosphatase 80 IU/L (35-105); Aspartate Amino Transferase 176 U/L (0-32); Chloride 88 mmol/L (98-107); Globulin 2.4 g/dL (1.3-4.6); Glucose 126 mg/dL (65-115); Lactate (Lactic Acid level) 2.6 mmol/L (0.5-2.2); Sodium 136 mmol/L (136-145); Total Protein 6.5 g/dL (6.6-8.7)
[2019-10-29 15:59] LABS: Basophils % 0.2 %; Eosinophils % 0.1 %; Hematocrit 48.3 % (37.0-47.0); Hemoglobin 12.3 g/dL (11.5-15.3); Lymphocytes # 0.5 10^3/uL (0.8-4.8); Lymphocytes % 4.3 %; Mean Corpuscular HGB Conc 25.5 g/dL (30.0-36.0); Mean Corpuscular Hemoglobin 22.7 pg (28.0-34.0); Mean Platelet Volume 9.7 fL (7.4-10.4); Monocytes # 0.7 10^3/uL (0.2-0.9); Monocytes % 6.3 %; Neutrophils % 88.1 %; Nucleated Red Blood Cells % 0 %; Platelet Count 321 10^3/cmm (130-400); Red Blood Count 5.43 10^6/uL (4.1-5.3); Red Cell Distribution Width 19.5 % (12.1-15.1); White Blood Count 11.4 10^3/uL (4.0-10.0)
[2019-10-29 16:00] LABS: Troponin(5th) Baseline 71 ng/L (0-10)
[2019-10-29] MEDS: propofol 1,000 MG/100 ML INJ 5.2 MG IV (16:00)
[2019-10-29] MEDS: sodium chloride 0.9% 500 ML IV (16:00)
[2019-10-29 16:35] LABS: Anion Gap 25.3 (5-19); Blood Urea Nitrogen 28 mg/dL (8-23); Carbon Dioxide 28 mmol/L (22-29); Glomerular Filtration Rate 28.2 mL/min (90-130); NT Pro B Type Natriuretic Pept 3353 pg/mL (0-125); Osmolality Calculated 275 mOsm/kg (285-295); Potassium 6.3 mmol/L (3.5-5.1); Total Bilirubin 0.6 mg/dL (0.15-1.2)
[2019-10-29 16:45] LABS: Add Urine Microscopic? YES; Bilirubin Urine 1+ (NEGATIVE); Blood Urine Neg (Negative); Glucose Urine UA Norm (Normal); Ketones Urine Negative (Negative); Leukocyte Esterase Urine Negative (Negative); Nitrate Urine Negative (Negative); Protein Urine 1+ (Negative); Urine Appearance Clear (CLEAR); Urine Color Yellow (Yellow); Urobilinogen Urine 1 mg/dL (Negative); pH Urine 5 (5-7)
[2019-10-29 16:46] LABS: Add Urine Culture? No; Bacteria Urine 1+; Coarse Granular Casts Urine 0-4 /lpf; Mucus Urine 3+; WBC Urine 15-25 /hpf (0-5)
[2019-10-29] MEDS: sodium bicarbonate 8.4% 1 mEq/mL 50mL Syr 100 MEQ IVP (16:55)
[2019-10-29] MEDS: insulin regular-human 100 units/1 mL 6 UNIT IVP (17:00)
--- NOTE | 2019-10-29 17:06 | ECG_ITS ---
Measurements Intervals [place] Rate: 100 P: 62 [place]: 129 QRS: 114 QRSD: 130 T: 41 QT: 348 QTc: 449 SINUS TACHYCARDIA MARKED RIGHT AXIS DEVIATION [QRS AXIS > 100] RIGHT BUNDLE BRANCH BLOCK [120+ ms QRS DURATION, UPRIGHT V1, 40+ ms S IN I/aVL/V4/V5/V6] Compared to ECG 10/29/2019 18:31:29 Right-axis deviation now present Sinus rhythm no longer present Electronically Signed On 10-30-2019 20:35:31 CDT by Alan Elena M.D. [email or web address]
[2019-10-29] MEDS: cefTRIAXone 1,000 MG in sodium chloride 0.9% (plus) 50 ML 100 MG IV (17:10)
[2019-10-29] MEDS: dextrose 5%-sod chloride 0.9% 1,000 ML 100 ML IV (17:18)
--- NOTE | 2019-10-29 18:19 | P.HP_ITS ---
Providers/Chief Complaint Admitting Physician: Abby Ritchie MD Primary Care Provider: Titus Garzon DO Chief Complaint: ALTERED MENTAL STATUS History of Present Illness Roseann Durham is a 64 year old female with PMHx of Chronic diastolic CHF, HTN, hx of DVT/PE s/p IVC filter, Chronic smoker, Oxygen-dependent COPD, Pulmonary HTN, CKD stage 2, s/p colectomy presents from home via EMS due to decreased responsiveness. History is minimal and family is currently unavailable to provide collateral information. Patient has been admitted at our facility multiple times almost on a monthly basis this year for similar symptoms including most recently at the end of September though at that time she did not require ventilator support. She has been intubated multiple times in the past. It seems that most of her episodes are triggered due to noncompliance either with her oxygen or her medications. She is trilogy dependent and has 3 to 4 L nasal cannula oxygen requirement at baseline. Due to her multiple previous admissions she has been tested for COVID-19 and has been negative. Due to noted decompensation in her respiratory status she was intubated in the ER. Work-up includes mild leukocytosis with a white count of 11.4, hemoglobin of 12.3, hyperkalemia with a potassium of 6.3, BUN of 28, creatinine of 1.8, blood sugar of 126, lactic acid of 2.6, increased anion gap at 25.3. ABG shows respiratory acidosis with a pH of 7.26, PCO2 of 88. She has mild transaminitis with an AST of 176, ALT of 211. BNP is 3353, baseline troponin is 71. Current vent settings are FiO2 of 70%, tidal volume of 400 and PEEP of 8. She is hemodynamically stable and afebrile. She is on sedation with propofol and has received 1 L normal saline bolus, sodium bicarbonate, D50 and insulin to correct her potassium. She will be admitted for further management of acute on chronic hypercapnic respiratory failure currently requiring ventilator support, will be admitted to ICU. Patient seen once she arrived to ICU, vent settings unchanged, continues to be hemodynamically stable, saturating in the high 90s to 100%. Pending second troponin and repeat potassium. Able to speak to her granddaughter Nicole ([phone]) who states that due to difficult family dynamics has not been in contact with the patient for several days. She has called but has not been able to reach the patient on the phone. She is concerned that patient may not be receiving appropriate care at home in light of her comorbidities. We have previously tried to arrange for home health services and patient has turned them away. Review of Systems General: Reports: ROS unobtainable due to endotracheal tube (no family at bedside) Resp: Reports: dyspnea Neuro: Reports: confusion Medications/Allergies Home Medications Medication Instructions Recorded Confirmed Last Taken Type Eliquis 5 mg PO BID 05/29/19 10/29/19 10/03/19 History albuterol sulfate 2.5 mg INHALATION Q4H PRN 05/29/19 10/29/19 07/21/19 History Spiriva Respimat 2 inh INHALATION DAILY #4 gm 06/08/19 10/29/19 10/03/19 Rx ondansetron 8 mg PO PRN 08/02/19 10/29/19 Unknown History spironolactone 12.5 mg PO DAILY #30 tab 08/27/19 10/29/19 10/03/19 Rx budesonide-formoterol [Symbicort] 1 puff INHALATION BID 09/04/19 10/29/19 10/03/19 History pantoprazole 40 mg PO Q12H 30 Days #60 tab 09/09/19 10/29/19 10/03/19 Rx albuterol sulfate 90 mcg/actuation 2 puff INHALATION Q6H PRN 09/20/19 10/29/19 Unknown History aerosol inhaler formoterol fumarate 20 mcg/2 mL 2 ml INHALATION Q12H 90 Days #120 09/20/19 10/29/19 Unknown Rx solution for nebulization ml ipratropium 20 mcg-albuterol 100 2 puff INHALATION QID PRN 09/20/19 10/29/19 Unknown History mcg/actuation mist for inhalation revefenacin 175 mcg/3 mL solution 175 mcg INHALATION DAILY 90 Days 09/20/19 10/29/19 Unknown Rx for nebulization #90 ml alprazolam 1 mg PO TID PRN 10/04/19 10/29/19 10/03/19 History aspirin [Aspir-81] 81 mg PO DAILY 10/04/19 10/29/19 Unknown History diphenhydramine-acetaminophen 1 - 2 tab PO PRN 10/04/19 10/29/19 Unknown History [Tylenol PM Extra Strength] furosemide [Lasix] 20 mg PO DAILY 10/04/19 10/29/19 10/03/19 History melatonin 10 mg PO BEDTIME PRN 10/04/19 10/29/19 Unknown History budesonide [Pulmicort] 0.5 mg INHALATION BID 90 Days #120 10/06/19 10/29/19 Unknown Rx ml nicotine 1 patch TRANSDERMAL DAILY #30 ea 10/06/19 10/29/19 Unknown Rx nicotine (polacrilex) 2 mg BUCCAL Q1H PRN #72 each 10/06/19 10/29/19 Unknown Rx prednisone See Rx Instructions .ROUTE 10/14/19 10/29/19 Unknown Rx .COMPLEX #53 tab Allergies Allergy/AdvReac Type Severity Reaction Status Date / Time No Known Allergies Allergy Verified 10/29/19 15:06 PFSH Acute PFSH: Medical History Chronic anemia Chronic diastolic CHF (congestive heart failure) CKD (chronic kidney disease), stage II COPD (chronic obstructive pulmonary disease) Recurrent intubations in the past due to hypercapnic respiratory failure Hypertension Morbid obesity Pulmonary embolism Smoking addiction Vascular dementia Surgical History H/O section X2 H/O colectomy Secondary to severe colitis H/O: hysterectomy History of salpingo-oophorectomy S/P IVC filter Secondary to PE, DVT Family History Father Lung disease Social History Smoking and tobacco status: current every day smoker cigarettes Packs smoked per day: 1 Years cigarettes smoked: 40 [ Other cigarette details: Says has been reducing. Daughter has been trying to encourage cessation. ] Alcohol intake: never Lives independently: No (, daughter) Household members: family Marital status: Current occupational status: disabled History of recent travel: No Current gender identity: Female Vitals/I&O/Wt Last Vital Signs Temp 98.3 F 10/29/19 15:03 Pulse 94 10/29/19 17:45 Resp 16 10/29/19 17:45 BP 128/75 10/29/19 17:45 Pulse Ox 100 10/29/19 17:45 Weight last 48 hrs Weight 86.183 kg Physical Exam Const: GENERAL APPEARANCE: ill appearing and patient mechanically ventilated NUTRITIONAL APPEARANCE: obese morbidly obese OTHER: -Sedated HENMT: COMMON NORMALS: normocephalic and atraumatic HEAD & SCALP: normocephalic and atraumatic OTHER: -Orally intubated Eye: COMMON NORMALS: Equal, round and reactive pupils present and conjunctivae normal CONJUNCTIVA: Yes conjunctivae normal PUPIL: Yes Equal, round and reactive pupils present Neck/C-Spine: COMMON NORMALS: full ROM GENERAL: Yes normal visual inspection and Yes trachea midline Chest: CHEST: Yes Symmetrical chest wall rise Resp: AUSCULTATION: crackles and diminished lung sounds bilateral OTHER: - On mechanical vent support with FiO2 of 70%, tidal volume of 400, PEEP of 8; ETT is 24 cm at lip Cardio: COMMON NORMALS: regular rate, regular rhythm, S1 normal heart sound present, S2 normal heart sound present and No murmurs present (Cardio) RATE: regular rate RHYTHM: regular rhythm HEART SOUNDS: S1 normal heart sound present and S2 normal heart sound present GI: COMMON NORMALS: Normal to inspection, nondistended, normoactive bowel sounds present and Soft to palpation INSPECTION: Yes central obesity PALPATION: Yes Soft to palpation : BLADDER/KIDNEY EXAM: Yes catheter in place Catheter type (Female): urethral Back/Pelvis: COMMON NORMALS: thoracic and lumbar spine normal to inspection Extremity: COMMON NORMALS: normal to inspection NARRATIVE EXTREMITY EXAM: - Noted 2-3+ pitting edema of bilateral lower extremities GENERAL: Yes edema Neuro: OTHER: -Sedated; on propofol @ 15 mcg/kg/hr Psych: OTHER: -unable to assess as sedated, on vent Skin: COMMON NORMALS: no rashes or lesions noted, no jaundice, no petechiae and no mottling GENERAL SKIN EXAM: no rashes or lesions noted Urinary Catheter Management^: Ortega: Cath Placed During This Visit: yes Urethral Indwelling: Yes Reason for Continuing Indwelling Catheter: Accurate Measurement of Urinary Output in Critically Ill Patients Urinary Catheter Date of Insertion: 10/29/19 Urinary Catheter Time of Insertion: 15:00 Sepsis: Is patient septic: Yes Focused sepsis exam performed: Yes Date exam was performed: 10/29/19 Time exam was performed: 17:45 Data : 10/29/19 15:55 10/29/19 15:30 Micro: Microbiology 10/29/19 15:55 Blood Culture - Preliminary Blood SPECIMEN COLLECTED 10/29/19 15:30 Blood Culture - Preliminary Blood SPECIMEN COLLECTED A&P Assessment and plan (1) Acute hypercapnic respiratory failure: -Presented in significant respiratory distress, noted significant hypercapnia on initial ABG, decompensated and was intubated in ED -sedated with propofol -has hx of multiple admissions for the same including need to prior intubation, most recently end of September -CXR noted, seems more consistent with fluid overload than rina infection per my review -IV steroids, empiric IV Levaquin -noted mild leukocytosis, lactic acidosis, hemodynamically stable, afebrile -close monitoring of respiratory and hemodynamic status -NPO -will start on IV diuresis with Bumex -Ortega catheter placed in ED, assess daily for removal, monitor urine output -Neb treatments -weaning trial when appropriate -has been tested for COVID-19 several times; no need to repeat testing at this time -f/u blood cx -currently meets sepsis criteria due to leukocytosis, hypoxia, lactic acidosis Status: Acute (2) COPD (chronic obstructive pulmonary disease): -Has history of oxygen dependent COPD previous baseline oxygen was about 3 to 4 L -Management as noted above -follows up with Dr. Lipscomb Status: Acute Qualifiers: COPD type: COPD with acute exacerbation Qualified Code(s): J44.1 - Chronic obstructive pulmonary disease with (acute) exacerbation (3) Acute hyperkalemia: -received D50, insulin, sodium bicarb -Repeat now and replete/deplete as needed -Noted peaked T waves on telemetry Status: Acute (4) Acute on chronic renal insufficiency: -has CKD stage 2; baseline Cr wnl -superimposed RADHA -monitor renal function closely, avoid nephrotoxins, renally dose meds -monitor urine output, has Ortega catheter Status: Acute (5) CHF (congestive heart failure): -Has acute exacerbation of chronic diastolic CHF as evidenced by bilateral lower extremity edema, at least 2+, BNP elevation -We will start on IV diuresis with Bumex -Echo (05/2019): EF=66%, G1DD, moderate TR, moderate pulmonary HTN Status: Acute Qualifiers: Heart failure chronicity: acute on chronic Heart failure type: diastolic Qualified Code(s): I50.33 - Acute on chronic diastolic (congestive) heart failure (6) Chronic anticoagulation: -on Eliquis secondary to history of PE, DVT status post IVC filter placement Status: Chronic (7) Morbid obesity: -BMI-34 kg/m2 Status: Chronic (8) Chronic anemia: -has hx of chronic mucrocytic anemia -baseline Hg 9-11 -monitor H/H, currently wnl Status: Chronic (9) Hypertension: -monitor vital signs -hold oral antihypertensives for now Status: Acute Qualifiers: Hypertension type: essential hypertension Qualified Code(s): I10 - Essential (primary) hypertension (10) Vascular dementia: -Vascular dementia, hx of CVA, TIA Status: Chronic Qualifiers: Dementia behavioral disturbance: without behavioral disturbance Qualified Code(s): F01.50 - Vascular dementia without behavioral disturbance (11) Smoking addiction: -heavy chronic smoker Status: Chronic Additional A&P Information -hx of severe colitis s/p colectomy and ileostomy. -GI ppx with PPI -DVT ppx not needed as on Eliquis -Dispo: home -Code status: FULL code -ICU admission due to vent support Attestations Medical Necessity Statement*: Roseann Durham's hospital stay will require greater than 2 midnights for management of acute on chronic hypercapnic and hypoxic respiratory failure, acute COPD exacerbation, acute CHF exacerbation, on vent support Time Spent in Patient Care: Greater than 35 minutes (>than 50% of time spent in counselling and/or direct pt care on unit) . Critical Care Time: The high probability of a clinically significant, sudden or life threatening deterioration of the patient's [respiratory] system(s) required my full and direct attention, intervention and personal management. The critical care time is as shown. This time is in addition to time spent performing any reported procedures but includes the following: [x] Data and vital sign review and interpretation [x] Patient assessment, examination and intervention [x] Documentation [x] Medication orders and management Critical Care Time (min): 20 Coding Level of Care Code Acute Set And Exhibit Designer for Denis Lozoya Diagnoses Acute hypercapnic respiratory failure J96.02 COPD (chronic obstructive pulmonary disease) J44.1 COPD type: COPD with acute exacerbation Acute hyperkalemia E87.5 Acute on chronic renal insufficiency N28.9; N18.9 CHF (congestive heart failure) I50.33 Heart failure chronicity: acute on chronic Heart failure type: diastolic Chronic anticoagulation Z79.01 Morbid obesity E66.01 Chronic anemia D64.9 Hypertension I10 Hypertension type: essential hypertension Vascular dementia F01.50 Dementia behavioral disturbance: without behavioral disturbance Smoking addiction F17.200 Sepsis Event Note Evaluation Current stage of sepsis: sepsis Reason for ruling out sepsis: -Leukocytosis, lactic acidosis can be explained by respiratory illness rather than true sepsis Possible source: pulmonary Focused Exam Vital Signs Temp Pulse Pulse Resp BP BP Pulse Ox 10/29/19 18:27 16 10/29/19 17:45 94 16 128/75 100 10/29/19 17:30 98 16 101/75 100 10/29/19 17:00 103 H 16 138/89 103 H 10/29/19 16:56 110 H 16 120/98 94 10/29/19 16:29 16 10/29/19 16:28 86 10/29/19 16:26 88 16 100 10/29/19 15:03 98.3 F 104 H 26 H 128/81 96 Respiratory exam: Present patient mechanically ventilated Cardiovascular exam: Present S1 and S2 Peripheral pulse strength: 3+ Normal Peripheral pulse location: Pedal Date exam was performed: 10/29/19 Time exam was performed: 19:40 Problem List (1) Acute hyperkalemia: Status: Acute (2) Acute on chronic renal insufficiency: Status: Acute (3) Chronic anticoagulation: Status: Chronic Comment: On Eliquis (4) CHF (congestive heart failure): Status: Acute (5) Acute hypercapnic respiratory failure: Status: Acute (6) Morbid obesity: Status: Chronic (7) COPD (chronic obstructive pulmonary disease): Status: Acute Comment: Recurrent intubations in the past due to hypercapnic respiratory failure (8) Chronic anemia: Status: Chronic (9) Hypertension: Status: Acute (10) Vascular dementia: Status: Chronic (11) Smoking addiction: Status: Chronic
[2019-10-29] MEDS: ipratropium-albuterol 3 mL Neb INHALATION (19:35)
[2019-10-29 19:52] LABS: Potassium 4.5 mmol/L (3.5-5.1); Troponin 5 2HR 54.08 ng/L (0-10)
[2019-10-29] MEDS: bumetanide 0.25 mg/mL SDV 10 mL 1 MG IV (19:57)
[2019-10-29] MEDS: levofloxacin-dextrose 5 % 750 MG/150 ML PREMIX 100 MG IV (19:57)
--- NOTE | 2019-10-29 21:06 | ECG_ITS ---
Measurements Intervals [place] Rate: 95 P: 62 DE: 138 QRS: 95 QRSD: 126 T: 29 QT: 339 QTc: 426 SINUS RHYTHM RIGHT BUNDLE BRANCH BLOCK [120+ ms QRS DURATION, UPRIGHT V1, 40+ ms S IN I/aVL/V4/V5/V6] Compared to ECG 10/13/2019 04:12:58 Right-axis deviation no longer present Electronically Signed On 10-29-2019 21:06:28 CDT by Alan Elena M.D. [email or web address]
[2019-10-29 22:06] LABS: Troponin 5 6HR 47.72 ng/L (0-10)
[2019-10-30] VITALS (126 sets, daily range): BP systolic 86–132; BP diastolic 50–86; PULSE 85–117; RESP 16–17; TEMP 36.8–37.4; O2SAT 87–100
--- NOTE | 2019-10-30 00:12 | PC.PHAR ---
Levauin dosage is adjusted from 750mg IVPB every 24 hours to 750mg IVPB every 48 hours due to creatinine clearance of 31.99.
[2019-10-30] MEDS: propofol 1,000 MG/100 ML INJ 5.2 MG IV (00:22)
[2019-10-30] MEDS: ipratropium-albuterol 3 mL Neb INHALATION ×6 (00:34→20:53)
[2019-10-30 00:39] LABS: Glucose Point of Care 129 mg/dL (70-110)
[2019-10-30 03:33] LABS: Basophils % 0.1 %; Hematocrit 40.2 % (37.0-47.0); Hemoglobin 10.8 g/dL (11.5-15.3); Lymphocytes # 0.3 10^3/uL (0.8-4.8); Lymphocytes % 2.1 %; Mean Corpuscular HGB Conc 26.9 g/dL (30.0-36.0); Mean Corpuscular Hemoglobin 22.4 pg (28.0-34.0); Mean Corpuscular Volume 83.4 fL (81-99); Monocytes # 0.3 10^3/uL (0.2-0.9); Monocytes % 2.2 %; Neutrophils # 12.7 10^3/uL (1.8-7.7); Neutrophils % 95.1 %; Nucleated Red Blood Cells % 0 %; Platelet Count 275 10^3/cmm (130-400); Red Blood Count 4.82 10^6/uL (4.1-5.3); Red Cell Distribution Width 18.8 % (12.1-15.1); White Blood Count 13.3 10^3/uL (4.0-10.0)
[2019-10-30 03:49] LABS: Alanine Aminotransferase 431 U/L (0-33); Albumin Level 3.3 g/dL (3.5-5.2); Alkaline Phosphatase 60 IU/L (35-105); Anion Gap 15.3 (5-19); Aspartate Amino Transferase 358 U/L (0-32); Blood Urea Nitrogen 34 mg/dL (8-23); Calcium 8.9 mg/dL (8.5-10.5); Carbon Dioxide 38 mmol/L (22-29); Chloride 91 mmol/L (98-107); Globulin 2.4 g/dL (1.3-4.6); Glomerular Filtration Rate 34.7 mL/min (90-130); Glucose 138 mg/dL (65-115); Magnesium 1.8 mg/dL (1.7-2.3); Osmolality Calculated 290 mOsm/kg (285-295); Potassium 4.3 mmol/L (3.5-5.1); Sodium 140 mmol/L (136-145); Total Bilirubin 0.2 mg/dL (0.15-1.2); Total Protein 5.7 g/dL (6.6-8.7)
[2019-10-30 05:17] LABS: ABG PH Result 7.37 (7.35-7.45); Arterial Blood Gas Hematocrit 34.6 % (37-47); Base Excess ABG 12.7 mmol/L (-2.0-2.0); Blood Gas Allen Test Pos; Blood Gas Sample Site Radial, right; Blood Gas Sample Type Arterial; Blood Gas Tidal Volume 0.4; HCO3 ABG 40.6 mmol/L (22-26); Oxygen Device VENT
[2019-10-30] MEDS: bumetanide 0.25 mg/mL SDV 10 mL 1 MG IV (05:57)
--- NOTE | 2019-10-30 06:00 | XR_ITS ---
WS: [id number] XR chest 1V portable [id number] REASON FOR EXAM: on vent support FINDINGS: Endotracheal tube is seen well positioned well above the cristina. There is blunting of the right costophrenic angle suggesting a small amount of pleural effusion. The heart is not grossly enlarged. A feeding tube is noted in good position. XR/XR chest 1V portable [id number] IMPRESSION: Endotracheal tube well positioned. Feeding tube well positioned. Small amount of right pleural effusion.
--- NOTE | 2019-10-30 08:23 | PC.RESP ---
Smoking Cessation and Pulmonary Rehab information to patient with a schedule of classes.
[2019-10-30] MEDS: pantoprazole 40 mg SDV IVP (09:33)
[2019-10-30] MEDS: apixaban 5 mg Tablet PO ×2 (09:33→17:48)
[2019-10-30] MEDS: propofol 1,000 MG/100 ML INJ 15.5 MG IV ×3 (09:43→18:53)
--- NOTE | 2019-10-30 11:52 | P.PN_ITS ---
Subjective Subjective: Interval history: Remains on vent support with FiO2 of 50%, ABG this morning shows continued hypercapnia though improved from yesterday. Had 550 mL urine output overnight. Tachycardic though otherwise hemodynamically stable, afebrile. Noted increased leukocytosis which could be due to steroids. Improved creatinine from 1.8->1.5, stable hemoglobin, worsening transaminitis. Medications: Reviewed: Yes Medication Review Details: Active Medications Generic Name Dose Route Start Last Admin Trade Name Freq PRN Reason Stop Dose Admin Acetaminophen 650 mg 10/29/19 18:49 Tylenol NH Q6H PRN FEVER Albuterol Sulfate 2.5 mg 10/29/19 19:25 Albuterol INHALATION Q4H.RESPIRATORY P RN SHORTNESS OF MEKA TH Albuterol/Ipratrop ium 3 ml 10/29/19 20:00 10/30/19 11:06 Duoneb INHALATION 3 ml Q4H.RESPIRATORY S CH Administration Apixaban 5 mg 10/30/19 09:00 10/30/19 09:33 Eliquis PO 5 mg BID EB Administration Bumetanide 1 mg 10/29/19 18:49 10/30/19 05:57 Bumex IV 1 mg Q12H EB Administration Propofol 1,000 mg in 100 m ls @ 0 mls/hr 10/29/19 15:45 10/30/19 09:43 Diprivan IV 30 mcg/kg/min .Q0M EB 15.5 mls/hr Administration Protocol Per Protocol Levofloxacin/Dextr ose 750 mg in 150 mls @ 100 mls/hr 10/31/19 20:00 Levaquin-D5w IV Q48H EB Protocol Methylprednisolone Sodium Succinate 60 mg 10/29/19 18:49 10/30/19 05:57 Solu-Medrol IVP 60 mg Q6H EB Administration Ondansetron HCl 4 mg 10/29/19 18:49 Zofran IVP Q6H PRN NAUSEA AND VOMITI NG Pantoprazole Sodiu m 40 mg 10/30/19 09:00 10/30/19 09:33 Protonix IVP 40 mg DAILY EB Administration No Known Allergies Allergy (Verified 10/29/19 15:06) Vitals/I&O/Wt Last Vital Signs Temp 99.3 F 06/15/20 08:00 Pulse 115 H 10/30/19 11:30 Resp 16 10/30/19 11:07 BP 120/68 10/30/19 11:30 Pulse Ox 97 10/30/19 11:30 10/29/19 10/30/19 10/30/19 22:59 06:59 14:59 Intake Total 143.507 / 143.507 Output Total 450 / 450 100 / 550 100 / 100 Balance -450 / -450 43.507 / -406.493 -100 / -100 Weight last 48 hrs Weight 103.102 kg Weight 103.051 kg Weight 103.051 kg Weight 86.183 kg Physical Exam Const: GENERAL APPEARANCE: ill appearing and patient mechanically ventilated NUTRITIONAL APPEARANCE: obese morbidly obese OTHER: -Sedated HENMT: COMMON NORMALS: normocephalic and atraumatic HEAD & SCALP: normocephalic and atraumatic OTHER: -Orally intubated Eye: COMMON NORMALS: Equal, round and reactive pupils present and conjunctivae normal CONJUNCTIVA: Yes conjunctivae normal PUPIL: Yes Equal, round and reactive pupils present Neck/C-Spine: COMMON NORMALS: full ROM GENERAL: Yes normal visual inspection and Yes trachea midline Chest: CHEST: Yes Symmetrical chest wall rise Resp: AUSCULTATION: crackles and diminished lung sounds bilateral OTHER: - On mechanical vent support with FiO2 of 50%, tidal volume of 400, PEEP of 10; ETT is 24 cm at lip Cardio: COMMON NORMALS: regular rate, regular rhythm, S1 normal heart sound present, S2 normal heart sound present and No murmurs present (Cardio) RATE: regular rate RHYTHM: regular rhythm HEART SOUNDS: S1 normal heart sound present and S2 normal heart sound present GI: COMMON NORMALS: Normal to inspection, nondistended, normoactive bowel sounds present and Soft to palpation INSPECTION: Yes central obesity PALPATION: Yes Soft to palpation : BLADDER/KIDNEY EXAM: Yes catheter in place Catheter type (Female): urethra l Back/Pelvis: COMMON NORMALS: thoracic and lumbar spine normal to inspection Extremity: COMMON NORMALS: normal to inspection NARRATIVE EXTREMITY EXAM: - Noted 2+ pitting edema of bilateral lower extremities GENERAL: Yes edema Neuro: OTHER: -Sedated; on propofol @ 30 mcg/kg/hr Psych: OTHER: -unable to assess as sedated, on vent Skin: COMMON NORMALS: no rashes or lesions noted, no jaundice, no petechiae and no mottling GENERAL SKIN EXAM: no rashes or lesions noted Urinary Catheter Management^: Ortega: Cath Placed During This Visit: yes Urethral Indwelling: Yes Reason for Continuing Indwelling Catheter: Accurate Measurement of Urinary Output in Critically Ill Patients Urinary Catheter Date of Insertion: 10/29/19 Urinary Catheter Time of Insertion: 15:00 Data : 10/30/19 03:08 10/30/19 03:08 Micro: Microbiology 10/29/19 15:40 Gram Stain - Final Sputum - Endotracheal Tube Aspirate 10/29/19 15:55 Blood Culture - Preliminary Blood SPECIMEN COLLECTED 10/29/19 15:30 Blood Culture - Preliminary Blood SPECIMEN COLLECTED A&P Assessment and plan (1) Acute hypercapnic respiratory failure: -Presented in significant respiratory distress, noted significant hypercapnia on initial ABG, decompensated and was intubated in ED (10/28) -sedated with propofol -has hx of multiple admissions for the same including need to prior intubation, most recently end of September -CXR noted, seems more consistent with fluid overload than rina infection per my review -IV steroids, empiric IV Levaquin -noted leukocytosis (part of which is likely steroid induced), lactic acidosis, hemodynamically stable, afebrile -close monitoring of respiratory and hemodynamic status -NPO -on IV diuresis with Bumex -Ortega catheter placed in ED, assess daily for removal, monitor urine output -Neb treatments -weaning trial when appropriate -has been tested for COVID-19 several times; no need to repeat testing at this time -f/u blood cx -sputum cx pending, gram stain negative -currently meets sepsis criteria due to leukocytosis, hypoxia, lactic acidosis Status: Acute (2) COPD (chronic obstructive pulmonary disease): -Has history of oxygen dependent COPD, previous baseline oxygen was about 3 to 4 L during the day, Trilogy-dependent qhs -Management as noted above -follows up with Dr. Lipscomb Status: Acute Qualifiers: COPD type: COPD with acute exacerbation Qualified Code(s): J44.1 - Chronic obstructive pulmonary disease with (acute) exacerbation (3) Acute hyperkalemia: -received D50, insulin, sodium bicarb -continue to trend; replete/deplete as needed; K-4.3 today -Noted peaked T waves on telemetry Status: Resolved (4) Acute on chronic renal insufficiency: -has CKD stage 2; baseline Cr wnl -superimposed RADHA; improving renal function -continue to monitor renal function closely, avoid nephrotoxins, renally dose meds -continue to monitor urine output, has Ortega catheter Status: Acute (5) CHF (congestive heart failure): -Has acute exacerbation of chronic diastolic CHF as evidenced by bilateral lower extremity edema, at least 2+, BNP elevation -on IV diuresis with Bumex -Echo (05/2019): EF=66%, G1DD, moderate TR, moderate pulmonary HTN Status: Acute Qualifiers: Heart failure chronicity: acute on chronic Heart failure type: diastolic Qualified Code(s): I50.33 - Acute on chronic diastolic (congestive) heart failure (6) Chronic anticoagulation: -on Eliquis secondary to history of PE, DVT status post IVC filter placement Status: Chronic (7) Morbid obesity: -BMI-38 kg/m2 Status: Chronic (8) Chronic anemia: -has hx of chronic microcytic anemia -baseline Hg 9-11 -monitor H/H, currently stable Status: Chronic (9) Hypertension: -VSS, mild tachycardia; continue to monitor vital signs -add low dose BB due to tachycardia Status: Acute Qualifiers: Hypertension type: essential hypertension Qualified Code(s): I10 - Essential (primary) hypertension (10) Vascular dementia: -Vascular dementia, hx of CVA, TIA Status: Chronic Qualifiers: Dementia behavioral disturbance: without behavioral disturbance Qualified Code(s): F01.50 - Vascular dementia without behavioral disturbance (11) Smoking addiction: -heavy chronic smoker Status: Chronic Additional A&P Information -hx of severe colitis s/p colectomy and ileostomy. Colostomy care as -noted transaminitis; increased AST and ALT today; previously normal hepatic f unction, unlikely to simply be due to hepatic congestion. Order hepatitis panel and US abdomen -GI ppx with PPI -DVT ppx not needed as on Eliquis -Dispo: home -Code status: FULL code -ICU admission due to vent support Attestations Medical Necessity Statement*: Patient requires hospitalization for continued management of acute on chronic hypercapnic respiratory failure, remains on ventilator support, IV antibiotics treatment and IV steroids. Time Spent in Patient Care: 16 - 35 minutes (>than 50% of time spent in counselling and/or direct pt care on unit) . Coding Level of Care Code Acute Residential Carpenter for Chg Fwd Exam Comprehensive Diagnoses Acute hypercapnic respiratory failure J96.02 COPD (chronic obstructive pulmonary disease) J44.1 COPD type: COPD with acute exacerbation Acute hyperkalemia E87.5 Acute on chronic renal insufficiency N28.9; N18.9 CHF (congestive heart failure) I50.33 Heart failure chronicity: acute on chronic Heart failure type: diastolic Chronic anticoagulation Z79.01 Morbid obesity E66.01 Chronic anemia D64.9 Hypertension I10 Hypertension type: essential hypertension Vascular dementia F01.50 Dementia behavioral disturbance: without behavioral disturbance Smoking addiction F17.200
--- NOTE | 2019-10-30 12:21 | USR_ITS ---
PROCEDURE INFORMATION: Exam: US Abdomen Complete Exam date and time: 10/30/2019 4:07 PM Age: 64 years old Clinical indication: Screening exam; Other: Ordered to rule out liver pathology; Additional info: Transaminitis TECHNIQUE: Imaging protocol: Real-time ultrasound of the abdomen with image documentation. COMPARISON: No relevant prior studies available. FINDINGS: Liver: The liver is of normal echogenicity measuring 16.0 cm. Gallbladder: No gallstones identified. The gallbladder wall measures up to 4 mm. Trace ascites adjacent to the gallbladder. Common bile duct: Common bile duct 3.3 mm. Pancreas: The pancreas is obscured by bowel gas. Right kidney: Normal. No mass. No hydronephrosis. Left kidney: Normal. No mass. No hydronephrosis. Spleen: The spleen is normal measuring 11.6 cm. Aorta: The aorta is obscured by bowel gas. Inferior vena cava: Normal. US/US abdomen complete* [id number] IMPRESSION: 1. Mild hepatomegaly. 2. Mild thickening of the gallbladder wall up to 4 mm with no visible gallstones. Mild acalculous cholecystitis cannot be entirely excluded. 3. Trace ascites adjacent to the gallbladder.
[2019-10-30] MEDS: metoprolol tartrate 25 mg Tablet 12.5 MG OG-TUBE ×2 (13:07→17:48)
[2019-10-30 13:27] LABS: Hepatitis A Antibody IgM Non-Reactive (Nonreactive); Hepatitis B Core IgM Non-Reactive (Nonreactive); Hepatitis B Surface Antigen Non-Reactive (Nonreactive); Hepatitis C Virus Antibody Non-Reactive (Nonreactive)
--- NOTE | 2019-10-30 14:27 | PC.NURSE ---
staff called Gillian to see if she could bring one of pt colostomy bags up. She states she will bring one up after while.
[2019-10-30] MEDS: propofol 1,000 MG/100 ML INJ 25.9 MG IV (22:35)
[2019-10-31] VITALS (53 sets, daily range): BP systolic 101–141; BP diastolic 64–86; PULSE 77–101; RESP 12–21; TEMP 36.4–37.7; O2SAT 88–95
[2019-10-31] MEDS: ipratropium-albuterol 3 mL Neb INHALATION ×6 (00:23→20:33)
[2019-10-31 00:24] LABS: Glucose Point of Care 121 mg/dL (70-110)
[2019-10-31 03:54] LABS: Hematocrit 36.5 % (37.0-47.0); Hemoglobin 10.3 g/dL (11.5-15.3); Lymphocytes # 0.3 10^3/uL (0.8-4.8); Lymphocytes % 1.4 %; Mean Corpuscular HGB Conc 28.2 g/dL (30.0-36.0); Mean Corpuscular Hemoglobin 22.6 pg (28.0-34.0); Mean Platelet Volume 9.6 fL (7.4-10.4); Monocytes # 0.4 10^3/uL (0.2-0.9); Monocytes % 1.9 %; Neutrophils # 20.7 10^3/uL (1.8-7.7); Neutrophils % 96.1 %; Nucleated Red Blood Cells % 0.1 %; Platelet Count 285 10^3/cmm (130-400); Red Blood Count 4.56 10^6/uL (4.1-5.3); Red Cell Distribution Width 18.7 % (12.1-15.1); White Blood Count 21.6 10^3/uL (4.0-10.0)
[2019-10-31] MEDS: propofol 1,000 MG/100 ML INJ 25.9 MG IV ×6 (03:57→22:38)
[2019-10-31 04:46] LABS: Alanine Aminotransferase 386 U/L (0-33); Albumin Level 3.2 g/dL (3.5-5.2); Alkaline Phosphatase 57 IU/L (35-105); Anion Gap 15.6 (5-19); Aspartate Amino Transferase 162 U/L (0-32); Blood Urea Nitrogen 44 mg/dL (8-23); Calcium 9.1 mg/dL (8.5-10.5); Carbon Dioxide 38 mmol/L (22-29); Chloride 90 mmol/L (98-107); Globulin 2.4 g/dL (1.3-4.6); Glomerular Filtration Rate 44.9 mL/min (90-130); Glucose 133 mg/dL (65-115); Osmolality Calculated 288 mOsm/kg (285-295); Potassium 4.6 mmol/L (3.5-5.1); Sodium 139 mmol/L (136-145); Total Bilirubin 0.5 mg/dL (0.15-1.2); Total Protein 5.6 g/dL (6.6-8.7)
[2019-10-31 05:54] LABS: ABG PCO2 58.8 mmHg (35-45); ABG PH Result 7.48 (7.35-7.45); Arterial Blood Gas Hematocrit 33.7 % (37-47); Base Excess ABG 17.9 mmol/L (-2.0-2.0); Blood Gas Allen Test Pos; Blood Gas Sample Site Radial, right; Blood Gas Sample Type Arterial; Oxygen Device VENT; PO2 ABG 50.6 mmHg (80.0-100.0)
--- NOTE | 2019-10-31 06:00 | XR_ITS ---
WS: [id number] CHEST XRAY TECHNIQUE: Portable chest. CLINICAL INFORMATION: on vent support COMPARISON: October 30, 2019 FINDINGS: Heart: Cardiomegaly. Lungs: Advanced chronic emphysematous changes. Right basilar atelectasis with slight volume loss. Sma ll right pleural effusion unchanged. Enteric tube with tip below the diaphragm. Endotracheal tube sahara ears unchanged with tip above the cristina measuring 4.2 cm Bones: Normal visualized bony structures. XR/XR chest 1V portable [id number] IMPRESSION: 1. Enteric tube tip below the diaphragm. Endotracheal tube appears unchanged t ip above the cristina. 2. Advanced chronic emphysematous changes. 3. Small right pleural effusion with right basilar atelectasis.
--- NOTE | 2019-10-31 09:10 | PM.PN ---
Subjective Subjective: Interval history: Remains on vent support, due to noted hypoxia on ABG FiO2 increased from 50 to 60%. Hypercapnia has improved. Noted increased leukocytosis likely due to steroids, stable hemoglobin, improved creatinine. Low-grade temp of 99.8 F around midnight, has been afebrile since. Blood pressure stable. LFTs trending down. Chest x-ray unchanged. Had 400 mL urine output overnight for negative fluid balance of 1.3 L. 1 out of 4 bottles of high initial blood cultures is positive for gram-positive cocci, likely contaminant but will order repeat set. We will hold off on weaning trial today due to increased oxygen requirement. Sedation turned up to 50 mcg/kg/min. Medications: Reviewed: Yes Medication Review Details: Active Medications Generic Name Dose Route Start Last Admin Trade Name Freq PRN Reason Stop Dose Admin Acetaminophen 650 mg 10/29/19 18:49 Tylenol AR Q6H PRN FEVER Albuterol Sulfate 2.5 mg 10/29/19 19:25 Albuterol INHALATION Q4H.RESPIRATORY P RN SHORTNESS OF MEKA TH Albuterol/Ipratrop ium 3 ml 10/29/19 20:00 10/31/19 07:59 Duoneb INHALATION 3 ml Q4H.RESPIRATORY S CH Administration Apixaban 5 mg 10/30/19 09:00 10/30/19 17:48 Eliquis PO 5 mg BID EB Administration Bumetanide 1 mg 10/31/19 09:00 Bumex IV DAILY EB Propofol 1,000 mg in 100 m ls @ 0 mls/hr 10/29/19 15:45 10/31/19 05:42 Diprivan IV 50 mcg/kg/min .Q0M EB 25.9 mls/hr Administration Protocol Per Protocol Levofloxacin/Dextr ose 750 mg in 150 mls @ 100 mls/hr 10/31/19 20:00 Levaquin-D5w IV Q48H EB Protocol Methylprednisolone Sodium Succinate 60 mg 10/29/19 18:49 10/31/19 05:42 Solu-Medrol IVP 60 mg Q6H EB Administration Metoprolol Tartrat e 12.5 mg 10/30/19 12:05 10/30/19 17:48 Lopressor OG-TUBE 12.5 mg BID EB Administration Ondansetron HCl 4 mg 10/29/19 18:49 Zofran IVP Q6H PRN NAUSEA AND VOMITI NG Pantoprazole Sodiu m 40 mg 10/30/19 09:00 10/30/19 09:33 Protonix IVP 40 mg DAILY EB Administration Sulfa (Sulfonamide Antibiotics) Allergy (Unknown, Verified 10/30/19 17:45) Unknown Vitals/I&O/Wt Last Vital Signs Temp 97.9 F 10/31/19 07:00 Pulse 83 10/31/19 08:02 Resp 21 H 10/31/19 08:00 BP 116/70 10/31/19 08:00 Pulse Ox 91 10/31/19 08:00 10/30/19 10/31/19 10/31/19 22:59 06:59 14:59 Intake Total 126.271 / 204.288 145.325 / 349.613 Output Total 1100 / 1200 100 / 1300 Balance -973.729 / -995.712 45.325 / -950.387 Weight last 48 hrs Weight 102.557 kg Weight 103.102 kg Weight 103.051 kg Weight 103.051 kg Weight 86.183 kg Physical Exam Const: GENERAL APPEARANCE: patient mechanically ventilated; not ill appearing NUTRITIONAL APPEARANCE: obese morbidly obese OTHER: -Sedated HENMT: COMMON NORMALS: normocephalic and atraumatic HEAD & SCALP: normocephalic and atraumatic OTHER: -Orally intubated Eye: COMMON NORMALS: Equal, round and reactive pupils present and conjunctivae normal CONJUNCTIVA: Yes conjunctivae normal PUPIL: Yes Equal, round and reactive pupils present Neck/C-Spine: COMMON NORMALS: full ROM GENERAL: Yes normal visual inspection and Yes trachea midline Chest: CHEST: Yes Symmetrical chest wall rise Resp: AUSCULTATION: crackles and diminished lung sounds bilateral OTHER: -On mechanical vent support with FiO2 of 50%, tidal volume of 400, PEEP of 10; ETT is 24 cm at lip Cardio: COMMON NORMALS: regular rate, regular rhythm, S1 normal heart sound present, S2 normal heart sound present and No murmurs present (Cardio) RATE: regular rate RHYTHM: regular rhythm HEART SOUNDS: S1 normal heart sound present and S2 normal heart sound present GI: COMMON NORMALS: Normal to inspection, nondistended, normoactive bowel sounds present and Soft to palpation INSPECTION: Yes central obesity PALPATION: Yes Soft to palpation : BLADDER/KIDNEY EXAM: Yes catheter in place Catheter type (Female): urethral Back/Pelvis: COMMON NORMALS: thoracic and lumbar spine normal to inspection Extremity: COMMON NORMALS: normal to inspection NARRATIVE EXTREMITY EXAM: -Noted 2+ pitting edema of bilateral lower extremities GENERAL: Yes edema Neuro: COMMON NORMALS: moves all extremities, no focal motor deficits, no sensory deficits noted and gait normal OTHER: -Sedated; on propofol @ 50 mcg/kg/hr Psych: OTHER: -unable to assess as sedated, on vent Skin: COMMON NORMALS: no rashes or lesions noted, no jaundice, no petechiae and no mottling GENERAL SKIN EXAM: no rashes or lesions noted Urinary Catheter Management^: Ortega: Cath Placed During This Visit: yes Urethral Indwelling: Yes Reason for Continuing Indwelling Catheter: Accurate Measurement of Urinary Output in Critically Ill Patients Urinary Catheter Date of Insertion: 10/29/19 Urinary Catheter Time of Insertion: 15:00 Data : 10/31/19 03:45 10/31/19 03:45 Micro: Microbiology 10/29/19 15:30 Blood Culture - Preliminary Blood Gram positive cocci 10/29/19 15:55 Blood Culture - Preliminary Blood NEGATIVE TO DATE 10/29/19 15:40 Gram Stain - Final Sputum - Endotracheal Tube Aspirate A&P Assessment and plan (1) Acute hypercapnic respiratory failure: -Presented in significant respiratory distress, noted significant hypercapnia on initial ABG, decompensated and was intubated in ED (10/28) -sedated with propofol, increased overnight -has hx of multiple admissions for the same including need to prior intubation, most recently end of September -CXR noted, seems more consistent with fluid overload than rina infection per my review; stable -IV steroids, empiric IV Levaquin -noted leukocytosis (part of which is likely steroid induced), lactic acidosis, hemodynamically stable, afebrile -close monitoring of respiratory and hemodynamic status -NPO -on IV diuresis with Bumex -Ortega catheter placed in ED, assess daily for removal, monitor urine output -Neb treatments -weaning trial when appropriate; hold off on this today due to increased oxygen requirement and sedation -has been tested for COVID-19 several times; no need to repeat testing at this time -blood cx: 05/20 bottles positive for GPC, likely contaminant, repeat set ordered -sputum cx pending, gram stain negative -currently meets sepsis criteria due to leukocytosis, hypoxia, lactic acidosis Status: Acute (2) COPD (chronic obstructive pulmonary disease): -Has history of oxygen dependent COPD, previous baseline oxygen was about 3 to 4 L during the day, Trilogy-dependent qhs -Management as noted above -follows up with Dr. Lipscomb Status: Acute Qualifiers: COPD type: COPD with acute exacerbation Qualified Code(s): J44.1 - Chronic obstructive pulmonary disease with (acute) exacerbation (3) Acute hyperkalemia: -received D50, insulin, sodium bicarb -continue to trend; replete/deplete as needed; K-4.6 today -Noted peaked T waves on telemetry Status: Resolved (4) Acute on chronic renal insufficiency: -has CKD stage 2; baseline Cr wnl -superimposed RADHA; improving renal function -continue to monitor renal function closely, avoid nephrotoxins, renally dose meds -continue to monitor urine output, has Ortega catheter Status: Acute (5) CHF (congestive heart failure): -Has acute exacerbation of chronic diastolic CHF as evidenced by bilateral lower extremity edema, at least 2+, BNP elevation -on IV diuresis with Bumex -Echo (05/2019): EF=66%, G1DD, moderate TR, moderate pulmonary HTN Status: Acute Qualifiers: Heart failure chronicity: acute on chronic Heart failure type: diastolic Qualified Code(s): I50.33 - Acute on chronic diastolic (congestive) heart failure (6) Chronic anticoagulation: -on Eliquis secondary to history of PE, DVT status post IVC filter placement Status: Chronic (7) Morbid obesity: -BMI-38 kg/m2 Status: Chronic (8) Chronic anemia: -has hx of chronic microcytic anemia -baseline Hg 9-11 -monitor H/H, currently stable Status: Chronic (9) Hypertension: -VSS, mild tachycardia; continue to monitor vital signs -on low dose BB due to tachycardia, HR controlled Status: Acute Qualifiers: Hypertension type: essential hypertension Qualified Code(s): I10 - Essential (primary) hypertension (10) Vascular dementia: -Vascular dementia, hx of CVA, TIA Status: Chronic Qualifiers: Dementia behavioral disturbance: without behavioral disturbance Qualified Code(s): F01.50 - Vascular dementia without behavioral disturbance (11) Smoking addiction: -heavy chronic smoker Status: Chronic Additional A&P Information -hx of severe colitis s/p colectomy and ileostomy. Colostomy care as -noted transaminitis; AST and ALT trending down; previously normal hepatic function, unlikely to simply be due to hepatic congestion. Acute hepatitis panel and US abdomen negative -GI ppx with PPI -DVT ppx not needed as on Eliquis -Dispo: home -Code status: FULL code -ICU admission due to vent support Attestations Medical Necessity Statement*: Patient requires hospitalization for continued management of acute on chronic hypercapnic and hypoxic respiratory failure, remains on vent support with noted increased oxygen requirement and sedation today. Time Spent in Patient Care: 16 - 35 minutes (>than 50% of time spent in counselling and/or direct pt care on unit). Critical Care Time: The high probability of a clinically significant, sudden or life threatening deterioration of the patient's [respiratory] system(s) required my full and direct attention, intervention and personal management. The critical care time is as shown. 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
[2019-10-31] MEDS: bumetanide 0.25 mg/mL SDV 10 mL 1 MG IV (09:32)
[2019-10-31] MEDS: apixaban 5 mg Tablet PO ×2 (09:33→17:34)
[2019-10-31] MEDS: metoprolol tartrate 25 mg Tablet 12.5 MG OG-TUBE ×2 (09:33→17:33)
[2019-10-31] MEDS: pantoprazole 40 mg SDV IVP (09:33)
[2019-10-31] MEDS: levofloxacin-dextrose 5 % 750 MG/150 ML PREMIX 100 MG IV (12:04)
[2019-10-31] MEDS: phenol oral Spray 177 mL 3 SPRAY MUCOUS MEM (19:38)
[2019-11-01] VITALS (46 sets, daily range): BP systolic 111–137; BP diastolic 68–90; PULSE 77–110; RESP 13–34; TEMP 36.8–36.9; O2SAT 85–94
[2019-11-01] MEDS: ipratropium-albuterol 3 mL Neb INHALATION ×6 (00:10→20:48)
[2019-11-01] MEDS: propofol 1,000 MG/100 ML INJ 25.9 MG IV ×2 (05:04→08:35)
[2019-11-01 05:27] LABS: Basophils % 0.1 %; Hematocrit 36.2 % (37.0-47.0); Hemoglobin 10.3 g/dL (11.5-15.3); Lymphocytes # 0.2 10^3/uL (0.8-4.8); Lymphocytes % 1.8 %; Mean Corpuscular HGB Conc 28.5 g/dL (30.0-36.0); Mean Corpuscular Hemoglobin 22.5 pg (28.0-34.0); Monocytes # 0.3 10^3/uL (0.2-0.9); Monocytes % 2.4 %; Neutrophils # 10.7 10^3/uL (1.8-7.7); Neutrophils % 95.1 %; Nucleated Red Blood Cells % 0 %; Platelet Count 54 10^3/cmm (130-400); Red Blood Count 4.58 10^6/uL (4.1-5.3); Red Cell Distribution Width 18.7 % (12.1-15.1); White Blood Count 11.3 10^3/uL (4.0-10.0)
[2019-11-01 05:28] LABS: Albumin Level 3.3 g/dL (3.5-5.2); Alkaline Phosphatase 54 IU/L (35-105); Anion Gap 16.5 (5-19); Blood Urea Nitrogen 41 mg/dL (8-23); Calcium 8.9 mg/dL (8.5-10.5); Carbon Dioxide 37 mmol/L (22-29); Chloride 87 mmol/L (98-107); Globulin 1.8 g/dL (1.3-4.6); Glomerular Filtration Rate 62.6 mL/min (90-130); Glucose 111 mg/dL (65-115); Osmolality Calculated 280 mOsm/kg (285-295); Potassium 4.5 mmol/L (3.5-5.1); Sodium 136 mmol/L (136-145); Total Bilirubin 0.6 mg/dL (0.15-1.2); Total Protein 5.1 g/dL (6.6-8.7)
[2019-11-01 05:29] LABS: ABG PCO2 57.2 mmHg (35-45); ABG PH Result 7.49 (7.35-7.45); Arterial Blood Gas Hematocrit 32.5 % (37-47); Base Excess ABG 17.4 mmol/L (-2.0-2.0); Blood Gas Allen Test Pos; Blood Gas Sample Site Radial, right; Blood Gas Sample Type Arterial; HCO3 ABG 43.2 mmol/L (22-26); Oxygen Device VENT
[2019-11-01 05:42] LABS: Alanine Aminotransferase 424 U/L (0-33); Aspartate Amino Transferase 178 U/L (0-32)
--- NOTE | 2019-11-01 06:00 | XR_ITS ---
WS: [id number] XR chest 1V portable [id number] REASON FOR EXAM: on vent support FINDINGS: Comparisons were made to October 31, 2019 the endotracheal tube and feeding tube are again see n in good position. There is small amount of right pleural effusion seen. The heart is not grossly enlarged. There is reticular nodular pattern both lung raygoza. XR/XR chest 1V portable [id number] IMPRESSION: Endotracheal tube feeding tube well positioned unchanged since October 31, 2019 Interstitial disease bilaterally Small amount of right pleural effusion.
[2019-11-01 06:02] LABS: Slide Review Slide Review Perform
[2019-11-01] MEDS: pantoprazole 40 mg SDV IVP (08:04)
[2019-11-01] MEDS: bumetanide 0.25 mg/mL SDV 10 mL 1 MG IV (08:04)
[2019-11-01] MEDS: metoprolol tartrate 25 mg Tablet 12.5 MG OG-TUBE ×2 (08:05→17:00)
[2019-11-01] MEDS: apixaban 5 mg Tablet PO ×2 (08:05→17:01)
--- NOTE | 2019-11-01 08:46 | PM.PN ---
Subjective Subjective: Interval history: Remains on vent support, FiO2 of 50%, ABG this morning shows improved hypercapnia and decreased hypoxia. On sedation with propofol at 50 mcg/kg/min. we will start weaning trial today. Had 630 mL urine output overnight for total negative fluid balance of 2.7 L. Decreased leukocytosis, stable hemoglobin, improved renal function. Transaminitis persists with increased AST and ALT. Chest x-ray relatively unchanged. Hemodynamically stable. Medications: Reviewed: Yes Medication Review Details: Active Medications Generic Name Dose Route Start Last Admin Trade Name Freq PRN Reason Stop Dose Admin Acetaminophen 650 mg 10/29/19 18:49 Tylenol TN Q6H PRN FEVER Albuterol Sulfate 2.5 mg 10/29/19 19:25 Albuterol INHALATION Q4H.RESPIRATORY P RN SHORTNESS OF MEKA TH Albuterol/Ipratrop ium 3 ml 10/29/19 20:00 11/01/19 07:55 Duoneb INHALATION 3 ml Q4H.RESPIRATORY S CH Administration Apixaban 5 mg 10/30/19 09:00 11/01/19 08:05 Eliquis PO 5 mg BID EB Administration Bumetanide 1 mg 10/31/19 09:00 11/01/19 08:04 Bumex IV 1 mg DAILY EB Administration Propofol 1,000 mg in 100 m ls @ 0 mls/hr 10/29/19 15:45 11/01/19 08:35 Diprivan IV 50 mcg/kg/min .Q0M EB 25.9 mls/hr Administration Protocol Per Protocol Levofloxacin/Dextr ose 750 mg in 150 mls @ 100 mls/hr 10/31/19 12:00 11/01/19 07:18 Levaquin-D5w IV Infused Q24H EB Infusion Protocol Methylprednisolone Sodium Succinate 40 mg 10/31/19 12:00 11/01/19 05:04 Solu-Medrol IVP 40 mg Q6H EB Administration Metoprolol Tartrat e 12.5 mg 10/30/19 12:05 11/01/19 08:05 Lopressor OG-TUBE 12.5 mg BID EB Administration Ondansetron HCl 4 mg 10/29/19 18:49 Zofran IVP Q6H PRN NAUSEA AND VOMITI NG Pantoprazole Sodiu m 40 mg 10/30/19 09:00 11/01/19 08:04 Protonix IVP 40 mg DAILY EB Administration Phenol 3 spray 10/31/19 10:39 10/31/19 19:38 Phenaseptic MUCOUS MEM 3 spray Q2H PRN Administration SORE THROAT Sulfa (Sulfonamide Antibiotics) Allergy (Unknown, Verified 10/30/19 17:45) Unknown Vitals/I&O/Wt Last Vital Signs Temp 98.3 F 11/01/19 03:30 Pulse 78 11/01/19 07:59 Resp 13 11/01/19 07:56 BP 114/71 11/01/19 06:30 Pulse Ox 91 11/01/19 07:55 10/31/19 11/01/19 11/01/19 22:59 06:59 14:59 Intake Total 179.858 / 358.853 100 / 458.853 241.082 / 241.082 Output Total 1525 / 1525 305 / 1830 250 / 250 Balance -1345.142 / -1166.147 -205 / -1371.147 -8.918 / -8.918 Weight last 48 hrs Weight 103.873 kg Weight 102.557 kg Physical Exam Const: GENERAL APPEARANCE: patient mechanically ventilated; not ill appearing NUTRITIONAL APPEARANCE: obese morbidly obese OTHER: -Sedated HENMT: COMMON NORMALS: normocephalic and atraumatic HEAD & SCALP: normocephalic and atraumatic OTHER: -Orally intubated Eye: COMMON NORMALS: Equal, round and reactive pupils present and conjunctivae normal CONJUNCTIVA: Yes conjunctivae normal PUPIL: Yes Equal, round and reactive pupils present Neck/C-Spine: COMMON NORMALS: full ROM GENERAL: Yes normal visual inspection and Yes trachea midline Chest: CHEST: Yes Symmetrical chest wall rise Resp: AUSCULTATION: crackles and diminished lung sounds bilateral OTHER: -On mechanical vent support with FiO2 of 50%, tidal volume of 400, PEEP of 10; ETT is 24 cm at lip Cardio: COMMON NORMALS: regular rate, regular rhythm, S1 normal heart sound present, S2 normal heart sound present and No murmurs present (Cardio) RATE: regular rate RHYTHM: regular rhythm HEART SOUNDS: S1 normal heart sound present and S2 normal heart sound present GI: COMMON NORMALS: Normal to inspection, nondistended, normoactive bowel sounds present and Soft to palpation INSPECTION: Yes central obesity PALPATION: Yes Soft to palpation : BLADDER/KIDNEY EXAM: Yes catheter in place Catheter type (Female): urethral Back/Pelvis: COMMON NORMALS: thoracic and lumbar spine normal to inspection Extremity: COMMON NORMALS: normal to inspection NARRATIVE EXTREMITY EXAM: -Noted 2+ pitting edema of bilateral lower extremities GENERAL: Yes edema Neuro: COMMON NORMALS: moves all extremities, no focal motor deficits, no sensory deficits noted and gait normal OTHER: -Sedated; on propofol @ 50 mcg/kg/hr Psych: COMMON NORMALS: mental status grossly normal, Normal thought process present, cooperative, normal affect and speech normal SPEECH: Yes normal speech THOUGHT PROCESS: Normal thought process present OTHER: -unable to assess as sedated, on vent Skin: COMMON NORMALS: no rashes or lesions noted, no jaundice, no petechiae and no mottling GENERAL SKIN EXAM: no rashes or lesions noted Urinary Catheter Management^: Ortega: Cath Placed During This Visit: yes Urethral Indwelling: Yes Reason for Continuing Indwelling Catheter: Accurate Measurement of Urinary Output in Critically Ill Patients Urinary Catheter Date of Insertion: 10/29/19 Urinary Catheter Time of Insertion: 15:00 Data : 11/01/19 04:24 11/01/19 04:24 Micro: Microbiology 10/29/19 15:40 Gram Stain - Final Sputum - Endotracheal Tube Aspirate Sputum Culture - Preliminary 10/31/19 10:14 Blood Culture - Preliminary Blood SPECIMEN COLLECTED 10/31/19 10:10 Blood Culture - Preliminary Blood SPECIMEN COLLECTED 10/29/19 15:30 Blood Culture - Preliminary Blood Gram positive cocci A&P Assessment and plan (1) Acute hypercapnic respiratory failure: -Presented in significant respiratory distress, noted significant hypercapnia on initial ABG, decompensated and was intubated in ED (10/28) -sedated with propofol -has hx of multiple admissions for the same including need to prior intubation, most recently end of September -CXR noted, seems more consistent with fluid overload than rina infection per my review; stable -IV steroids, empiric IV Levaquin -noted leukocytosis (part of which is likely steroid induced) now trending down, lactic acidosis (2.6), hemodynamically stable, afebrile -close monitoring of respiratory and hemodynamic status -NPO -on IV diuresis with Bumex; negative fluid balance of 2.7 L -Ortega catheter placed in ED, assess daily for removal, continue to monitor urine output -Neb treatments -weaning trial when appropriate; hold off on this today due to increased oxygen requirement and sedation -has been tested for COVID-19 several times; no need to repeat testing at this time -blood cx: 05/20 bottles positive for GPC, likely contaminant, repeat set ordered -sputum cx prelim mixed aristeo, gram stain negative -meets sepsis criteria due to leukocytosis, hypoxia, lactic acidosis; improving Status: Acute (2) COPD (chronic obstructive pulmonary disease): -Has history of oxygen dependent COPD, previous baseline oxygen was about 3 to 4 L during the day, Trilogy-dependent qhs -Management as noted above -follows up with Dr. Lipscomb Status: Acute Qualifiers: COPD type: COPD with acute exacerbation Qualified Code(s): J44.1 - Chronic obstructive pulmonary disease with (acute) exacerbation (3) Acute hyperkalemia: -received D50, insulin, sodium bicarb -continue to trend; replete/deplete as needed; K-4.5 today -Noted peaked T waves on telemetry Status: Resolved (4) Acute on chronic renal insufficiency: -has CKD stage 2; baseline Cr wnl -superimposed RADHA; improving renal function, Cr normalized -continue to monitor renal function closely, avoid nephrotoxins, renally dose meds -continue to monitor urine output, has Ortega catheter Status: Acute (5) CHF (congestive heart failure): -Has acute exacerbation of chronic diastolic CHF as evidenced by bilateral lower extremity edema, at least 2+, BNP elevation -on IV diuresis with Bumex -Echo (05/2019): EF=66%, G1DD, moderate TR, moderate pulmonary HTN Status: Acute Qualifiers: Heart failure chronicity: acute on chronic Heart failure type: diastolic Qualified Code(s): I50.33 - Acute on chronic diastolic (congestive) heart failure (6) Chronic anticoagulation: -on Eliquis secondary to history of PE, DVT status post IVC filter placement Status: Chronic (7) Morbid obesity: -BMI-38 kg/m2 Status: Chronic (8) Chronic anemia: -has hx of chronic microcytic anemia -baseline Hg 9-11 -monitor H/H, currently stable Status: Chronic (9) Hypertension: -VSS, mild tachycardia; continue to monitor vital signs -on low dose BB due to tachycardia, HR controlled Status: Acute Qualifiers: Hypertension type: essential hypertension Qualified Code(s): I10 - Essential (primary) hypertension (10) Vascular dementia: -Vascular dementia, hx of CVA, TIA Status: Chronic Qualifiers: Dementia behavioral disturbance: without behavioral disturbance Qualified Code(s): F01.50 - Vascular dementia without behavioral disturbance (11) Smoking addiction: -heavy chronic smoker Status: Chronic Additional A&P Information -hx of severe colitis s/p colectomy and ileostomy. Colostomy care as -noted transaminitis; AST and ALT trending down; previously normal hepatic function, unlikely to simply be due to hepatic congestion. Acute hepatitis panel and US abdomen negative -GI ppx with PPI -DVT ppx not needed as on Eliquis -Dispo: home -Code status: FULL code -ICU admission due to vent support Attestations Medical Necessity Statement*: Patient requires hospitalization for continued management of acute on chronic hypercapnic and hypoxic respiratory failure, weaning trial today. Time Spent in Patient Care: 16 - 35 minutes (>than 50% of time spent in counselling and/or direct pt care on unit). 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
[2019-11-01] MEDS: levofloxacin-dextrose 5 % 750 MG/150 ML PREMIX 100 MG IV (12:00)
[2019-11-01 18:09] LABS: Glucose Point of Care 135 mg/dL (70-110)
--- NOTE | 2019-11-01 19:50 | PC.NURSE ---
patient up n chair assessment complete patient has no complaints of pain only being anxious. xanax given. vs are with in limits lungs are coarse bilateral with whezzes in upper lobes. pang is intact and iv is patent. on nasal canula at 2 liters at this time. sats wnl
[2019-11-02] VITALS (27 sets, daily range): BP systolic 111–139; BP diastolic 71–85; PULSE 80–102; RESP 14–42; TEMP -13.1–37.4; O2SAT 72–96
[2019-11-02] MEDS: ipratropium-albuterol 3 mL Neb INHALATION ×6 (00:50→20:29)
[2019-11-02 05:29] LABS: Basophils % 0.1 %; Hematocrit 37.7 % (37.0-47.0); Hemoglobin 10.3 g/dL (11.5-15.3); Lymphocytes # 0.2 10^3/uL (0.8-4.8); Lymphocytes % 1.3 %; Mean Corpuscular HGB Conc 27.3 g/dL (30.0-36.0); Mean Corpuscular Hemoglobin 22.7 pg (28.0-34.0); Mean Corpuscular Volume 83.2 fL (81-99); Mean Platelet Volume 10.2 fL (7.4-10.4); Monocytes # 0.6 10^3/uL (0.2-0.9); Monocytes % 4.5 %; Neutrophils # 13.3 10^3/uL (1.8-7.7); Neutrophils % 93.5 %; Nucleated Red Blood Cells % 0.1 %; Platelet Count 271 10^3/cmm (130-400); Red Blood Count 4.53 10^6/uL (4.1-5.3); Red Cell Distribution Width 18.5 % (12.1-15.1); White Blood Count 14.2 10^3/uL (4.0-10.0)
--- NOTE | 2019-11-02 05:46 | PC.NURSE ---
patient has refused to sleep all night tonight. has been very confused at times. has drank soda all night and just received 2 juices. patient will hold on to call light button and when asked what she needs she will say why are you asking me ?. jebeun is very non compliant with any instructions. stated she just wants to go home she does not want to be here. explained to patient she just got extubated and she needs to be monitored.
[2019-11-02 05:47] LABS: Alanine Aminotransferase 479 U/L (0-33); Albumin Level 3.4 g/dL (3.5-5.2); Alkaline Phosphatase 60 IU/L (35-105); Anion Gap 12.3 (5-19); Aspartate Amino Transferase 160 U/L (0-32); Blood Urea Nitrogen 40 mg/dL (8-23); Calcium 8.8 mg/dL (8.5-10.5); Carbon Dioxide 39 mmol/L (22-29); Chloride 87 mmol/L (98-107); Globulin 2.5 g/dL (1.3-4.6); Glomerular Filtration Rate 62.6 mL/min (90-130); Glucose 127 mg/dL (65-115); Osmolality Calculated 277 mOsm/kg (285-295); Potassium 4.3 mmol/L (3.5-5.1); Sodium 134 mmol/L (136-145); Total Bilirubin 0.4 mg/dL (0.15-1.2); Total Protein 5.9 g/dL (6.6-8.7)
[2019-11-02 05:51] LABS: Lactic Acid level (Lactate) 1.5 mmol/L (0.5-2.2)
[2019-11-02] MEDS: apixaban 5 mg Tablet PO ×2 (08:14→18:01)
[2019-11-02] MEDS: metoprolol tartrate 25 mg Tablet 12.5 MG OG-TUBE (08:15)
[2019-11-02] MEDS: bumetanide 0.25 mg/mL SDV 10 mL 1 MG IV (08:15)
[2019-11-02] MEDS: pantoprazole 40 mg SDV IVP (08:15)
--- NOTE | 2019-11-02 09:21 | P.PN_ITS ---
Subjective Subjective: Interval history: Afebrile, hemodynamically stable, on 5 L nasal cannula saturating in the low 90s which is her baseline. Had 800 mL urine output overnight for a total net negative fluid balance of 4.4 L. Stable hemoglobin, decreasing leukocytosis, improved renal function. Transaminitis persists. Will switch medications to oral doses including antibiotics and steroids. Very good appetite. States that her breathing is close to baseline no complaints currently, asked about going home today but understands need for continued monitoring of her respiratory status for at least another 24 hours. Will transfer to the floor for continued care. Discontinue Ortega catheter. Medications: Reviewed: Yes Medication Review Details: Active Medications Generic Name Dose Route Start Last Admin Trade Name Freq PRN Reason Stop Dose Admin Albuterol Sulfate 2.5 mg 10/29/19 19:25 Albuterol INHALATION Q4H.RESPIRATORY P RN SHORTNESS OF MEKA TH Albuterol/Ipratrop ium 3 ml 10/29/19 20:00 11/02/19 07:59 Duoneb INHALATION 3 ml Q4H.RESPIRATORY S CH Administration Alprazolam 1 mg 11/01/19 13:18 11/01/19 19:48 Xanax PO 1 mg TID PRN Administration ANXIETY Apixaban 5 mg 10/30/19 09:00 11/02/19 08:14 Eliquis PO 5 mg BID EB Administration Ondansetron HCl 4 mg 10/29/19 18:49 Zofran IVP Q6H PRN NAUSEA AND VOMITI NG Phenol 3 spray 10/31/19 10:39 10/31/19 19:38 Phenaseptic MUCOUS MEM 3 spray Q2H PRN Administration SORE THROAT Sulfa (Sulfonamide Antibiotics) Allergy (Unknown, Verified 10/30/19 17:45) Unknown Vitals/I&O/Wt Last Vital Signs Temp 98.4 F 11/02/19 08:00 Pulse 84 11/02/19 08:19 Resp 18 11/02/19 08:00 BP 111/75 11/02/19 08:00 Pulse Ox 91 11/02/19 08:00 11/01/19 11/02/19 11/02/19 22:59 06:59 14:59 Intake Total 1300 / 1706.001 780 / 2486.001 500 / 500 Output Total 950 / 2175 900 / 3075 1550 / 1550 Balance 350 / -468.999 -120 / -588.999 -1050 / -1050 Weight last 48 hrs Weight 104.893 kg Weight 103.873 kg Physical Exam Const: COMMON NORMALS: no acute distress, patient oriented x3 and alert GENERAL APPEARANCE: cooperative and comfortable NUTRITIONAL APPEARANCE: obese morbidly obese HENMT: COMMON NORMALS: normocephalic, atraumatic and moist oral mucous membranes HEAD & SCALP: normocephalic and atraumatic Eye: COMMON NORMALS: Equal, round and reactive pupils present and conjunctivae normal CONJUNCTIVA: Yes conjunctivae normal PUPIL: Yes Equal, round and reactive pupils present Neck/C-Spine: COMMON NORMALS: full ROM GENERAL: Yes normal visual inspection and Yes trachea midline Chest: CHEST: Yes Symmetrical chest wall rise Resp: COMMON NORMALS: normal respiratory effort, No retractions and No use of accessory muscles EFFORT & INSPECTION: Yes able to speak in complete sentences AUSCULTATION: diminished lung sounds bilateral OTHER: -on 5 L NC Cardio: COMMON NORMALS: regular rate, regular rhythm, S1 normal heart sound present, S2 normal heart sound present and No murmurs present (Cardio) RATE: regular rate RHYTHM: regular rhythm HEART SOUNDS: S1 normal heart sound present and S2 normal heart sound present GI: COMMON NORMALS: Normal to inspection, nondistended, normoactive bowel sounds present and Soft to palpation INSPECTION: Yes central obesity PAL PATION: Yes Soft to palpation OTHER: -colostomy in place on R : BLADDER/KIDNEY EXAM: Yes catheter in place Catheter type (Female): urethral Back/Pelvis: COMMON NORMALS: thoracic and lumbar spine normal to inspection Extremity: COMMON NORMALS: normal to inspection NARRATIVE EXTREMITY EXAM: - Noted trace pitting edema of bilateral lower extremities GENERAL: Yes edema Neuro: COMMON NORMALS: patient oriented x3, moves all extremities, no focal motor deficits and no sensory deficits noted SENSORIUM/ORIENTATION: Yes alert Psych: COMMON NORMALS: mental status grossly normal, Normal thought process present, cooperative, normal affect and speech normal SPEECH: Yes normal speech THOUGHT PROCESS: Normal thought process present Skin: COMMON NORMALS: no rashes or lesions noted, no jaundice, no petechiae and no mottling GENERAL SKIN EXAM: no rashes or lesions noted Urinary Catheter Management^: Ortega: Cath Placed During This Visit: yes Urethral Indwelling: Yes Reason for Continuing Indwelling Catheter: Accurate Measurement of Urinary Output in Critically Ill Patients Urinary Catheter Date of Insertion: 10/29/19 Urinary Catheter Time of Insertion: 15:00 Data : 11/02/19 04:40 11/02/19 04:40 Micro: Microbiology 10/29/19 15:40 Gram Stain - Final Sputum - Endotracheal Tube Aspirate Sputum Culture - Final 10/31/19 10:14 Blood Culture - Preliminary Blood NEGATIVE TO DATE 10/31/19 10:10 Blood Culture - Preliminary Blood NEGATIVE TO DATE A&P Assessment and plan (1) Acute hypercapnic respiratory failure: -Presented in significant respiratory distress, noted significant hypercapnia on initial ABG, decompensated and was intubated in ED (10/28); e xtubated on 10/31 -has hx of multiple admissions for the same including need to prior intubation, most recently end of September -CXR noted, seems more consistent with fluid overload than rina infection per my review; stable -IV steroids, empiric IV Levaquin; switch to oral steroids and antibiotics today -noted leukocytosis (part of which is likely steroid induced) now trending down, lactic acidosis resolved (2.6->1.5), hemodynamically stable, afebrile -close monitoring of respiratory and hemodynamic status -on IV diuresis with Bumex; negative fluid balance of 4.4 L. Better compensated so will switch to oral diuretics -Ortega catheter placed in ED, d/c today, continue to monitor urine output -Neb treatments -has been tested for COVID-19 several times; no need to repeat testing at this time -blood cx: 05/20 bottles positive for GPC, likely contaminant, repeat set prelim negative -sputum cx prelim mixed aristeo, gram stain negative -sepsis resolved Status: Acute (2) COPD (chronic obstructive pulmonary disease): -Has history of oxygen dependent COPD, previous baseline oxygen was about 3 to 4 L during the day, Trilogy-dependent qhs -Management as noted above -follows up with Dr. Lipscomb Status: Acute Qualifiers: COPD type: COPD with acute exacerbation Qualified Code(s): J44.1 - Chronic obstructive pulmonary disease with (acute) exacerbation (3) Acute hyperkalemia: -received D50, insulin, sodium bicarb -continue to trend; replete/deplete as needed; K-4.3 today -Noted peaked T waves on telemetry initially Status: Resolved (4) Acute on chronic renal insufficiency: -has CKD stage 2; baseline Cr wnl -superimposed RADHA; improving renal function, Cr normalized -continue to monitor renal function closely, avoid nephrotoxins, renally dose meds -continue to monitor urine output, has Ortega catheter Status: Acute (5) CHF (congestive heart failure): -Has acute exacerbation of chronic diastolic CHF as evidenced by bilateral lower extremity edema, at least 2+, BNP elevation -on IV diuresis with Bumex; has diuresed well, will switch to PO and resume Aldactone -Echo (05/2019): EF=66%, G1DD, moderate TR, moderate pulmonary HTN Status: Acute Qualifiers: Heart failure chronicity: acute on chronic Heart failure type: diastolic Qualified Code(s): I50.33 - Acute on chronic diastolic (congestive) heart failure (6) Chronic anticoagulation: -on Eliquis secondary to history of PE, DVT status post IVC filter placement Status: Chronic (7) Morbid obesity: -BMI-39 kg/m2 Status: Chronic (8) Chronic anemia: -has hx of chronic microcytic anemia -baseline Hg 9-11 -continue to monitor H/H, currently stable Status: Chronic (9) Hypertension: -VSS; continue to monitor vital signs -on low dose BB due to tachycardia, HR controlled Status: Acute Qualifiers: Hypertension type: essential hypertension Qualified Code(s): I10 - Essential (primary) hypertension (10) Vascular dementia: -Vascular dementia, hx of CVA, TIA Status: Chronic Qualifiers: Dementia behavioral disturbance: without behavioral disturbance Qualified Code(s): F01.50 - Vascular dementia without behavioral disturbance (11) Smoking addiction: -heavy chronic smoker -nicotine replacement therapy Status: Chronic Additional A&P Information -hx of severe colitis s/p colectomy and ileostomy. Colostomy care as needed -noted transaminitis; AST and ALT trending down; previously normal hepatic function, unlikely to simply be due to hepatic congestion. Acute hepatitis panel and US abdomen negative -GI ppx with PPI -DVT ppx not needed as on Eliquis -Dispo: home; given frequency of exacerbations and recent extubation, would like to continue current management and close monitoring of respiratory status before discharge home. -Code status: FULL code -transfer to floor for continued care Attestations Medical Necessity Statement*: Patient requires hospitalization for continued management of acute on chronic hypercapnic and hypoxic respiratory failure, successfully extubated yesterday, requires continued monitoring of respiratory status and weaning oxygen requirement to baseline if possible. Time Spent in Patient Care: 16 - 35 minutes (>than 50% of time spent in counselling and/or direct pt care on unit) . 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
[2019-11-02] MEDS: spironolactone 25 mg Tablet 12.5 MG PO (10:55)
[2019-11-02] MEDS: nicotine 14 mg Patch 1 PATCH TRANSDERMA (10:55)
[2019-11-02] MEDS: aspirin 81 mg EC Tablet PO (10:55)
[2019-11-02] MEDS: levoFLOXacin 750 mg Tablet PO (10:55)
--- NOTE | 2019-11-02 14:21 | PC.NURSE ---
pt came to floor at approximately 1300, received report from Shawn in ICU.
[2019-11-02] MEDS: pantoprazole DR 40 mg Tablet PO (18:00)
[2019-11-02] MEDS: metoprolol tartrate 25 mg Tablet 12.5 MG PO (18:01)
--- NOTE | 2019-11-02 20:18 | PC.NURSE ---
Patient refused cardiac monitoring.
[2019-11-03] VITALS (9 sets, daily range): BP systolic 100–137; BP diastolic 58–83; PULSE 76–88; RESP 18–20; TEMP 36.6–37; O2SAT 90–96
[2019-11-03] MEDS: ipratropium-albuterol 3 mL Neb INHALATION (00:40)
[2019-11-03 05:05] LABS: Basophils % 0.1 %; Eosinophils % 0.3 %; Hematocrit 39.6 % (37.0-47.0); Hemoglobin 10.3 g/dL (11.5-15.3); Lymphocytes # 0.8 10^3/uL (0.8-4.8); Lymphocytes % 8.4 %; Mean Corpuscular Hemoglobin 22.3 pg (28.0-34.0); Mean Corpuscular Volume 85.9 fL (81-99); Mean Platelet Volume 10.6 fL (7.4-10.4); Monocytes # 0.7 10^3/uL (0.2-0.9); Monocytes % 7.6 %; Neutrophils # 7.6 10^3/uL (1.8-7.7); Neutrophils % 82.8 %; Nucleated Red Blood Cells % 0 %; Platelet Count 221 10^3/cmm (130-400); Red Blood Count 4.61 10^6/uL (4.1-5.3); Red Cell Distribution Width 18.5 % (12.1-15.1); White Blood Count 9.2 10^3/uL (4.0-10.0)
[2019-11-03 05:26] LABS: Anion Gap 11.4 (5-19); Blood Urea Nitrogen 35 mg/dL (8-23); Calcium 8.9 mg/dL (8.5-10.5); Carbon Dioxide 38 mmol/L (22-29); Chloride 92 mmol/L (98-107); Glomerular Filtration Rate 83.7 mL/min (90-130); Glucose 90 mg/dL (65-115); Osmolality Calculated 281 mOsm/kg (285-295); Potassium 4.4 mmol/L (3.5-5.1); Sodium 137 mmol/L (136-145)
[2019-11-03] MEDS: aspirin 81 mg EC Tablet PO (07:53)
[2019-11-03] MEDS: apixaban 5 mg Tablet PO (07:53)
[2019-11-03] MEDS: spironolactone 25 mg Tablet 12.5 MG PO (07:54)
[2019-11-03] MEDS: levoFLOXacin 750 mg Tablet PO (07:54)
[2019-11-03] MEDS: metoprolol tartrate 25 mg Tablet 12.5 MG PO (07:54)
[2019-11-03] MEDS: bumetanide 1 mg Tablet PO (07:54)
[2019-11-03] MEDS: pantoprazole DR 40 mg Tablet PO (07:54)
[2019-11-03] MEDS: nicotine 14 mg Patch 1 PATCH TRANSDERMA (07:55)
--- NOTE | 2019-11-03 09:30 | PC.SOCIAL ---
IMM Updated Page 2 of IMM updated and given to patient. Initialed, dated, and timed and placed in chart.
--- NOTE | 2019-11-03 10:26 | P.DS_ITS ---
Discharge Providers Date of Admission: 10/29/19 17:17 Date of Discharge: November 03, 2019 Attending Provider at Admission: Abby Ritchie MD Attending Provider at Discharge: Idania Crow MD Primary Care Provider: Titus Garzon DO Diagnoses at Discharge Discharge Diagnosis (1) Acute hypercapnic respiratory failure: Status: Acute Problem details: -Presented in significant respiratory distress, noted significant hypercapnia on initial ABG, decompensated and was intubated in ED (10/28); extubated on 10/31 -has hx of multiple admissions for the same including need to prior intubation, most recently end of September -CXR noted, seems more consistent with fluid overload than rina infection per my review; stable -IV steroids, empiric IV Levaquin; switch to oral steroids and antibiotics today -noted leukocytosis (part of which is likely steroid induced) now trending down, lactic acidosis resolved (2.6->1.5), hemodynamically stable, afebrile -close monitoring of respiratory and hemodynamic status -on IV diuresis with Bumex; negative fluid balance of 4.4 L. Better compensated so will switch to oral diuretics -Ortega catheter placed in ED, d/c and has been voiding independently without difficulty, continue to monitor urine output -Neb treatments -has been tested for COVID-19 several times; no need to repeat testing at this time -blood cx: 05/20 bottles positive for GPC, likely contaminant, repeat set prelim negative -sputum cx prelim mixed aristeo, gram stain negative -sepsis resolved (2) COPD (chronic obstructive pulmonary disease): Status: Acute Problem details: -Has history of oxygen dependent COPD, previous baseline oxygen was about 3 to 4 L during the day, Trilogy-dependent qhs -Management as noted above -follows up with Dr. Lipscomb Qualifiers: COPD type: COPD with acute exacerbation Qualified Code(s): J44.1 - Chronic obstructive pulmonary disease with (acute) exacerbation (3) Acute hyperkalemia: Status: Resolved Problem details: -received D50, insulin, sodium bicarb -continue to trend; replete/deplete as needed; K-4.3 today -Noted peaked T waves on telemetry initially (4) Acute on chronic renal insufficiency: Status: Acute Problem details: -has CKD stage 2; baseline Cr wnl -superimposed RADHA; improving renal function, Cr normalized -continue to monitor renal function closely, avoid nephrotoxins, renally dose meds -continue to monitor urine output, has Ortega catheter (5) CHF (congestive heart failure): Status: Acute Problem details: -Has acute exacerbation of chronic diastolic CHF as evidenced by bilateral lower extremity edema, at least 2+, BNP elevation -off IV diuresis with Bumex; has diuresed well, switch to PO and resumed Aldactone -Echo (05/2019): EF=66%, G1DD, moderate TR, moderate pulmonary HTN Qualifiers: Heart failure chronicity: acute on chronic Heart failure type: diastolic Qualified Code(s): I50.33 - Acute on chronic diastolic (congestive) heart failure (6) Chronic anticoagulation: Status: Chronic Problem details: -on Eliquis secondary to history of PE, DVT status post IVC filter placement (7) Morbid obesity: Status: Chronic Problem details: -BMI-38 kg/m2 (8) Chronic anemia: Status: Chronic Problem details: -has hx of chronic microcytic anemia -baseline Hg 9-11 -continue to monitor H/H, currently stable (9) Hypertension: Status: Chronic Problem details: -VSS; continue to monitor vital signs -on low dose BB due to tachycardia, HR controlled Qualifiers: Hypertension type: essential hypertension Qualified Code(s): I10 - Essential (primary) hypertension (10) Vascular dementia: Status: Chronic Problem details: -Vascular dementia, hx of CVA, TIA Qualifiers: Dementia behavioral disturbance: without behavioral disturbance Qualified Code(s): F01.50 - Vascular dementia without behavioral disturbance (11) Smoking addiction: Status: Chronic Problem details: -heavy chronic smoker -nicotine replacement therapy Other Information Additional DC diagnoses/information: -hx of severe colitis s/p colectomy and ileostomy. Colostomy care as needed -noted transaminitis; AST and ALT trending down; previously normal hepatic function, unlikely to simply be due to hepatic congestion. Acute hepatitis panel and US abdomen negative Reason for Visit Reason for Visit: ALTERED MENTAL STATUS Hospital Course Hospital Course: Patient was admitted to ICU having been intubated in the ER when noted to have decompensation in her respiratory status. Patient has been admitted to our facility multiple times particularly over the past few months due to acute on chronic respiratory failure, including need for prior intubations and consistent BiPAP use. There was concern for sepsis intially due to hypoxia, leukocytosis, lactic acidosis; this has resolved over the course of her hospital stay. She has a baseline oxygen requirement of 3 to 4 L during the day and has a trilogy for use at night. Compliance particularly with trilogy is questionable. She continues to be a chronic smoker which typically leads to frequent exacerbations of her underlying oxygen dependent COPD. Imaging was more consistent with fluid versus infection so she was covered with empiric antibiotics in addition to IV diuresis with Bumex. Bumex was chosen over Lasix due to underlying renal impairment. Once intubated she had had a Ortega catheter placed for accurate measurement of ins and outs. So far she has diuresed a total of 4.2 L with noted symptomatic improvement. We were able to wean her off the ventilator and to her baseline oxygen requirement within about 48 hours of admission. She had also been covered with steroids and nebulizer treatments. Renal function has steadily improved and creatinine has now normalized. Hemoglobin has been stable and she has not required transfusion of any blood products. Leukocytosis has resolved, she has been afebrile with sputum culture growing mixed respiratory aristeo, initial set of blood cultures growing coagulase-negative staph which is likely contaminant and repeat set of blood cultures been negative. She has previously been tested for COVID-19 so this was not repeated during this admission. She was noted to have transaminitis of unclear etiology as acute hepatitis panel is negative, ultrasound does not show any liver pathology outside of mild hepatomegaly. Once extubated and resp iratory status stable she was transferred to the floor for continued monitoring of her respiratory status. She has done well overnight and been hemodynamically stable, currently on 3 to 4 L which is her baseline requirement and she is feeling well enough to go home today. Home health services have been requested and arranged. With questionable compliance in terms of her trilogy and medications, continued smoking and frequency of exacerbations she continues to be at high risk for readmission. Smoking cessation has been strongly encouraged. Ortega catheter has since been removed and she has been voiding without difficulty. Discharge Summary: -Patient to follow-up with her primary care provider within 1 week -Patient to continue to follow-up with Dr. Lipscomb Physical Exam Const: COMMON NORMALS: no acute distress, patient oriented x3 and alert GENERAL APPEARANCE: cooperative and comfortable NUTRITIONAL APPEARANCE: obese morbidly obese HENMT: COMMON NORMALS: normocephalic, atraumatic and moist oral mucous membranes HEAD & SCALP: normocephalic and atraumatic Eye: COMMON NORMALS: Equal, round and reactive pupils present and conjunctivae normal CONJUNCTIVA: Yes conjunctivae normal PUPIL: Yes Equal, round and reactive pupils present Neck/C-Spine: COMMON NORMALS: full ROM GENERAL: Yes normal visual inspection and Yes trachea midline Chest: CHEST: Yes Symmetrical chest wall rise Resp: COMMON NORMALS: normal respiratory effort, No retractions and No use of accessory muscles EFFORT & INSPECTION: Yes able to speak in complete sentences AUSCULTATION: wheezes (mild end-expiratory wheezing) and diminished lung sounds bilateral OTHER: -on 4 L NC Cardio: COMMON NORMALS: regular rate, regular rhythm, S1 normal heart sound present, S2 normal heart sound present and No murmurs present (Cardio) RATE: regular rate RHYTHM: regular rhythm HEART SOUNDS: S1 normal heart sound present and S2 normal heart sound present GI: COMMON NORMALS: Normal to inspection, nondistended, normoactive bowel sounds present and Soft to palpation INSPECTION: Yes central obesity PALPATION: Yes Soft to palpation OTHER: -colostomy in place on R : BLADDER/KIDNEY EXAM: Yes catheter in place Catheter type (Female): urethral Back/Pelvis: COMMON NORMALS: thoracic and lumbar spine normal to inspection Extremity: COMMON NORMALS: normal to inspection GENERAL: Yes edema (trace, bilateral LE) Neuro: COMMON NORMALS: patient oriented x3, moves all extremities, no focal motor deficits and no sensory deficits noted SENSORIUM/ORIENTATION: Yes alert Psych: COMMON NORMALS: mental status grossly normal, Normal thought process present, cooperative, normal affect and speech normal SPEECH: Yes normal speech THOUGHT PROCESS: Normal thought process present Skin: COMMON NORMALS: no rashes or lesions noted, no jaundice, no petechiae and no mottling GENERAL SKIN EXAM: no rashes or lesions noted Urinary Catheter Management^: Ortega: Cath Placed During This Visit: yes, but has since been removed by the nurse Urethral Indwelling: Yes Reason for Continuing Indwelling Catheter: Decision to DC Catheter Urinary Catheter Date of Insertion: 10/29/19 Urinary Catheter Time of Insertion: 15:00 Date Urinary Catheter Removed: 11/02/19 Time Urinary Catheter Discontinued: 09:30 Discharge Data Data Completed and Pending: Completed Studies During Hospitalization Category Date Time Status XR chest 1V mukesh ble [id number] Routine Exams 10/30/19 06:00 Completed XR chest 1V mukesh ble [id number] Routine Exams 10/31/19 06:00 Completed XR chest 1V mukesh ble [id number] Routine Exams 11/01/19 06:00 Completed XR chest 1V mukesh ble [id number] Urgent Exams 10/29/19 15:04 Completed US abdomen comple te* [id number] Routine Ultrasound 10/30/19 12:21 Completed Pending at discharge Category Date Time Status Blood Culture Sta t Lab 10/29/19 15:30 Results Blood Culture Sta t Lab 10/31/19 10:14 Results Labs from last 24 hours 11/03/19 11/03/19 04:38 04:38 WBC 9.2 RBC 4.61 Hgb 10.3 L Hct 39.6 MCV 85.9 MCH 22.3 L MCHC 26.0 L RDW 18.5 H Plt Count 221 MPV 10.6 H Neut % (Auto) 82.8 Lymph % (Auto) 8.4 [place] % (Auto) 7.6 Eos % (Auto) 0.3 Baso % (Auto) 0.1 Neut # (Auto) 7.6 Lymph # (Auto) 0.8 [place] # (Auto) 0.7 Eos # (Auto) 0.0 Baso # (Auto) 0.0 Nucleated RBC % (a uto) 0 Nucleated RBCs # 0.0 Sodium 137 Potassium 4.4 Chloride 92 L Carbon Dioxide 38 H Anion Gap 11.4 BUN 35 H Creatinine 0.7 GFR Calculation 83.7 L Glucose 90 Calculated Osmolal ity 281 L Calcium 8.9 Vitals: Last Vital Signs Temp 98.6 F 11/03/19 07:40 Pulse 84 11/03/19 08:10 Resp 20 H 11/03/19 08:10 BP 100/58 11/03/19 07:40 Pulse Ox 90 11/03/19 08:10 Discharge Plan Discharge Patient Disposition: Home Health Service Condition: Fair Prescriptions: New levofloxacin 750 mg Tablet 750 mg PO DAILY 5 Days Qty: 5 RF: 0 metoprolol tartrate 25 mg Tablet 12.5 mg PO BID 30 Days Qty: 30 RF: 0 Continued albuterol sulfate [Ventolin HFA] 90 mcg/actuation HFA aerosol inhaler 2 puff INHALATION Q6H PRN (Reason: unknown) RF: 0 Combivent Respimat 20-100 mcg/actuation mist 2 puff INHALATION QID PRN (Reason: unknown) RF: 0 revefenacin 175 mcg/3 mL solution for nebulization 175 mcg INHALATION DAILY 90 Days Qty: 90 RF: 3 Perforomist 20 mcg/2 mL solution for nebulization 2 ml INHALATION Q12H 90 Days Qty: 120 RF: 3 ondansetron 8 mg PO PRN RF: 0 spironolactone 25 mg Tablet 12.5 mg PO DAILY Qty: 30 RF: 0 aspirin [Aspir-81] 81 mg Tablet,Delayed Release (Dr/Ec) 81 mg PO DAILY RF: 0 diphenhydramine-acetaminophen [Tylenol PM Extra Strength] 25-500 mg Tablet 1 - 2 tab PO PRN RF: 0 melatonin 10 mg Tablet 10 mg PO BEDTIME PRN (Reason: Sleep) RF: 0 alprazolam 0.25 mg tablet 1 mg PO TID PRN (Reason: Anxiety) RF: 0 nicotine 14 mg/24 hr Patch 24 Hour 1 patch transdermal DAILY Qty: 30 RF: 0 nicotine (polacrilex) 2 mg lozenge 2 mg BUCCAL Q1H PRN (Reason: nicotine cravings) Qty: 72 RF: 2 budesonide [Pulmicort] 0.5 mg/2 mL suspension for nebulization 0.5 mg INHALATION BID 90 Days Qty: 120 RF: 3 albuterol sulfate 2.5 mg /3 mL (0.083 %) Solution For Nebulization 2.5 mg INHALATION Q4H PRN (Reason: Shortness Of Breath) RF: 0 Eliquis 5 mg Tablet 5 mg PO BID RF: 0 Spiriva Respimat 2.5 mcg/actuation mist 2 inh INHALATION DAILY Qty: 4 RF: 0 budesonide-formoterol [Symbicort] 160-4.5 mcg/actuation Hfa Aerosol Inhaler 1 puff INHALATION BID RF: 0 pantoprazole 40 mg Tablet,Delayed Release (Dr/Ec) 40 mg PO Q12H 30 Days Qty: 60 RF: 0 Changed Lasix 40 mg tablet 40 mg PO DAILY 30 Days Qty: 30 RF: 0 prednisone 10 mg tablet See Rx Instructions .ROUTE .COMPLEX 12 Days Qty: 30 RF: 0 Referrals: [facility] [Outside] Titus Garzon DO [Primary Care Provider] - 4-7 days (Post hospital discharge follow up. Treated for acute on chronic respiratory failure with course of steroids, antibiotics, and diuresis. ) Discharge Diet: Cardiac Discharge Activity: Increase activity as tolerated and Oxygen as instructed Activity Restrictions/Additional Instructions: -Please continue to use your oxygen and Trilogy as before. Please DO NOT smoke while using oxygen Discharge Attestations Time Spent in Discharge Care*: greater than 30 min Specific Discharge Activities: Specific discharge activities: educating patient, discussing with porter sample case/social workers/dc planners, documenting/other paperwork and evaluating patient/reviewing data Status at Discharge: Cognitive status at discharge: cognitively intact , Behavioral status at discharge: cooperative , Functional status at discharge: independent ambulation Overall status at discharge: patient is progressing back to baseline Quality Metrics Clinical Quality Measures During this hospital stay, did patient experience: None Coding Level of Care Code Acute Bicycle I Assembler for Denis Lozoya Diagnoses Acute hypercapnic respiratory failure J96.02 COPD (chronic obstructive pulmonary disease) J44.1 COPD type: COPD with acute exacerbation Acute hyperkalemia E87.5 Acute on chronic renal insufficiency N28.9; N18.9 CHF (congestive heart failure) I50.33 Heart failure chronicity: acute on chronic Heart failure type: diastolic Chronic anticoagulation Z79.01 Morbid obesity E66.01 Chronic anemia D64.9 Hypertension I10 Hypertension type: essential hypertension Vascular dementia F01.50 Dementia behavioral disturbance: without behavioral disturbance Smoking addiction F17.200
[2019-11-03] MEDS: predniSONE 20 mg Tablet 40 MG PO (13:26)
== END 2019-11-03 14:52 | disposition home health service (06) | DRG 871 ==
LOC: ER 16:58 → ICU 17:32 → MEDSURG 11-02 12:17
PROVIDERS: Family Medicine; Admitting Provider Hospitalist; PCP Internal Medicine; Visit Provider Family Medicine
DX: A41.9 Sepsis, unspecified organism (principal); J96.02 Acute respiratory failure with hypercapnia; I50.33 Acute on chronic diastolic (congestive) heart failure; I13.0 Hypertensive heart and chronic kidney disease with heart failure and stage 1 through stage 4 chronic kidney disease, or unspecified chronic kidney disease; J44.1 Chronic obstructive pulmonary disease with (acute) exacerbation; N17.9 Acute kidney failure, unspecified; N18.2 Chronic kidney disease, stage 2 (mild); Z86.718 Personal history of other venous thrombosis and embolism; Z86.711 Personal history of pulmonary embolism; Z95.828 Presence of other vascular implants and grafts; F17.210 Nicotine dependence, cigarettes, uncomplicated; Z99.81 Dependence on supplemental oxygen; I27.20 Pulmonary hypertension, unspecified; Z90.49 Acquired absence of other specified parts of digestive tract; D64.9 Anemia, unspecified; E66.01 Morbid (severe) obesity due to excess calories; Z68.38 Body mass index [BMI] 38.0-38.9, adult; F01.50 Vascular dementia, unspecified severity, without behavioral disturbance, psychotic disturbance, mood disturbance, and anxiety; E87.5 Hyperkalemia; Z93.2 Ileostomy status; Z79.51 Long term (current) use of inhaled steroids; Z79.82 Long term (current) use of aspirin; Z79.01 Long term (current) use of anticoagulants
CPT/HCPCS: 12345; 36415; 36416; 36600; 51702; 71045; 76700; 80048; 80053; 80074; 81001; 82803; 82962; 83605; 83735; 83880; 84132; 84484; 85025; 87040; 87070; 87205; 93005; 94002; 94003; 94640; 94660; 94799; 96375; 97110; 97116; 97162; 99283; A4570; C9113; J0330; J0696; J1815; J1956; J2370; J2704; J2920; J2930; J3490; J7040; J7512; J7611

== ENCOUNTER 2019-11-16 21:19 | Inpatient (IN) | payer MEDICARE, SELFPAY ==
[2019-11-16] VITALS (8 sets, daily range): BP systolic 117–139; BP diastolic 72–81; PULSE 94–115; RESP 17–26; TEMP 36.9; O2SAT 88–94; BMI 33.5
--- NOTE | 2019-11-16 21:30 | ECG_ITS ---
[facility] ED Test Date: 2019-11-16 Pat Name: Roseann Durham Department: Room: Gender: Female Corporate Librarian: : 1955 Requested By: Sunil Croft Order Number: [id number] Ander MD: Jose Griffin M.D. Measurements Intervals [place] Rate: 106 P: 42 MD: 116 QRS: 161 QRSD: 129 T: 27 QT: 334 QTc: 445 Interpretive Statements SINUS TACHYCARDIA WITH SHORT MD INTERVAL RIGHT BUNDLE BRANCH BLOCK [120+ ms QRS DURATION, UPRIGHT V1, 40+ ms S IN I/aVL/V4/V5/V6] LEFT POSTERIOR FASCICULAR BLOCK [QRS AXIS > 109, INFERIOR Q] Compared to ECG 10/29/2019 22:22:58 Short MD interval now present Left posterior fascicular block now present Right-axis deviation no longer present Electronically Signed On 11-17-2019 7:25:49 CDT by Jose Griffin M.D. [id number]
--- NOTE | 2019-11-16 21:30 | XR_ITS ---
WS: [id number] CHEST XRAY TECHNIQUE: Portable chest. CLINICAL INFORMATION: sob COMPARISON: November 01, 2019 FINDINGS: Heart: Cardiomegaly. Hiatal hernia. Lungs: Moderate chronic emphysematous changes. No acute pulmonary infiltrates. Calcified granuloma le ft lower lobe. Bones: Normal visualized bony structures. XR/XR chest 1V portable [id number] IMPRESSION: 1. Cardiomegaly with small esophageal hiatal hernia. 2. No acute pulmonary infiltrates.
--- NOTE | 2019-11-16 21:31 | W.ED.SOB ---
HPI - SOB/Dyspnea General: Chief Complaint: Shortness of Breath/Dyspnea Stated Complaint: SOB Time Seen by Provider: 11/16/19 21:26 Source: patient and EMS Mode of arrival: EMS Limitations: no limitations History of Present Illness: HPI Narrative: 64-year-old female has a long history of chronic breathing problems including COPD and CHF. Patient was recently intubated here last month for hypercapnia. Patient called EMS and brought in by EMS with distress. EMS states that she is in severe distress when they arrived and placed her on albuterol and gave her Solu-Medrol and terbutaline. Patient currently is slightly improved but still does have wheezing. She is on 4 L of oxygen at baseline and has 6 L on here currently. She has had no cough or fever. She has been tested for COVID multiple times with negatives. MD elicited complaint: shortness of breath Pertinent past history: COPD and congestive heart failure Onset (ago): hour(s) Timing: constant Severity: moderate Exacerbating factors: nothing Relieving factors: nothing Associated symptoms: Deny abdominal pain, chest pain, fever(s), nausea or vomiting Review of Systems Const: Denies: fever(s), chills, body aches or change in appetite Eyes: Denies: blurry vision or eye discomfort ENMT: Denies: throat pain or dental pain Card: Denies: chest pain Resp: Reports: dyspnea GI: Denies: abdominal pain, nausea, vomiting or diarrhea : Denies: dysuria Musc: Denies: neck pain or back pain Skin/Breast: Denies: rash Neuro: Denies: headache(s) Psych: Denies: depression Car/Lymph: Denies: easy bruising All/Imm: Denies: urticaria PFSH ED PFSH: Medical History (Updated 11/16/19 @ 23:44 by Sunil Croft MD) CHF (congestive heart failure) -Has acute exacerbation of chronic diastolic CHF as evidenced by bilateral lower extremity edema, at least 2+, BNP elevation -off IV diuresis with Bumex; has diuresed well, switch to PO and resumed Aldactone -Echo (05/2019): EF=66%, G1DD, moderate TR, moderate pulmonary HTN Chronic anemia -has hx of chronic microcytic anemia -baseline Hg 9-11 -continue to monitor H/H, currently stable Chronic anticoagulation -on Eliquis secondary to history of PE, DVT status post IVC filter placement Chronic diastolic CHF (congestive heart failure) Chronic respiratory failure with hypoxia and hypercapnia CKD (chronic kidney disease), stage II COPD (chronic obstructive pulmonary disease) -Has history of oxygen dependent COPD, previous baseline oxygen was about 3 to 4 L during the day, Trilogy-dependent qhs -Management as noted above -follows up with Dr. Lipscomb Hepatitis Hypertension -VSS; continue to monitor vital signs -on low dose BB due to tachycardia, HR controlled Morbid obesity -BMI-38 kg/m2 Pulmonary embolism Smoking addiction -heavy chronic smoker -nicotine replacement therapy Vascular dementia -Vascular dementia, hx of CVA, TIA Surgical History H/O section X2 H/O colectomy Secondary to severe colitis H/O: hysterectomy History of salpingo-oophorectomy S/P IVC filter Secondary to PE, DVT Family History Father Lung disease Social History Smoking and tobacco status: current every day smoker cigarettes Packs smoked per day: 1 Years cigarettes smoked: 40 [ Other cigarette details: Says has been reducing. Daughter has been trying to encourage cessation. ] Alcohol intake: never Lives independently: No (, daughter) Household members: family Marital status: Current occupational status: disabled History of recent travel: No Current gender identity: Female Physical Exam Const: COMMON NORMALS: patient oriented x3 GENERAL APPEARANCE: in distress and ill appearing HENMT: COMMON NORMALS: normocephalic and atraumatic HEAD & SCALP: normocephalic and atraumatic Eye: COMMON NORMALS: Equal, round and reactive pupils present and EOMs intact bilaterally PUPIL: Yes Equal, round and reactive pupils present Neck/C-Spine: COMMON NORMALS: full ROM and supple Chest: COMMONS NORMALS: normal inspection of the chest and normal palpation of entire chest wall Resp: EFFORT & INSPECTION: Yes tachypneic and Yes respiratory distress AUSCULTATION: wheezes Cardio: COMMON NORMALS: regular rate, regular rhythm and No murmurs present (Cardio) RATE: regular rate RHYTHM: regular rhythm GI: COMMON NORMALS: Normal to inspection, nondistended, normoactive bowel sounds present, Soft to palpation, non-tender and no masses PALPATION: Yes Soft to palpation Extremity: COMMON NORMALS: normal to inspection and full ROM Neuro: COMMON NORMALS: patient oriented x3, moves all extremities and no focal motor deficits Psych: COMMON NORMALS: mental status grossly normal, Normal thought process present and cooperative THOUGHT PROCESS: Normal thought process present Skin: COMMON NORMALS: no rashes or lesions noted and no wounds GENERAL SKIN EXAM: no rashes or lesions noted Course Vital Signs: Vital signs: Vital Signs Temperature 98.5 F 11/16/19 21:26 Pulse Rate 106 H 11/16/19 23:28 Respiratory Rate 24 H 11/16/19 23:28 Blood Pressure 127/72 11/16/19 23:28 Pulse Oximetry 92 11/16/19 23:28 MDM - SOB/Dyspnea MDM Narrative: Medical decision making narrative: Brenda presents here with shortness of breath with COPD exacerbation. Patient received terbutaline in route and had improvement. Did place her on BiPAP here which she refused after a while. Patient still has quite a bit of wheezing after breathing treatments breathing is improved. I spoke to hospitalist will admit for further breathing treatments and steroids. She has no signs of pneumonia. Lab Data: Labs: Lab Results 11/16/19 11/16/19 11/16/19 Range/Units 21:35 21:35 22:02 WBC 9.7 (4.0-10.0) 10^3/ uL RBC 4.84 (4.1-5.3) 10^6/u L Hgb 11.2 L (11.5-15.3) g/dL Hct 42.2 (37.0-47.0) % MCV 87.2 (81-99) fL MCH 23.1 L (28.0-34.0) pg MCHC 26.5 L (30.0-36.0) g/dL RDW 18.2 H (12.1-15.1) % Plt Count 174 (130-400) 10^3/c mm MPV 11.5 H (7.4-10.4) fL Neut % (Auto) 86.2 % Lymph % (Auto) 9.4 % [place] % (Auto) 3.2 % Eos % (Auto) 0.7 % Baso % (Auto) 0.2 % Neut # (Auto) 8.4 H (1.8-7.7) 10^3/u L Lymph # (Auto) 0.9 (0.8-4.8) 10^3/u L [place] # (Auto) 0.3 (0.2-0.9) 10^3/u L Eos # (Auto) 0.1 (0.0-0.8) 10^3/u L Baso # (Auto) 0.0 (0.0-0.1) 10^3/u L Nucleated RBC % (a uto) 0 % Nucleated RBCs # 0.0 /100WBC Specimen Type Arterial Sample Site Radial, right ABG pH 7.41 (7.35-7.45) ABG pCO2 71.5 H* (35-45) mmHg ABG pO2 51.0 L (80.0-100.0) mmH g ABG HCO3 45.2 H (22-26) mmol/L ABG Base Excess 17.3 H (-2.0-2.0) mmol/ L [place] Test Pos Hematocrit 35.5 L (37-47) % Hgb O2 Saturation 84.0 L (95-100) % Carboxyhemoglobin 2.3 (0.4-20.1) %THgb Methemoglobin 0.8 (0.4-1.5) % Total Hemoglobin 11.6 L (12-16) g/dL O2 Delivery Device Nc O2 Liters/Min 3.5 % Secondary Special Education Teacher ID [email or web address] Sodium 140 (136-145) mmol/L Potassium 3.9 (3.5-5.1) mmol/L Chloride 91 L (98-107) mmol/L Carbon Dioxide 42 H* (22-29) mmol/L Anion Gap 10.9 (5-19) BUN 15 (8-23) mg/dL Creatinine 0.6 (0.5-0.9) mg/dL GFR Calculation 100.0 (90-130) mL/min Glucose 167 H (65-115) mg/dL Calculated Osmolal ity 290 (285-295) mOsm/k g Calcium 9.0 (8.5-10.5) mg/dL Total Bilirubin 0.4 (0.15-1.2) mg/dL AST 17 (0-32) U/L ALT 14 (0-33) U/L Alkaline Phosphata se 63 (35-105) IU/L NT-Pro-B Natriuret Pep 127 H (0-125) pg/mL Total Protein 6.4 L (6.6-8.7) g/dL Albumin 3.7 (3.5-5.2) g/dL Globulin 2.7 (1.3-4.6) g/dL Imaging Data^: CXR: Attestation: I personally reviewed and interpreted this imaging study as follows: My impression: no acute abnormality EKG Data^: EKG 1: Attestation: I personally reviewed and interpreted this EKG as follows: EKG Interpretation Date: 11/16/19 EKG interpretation time: 21:48 Interpretation: sinus tach hr 106 rbb unchanged from previous no stemi qrs 129 qtc 396 Discharge Plan Discharge Patient Disposition: Admitted As Inpatient Clinical Impression: Acute exacerbation of chronic obstructive airways disease, Chronic diastolic CHF (congestive heart failure) Condition: Stable Referrals: Titus Garzon DO [Primary Care Provider] - Coding Level of Care Code ED Professor Of Finance for Chg Fwd Exam Comprehensive
[2019-11-16] MEDS: ipratropium-albuterol 3 mL Neb INHALATION (21:53)
[2019-11-16 21:59] LABS: Basophils % 0.2 %; Eosinophils # 0.1 10^3/uL (0.0-0.8); Eosinophils % 0.7 %; Hematocrit 42.2 % (37.0-47.0); Hemoglobin 11.2 g/dL (11.5-15.3); Lymphocytes # 0.9 10^3/uL (0.8-4.8); Lymphocytes % 9.4 %; Mean Corpuscular HGB Conc 26.5 g/dL (30.0-36.0); Mean Corpuscular Hemoglobin 23.1 pg (28.0-34.0); Mean Corpuscular Volume 87.2 fL (81-99); Mean Platelet Volume 11.5 fL (7.4-10.4); Monocytes # 0.3 10^3/uL (0.2-0.9); Monocytes % 3.2 %; Neutrophils # 8.4 10^3/uL (1.8-7.7); Neutrophils % 86.2 %; Nucleated Red Blood Cells % 0 %; Platelet Count 174 10^3/cmm (130-400); Red Blood Count 4.84 10^6/uL (4.1-5.3); Red Cell Distribution Width 18.2 % (12.1-15.1); White Blood Count 9.7 10^3/uL (4.0-10.0)
[2019-11-16 22:04] LABS: ABG PH Result 7.41 (7.35-7.45); Arterial Blood Gas Hematocrit 35.5 % (37-47); Base Excess ABG 17.3 mmol/L (-2.0-2.0); Blood Gas Allen Test Pos; Blood Gas LPM 3.5 %; Blood Gas Sample Site Radial, right; Blood Gas Sample Type Arterial; Carboxyhemoglobin 2.3 %THgb (0.4-20.1); HCO3 ABG 45.2 mmol/L (22-26); Methemoglobin 0.8 % (0.4-1.5); Oxygen Device NC; Total Hemoglobin 11.6 g/dL (12-16)
[2019-11-16 22:05] LABS: ABG PCO2 71.5 mmHg (35-45)
[2019-11-16 22:15] LABS: Alanine Aminotransferase 14 U/L (0-33); Albumin Level 3.7 g/dL (3.5-5.2); Alkaline Phosphatase 63 IU/L (35-105); Anion Gap 10.9 (5-19); Blood Urea Nitrogen 15 mg/dL (8-23); Chloride 91 mmol/L (98-107); Globulin 2.7 g/dL (1.3-4.6); Glucose 167 mg/dL (65-115); NT Pro B Type Natriuretic Pept 127 pg/mL (0-125); Osmolality Calculated 290 mOsm/kg (285-295); Potassium 3.9 mmol/L (3.5-5.1); Sodium 140 mmol/L (136-145); Total Bilirubin 0.4 mg/dL (0.15-1.2); Total Protein 6.4 g/dL (6.6-8.7)
[2019-11-16 22:29] LABS: Slide Review Slide Review Perform
[2019-11-16 22:51] LABS: Aspartate Amino Transferase 17 U/L (0-32); Carbon Dioxide 42 mmol/L (22-29)
--- NOTE | 2019-11-16 23:54 | P.HP_ITS ---
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 Patient was recently discharged from the hospital on 11/02, she was intubated for COPD exacerbation, after extubation she did well, she required IV diuresis and was discharged home on 40 mg of Lasix along levofloxacin 750 mg 5-day course. Patient is stating that since her last admission she has not smoked at all, she has been helping out her family by cooking and dealing with daily chores. Today her shortness of breath got worse around noon, she started experiencing audible wheezing, she decided to come to the ED. She has been compliant with her medications, she did not notice any fever, excessive sputum production, excessive coughing, nausea vomiting or increased output from colostomy bag. Diagnostics in the ER revealed normal hemodynamics, chest x-ray showed chronic changes no new infiltrates, blood gas showing compensated COPD, she required almost 20 mg of albuterol, after getting the treatment she became tachycardic and experienced some coarse tremors. Review of Systems Const: Reports: body aches and fatigue; Denies: fever(s) or chills Eyes: Reports: dry eyes ENMT: Denies: throat pain Card: Denies: chest pain Resp: Reports: dyspnea; Denies: productive cough, non-productive cough or pain on inspiration GI: Denies: abdominal pain, nausea or vomiting : Denies: flank pain or difficulty voiding Musc: Denies: neck pain Skin/Breast: Denies: rash Neuro: Denies: headache(s) Psych: Reports: anxiety and depression Endo: Denies: polyuria Car/Lymph: Denies: easy bruising All/Imm: Denies: urticaria Medications/Allergies Home Medications Medication Instructions Recorded Confirmed Last Taken Type Eliquis 5 mg PO BID 05/29/19 10/29/19 10/03/19 History albuterol sulfate 2.5 mg INHALATION Q4H PRN 05/29/19 10/29/19 07/21/19 History Spiriva Respimat 2 inh INHALATION DAILY #4 gm 06/08/19 10/29/19 10/03/19 Rx ondansetron 8 mg PO PRN 08/02/19 10/29/19 Unknown History spironolactone 12.5 mg PO DAILY #30 tab 08/27/19 10/29/19 10/03/19 Rx budesonide-formoterol [Symbicort] 1 puff INHALATION BID 09/04/19 10/29/19 10/03/19 History pantoprazole 40 mg PO Q12H 30 Days #60 tab 09/09/19 10/29/19 10/03/19 Rx albuterol sulfate 90 mcg/actuation 2 puff INHALATION Q6H PRN 09/20/19 10/29/19 Unknown History aerosol inhaler formoterol fumarate 20 mcg/2 mL 2 ml INHALATION Q12H 90 Days #120 09/20/19 10/29/19 Unknown Rx solution for nebulization ml ipratropium 20 mcg-albuterol 100 2 puff INHALATION QID PRN 09/20/19 10/29/19 Unknown History mcg/actuation mist for inhalation revefenacin 175 mcg/3 mL solution 175 mcg INHALATION DAILY 90 Days 09/20/19 10/29/19 Unknown Rx for nebulization #90 ml alprazolam 1 mg PO TID PRN 10/04/19 10/29/19 10/03/19 History aspirin [Aspir-81] 81 mg PO DAILY 10/04/19 10/29/19 Unknown History diphenhydramine-acetaminophen 1 - 2 tab PO PRN 10/04/19 10/29/19 Unknown History [Tylenol PM Extra Strength] melatonin 10 mg PO BEDTIME PRN 10/04/19 10/29/19 Unknown History budesonide [Pulmicort] 0.5 mg INHALATION BID 90 Days #120 10/06/19 10/29/19 Unknown Rx ml nicotine 1 patch TRANSDERMAL DAILY #30 ea 10/06/19 10/29/19 Unknown Rx nicotine (polacrilex) 2 mg BUCCAL Q1H PRN #72 each 10/06/19 10/29/19 Unknown Rx Lasix 40 mg PO DAILY 30 Days #30 tab 11/03/19 Unknown Rx metoprolol tartrate 12.5 mg PO BID 30 Days #30 tab 11/03/19 Unknown Rx prednisone See Rx Instructions .ROUTE 11/03/19 10/29/19 Unknown Rx .COMPLEX 12 Days #30 tab Allergies Allergy/AdvReac Type Severity Reaction Status Date / Time Sulfa (Sulfonamide Allergy Unknown Unknown Verified 10/30/19 17:45 Antibiotics) PFSH Acute PFSH: Medical History (Updated 11/17/19 @ 00:23 by Last Vallecillo MD) CHF (congestive heart failure) -Echo (05/2019): EF=66%, G1DD, moderate TR, moderate pulmonary HTN Chronic anemia -has hx of chronic microcytic anemia -baseline Hg 9-11 Chronic anticoagulation -on Eliquis secondary to history of PE, DVT status post IVC filter placement Chronic diastolic CHF (congestive heart failure) Chronic respiratory failure with hypoxia and hypercapnia CKD (chronic kidney disease), stage II COPD (chronic obstructive pulmonary disease) Follows up with Dr. Lipscomb as well, oxygen dependent 3 L at home Hepatitis Hypertension Morbid obesity -BMI-38 kg/m2 Pulmonary embolism Smoking addiction Quit in August 03 Vascular dementia -Vascular dementia, hx of CVA, TIA Surgical History H/O section X2 H/O colectomy Secondary to severe colitis H/O: hysterectomy History of salpingo-oophorectomy S/P IVC filter Secondary to PE, DVT Family History Father Lung disease Social History (Updated 11/17/19 @ 00:23 by Last Vallecillo MD) Smoking and tobacco status: heavy tobacco smoker Quit status (tobacco): has quit using tobacco Former quit date comment: Quit in August 03 Alcohol intake: never Substance/Drug Use: never Lives independently: No (, daughter) Household members: family Housing: House Marital status: Current occupational status: disabled History of recent travel: No Current gender identity: Female Vitals/I&O/Wt Last Vital Signs Temp 98.5 F 11/16/19 21:26 Pulse 104 H 11/16/19 23:53 Resp 26 H 11/16/19 23:53 BP 139/79 11/16/19 23:53 Pulse Ox 92 11/16/19 23:53 Weight last 48 hrs Weight 85.729 kg Physical Exam Narrative: EXAM NARRATIVE: Head to toe examination Patient currently saturating well on 3 L nasal cannula after receiving 20 mg of albuterol Respiratory chest noticed coarse tremors, not present at time of my evaluation Sinus tachycardia heart rate 106 Diffuse expiratory wheezing bilaterally without active respiratory distress Cushingoid appearance Abdomen soft nontender nondistended colostomy bag has semisolid fecal material S1, S2 sinus tachycardia with active signs of heart failure Bilateral lower extremity edema left greater than right Patient appears anxious Neurologically nonfocal exam Skin does not show any sign ischemia gangrene or ulcer Data : 11/16/19 21:35 11/16/19 21:35 A&P Assessment and plan (1) Acute exacerbation of chronic obstructive airways disease: Status: Acute (2) Moderate to severe pulmonary hypertension: Status: Acute (3) Chronic diastolic CHF (congestive heart failure): Status: Acute (4) Morbid obesity: Status: Inactive Additional A&P Information Diffuse active wheezing with COPD exacerbation Patient is currently requiring 4 L of oxygen at home she has been on 3 L, sinus tachycardia and coarse tremors seems secondary to use of albuterol I would use Xopenex and ipratropium, prednisone 40 mg No active infiltrates on chest x-ray Patient has been taking Eliquis, I would not repeat CTA She quit smoking in July 2019 I would continue her revefenacin Mild exacerbation of diastolic congestive heart failure Preserved ejection fraction Lower extremity edema 2+ left greater than right We will get left extremity Doppler study I would change Lasix to Bumex 1 mg COPD/obstructive sleep apnea Evidence of obstructive and restrictive lung disease, with obesity hypoventilation Follows up with Dr. Lipscomb, uses trilogy at home I have asked respiratory place to use trilogy here Chronic DVT/PE: Continue Eliquis Full code Cardiac diet DVT prophylaxis not needed as patient is on Eliquis Attestations Medical Necessity Statement*: Anticipating discharge in less than 48 hours currently need overnight monitoring for active wheezing despite normal pH, she has required 20 mg of albuterol to her symptoms Time Spent in Patient Care: (>than 50% of time spent in counselling and/or direct pt care on unit) . 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
[2019-11-17] VITALS (15 sets, daily range): BP systolic 113–129; BP diastolic 69–79; PULSE 85–119; RESP 12–26; TEMP 36.2–37.1; O2SAT 88–95
--- NOTE | 2019-11-17 01:00 | USCV_ITS ---
Roseann Durham Age: 64 Gender: F : 1955 Exam Date: 11/17/2019 11:33 Ordering Phys: Last Vallecillo MD Technologist: MIKEY VERAS Exam Location: [facility] [place]_ Indication: LEFT LEG SWELLING PROCEDURES: Venous duplex imaging was performed in only the left lower extremity. The following venous structures were evaluated: common femoral vein, profunda vein, proximal portion of the greater saphenous vein, superficial femoral vein, and the popliteal vein. In addition, the posterior tibial and peroneal trunk were evaluated. Serial compression, augmentation maneuvers, and spectral Doppler flow evaluation were performed. FINDINGS: Normal 2-D Doppler and augmentation and compressibility throughout the lower extremity venous structures. Additional imaging through the proximal calf veins also reveals no thrombus. Limited evaluation of the greater saphenous vein is patent with no thrombus.. CONCLUSIONS No evidence of left lower extremity DVT. Hunter Osman MD (Electronically Signed) Final Date: 17 November 2019 13:54 S
[2019-11-17 01:45] LABS: Phosphorus 2.3 mg/dL (2.5-4.5)
[2019-11-17] MEDS: ipratropium 0.5 mg/2.5 mL Neb INHALATION ×4 (03:11→21:39)
[2019-11-17] MEDS: levalbuterol 1.25 mg/3 mL Neb INHALATION ×4 (03:11→21:39)
[2019-11-17] MEDS: ALPRAZolam 0.25 mg Tablet PO ×2 (03:56→22:54)
[2019-11-17 06:07] LABS: Anion Gap 13.6 (5-19); Blood Urea Nitrogen 19 mg/dL (8-23); Calcium 9.1 mg/dL (8.5-10.5); Carbon Dioxide 40 mmol/L (22-29); Chloride 93 mmol/L (98-107); Glomerular Filtration Rate 123.4 mL/min (90-130); Glucose 150 mg/dL (65-115); Osmolality Calculated 293 mOsm/kg (285-295); Potassium 4.6 mmol/L (3.5-5.1); Sodium 142 mmol/L (136-145)
[2019-11-17] MEDS: budesonide 0.5 mg/2 mL Neb INHALATION ×2 (08:00→21:39)
[2019-11-17] MEDS: predniSONE 20 mg Tablet 40 MG PO (08:10)
[2019-11-17] MEDS: bumetanide 1 mg Tablet PO (08:10)
[2019-11-17] MEDS: apixaban 5 mg Tablet PO ×2 (08:10→17:50)
[2019-11-17] MEDS: aspirin 81 mg EC Tablet PO (08:10)
[2019-11-17] MEDS: pantoprazole DR 40 mg Tablet PO ×2 (08:11→22:17)
--- NOTE | 2019-11-17 14:01 | PM.PN ---
Subjective Subjective: Interval history: Feeling a little bit edu. Still wheezing. Says no longer smokes. Vitals/I&O/Wt Last Vital Signs Temp 97.1 F L 11/17/19 12:00 Pulse 91 11/17/19 12:00 Resp 18 11/17/19 12:00 BP 124/76 11/17/19 12:00 Pulse Ox 92 11/17/19 12:00 11/16/19 11/17/19 11/17/19 22:59 06:59 14:59 Intake Total 240 / 240 596 / 596 Output Total 200 / 200 Balance 40 / 40 596 / 596 Weight last 48 hrs Weight 85.729 kg Physical Exam Const: COMMON NORMALS: no acute distress and patient oriented x3 HENMT: COMMON NORMALS: oropharynx normal Neck/C-Spine: COMMON NORMALS: no JVD Resp: COMMON NORMALS: normal respiratory effort AUSCULTATION: wheezes throughout Cardio: COMMON NORMALS: no JVD, regular rhythm, S1 normal heart sound present, S2 normal heart sound present and No murmurs present (Cardio) RHYTHM: regular rhythm HEART SOUNDS: S1 normal heart sound present and S2 normal heart sound present GI: COMMON NORMALS: Normal to inspection, nondistended, normoactive bowel sounds present, Soft to palpation and non-tender PALPATION: Yes Soft to palpation Extremity: COMMON NORMALS: no joint enlargement and no pedal edema Neuro: COMMON NORMALS: patient oriented x3 and moves all extremities Skin: COMMON NORMALS: no rashes or lesions noted GENERAL SKIN EXAM: no rashes or lesions noted Data : 11/16/19 21:35 11/17/19 05:08 A&P Assessment and plan (1) Acute exacerbation of chronic obstructive airways disease: Persistent wheezing. Requiring 5L oxygen by [place] whereas at home normally on 3.5-4L. We will switch her steroids to IV. No reports of purulent sputum for now continue without antibiotics continue breathing weakness. Oxygen support. Pulmonary toilet. Status: Acute (2) Moderate to severe pulmonary hypertension: Continue follow-up with pulmonology in office. Status: Acute (3) Chronic diastolic CHF (congestive heart failure): With exacerbation, peripheral edema. Continue Bumex. Monitor I&O. Status: Acute (4) Morbid obesity: Status: Inactive Additional A&P Information Chronic DVT/PE: Continue Eliquis Attestations Medical Necessity Statement*: Reuiring admission over 2 midnights for assessment and management of COPD exacerbation, worse hypoxia and CHF exacerbation. 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
[2019-11-18] VITALS (10 sets, daily range): BP systolic 113–151; BP diastolic 58–84; PULSE 77–92; RESP 16–24; TEMP 36.8–37.1; O2SAT 88–98
[2019-11-18 06:54] LABS: Anion Gap 6.4 (5-19); Blood Urea Nitrogen 30 mg/dL (8-23); Calcium 9.4 mg/dL (8.5-10.5); Chloride 93 mmol/L (98-107); Glomerular Filtration Rate 83.7 mL/min (90-130); Glucose 92 mg/dL (65-115); Osmolality Calculated 289 mOsm/kg (285-295); Potassium 4.4 mmol/L (3.5-5.1); Sodium 141 mmol/L (136-145)
[2019-11-18 06:56] LABS: Carbon Dioxide 46 mmol/L (22-29)
[2019-11-18] MEDS: bumetanide 1 mg Tablet PO (08:43)
[2019-11-18] MEDS: aspirin 81 mg EC Tablet PO (08:43)
[2019-11-18] MEDS: predniSONE 20 mg Tablet 60 MG PO (08:44)
[2019-11-18] MEDS: apixaban 5 mg Tablet PO ×2 (08:44→17:51)
[2019-11-18] MEDS: pantoprazole DR 40 mg Tablet PO ×2 (08:47→20:41)
[2019-11-18] MEDS: ipratropium 0.5 mg/2.5 mL Neb INHALATION (09:10)
[2019-11-18] MEDS: levalbuterol 1.25 mg/3 mL Neb INHALATION (09:10)
[2019-11-18] MEDS: budesonide 0.5 mg/2 mL Neb INHALATION (09:16)
[2019-11-18] MEDS: acetaminophen 325 mg Tablet 650 MG PO (12:13)
--- NOTE | 2019-11-18 14:42 | P.PN_ITS ---
Subjective Subjective: Interval history: Today she feels about the same. She feels that she is worse than her usual breathing. She is also requiring 5 L of oxygen still. She has not been up out of bed. Vitals/I&O/Wt Last Vital Signs Temp 98.7 F 11/18/19 12:00 Pulse 88 11/18/19 12:00 Resp 20 H 11/18/19 12:00 BP 128/84 11/18/19 12:00 Pulse Ox 88 L 11/18/19 12:00 11/17/19 11/18/19 11/18/19 22:59 06:59 14:59 Intake Total 120 / 716 600 / 1316 660 / 660 Output Total 250 / 600 800 / 1400 800 / 800 Balance -130 / 116 -200 / -84 -140 / -140 Weight last 48 hrs Weight 85.729 kg Physical Exam Const: COMMON NORMALS: no acute distress and patient oriented x3 HENMT: COMMON NORMALS: oropharynx normal Neck/C-Spine: COMMON NORMALS: no JVD Resp: COMMON NORMALS: normal respiratory effort AUSCULTATION: wheezes throughout Cardio: COMMON NORMALS: no JVD, regular rhythm, S1 normal heart sound present, S2 normal heart sound present and No murmurs present (Cardio) RHYTHM: regular rhythm HEART SOUNDS: S1 normal heart sound present and S2 normal heart sound present GI: COMMON NORMALS: Normal to inspection, nondistended, normoactive bowel sounds present, Soft to palpation and non-tender PALPATION: Yes Soft to pal pation Extremity: COMMON NORMALS: no joint enlargement GENERAL: Yes edema (2+) Neuro: COMMON NORMALS: patient oriented x3 and moves all extremities Skin: COMMON NORMALS: no rashes or lesions noted GENERAL SKIN EXAM: no rashes or lesions noted Data : 11/16/19 21:35 11/18/19 06:20 A&P Assessment and plan (1) Acute exacerbation of chronic obstructive airways disease: Does not feel better. Appears worse than her usual. Wheezing still throughout. We had a discussion that unfortunately we will have to go the steroids. He is today lost IV access and refused to replace them. Today she is agreeable for placement of a IV. Will order Solu-Medrol. Continue also desonide nebulization. Continue Xopenex. Persistent wheezing. Requiring 5L oxygen by [place] whereas at home normally on 3.5- 4L. Status: Acute (2) Moderate to severe pulmonary hypertension: Continue follow-up with pulmonology in office. Status: Acute (3) Chronic diastolic CHF (congestive heart failure): Diastolic CHF exacerbation. Persistent lower extremity edema, insufficiently in negative balance. Will change diuretic to Bumex 1 mg twice daily IV. Monitor I&O. Status: Acute (4) Morbid obesity: Status: Inactive Additional A&P Information Chronic DVT/PE: Continue Eliquis Attestations Medical Necessity Statement*: Continue admission for assessment management of acute on chronic respiratory failure with hypoxia requiring more oxygen than usual, dyspnea, COPD exacerbation, CHF exacerbation. 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
[2019-11-18] MEDS: metoprolol tartrate 25 mg Tablet 12.5 MG PO (17:51)
[2019-11-18] MEDS: bumetanide 0.25 mg/mL SDV 10 mL 1 MG IV (17:51)
[2019-11-18] MEDS: ALPRAZolam 0.25 mg Tablet PO (22:33)
[2019-11-19] VITALS (12 sets, daily range): BP systolic 119–152; BP diastolic 58–89; PULSE 74–97; RESP 17–22; TEMP 36.5–36.7; O2SAT 90–97
[2019-11-19] MEDS: levalbuterol 1.25 mg/3 mL Neb INHALATION ×3 (00:07→20:57)
[2019-11-19] MEDS: ipratropium 0.5 mg/2.5 mL Neb INHALATION ×3 (00:07→20:57)
[2019-11-19 06:04] LABS: Anion Gap 11.6 (5-19); Blood Urea Nitrogen 30 mg/dL (8-23); Calcium 9.1 mg/dL (8.5-10.5); Chloride 89 mmol/L (98-107); Glomerular Filtration Rate 123.4 mL/min (90-130); Glucose 177 mg/dL (65-115); Osmolality Calculated 287 mOsm/kg (285-295); Potassium 4.6 mmol/L (3.5-5.1); Sodium 138 mmol/L (136-145)
[2019-11-19 06:32] LABS: Carbon Dioxide 42 mmol/L (22-29)
[2019-11-19] MEDS: pantoprazole DR 40 mg Tablet PO ×2 (08:50→21:51)
[2019-11-19] MEDS: aspirin 81 mg EC Tablet PO (08:50)
[2019-11-19] MEDS: metoprolol tartrate 25 mg Tablet 12.5 MG PO ×2 (08:50→17:26)
[2019-11-19] MEDS: apixaban 5 mg Tablet PO ×2 (08:51→17:25)
[2019-11-19] MEDS: bumetanide 0.25 mg/mL SDV 10 mL 1 MG IV (08:51)
--- NOTE | 2019-11-19 10:40 | PC.NURSE ---
changed patient's colostomy bag and IV. New IV is in right wrist. OLD IV was pulled out when patient got up to [facility], IV intact, IV was also in right wrist
--- NOTE | 2019-11-19 14:38 | PM.PN ---
Subjective Subjective: Interval history: Reports today she is actually feeling worse. More short of breath. Cough is dry, without any sputum. No chest pain. No hemoptysis. Vitals/I&O/Wt Last Vital Signs Temp 98.1 F 11/19/19 11:55 Pulse 74 11/19/19 11:55 Resp 18 11/19/19 11:55 BP 124/66 11/19/19 11:55 Pulse Ox 97 11/19/19 11:55 11/18/19 11/19/19 11/19/19 22:59 06:59 14:59 Intake Total 400 / 1060 880 / 1940 720 / 720 Output Total 552 / 1352 1510 / 2862 Balance -152 / -292 -630 / -922 720 / 720 Physical Exam Const: COMMON NORMALS: no acute distress and patient oriented x3 HENMT: COMMON NORMALS: oropharynx normal Neck/C-Spine: COMMON NORMALS: no JVD Resp: COMMON NORMALS: normal respiratory effort AUSCULTATION: wheezes throughout Cardio: COMMON NORMALS: no JVD, regular rhythm, S1 normal heart sound present, S2 normal heart sound present and No murmurs present (Cardio) RHYTHM: regular rhythm HEART SOUNDS: S1 normal heart sound present and S2 normal heart sound present GI: COMMON NORMALS: Normal to inspection, nondistended, normoactive bowel sounds present, Soft to palpation and non-tender PALPATION: Yes Soft to palpation Extremity: COMMON NORMALS: no joint enlargement GENERAL: Yes edema (2+) Neuro: COMMON NORMALS: patient oriented x3 and moves all extremities Skin: COMMON NORMALS: no rashes or lesions noted GENERAL SKIN EXAM: no rashes or lesions noted Data : 11/16/19 21:35 11/19/19 04:34 A&P Assessment and plan (1) Acute exacerbation of chronic obstructive airways disease: Feels worse. Cough is dry. If becomes productive with purulent sputum, may need addition of antibiotic. Wheezing persists. Will increase dose of steroid. Continue also desonide nebulization. Continue Xopenex. Add scheduled. Persistent wheezing. Requiring 5L oxygen by [place] whereas at home normally on 3.5-4L. Status: Acute (2) Moderate to severe pulmonary hypertension: Continue follow-up with pulmonology in office. Status: Acute (3) Chronic diastolic CHF (congestive heart failure): Diastolic CHF exacerbation. With persistent edema, not significantly negative balance. Will increase Bumex to 2 mg twice daily. Monitor I&O. Renal function. Status: Acute (4) Morbid obesity: Status: Inactive Additional A&P Information Chronic DVT/PE: Continue Eliquis Attestations Medical Necessity Statement*: Continue admission for assessment and management of COPD exacerbation, CHF exacerbation, with underlying pulmonary hypertension. 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
--- NOTE | 2019-11-19 17:00 | PC.NURSE ---
patient requested that racebook writer call her granddaughter that is in her contacts. racebook writer called granddaughter. no answer and unable to leave message at this time.
[2019-11-19] MEDS: bumetanide 0.25 mg/mL SDV 10 mL 2 MG IV (17:26)
[2019-11-19] MEDS: ALPRAZolam 0.25 mg Tablet PO (21:51)
[2019-11-20] VITALS (9 sets, daily range): BP systolic 108–125; BP diastolic 62–80; PULSE 77–83; RESP 17–18; TEMP 36.6–37.1; O2SAT 82–96
[2019-11-20] MEDS: levalbuterol 1.25 mg/3 mL Neb INHALATION (02:27)
[2019-11-20 06:11] LABS: Anion Gap 13.5 (5-19); Blood Urea Nitrogen 29 mg/dL (8-23); Calcium 9.3 mg/dL (8.5-10.5); Chloride 86 mmol/L (98-107); Glomerular Filtration Rate 83.7 mL/min (90-130); Glucose 137 mg/dL (65-115); Osmolality Calculated 285 mOsm/kg (285-295); Potassium 4.5 mmol/L (3.5-5.1); Sodium 138 mmol/L (136-145)
[2019-11-20 06:33] LABS: Carbon Dioxide 43 mmol/L (22-29)
[2019-11-20] MEDS: pantoprazole DR 40 mg Tablet PO (08:35)
[2019-11-20] MEDS: apixaban 5 mg Tablet PO (08:35)
[2019-11-20] MEDS: aspirin 81 mg EC Tablet PO (08:35)
[2019-11-20] MEDS: metoprolol tartrate 25 mg Tablet 12.5 MG PO (08:35)
[2019-11-20] MEDS: bumetanide 0.25 mg/mL SDV 10 mL 2 MG IV (08:36)
--- NOTE | 2019-11-20 10:30 | PC.SOCIAL ---
Pg 2 IMM Explained to pt Pg 2 IMM. Pt verbally understands. Provided pt a copy. Signed, dated, & timed a copy & placed in pt's chart.
--- NOTE | 2019-11-20 11:07 | PC.NURSE ---
Patient's iv was leaking and painful at site. IV removed. patient refuses new IV and requesting PO meds instead. Dr Rodas notified. Per Dr Rodas, will change meds to PO and patient may be discharge later today if doing well.
--- NOTE | 2019-11-20 13:24 | PC.NURSE ---
Called patient's family for ride home per request from Patient. Ultrasound Manager called [phone] and [phone], left message requesting call back
--- NOTE | 2019-11-20 15:20 | PC.NURSE ---
patient stated she has home meds. chart writer checked pyxis on north and on south side and called ER, no medications located in any area for patient.
--- NOTE | 2019-11-20 15:29 | PC.RESP ---
Smoking Cessation and Pulmonary Rehab information mailed to patient. Patient has received information for 3 consecutive months but has not responded to request to register for classes.
--- NOTE | 2019-11-20 15:52 | PC.NURSE ---
[facility]ICHO faxed to Dinorah
--- NOTE | 2019-11-21 11:52 | P.DS_ITS ---
Discharge Providers Date of Admission: 11/17/19 14:35 Date of Discharge: November 21, 2019 Attending Provider at Admission: Last Vallecillo MD Attending Provider at Discharge: Saleem Rodas MD Primary Care Provider: Titus Garzon DO Diagnoses at Discharge Discharge Diagnosis (1) Acute exacerbation of chronic obstructive airways disease: Status: Resolved (2) Moderate to severe pulmonary hypertension: Status: Resolved (3) Chronic diastolic CHF (congestive heart failure): Status: Resolved (4) Morbid obesity: Status: Resolved Reason for Visit Reason for Visit: SOB Hospital Course Discharge Summary: This is a 64-year-old female who has a past medical history of pulmonary hypertension, COPD 3 to 4 L oxygen dependent, has home trilogy machine, DVT PE status post IVC filter placement, chronic anticoagulant with Eliquis, diastolic heart failure, chronic smoker who presents to [facility] due to complaints of shortness of breath. Patient was admitted for acute exacerbation of COPD and some component of heart failure exacerbation, received oxygen therapy, nebulizer treatments, steroids, Lasix therapy, patient was monitored over the next 48 hours. Patient clinically improved, was ambulating around her room without significant symptomatology, but was requiring up to 4 to 5 L of oxygen. After another day of diuretic therapy and steroids, she still remained 4 to 5 L on oxygen, but was relatively asymptomatic, lungs had minimal wheezing, she stated that she is ready to go home. 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 and primary care as outpatient Physical Exam Const: COMMON NORMALS: no acute distress and patient oriented x3 HENMT: COMMON NORMALS: normocephalic HEAD & SCALP: normocephalic Neck/C-Spine: COMMON NORMALS: no JVD Resp: COMMON NORMALS: normal respiratory effort, No retractions, No use of accessory muscles and clear to auscultation bilaterally AUSCULTATION: clear to auscultation bilaterally Cardio: COMMON NORMALS: no JVD, regular rate, regular rhythm, S1 normal heart sound present and S2 normal heart sound present RATE: regular rate RHYTHM: regular rhythm HEART SOUNDS: S1 normal heart sound present and S2 normal heart sound present GI: COMMON NORMALS: Normal to inspection, nondistended, normoactive bowel sounds present, Soft to palpation, non-tender, No hepatosplenomegaly present, no masses and no bruits PALPATION: Yes Soft to palpation and Yes No hepatosplenomegaly present Extremity: COMMON NORMALS: capillary refill normal, no clubbing, cyanosis or edema, no calf tenderness and no pedal edema Neuro: COMMON NORMALS: patient oriented x3 Psych: COMMON NORMALS: mental status grossly normal Discharge Data Data Completed and Pending: Completed Studies During Hospitalization Category Date Time Status XR chest 1V mukesh ble 99778 Urgent Exams 11/16/19 21:30 [place] [address] Routin e Ultrasound 11/17/19 01:00 Completed Vitals: Last Vital Signs Temp 98.6 F 11/20/19 14:58 Pulse 78 11/20/19 14:58 Resp 18 11/20/19 14:58 BP 124/80 11/20/19 14:58 Pulse Ox 96 11/20/19 14:58 Discharge Plan Discharge Patient Disposition: Home, Self-Care Condition: Stable Prescriptions: New prednisone 10 mg tablet See Rx Instructions .ROUTE .COMPLEX Qty: 53 RF: 0 Continued albuterol sulfate [Ventolin HFA] 90 mcg/actuation HFA aerosol inhaler 2 puff INHALATION Q6H PRN (Reason: unknown) RF: 0 Combivent Respimat 20-100 mcg/actuation mist 2 puff INHALATION QID PRN (Reason: unknown) RF: 0 revefenacin 175 mcg/3 mL solution for nebulization 175 mcg INHALATION DAILY 90 Days Qty: 90 RF: 3 Perforomist 20 mcg/2 mL solution for nebulization 2 ml INHALATION Q12H 90 Days Qty: 120 RF: 3 spironolactone 25 mg Tablet 12.5 mg PO DAILY Qty: 30 RF: 0 aspirin [Aspir-81] 81 mg Tablet,Delayed Release (Dr/Ec) 81 mg PO DAILY RF: 0 diphenhydramine-acetaminophen [Tylenol PM Extra Strength] 25-500 mg Tablet 1 - 2 tab PO PRN RF: 0 melatonin 10 mg Tablet 10 mg PO BEDTIME PRN (Reason: Sleep) RF: 0 alprazolam 0.25 mg tablet 1 mg PO TID PRN (Reason: Anxiety) RF: 0 nicotine 14 mg/24 hr Patch 24 Hour 1 patch transdermal DAILY Qty: 30 RF: 0 budesonide [Pulmicort] 0.5 mg/2 mL suspension for nebulization 0.5 mg INHALATION BID 90 Days Qty: 120 RF: 3 metoprolol tartrate 25 mg Tablet 12.5 mg PO BID 30 Days Qty: 30 RF: 0 albuterol sulfate 2.5 mg /3 mL (0.083 %) Solution For Nebulization 2.5 mg INHALATION Q4H PRN (Reason: Shortness Of Breath) RF: 0 Eliquis 5 mg Tablet 5 mg PO BID RF: 0 Spiriva Respimat 2.5 mcg/actuation mist 2 inh INHALATION DAILY Qty: 4 RF: 0 budesonide-formoterol [Symbicort] 160-4.5 mcg/actuation Hfa Aerosol Inhaler 1 puff INHALATION BID RF: 0 pantoprazole 40 mg Tablet,Delayed Release (Dr/Ec) 40 mg PO Q12H 30 Days Qty: 60 RF: 0 Changed Lasix 40 mg tablet 40 mg PO BIDWM 30 Days Qty: 60 RF: 0 Discontinued prednisone 10 mg tablet See Rx Instructions .ROUTE .COMPLEX 12 Days Qty: 30 RF: 0 Discharge Orders: Discharge Order (Routine); Ordered 11/20/19 Ordered By: Saleem Rodas Referrals: [facility] [Outside] Moses Lipscomb MD [Physician] - 12/07/19 3:25 pm Titus Garzon DO [Primary Care Provider] - 11/27/19 11:00 am Discharge Diet: Cardiac Discharge Activity: Resume usual activity Patient Instructions: Prednisone (By mouth), Chronic Obstructive Pulmonary Disease (GEN) Activity Restrictions/Additional Instructions: -If you have fevers, worsening cough, worsening shortness of breath please come back to emergency room -Please follow-up with primary care provider within a week -Follow-up with Dr. 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
== END 2019-11-20 14:59 | disposition home or self-care (01) | DRG 190 ==
LOC: ER 23:44 → MEDSURG 11-17 08:17
PROVIDERS: Emergency Medicine; Internal Medicine; Admitting Provider Internal Medicine; PCP Internal Medicine; Visit Provider Family Medicine
DX: J44.1 Chronic obstructive pulmonary disease with (acute) exacerbation (principal); J96.21 Acute and chronic respiratory failure with hypoxia; I50.33 Acute on chronic diastolic (congestive) heart failure; I13.0 Hypertensive heart and chronic kidney disease with heart failure and stage 1 through stage 4 chronic kidney disease, or unspecified chronic kidney disease; J96.12 Chronic respiratory failure with hypercapnia; I27.20 Pulmonary hypertension, unspecified; E66.01 Morbid (severe) obesity due to excess calories; Z68.33 Body mass index [BMI] 33.0-33.9, adult; Z99.81 Dependence on supplemental oxygen; Z95.828 Presence of other vascular implants and grafts; Z79.01 Long term (current) use of anticoagulants; Z79.82 Long term (current) use of aspirin; Z87.891 Personal history of nicotine dependence; D50.9 Iron deficiency anemia, unspecified; N18.2 Chronic kidney disease, stage 2 (mild); Z86.711 Personal history of pulmonary embolism; F01.50 Vascular dementia, unspecified severity, without behavioral disturbance, psychotic disturbance, mood disturbance, and anxiety; Z86.73 Personal history of transient ischemic attack (TIA), and cerebral infarction without residual deficits; I07.1 Rheumatic tricuspid insufficiency; G47.33 Obstructive sleep apnea (adult) (pediatric)
CPT/HCPCS: 12345; 36415; 36600; 71045; 80048; 80053; 82805; 83880; 84100; 85025; 93005; 93971; 94640; 94660; 94762; 96375; 99283; G0378; J2930; J3490; J7512; J7611; J7614; J7626; J7644

== ENCOUNTER 2019-11-22 11:39 | Emergency (ER) | payer MEDICARE, SELFPAY ==
[2019-11-22] VITALS (10 sets, daily range): BP systolic 119–186; BP diastolic 73–99; PULSE 91–101; RESP 18–32; TEMP 36.7; O2SAT 90–97; BMI 37.2
--- NOTE | 2019-11-22 11:41 | XR_ITS ---
WS: [id number] PORTABLE CHEST HISTORY: sob COMPARISON: 2019 Hyperinflated lungs. Study is obtained in the lordotic projection. Patient is also rotated to the RIG HT causing deviation of the mediastinal structures to the RIGHT. No pneumonia. Normal vasculature. No pleural effusion or pneumothorax. Cardiac size: Normal. Mediastinum/Aorta: Mild atherosclerosis aorta. No osseous abnormality seen. XR/XR chest 1V portable [id number] IMPRESSION: Chronic emphysema with no acute pneumonia.
--- NOTE | 2019-11-22 11:41 | ECG_ITS ---
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 Measurements Intervals [place] Rate: 102 P: 68 AL: 122 QRS: 126 QRSD: 130 T: 18 QT: 331 QTc: 433 Interpretive Statements SINUS TACHYCARDIA RIGHT AXIS DEVIATION RIGHT BUNDLE BRANCH BLOCK Compared to ECG 11/16/2019 21:48:57 Right-axis deviation now present Short AL interval no longer present Left posterior fascicular block no longer present Electronically Signed On 11-23-2019 17:09:34 CDT by Coral Winslow M.D. [id number]
[2019-11-22] MEDS: ipratropium-albuterol 3 mL Neb INHALATION (11:57)
[2019-11-22 12:02] LABS: Basophils % 0.2 %; Eosinophils # 0.1 10^3/uL (0.0-0.8); Eosinophils % 1.5 %; Hematocrit 42.2 % (37.0-47.0); Lymphocytes # 1.2 10^3/uL (0.8-4.8); Lymphocytes % 13.1 %; Mean Corpuscular HGB Conc 26.1 g/dL (30.0-36.0); Mean Corpuscular Hemoglobin 23.3 pg (28.0-34.0); Mean Corpuscular Volume 89.2 fL (81-99); Mean Platelet Volume 9.6 fL (7.4-10.4); Monocytes # 0.6 10^3/uL (0.2-0.9); Neutrophils # 6.7 10^3/uL (1.8-7.7); Neutrophils % 76.7 %; Nucleated Red Blood Cells % 0 %; Platelet Count 257 10^3/cmm (130-400); Red Blood Count 4.73 10^6/uL (4.1-5.3); Red Cell Distribution Width 17.6 % (12.1-15.1); White Blood Count 8.8 10^3/uL (4.0-10.0)
--- NOTE | 2019-11-22 12:10 | ED_ITS ---
HPI - SOB/Dyspnea General: Chief Complaint: Shortness of Breath/Dyspnea Stated Complaint: SOB Time Seen by Provider: 11/22/19 11:40 Source: patient and EMS Mode of arrival: EMS Limitations: no limitations History of Present Illness: HPI Narrative: 64-year-old female who states she has shortness of breath. Patient is very well-known to the ER and has been here multiple times for COPD exacerbations. Patient was discharged yesterday. Patient given terbutaline in route. She has had multiple negative COVID test. Patient is in mild distress. Denies any worsening or improving factors. MD elicited complaint: shortness of breath Associated symptoms: Deny abdominal pain, chest pain, fever(s), nausea or vomiting Review of Systems Const: Denies: fever(s), chills, body aches or change in appetite Eyes: Denies: blurry vision or eye discomfort ENMT: Denies: throat pain or dental pain Card: Denies: chest pain Resp: Reports: dyspnea and wheezing GI: Denies: abdominal pain, nausea, vomiting or diarrhea : Denies: dysuria Musc: Denies: neck pain or back pain Skin/Breast: Denies: rash Neuro: Denies: headache(s) Psych: Denies: depression Car/Lymph: Denies: easy bruising All/Imm: Denies: urticaria PFSH ED PFSH: Medical History CHF (congestive heart failure) -Echo (05/2019): EF=66%, G1DD, moderate TR, moderate pulmonary HTN Chronic anemia -has hx of chronic microcytic anemia -baseline Hg 9-11 Chronic anticoagulation -on Eliquis secondary to history of PE, DVT status post IVC filter placement Chronic diastolic CHF (congestive heart failure) Chronic respiratory failure with hypoxia and hypercapnia CKD (chronic kidney disease), stage II COPD (chronic obstructive pulmonary disease) Follows up with Dr. Lipscomb as well, oxygen dependent 3 L at home Hepatitis Hypertension Morbid obesity Pulmonary embolism Smoking addiction Quit in August 03 Vascular dementia -Vascular dementia, hx of CVA, TIA Surgical History H/O section X2 H/O colectomy Secondary to severe colitis H/O: hysterectomy History of salpingo-oophorectomy S/P IVC filter Secondary to PE, DVT Family History Father Lung disease Social History Smoking and tobacco status: heavy tobacco smoker Quit status (tobacco): has quit using tobacco Former quit date comment: Quit in August 03 Alcohol intake: never Lives independently: No (, daughter) Household members: family Housing: House Marital status: Current occupational status: disabled History of recent travel: No Current gender identity: Female Physical Exam Const: COMMON NORMALS: no acute distress, patient oriented x3 and healthy appearing GENERAL APPEARANCE: in distress HENMT: COMMON NORMALS: normocephalic and atraumatic HEAD & SCALP: norm ocephalic and atraumatic Eye: COMMON NORMALS: Equal, round and reactive pupils present and EOMs intact bilaterally PUPIL: Yes Equal, round and reactive pupils present Neck/C-Spine: COMMON NORMALS: full ROM and supple Chest: COMMONS NORMALS: normal inspection of the chest and normal palpation of entire chest wall Resp: COMMON NORMALS: normal respiratory effort, No retractions, No use of accessory muscles and clear to auscultation bilaterally EFFORT & INSPECTION: Yes tachypneic and Yes respiratory distress AUSCULTATION: clear to auscultation bilaterally and wheezes Cardio: COMMON NORMALS: regular rate, regular rhythm and No murmurs present (Cardio) RATE: regular rate RHYTHM: regular rhythm GI: COMMON NORMALS: Normal to inspection, nondistended, normoactive bowel sounds present, Soft to palpation, non-tender and no masses PALPATION: Yes Soft to palpation Extremity: COMMON NORMALS: normal to inspection and full ROM Neuro: COMMON NORMALS: patient oriented x3, moves all extremities and no focal motor deficits Psych: COMMON NORMALS: mental status grossly normal, Normal thought process present and cooperative THOUGHT PROCESS: Normal thought process present Skin: COMMON NORMALS: no rashes or lesions noted and no wounds GENERAL SKIN EXAM: no rashes or lesions noted Course Vital Signs: Vital signs: Vital Signs Temperature 98.0 F 11/22/19 11:56 Pulse Rate 99 11/22/19 15:00 Respiratory Rate 32 H 11/22/19 15:00 Blood Pressure 130/81 11/22/19 15:00 Pulse Oximetry 92 11/22/19 15:00 MDM - SOB/Dyspnea MDM Narrative: Medical decision making narrative: Patient presents for shortness of breath. After treatments here she states her breathing is improved compared to yesterday when she went home. Patient was seen by Dr. Kendrick in the ER and patient is wanting to go home and she is wanting to be placed on hospice. We will set this up with case management. Patient is stable for discharge. Lab Data: Labs: Lab Results 11/22/19 11/22/19 11/22/19 Range/Units 11:55 11:55 12:08 WBC 8.8 (4.0-10.0) 10^3/ uL RBC 4.73 (4.1-5.3) 10^6/u L Hgb 11.0 L (11.5-15.3) g/dL Hct 42.2 (37.0-47.0) % MCV 89.2 (81-99) fL MCH 23.3 L (28.0-34.0) pg MCHC 26.1 L (30.0-36.0) g/dL RDW 17.6 H (12.1-15.1) % Plt Count 257 (130-400) 10^3/c mm MPV 9.6 (7.4-10.4) fL Neut % (Auto) 76.7 % Lymph % (Auto) 13.1 % Dupage % (Auto) 7.0 % Eos % (Auto) 1.5 % Baso % (Auto) 0.2 % Neut # (Auto) 6.7 (1.8-7.7) 10^3/u L Lymph # (Auto) 1.2 (0.8-4.8) 10^3/u L Dupage # (Auto) 0.6 (0.2-0.9) 10^3/u L Eos # (Auto) 0.1 (0.0-0.8) 10^3/u L Baso # (Auto) 0.0 (0.0-0.1) 10^3/u L Nucleated RBC % (a uto) 0 % Nucleated RBCs # 0.0 /100WBC Specimen Type Arterial Sample Site Radial, left ABG pH 7.36 (7.35-7.45) ABG pCO2 83.4 H* (35-45) mmHg ABG pO2 74.3 L (80.0-100.0) mmH g ABG HCO3 47.2 H (22-26) mmol/L ABG Base Excess 18.1 H (-2.0-2.0) mmol/ L Santiago Test Pos Hematocrit 34.2 L (37-47) % Hgb O2 Saturation 91.7 L (95-100) % Carboxyhemoglobin 3.2 (0.4-20.1) %THgb Methemoglobin 0.9 (0.4-1.5) % Total Hemoglobin 11.2 L (12-16) g/dL O2 Delivery Device Nc O2 Liters/Min 6.0 % FiO2 44.0 % Custom Van Converter ID ed Sodium 141 (136-145) mmol/L Potassium 4.4 (3.5-5.1) mmol/L Chloride 95 L (98-107) mmol/L Carbon Dioxide 43 H* (22-29) mmol/L Anion Gap 7.4 (5-19) BUN 27 H (8-23) mg/dL Creatinine 0.6 (0.5-0.9) mg/dL GFR Calculation 100.0 (90-130) mL/min Glucose 85 (65-115) mg/dL Calculated Osmolal ity 288 (285-295) mOsm/k g Calcium 9.0 (8.5-10.5) mg/dL Total Bilirubin 0.2 (0.15-1.2) mg/dL AST 15 (0-32) U/L ALT 18 (0-33) U/L Alkaline Phosphata se 56 (35-105) IU/L NT-Pro-B Natriuret Pep 297 H (0-125) pg/mL Total Protein 6.0 L (6.6-8.7) g/dL Albumin 3.6 (3.5-5.2) g/dL Globulin 2.4 (1.3-4.6) g/dL Imaging Data^: CXR: Attestation: I personally reviewed and interpreted this imaging study as follows: Radiologist's impression: [address] [address] XRay Report Signed Patient: Roseann Durham Unit #: [id number] : 1955 Acct#:[id number] Age/Sex: 64 / F ADM Date: 11/22/19 Loc: ER Room/Bed: Attending Dr: Ordering Provider/Ordering MD: Sunil Croft MD Date of Service: 11/22/19 Procedure(s): XR chest 1V portable [id number] Accession Number(s): [id number] Report Number: [id number] WS: [id number] PORTABLE CHEST HISTORY: sob COMPARISON: 7 2020 Hyperinflated lungs. Study is obtained in the lordotic projection. Patient is also rotated to the RIGHT causing deviation of the mediastinal structures to the RIGHT. No pneumonia. Normal vasculature. No pleural effusion or pneumothorax. Cardiac size: Normal. Mediastinum/Aorta: Mild atherosclerosis aorta. No osseous abnormality seen. XR/XR chest 1V portable [id number] IMPRESSION: Chronic emphysema with no acute pneumonia. EKG Data^: EKG 1: Attestation: I personally reviewed and interpreted this EKG as follows: EKG Interpretation Date: 11/22/19 EKG interpretation time: 11:54 Interpretation: sinus tach hr [address] or t wave abnormalities qrs 130 qtc 390 Discharge Plan Discharge Patient Disposition: Home, Self-Care Clinical Impression: Acute exacerbation of chronic obstructive airways disease Condition: Stable Prescriptions: No Action albuterol sulfate [Ventolin HFA] 90 mcg/actuation HFA aerosol inhaler 2 puff INHALATION Q6H PRN (Reason: unknown) RF: 0 Combivent Respimat 20-100 mcg/actuation mist 2 puff INHALATION QID PRN (Reason: unknown) RF: 0 revefenacin 175 mcg/3 mL solution for nebulization 175 mcg INHALATION DAILY 90 Days Qty: 90 RF: 3 Perforomist 20 mcg/2 mL solution for nebulization 2 ml INHALATION Q12H 90 Days Qty: 120 RF: 3 spironolactone 25 mg Tablet 12.5 mg PO DAILY Qty: 30 RF: 0 aspirin [Aspir-81] 81 mg Tablet,Delayed Release (Dr/Ec) 81 mg PO DAILY RF: 0 diphenhydramine-acetaminophen [Tylenol PM Extra Strength] 25-500 mg Tablet 1 - 2 tab PO PRN RF: 0 melatonin 10 mg Tablet 10 mg PO BEDTIME PRN (Reason: Sleep) RF: 0 alprazolam 0.25 mg tablet 1 mg PO TID PRN (Reason: Anxiety) RF: 0 nicotine 14 mg/24 hr Patch 24 Hour 1 patch transdermal DAILY Qty: 30 RF: 0 budesonide [Pulmicort] 0.5 mg/2 mL suspension for nebulization 0.5 mg INHALATION BID 90 Days Qty: 120 RF: 3 metoprolol tartrate 25 mg Tablet 12.5 mg PO BID 30 Days Qty: 30 RF: 0 prednisone 10 mg tablet See Rx Instructions .ROUTE .COMPLEX Qty: 53 RF: 0 Lasix 40 mg tablet 40 mg PO BIDWM 30 Days Qty: 60 RF: 0 albuterol sulfate 2.5 mg /3 mL (0.083 %) Solution For Nebulization 2.5 mg INHALATION Q4H PRN (Reason: Shortness Of Breath) RF: 0 Eliquis 5 mg Tablet 5 mg PO BID RF: 0 Spiriva Respimat 2.5 mcg/actuation mist 2 inh INHALATION DAILY Qty: 4 RF: 0 budesonide-formoterol [Symbicort] 160-4.5 mcg/actuation Hfa Aerosol Inhaler 1 puff INHALATION BID RF: 0 pantoprazole 40 mg Tablet,Delayed Release (Dr/Ec) 40 mg PO Q12H 30 Days Qty: 60 RF: 0 Discharge Orders: Discharge Order (Routine); Ordered 11/22/19 Ordered By: Sunil Croft Referrals: Titus Garzon DO [Primary Care Provider] - 1-3 days Discharge Diet: Advance as tolerated Discharge Activity: Resume usual activity Coding Level of Care Code ED Grinder Outside Diameter for Chg Fwd Exam Comprehensive
[2019-11-22 12:19] LABS: ABG PH Result 7.36 (7.35-7.45); Arterial Blood Gas Hematocrit 34.2 % (37-47); Base Excess ABG 18.1 mmol/L (-2.0-2.0); Blood Gas Allen Test Pos; Blood Gas Sample Site Radial, left; Blood Gas Sample Type Arterial; HCO3 ABG 47.2 mmol/L (22-26); Oxygen Device NC; PO2 ABG 74.3 mmHg (80.0-100.0)
[2019-11-22 12:21] LABS: Carboxyhemoglobin 3.2 %THgb (0.4-20.1); HGB O2 Sat 91.7 % (95-100); Methemoglobin 0.9 % (0.4-1.5); Total Hemoglobin 11.2 g/dL (12-16)
[2019-11-22 12:29] LABS: Alanine Aminotransferase 18 U/L (0-33); Albumin Level 3.6 g/dL (3.5-5.2); Alkaline Phosphatase 56 IU/L (35-105); Anion Gap 7.4 (5-19); Aspartate Amino Transferase 15 U/L (0-32); Blood Urea Nitrogen 27 mg/dL (8-23); Chloride 95 mmol/L (98-107); Globulin 2.4 g/dL (1.3-4.6); Glucose 85 mg/dL (65-115); NT Pro B Type Natriuretic Pept 297 pg/mL (0-125); Osmolality Calculated 288 mOsm/kg (285-295); Potassium 4.4 mmol/L (3.5-5.1); Sodium 141 mmol/L (136-145); Total Bilirubin 0.2 mg/dL (0.15-1.2)
[2019-11-22 12:43] LABS: ABG PCO2 83.4 mmHg (35-45)
--- NOTE | 2019-11-22 12:55 | PC.NURSE ---
PT PROVIDED WITH FOOD AND DRINK PER DR. NORTH'S VO.
[2019-11-22 13:01] LABS: Carbon Dioxide 43 mmol/L (22-29)
--- NOTE | 2019-11-22 15:17 | PM.CONSULT ---
Providers/Reason For Consult Consulting Physican/Specialty*: Hospitalist, internal medicine Reason for Consult*: Dyspnea, end stage COPD Primary Care Provider: Titus Garzon DO History of Present Illness History of Present Illness Roseann Durham is a 64 year old female with end-stage COPD and pulmonary hypertension that presented to the emergency department today with shortness of breath. Patient reports her daughter called, she was short of breath and it did not seem alleviated with her trilogy. By the time I saw her, she wanted off BiPAP that was placed on in the ER and reported she was feeling even better than she did yesterday. We reviewed her course of frequent hospital stays, the severity of her lung disease. I discussed her case with her granddaughter by phone as well. At this point secondary to the severity of her lung disease it appears that she would be a candidate for hospice. The patient would like to proceed with this. She denies any fever since discharge yesterday. She has had no nausea or vomiting. She has had no chest pain. She reports her edema is unchanged. She is received a nebulizer treatment, and some steroids in the emergency department. Review of Systems General: Reports: 10 or more systems reviewed and unremarkable except in HPI and below Const: Denies: fever(s) Eyes: Denies: change in vision ENMT: Denies: throat pain Card: Denies: chest pain Resp: Reports: dyspnea and non-productive cough GI: Denies: abdominal pain : Denies: flank pain Musc: Denies: neck pain Skin/Breast: Denies: rash Neuro: Denies: headache(s) Psych: Denies: anxiety or depression Endo: Denies: polyuria Car/Lymph: Denies: easy bruising All/Imm: Denies: urticaria Meds/Allergies Home Medications and Allergies Home Medications Medication Instructions Recorded Confirmed Last Taken Type Eliquis 5 mg PO BID 05/29/19 11/17/19 10/03/19 History albuterol sulfate 2.5 mg INHALATION Q4H PRN 05/29/19 11/17/19 07/21/19 History Spiriva Respimat 2 inh INHALATION DAILY #4 gm 06/08/19 11/17/19 10/03/19 Rx spironolactone 12.5 mg PO DAILY #30 tab 08/27/19 11/17/19 10/03/19 Rx budesonide-formoterol [Symbicort] 1 puff INHALATION BID 09/04/19 11/17/19 10/03/19 History pantoprazole 40 mg PO Q12H 30 Days #60 tab 09/09/19 11/17/19 10/03/19 Rx albuterol sulfate 90 mcg/actuation 2 puff INHALATION Q6H PRN 09/20/19 11/17/19 Unknown History aerosol inhaler formoterol fumarate 20 mcg/2 mL 2 ml INHALATION Q12H 90 Days #120 09/20/19 11/17/19 Unknown Rx solution for nebulization ml ipratropium 20 mcg-albuterol 100 2 puff INHALATION QID PRN 09/20/19 11/17/19 Unknown History mcg/actuation mist for inhalation revefenacin 175 mcg/3 mL solution 175 mcg INHALATION DAILY 90 Days 09/20/19 11/17/19 Unknown Rx for nebulization #90 ml alprazolam 1 mg PO TID PRN 10/04/19 11/17/19 10/03/19 History aspirin [Aspir-81] 81 mg PO DAILY 10/04/19 11/17/19 Unknown History diphenhydramine-acetaminophen 1 - 2 tab PO PRN 10/04/19 11/17/19 Unknown History [Tylenol PM Extra Strength] melatonin 10 mg PO BEDTIME PRN 10/04/19 11/17/19 Unknown History budesonide [Pulmicort] 0.5 mg INHALATION BID 90 Days #120 10/06/19 11/17/19 Unknown Rx ml nicotine 1 patch TRANSDERMAL DAILY #30 ea 10/06/19 11/17/19 Unknown Rx metoprolol tartrate 12.5 mg PO BID 30 Days #30 tab 11/03/19 11/17/19 Unknown Rx Lasix 40 mg PO BIDWM 30 Days #60 tab 11/20/19 11/17/19 Unknown Rx prednisone See Rx Instructions .ROUTE 11/20/19 Unknown Rx .COMPLEX #53 tab Allergies Allergy/AdvReac Type Severity Reaction Status Date / Time Sulfa (Sulfonamide Allergy Unknown Unknown Verified 10/30/19 17:45 Antibiotics) PFSH Acute PFSH: Medical History CHF (congestive heart failure) -Echo (05/2019): EF=66%, G1DD, moderate TR, moderate pulmonary HTN Chronic anemia -has hx of chronic microcytic anemia -baseline Hg 9-11 Chronic anticoagulation -on Eliquis secondary to history of PE, DVT status post IVC filter placement Chronic diastolic CHF (congestive heart failure) Chronic respiratory failure with hypoxia and hypercapnia CKD (chronic kidney disease), stage II COPD (chronic obstructive pulmonary disease) Follows up with Dr. Lipscomb as well, oxygen dependent 3 L at home Hepatitis Hypertension Morbid obesity Pulmonary embolism Smoking addiction Quit in August 03 Vascular dementia -Vascular dementia, hx of CVA, TIA Surgical History H/O section X2 H/O colectomy Secondary to severe colitis H/O: hysterectomy History of salpingo-oophorectomy S/P IVC filter Secondary to PE, DVT Family History Father Lung disease Social History Smoking and tobacco status: heavy tobacco smoker Quit status (tobacco): has quit using tobacco Former quit date comment: Quit in August 03 Alcohol intake: never Lives independently: No (, daughter) Household members: family Housing: House Marital status: Current occupational status: disabled History of recent travel: No Current gender identity: Female Vitals/I&O/Wt Last Vital Signs Temp 98.0 F 11/22/19 11:56 Pulse 99 11/22/19 15:00 Resp 32 H 11/22/19 15:00 BP 130/81 11/22/19 15:00 Pulse Ox 92 11/22/19 15:00 Weight last 48 hrs Weight 95.254 kg Physical Exam Narrative: EXAM NARRATIVE: General exam is a white female, conversant and reflective about her condition. Neck is supple no lymphadenopathy thyromegaly Cardiovascular regular rate and rhythm, no murmur Lungs diminished breath sounds bilaterally but no wheezing Abdomen is soft, positive bowel sounds. Ostomy noted Extremities 1+ edema bilaterally Skin no rash Neuro no focal deficits Data Other Data: Other data: pH 7.36, PCO2 83, PO2 74 BNP is 297 Chest x-ray shows no infiltrate A&P Assessment and plan (1) Chronic respiratory failure: Chronic respiratory failure, with hypercarbia. Patient reports she feels better than on discharge yesterday after BiPAP is been taken off for significant period of time. Considering the severity of her lung disease, frequent hospitalizations, reduced quality of life she has made the decision for hospice evaluation which will be arranged at home. I have reviewed this with family member as well. There does not appear to be any need for an acute hospitalization. She will finish up her prednisone taper which patient was discharged on yesterday. She will continue trilogy as needed She will continue her home oxygen She will continue her frequent nebs Hospice will be arranged Status: Acute Additional A&P Information Severe end-stage COPD Pulmonary hypertension History of chronic diastolic heart failure. Compensated currently Obesity History of DVT, PE and on chronic anticoagulation Multiple other medical problems as outlined in her past medical history. Consult Attestations Medical Necessity Statement: Not applicable Time Spent in Patient Care: Greater than 35 minutes Coding Level of Care Code Acute Steam Cleaning Machine Operator for Denis Lozoya Diagnoses Chronic respiratory failure J96.10
[2019-11-22 16:02] LABS: ABG PH Result 7.35 (7.35-7.45); Alveolar-Arterial Oxygen Gradi 109.3 mmHg (5-10); Arterial Blood Gas Hematocrit 34.5 % (37-47); Base Excess ABG 16.6 mmol/L (-2.0-2.0); Blood Gas Allen Test Pos; Blood Gas Sample Site Radial, left; Blood Gas Sample Type Arterial; Carboxyhemoglobin 2.6 %THgb (0.4-20.1); HCO3 ABG 45.5 mmol/L (22-26); HGB O2 Sat 91.9 % (95-100); Ionized Calcium Level - ABG 1.2 mmol/L (1.1-1.4); Methemoglobin 0.8 % (0.4-1.5); Oxygen Device BIPAP; Oxygen Saturation ABG 95.1; PO2 ABG 75.1 mmHg (80.0-100.0); Potassium Level - ABG 4.5 mmol/L (3.5-5.0); Total Hemoglobin 11.3 g/dL (12-16)
--- NOTE | 2019-11-24 14:41 | DCPLANNER ---
late entry - case reviewer had message to speak with patient and family about hospice care. senior sales operations manager spoke with grand daughter and was told that family has that taken care of.
[2019-11-28 18:50] LABS: ABG PCO2 81.7 mmHg (35-45)
== END 2019-11-22 16:28 | disposition home or self-care (01) ==
PROVIDERS: Emergency Provider Emergency Medicine; PCP Internal Medicine
DX: J44.1 Chronic obstructive pulmonary disease with (acute) exacerbation (principal); Z79.01 Long term (current) use of anticoagulants; Z79.82 Long term (current) use of aspirin; I50.32 Chronic diastolic (congestive) heart failure; I13.0 Hypertensive heart and chronic kidney disease with heart failure and stage 1 through stage 4 chronic kidney disease, or unspecified chronic kidney disease; N18.2 Chronic kidney disease, stage 2 (mild); F01.50 Vascular dementia, unspecified severity, without behavioral disturbance, psychotic disturbance, mood disturbance, and anxiety; F17.210 Nicotine dependence, cigarettes, uncomplicated
CPT/HCPCS: 12345; 36600; 71045; 80051; 80053; 82803; 82805; 82810; 83880; 83986; 85025; 93005; 94640; 94660; 96374; 99283; 99285; J2930